=== PATIENT | female | born 1960 | race African-American/Black ===

== ENCOUNTER 2018-01-02 22:10 | Emergency (ER) | payer OTHER ==
[2018-01-02 22:24] VITALS: BMI 33.5
--- NOTE | 2018-01-02 22:26 | PDOC ---
Attending Attestation - Resident Resident Name: Anthony Greenberg - ED Attending Attestation I have performed the following: I have examined & evaluated the patient, The case was reviewed & discussed with the resident, I agree w/resident's findings & plan, Exceptions are as noted <Patel Muro - Last Filed: 01/02/18 22:26> - HPI HPI: 01/02/18 22:39 The patient is a 57 year old female with a past medical history of insulin dependent diabetes, COPD, and hypertension who presents to the [facility] emergency department for uncontrolled blood sugar just prior to arrival. The patient states that today she had a [employer] burger and subsequently acquired a pounding headache. The patient reports that has associated excessive thirst, excessive urination, and dysuria. She reports recent unassociated productive cough with green phlegm for 2 weeks. - Physicial Exam PE: 01/02/18 22:39 GENERAL: Well-appearing, well-nourished. No apparent distress. HEENT: Normocephalic, atraumatic. PERRL, EOM intact. CARDIOVASCULAR: Normal S1, S2. Regular rate and rhythm. PULMONARY: Clear to auscultation bilaterally. ABDOMEN: (+) Obese, soft, non-distended, non-tender. EXTREMITIES: Normal ROM in all four extremities. No gross deformities. SKIN: Warm, dry. No rash NEUROLOGICAL: No focal neurological deficits. - Medical Decision Making 01/02/18 22:39 Documentation prepared by Caio Villela, acting as medical research associate for Patel Muro DO. <Caio Villela - Last Filed: 01/02/18 22:40>
--- NOTE | 2018-01-02 22:27 | PDOC ---
History of Present Illness - General Stated Complaint: Blood Sugar Problem Time Seen by Provider: 01/02/18 22:21 History Source: Patient Exam Limitations: No Limitations - History of Present Illness Initial Comments: 01/02/18 22:27 This is a 57 YOF with h/o IDDM (on insulin and metformin), COPD, HTN, HLD, morbid obesity, and DANIELA who p/w a day of worsening excessive thirst, excessive urination (looks just like water), and throbbing headache for the past couple of hours. She additionally notes recent nausea and cough productive of green sputum, but no vomiting, fever, chills, diarrhea, constipation, rash, vision changes, difficulty walking, or other new symptoms. She notes being adherent to her normal DM regimen but states her blood sugar has been out of control anyway. She has previously been admitted to the hospital for blood sugar control on insulin drip, but does not remember being told she ever had DKA or HHS. Past History - Past Medical History Allergies/Adverse Reactions: Allergies Allergy/AdvReac Type Severity Reaction Status Date / Time No Known Allergies Allergy Verified 01/03/18 02:54 Home Medications: Ambulatory Orders Sulfamethoxazole/Trimethoprim [Bactrim Ds -] 1 tab PO BID #14 tablet 01/03/18 Review of Systems - Review of Systems Able to Perform ROS?: Yes Constitutional: No: Chills, Fever, Unexplained wgt Loss HEENTM: No: Nose Congestion, Throat Pain Respiratory: Yes: Cough. No: Shortness of Breath Cardiac (ROS): No: Chest Pain, Palpitations ABD/GI: Yes: Nausea. No: Constipated, Diarrhea, Vomiting : No: Burning, Dysuria Musculoskeletal: No: Back Pain, Neck Pain Integumentary: No: Bruising, Rash Neurological: Yes: Headache. No: Numbness, Tingling, Weakness, Dizziness Endocrine: Yes: Increased Thirst, Increased Urine. No: Unexplained Weight Gain , Unexplained Weight Loss *Physical Exam - Physical Exam General Appearance: Yes: Nourished, Obese, Other (nontoxic and well appearing, answering questions appropriately). No: Apparent Distress HEENT: positive: EOMI, CHU, Normal Voice, Hearing Grossly Normal. negative: Scleral Icterus (R), Scleral Icterus (L), Nasal Congestion Neck: positive: Trachea midline, Supple. negative: Tender, Rigid Respiratory/Chest: positive: Lungs Clear, Normal Breath Sounds. negative: Respiratory Distress, Crackles, Rhonchi, Stridor, Wheezing Cardiovascular: positive: Regular Rhythm, Regular Rate, S1, S2. negative: Edema , JVD, Murmur Gastrointestinal/Abdominal: positive: Normal Bowel Sounds, Soft. negative: Tender, Organomegaly, Pulsatile Mass, Guarding Musculoskeletal: positive: Normal Inspection. negative: Decreased Range of Motion, Vertebral Tenderness Extremity: positive: Normal Capillary Refill, Normal Inspection, Normal Range of Motion. negative: Tender, Cyanosis Integumentary: positive: Normal Color, Dry, Warm. negative: Erythema, Rash, Bruising Neurologic: positive: continuous improvement specialist II-XII NML intact (grossly), Fully Oriented, Alert, Normal Mood/Affect, Normal Response, Motor Strength 5/5. negative: EOM Palsy, Facial Droop, Numbness, Sensory Deficit, Confused, Disoriented ED Treatment Course - LABORATORY CBC & Chemistry Diagram: 01/02/18 23:00 01/03/18 01:00 Medical Decision Making - Medical Decision Making 01/02/18 22:48 Pt with DM p/w hyperglycemia, polydipsia, polyuria, n/v, abdominal pain, AMS. Exam: Morbidly obese, NAD, answers questions appropriately, normal heart/lung/ abdominal/neuro exams. DDX IBNLT: DKA, HHS, simple hyperglycemia (e.g. stress hyperglycemia), alcoholic ketosis, starvation ketosis, drug-induced acidosis, salicylate toxicity, uremic acidosis, possible provoking factors non-adherence, infection/ inflammation/sepsis (i.e. UTI/pyelonephritis, PNA, bronchitis, skin infection, pancreatitis, etc), EtOH or drug use, ACS, CVA/TIA, renal failure, etc. W/U ordered: CBCD CMP Mg Phos Serum Acetone Trop CK CKMB ABG UA UCx Lactate BCx EKG CXR Initial TX ordered: IVF, potassium, insulin, may consider bicarbonate and phosphate based on labs. 01/02/18 23:56 Chemistries hemolyzed; second set ordered along with cardiac profile, Mg, Phos, acetone. EKG: Reviewed; results as noted in ECG Review section. CXR: NADP on PA&LAT Laboratory Tests 01/02/18 01/02/18 01/02/18 23:00 23:00 23:00 WBC 5.9 RBC 5.13 Hgb 11.7 Hct 37.3 MCV 72.8 L MCH 22.7 L MCHC 31.2 L RDW 14.8 Plt Count 215 MPV 8.9 Absolute Neuts (auto) 3.2 Neutrophils % 55.3 Lymphocytes % 36.1 Monocytes % 6.4 Eosinophils % 1.3 Basophils % 0.9 Nucleated RBC % 0 Sodium Cancelled Potassium Cancelled Chloride Cancelled Carbon Dioxide Cancelled Anion Gap Cancelled BUN Cancelled Creatinine Cancelled Creat Clearance w eGFR Cancelled POC Glucometer Random Glucose Cancelled Calcium Cancelled Phosphorus Cancelled Magnesium Cancelled Total Bilirubin Cancelled AST Cancelled ALT Cancelled Alkaline Phosphatase Cancelled Creatine Kinase Cancelled Creatine Kinase Index CK-MB (CK-2) Troponin I Cancelled Total Protein Cancelled Albumin Cancelled Acetone, Qual Cancelled 01/03/18 01/03/18 01/03/18 00:01 01:00 01:00 WBC RBC Hgb Hct MCV MCH MCHC RDW Plt Count MPV Absolute Neuts (auto) Neutrophils % Lymphocytes % Monocytes % Eosinophils % Basophils % Nucleated RBC % Sodium 139 Potassium 4.3 Chloride 103 Carbon Dioxide 29 Anion Gap 7 L BUN 21 H Creatinine 0.8 Creat Clearance w eGFR > 60 POC Glucometer [phone] Random Glucose 362 H* Calcium 8.9 Phosphorus 4.0 Magnesium 1.9 Total Bilirubin 0.2 AST 12 L ALT 18 Alkaline Phosphatase 157 H Creatine Kinase 151 Creatine Kinase Index 0.8 CK-MB (CK-2) 1.29 Troponin I < 0.02 Total Protein 7.1 Albumin 3.2 L Acetone, Qual 01/03/18 01:00 WBC RBC Hgb Hct MCV MCH MCHC RDW Plt Count MPV Absolute Neuts (auto) Neutrophils % Lymphocytes % Monocytes % Eosinophils % Basophils % Nucleated RBC % Sodium Potassium Chloride Carbon Dioxide Anion Gap BUN Creatinine Creat Clearance w eGFR POC Glucometer Random Glucose Calcium Phosphorus Magnesium Total Bilirubin AST ALT Alkaline Phosphatase Creatine Kinase Creatine Kinase Index CK-MB (CK-2) Troponin I Total Protein Albumin Acetone, Qual Negative L Reassessment: Patient states feeling improved, comfortable going home. Repeat VS: DISCHARGE The Pt has gotten significant relief of symptoms with ED medications. Pt had mild DKA, now anion gap has closed, bicarb improved, no longer acidotic. Workup is no longer concerning for emergency-level pathology at this time. The Pt is appropriate for discharge with close outpatient follow up. They are comfortable with this plan and will follow up with their PCP in 1-3 days. Specific return precautions are discussed and they will come back to the ER if necessary. *DC/Admit/Observation/Transfer Diagnosis at time of Disposition: Hyperglycemia, Cough - Discharge Dispostion Disposition: HOME Condition at time of disposition: Stable Decision to Admit order: No - Prescriptions Prescriptions: Sulfamethoxazole/Trimethoprim [Bactrim Ds -] 1 tab PO BID #14 tablet - Referrals Referrals: [facility] [place] [facility] [place] [Provider Group] - Patient Instructions Printed Discharge Instructions: DI for Hyperglycemia -- Adult Additional Instructions: You were seen in the ER for high blood sugar. We did blood laboratories, imaging studies, and an electrocardiogram, and there was nothing detected on this workup that requires admission to the hospital. We also checked your urine and found a urinary tract infection. We gave you your first dose of antibiotic here in the ER. After our assessment, we do not believe you are having a medical emergency at this time, and we believe you are safe to go home. Please tack picker your prescription for antibiotics which we are sending to your pharmacy. Please take all your diabetes medications as prescribed. 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 Please follow up with your regular PCP doctor in 1-3 days. Call their clinic as soon as possible, tell them you were seen in the ER, and tell them you need an appointment. If you have any new or worsening symptoms, especially inability to control your blood sugars, loss of consciousness, excessive thirst or urination, abdominal pain, or other symptoms , please come back to the ER at any time (24 hours a day). If you are having severe or life threatening symptoms, or symptoms that make it unsafe to drive or have someone drive you, please call 911. - Post Discharge Activity
[2018-01-02] MEDS ORDERED: SODIUM CHLORIDE 0.9% 500 ML INFUS.BAG IV ONE (22:32)
[2018-01-02] MEDS ORDERED: ACETAMINOPHEN 1000 MG/100 ML VIAL (NON FORMULARY) IVPB ONE (22:32)
[2018-01-02] MEDS ORDERED: MAG HYDROX/AL HYDROX/SIMETH 30 ML UNIT-DOSE CUP ONE (23:12)
[2018-01-02 23:40] LABS: BASO % 0.9 % (0-2.0); EOS % 1.3 % (0-4.5); HEMATOCRIT 37.3 % (32.4-45.2); HEMOGLOBIN 11.7 GM/dL (10.7-15.3); LYMPH % 36.1 % (8-40); MCH 22.7 pg (25.7-33.7); MCHC 31.2 g/dl (32.0-36.0); MEAN CELL VOLUME 72.8 fl (80-96); MEAN PLT VOLUME 8.9 fl (7.5-11.1); MONO % 6.4 % (3.8-10.2); NEUT % 55.3 % (42.8-82.8); PLATELET COUNT 215 K/MM3 (134-434); RBC 5.13 M/mm3 (3.60-5.2); RDW 14.8 % (11.6-15.6); WHITE BLOOD COUNT 5.9 K/mm3 (4.0-10.0)
[2018-01-03 01:41] LABS: ALBUMIN 3.2 g/dl (3.4-5.0); ALK PHOS 157 U/L (45-117); ANION GAP 7 (8-16); BILIRUBIN,TOTAL 0.2 mg/dL (0.2-1.0); BLOOD UREA NITROGEN 21 mg/dL (7-18); CALCIUM 8.9 mg/dL (8.5-10.1); CHLORIDE 103 mmol/L (98-107); CO2 29 mmol/L (21-32); CREATININE 0.8 mg/dL (0.55-1.02); MAGNESIUM 1.9 mg/dL (1.8-2.4); POTASSIUM 4.3 mmol/L (3.5-5.1); SGOT/AST 12 U/L (15-37); SGPT/ALT 18 U/L (12-78); SODIUM 139 mmol/L (136-145); TOT PROT 7.1 g/dl (6.4-8.2)
[2018-01-03 01:42] LABS: GLUCOSE,RANDOM 362 mg/dL (74-106)
[2018-01-03] MEDS ORDERED: INSULIN REGULAR HUMAN 100 UNITS/ML *VIAL IVPUSH ONE (02:05)
[2018-01-03 03:09] VITALS: TEMP 97.6
[2018-01-03 04:09] LABS: URINE APPEARANCE SLCLOUDY; URINE BILIRUBIN NEGATIVE (<2.0 mg/dL); URINE COLOR LTYELLOW; URINE GLUCOSE (UA) 3+ (NEGATIVE); URINE KETONE NEGATIVE (NEGATIVE); URINE NITRITE NEGATIVE (NEGATIVE); URINE PROTEIN NEGATIVE (NEGATIVE); URINE UROBILINOGEN NEGATIVE mg/dL (0.2-1.0)
[2018-01-03 04:23] LABS: URINE LEUK ESTERASE 2+ (NEGATIVE)
[2018-01-03 04:24] LABS: EPI CELLS MODERATE /HPF (FEW); URINE MUCUS RARE
[2018-01-03] MEDS ORDERED: SULFAMETHOXAZOLE/TRIMETHOPRIM 800MG/160MG D.S. TABLET PO ONE (04:24)
[2018-01-03] MEDS ORDERED: SULFAMETHOXAZOLE/TRIMETHOPRIM 800MG/160MG D.S. TABLET ONE (05:03)
--- NOTE | 2018-01-05 08:05 | PDOC ---
Patient Follow-up (Call Back) - Post ED Follow - Up Condition at time of discharge: Stable Disposition at time of original discharge: HOME Reason for Call Back: Abnwl. Microbiology (On bactrim. Will await final.)
== END 2018-01-03 06:58 | disposition home or self-care (01) ==
LOC: JER 22:10
PROC: 3E033GC Introduction of Other Therapeutic Substance into Peripheral Vein, Percutaneous Approach (ICD-10-PCS; principal; 2018-01-02)
PROC: 3E033VG Introduction of Insulin into Peripheral Vein, Percutaneous Approach (ICD-10-PCS; 2018-01-02)
DX: E11.65 Type 2 diabetes mellitus with hyperglycemia (principal); Z79.4 Long term (current) use of insulin; Z79.84 Long term (current) use of oral hypoglycemic drugs; I10 Essential (primary) hypertension; E78.5 Hyperlipidemia, unspecified; J44.9 Chronic obstructive pulmonary disease, unspecified; G47.33 Obstructive sleep apnea (adult) (pediatric); E66.9 Obesity, unspecified; Z68.33 Body mass index [BMI] 33.0-33.9, adult
CPT/HCPCS: 36415; 71045-TC-FY; 71046-TC-FY; 80053; 81003; 81015; 82009; 82550; 82553; 82962; 83735; 84100; 84484; 85025; 87086; 87186; 99283-25; J0131

== ENCOUNTER 2018-01-20 18:52 | Emergency (ER) | payer OTHER ==
[2018-01-20 19:07] VITALS: BP 138/68; PULSE 68; TEMP 97.7; BMI 56.6
[2018-01-20] MEDS ORDERED: SODIUM CHLORIDE 0.9% 1000 ML INFUS.BAG IV ONE (19:25)
--- NOTE | 2018-01-20 19:43 | PDOC ---
History of Present Illness - General Chief Complaint: Blood Sugar Problem Stated Complaint: DIABETIC Time Seen by Provider: 01/20/18 19:13 History Source: Patient Exam Limitations: No Limitations - History of Present Illness Initial Comments: 01/20/18 19:30 The patient is a 57F with a PMH of recently diagnosed UTI (did not take abx 2/2 inability to afford them), IDDM (on insulin and metformin), COPD, HTN, HLD, morbid obesity, and DANIELA who presents to the ER with complaints of weakness, "blood sugar problem", and dysuria. The patient was recently seen in our ER and diagnosed with a UTI and hasn't taken antibiotics due to being unable to afford them. She continues to complain of dysuria, fever, chills. She also states that she's been unable to control her blood glucose because she cannot afford her insulin. She has been taking her metformin. She also states that she feels generalized weakness. She denies fever, chills, nausea, vomiting, CP, new SOB, focal numbness, tingling, and weakness. Past History - Past Medical History Allergies/Adverse Reactions: Allergies Allergy/AdvReac Type Severity Reaction Status Date / Time No Known Allergies Allergy Verified 01/20/18 19:46 Home Medications: Ambulatory Orders Amlodipine Besylate [Norvasc -] 10 mg PO DAILY 01/20/18 Atorvastatin Ca [Lipitor] 40 mg PO HS 01/20/18 Cephalexin [Keflex] 500 mg PO TID #21 capsule 01/20/18 Insulin Glargine,Hum.rec.anlog [Lantus] 24 unit SQ BID 01/20/18 Metformin HCl [Metformin HCl ER] 1,000 mg PO BID 01/20/18 Tiotropium [place] [Spiriva Respimat] 4 gm IH DAILY 01/20/18 COPD: Yes Diabetes: Yes (IDDM) Hypercholesterolemia: Yes - Immunization History Immunization Up to Date: Yes - Suicide/Smoking/Psychosocial Hx Smoking History: Former smoker Have you smoked in the past 12 months: Yes If you are a former smoker, when did you quit?: Information on smoking cessation initiated: Yes Hx Alcohol Use: No Drug/Substance Use Hx: No Substance Use Type: None Review of Systems - Review of Systems Able to Perform ROS?: Yes Comments:: 01/20/18 19:43 GENERAL/CONSTITUTIONAL: Positive for generalized weakness. No fever or chills. HEAD, EYES, EARS, NOSE AND THROAT: No change in vision. No ear pain or discharge. No sore throat. CARDIOVASCULAR: No chest pain, palpitations, or lightheadedness. RESPIRATORY: No cough, wheezing, shortness of breath, or hemoptysis. GASTROINTESTINAL: No nausea, vomiting, diarrhea, constipation, or abdominal pain. GENITOURINARY: Positive for dysuria. No frequency, hematuria, or change in urination. MUSCULOSKELETAL: No joint or muscle swelling or pain. No neck or back pain. SKIN: No rash or lesions. NEUROLOGIC: No headache, numbness, tingling, weakness, loss of consciousness, or change in strength/sensation. ENDOCRINE: No increased thirst. No abnormal weight change. HEMATOLOGIC/LYMPHATIC: No anemia, easy bleeding, or history of blood clots. ALLERGIC/IMMUNOLOGIC: No hives or skin allergy. Is the patient limited Stateless proficient: No *Physical Exam - Vital Signs Last Vital Signs Temp Pulse Resp BP Pulse Ox 97.7 F 68 20 138/68 100 01/20/18 18:57 01/20/18 18:57 01/20/18 18:57 01/20/18 18:57 01/20/18 18:57 - Physical Exam Comments: 01/20/18 19:43 GENERAL: Well developed, well nourished. Awake and alert. No acute distress. HEENT: Normocephalic, atraumatic. Hearing grossly normal. Moist mucous membranes. PERRLA, EOMI. No conjunctival pallor. Sclera are non-icteric. NECK: Supple. Full ROM. No JVD. CARDIOVASCULAR: Regular rate and rhythm. No murmurs, rubs, or gallops. PULMONARY: No evidence of respiratory distress. Lungs clear to auscultation bilaterally. No wheezing, rales or rhonchi. ABDOMINAL: Soft. Non-tender. Distended. No rebound or guarding. GENITOURINARY: No CVA tenderness bilaterally. MUSCULOSKELETAL: Normal range of motion at all joints. No bony deformities or tenderness. EXTREMITIES: No cyanosis. No clubbing. No edema. No calf tenderness or swelling. SKIN: Warm and dry. Normal capillary refill. No rashes. No jaundice. NEUROLOGICAL: Alert, awake, appropriate. Cranial nerves 2-12 intact. Normal speech. Gait is normal without ataxia. PSYCHIATRIC: Cooperative. Good eye contact. Appropriate mood and affect. Heart Score/ECG Review #1 ECG reviewed & interpreted by me at: 19:49 General ECG Interpretation: Sinus Rhythm, Normal Rate, Normal Intervals, No acute ischemic changes Compared to previous ECG there are: Previous ECG unavail 01/20/18 19:49 NSR vent rate at 75 RI 216 QRS 100 QTc 424 1st degree AV block No STD or CHAGO No signs of acute ischemia No prior to compare. ED Treatment Course - LABORATORY CBC & Chemistry Diagram: 01/20/18 20:00 01/20/18 20:00 Medical Decision Making - Medical Decision Making 01/20/18 19:49 The patient is a 57F with an extensive PMH who presents to the ER with complaints of inability to control her blood sugar, weakness, and continued UTI symptoms. She does have a PCP that she follows up with at [facility]. She states she cannot afford her bactrim for the UTI and she cannot afford her insulin. Will order basic labs including ketones to r/o DKA. Will hydrate patient and reassess. 01/20/18 21:08 CBC WNL, CMP indicating hyperglycemia. UA indicates continued UTI. Will give dose of ceftriaxone in ED as well as continue hydration. Will give home dose of insulin and give pt a meal and repeat FS. 01/20/18 22:13 Repeat FS is 297. Pt comfortable. We are arranging for transportation and have sent a prescription to her pharmacy to continue abx for the UTI. Pt understands and is ready for d/c. *DC/Admit/Observation/Transfer Diagnosis at time of Disposition: Hyperglycemia UTI (urinary tract infection) Qualifiers: Urinary tract infection type: site unspecified Hematuria presence: without hematuria Qualified Code(s): N39.0 - Urinary tract infection, site not specified - Discharge Dispostion Disposition: HOME Condition at time of disposition: Stable Decision to Admit order: No - Prescriptions Prescriptions: Cephalexin [Keflex] 500 mg PO TID #21 capsule - Referrals - Patient Instructions Additional Instructions: Please follow up with your primary care physician in 2-3 days. Please return to the ER if you have any signs or symptoms of chest pain, shortness of breath, uncontrollable fever, chills, nausea, vomiting, numbness, tingling, or weakness in any part of your body, changes in vision, or slurred speech. Please take your medications as prescribed. Please return to the ER if symptoms persist, worsen, or new symptoms arise. - Post Discharge Activity
--- NOTE | 2018-01-20 19:45 | PDOC ---
Attending Attestation - HPI HPI: 01/20/18 20:39 Patient is a 57 year old female with a significant past medical history of IDDM (on insulin and metformin), COPD, HTN, HLD, morbid obesity, and DANIELA, who presents to the ED with complaints of general weakness that began x4 weeks ago. Patient reports experiencing gradual weakness that she states has increased over time, prompting her to come into the ED for further evaluation. She reports being diagnosed with UTI 1.5 weeks ago from after going to clinic. Patient reports experiencing associated symptoms of dysuria, and urinary frequency, stating applying vaginal cortisone cream to the area with minimal relief. She reports being prescribed bactrim for UTI but states she has been non compliant due to being unable afford medication. Denies chest pain, fevers,chills. Denies contact with sick individuals, out of state travelling. Denies diarrhea, constipation, hematuria. Denies any other symptoms. Allergies: None Social history: Former smoker. No alcohol. No illicit drugs. Surgical history: Non - Physicial Exam PE: 01/20/18 20:39 GENERAL: Awake, alert, and fully oriented, in no acute distress HEAD: No signs of trauma EYES: PERRLA, EOMI, sclera anicteric, conjunctiva clear ENT: Auricles normal inspection, hearing grossly normal, nares patent, oropharynx clear without exudates. Moist mucosa NECK: Normal ROM, supple, no lymphadenopathy, JVD, or masses LUNGS: Breath sounds equal, clear to auscultation bilaterally. No wheezes, and no crackles HEART: Regular rate and rhythm, normal S1 and S2, no murmurs, rubs or gallops ABDOMEN: Soft, nontender, normoactive bowel sounds. No guarding, no rebound. No masses EXTREMITIES: Normal range of motion, no edema. No clubbing or cyanosis. No cords, erythema, or tenderness NEUROLOGICAL: Cranial nerves II through XII grossly intact. Normal speech, normal gait SKIN: Warm, Dry, normal turgor, no rashes or lesions noted. <Leon Joseph - Last Filed: 01/20/18 20:39> - Resident Resident Name: Guillermo Robison - ED Attending Attestation I have performed the following: I have examined & evaluated the patient, The case was reviewed & discussed with the resident, I agree w/resident's findings & plan - Medical Decision Making 01/20/18 22:10 Pt's labs demonstrate elevated glc; no acetone. She will be discharged home. UTI will be treated wt keflex. <Sirisha Pierre - Last Filed: 01/20/18 22:12>
[2018-01-20] MEDS ORDERED: FLUCONAZOLE 50 MG TABLET PO ONE (19:54)
[2018-01-20 20:14] LABS: BASO % 0.3 % (0-2.0); EOS % 1.6 % (0-4.5); HEMATOCRIT 36.3 % (32.4-45.2); HEMOGLOBIN 11.3 GM/dL (10.7-15.3); LYMPH % 48.3 % (8-40); MCH 22.6 pg (25.7-33.7); MCHC 31.2 g/dl (32.0-36.0); MEAN CELL VOLUME 72.3 fl (80-96); MEAN PLT VOLUME 8.3 fl (7.5-11.1); MONO % 8.2 % (3.8-10.2); NEUT % 41.6 % (42.8-82.8); PLATELET COUNT 220 K/MM3 (134-434); RBC 5.02 M/mm3 (3.60-5.2); RDW 15.1 % (11.6-15.6); WHITE BLOOD COUNT 6.1 K/mm3 (4.0-10.0)
[2018-01-20 20:14] LABS: URINE APPEARANCE SLCLOUDY; URINE BILIRUBIN NEGATIVE (<2.0 mg/dL); URINE COLOR LTYELLOW; URINE GLUCOSE (UA) 3+ (NEGATIVE); URINE KETONE NEGATIVE (NEGATIVE); URINE NITRITE NEGATIVE (NEGATIVE); URINE PROTEIN NEGATIVE (NEGATIVE); URINE UROBILINOGEN NEGATIVE mg/dL (0.2-1.0)
[2018-01-20 20:16] LABS: URINE LEUK ESTERASE 3+ (NEGATIVE)
[2018-01-20] MEDS ORDERED: FLUCONAZOLE 100 MG TABLET (UD) ONE (20:22)
[2018-01-20 20:24] LABS: EPI CELLS FEW /HPF (FEW); URINE MUCUS RARE
[2018-01-20] MEDS ORDERED: CEFTRIAXONE 1,000 MG in DEXTROSE 5%-WATER - 50 ML IVPB ONE (20:33)
[2018-01-20 20:35] LABS: ALBUMIN 3.2 g/dl (3.4-5.0); ALK PHOS 185 U/L (45-117); ANION GAP 9 (8-16); BILIRUBIN,TOTAL 0.2 mg/dL (0.2-1.0); BLOOD UREA NITROGEN 18 mg/dL (7-18); CALCIUM 8.6 mg/dL (8.5-10.1); CHLORIDE 101 mmol/L (98-107); CO2 26 mmol/L (21-32); CREATININE 0.9 mg/dL (0.55-1.02); POTASSIUM 4.1 mmol/L (3.5-5.1); SGOT/AST 11 U/L (15-37); SGPT/ALT 17 U/L (12-78); SODIUM 136 mmol/L (136-145); TOT PROT 6.7 g/dl (6.4-8.2)
[2018-01-20 20:37] LABS: ACETONE SERUM NEGATIVE (NEGATIVE); GLUCOSE,RANDOM 395 mg/dL (74-106)
[2018-01-20] MEDS ORDERED: INSULIN REGULAR HUMAN 100 UNITS/ML *VIAL IVPUSH ONE (20:37)
[2018-01-20] MEDS ORDERED: CEFTRIAXONE 1 GM/50 ML BAG ONE (20:42)
[2018-01-20] MEDS ORDERED: INSULIN REGULAR HUMAN 100 UNITS/ML *VIAL ONE (20:43)
--- NOTE | 2018-01-21 13:28 | EKG ---
Test Reason : Blood Pressure : / mmHG Vent. Rate : 074 BPM Atrial Rate : 074 BPM P-R Int : 216 ms QRS Dur : 102 ms QT Int : 378 ms P-R-T Axes : -03 -09 041 degrees QTc Int : 419 ms SINUS RHYTHM WITH 1ST DEGREE A-V BLOCK SEPTAL INFARCT , AGE UNDETERMINED ABNORMAL ECG NO PREVIOUS ECGS AVAILABLE Confirmed by CARLOS SAINI MD ([id number]) on 01/21/2018 1:28:13 PM Referred By: Confirmed By:CARLOS SAINI MD
== END 2018-01-20 22:39 | disposition home or self-care (01) ==
LOC: JER 18:52
DX: E11.65 Type 2 diabetes mellitus with hyperglycemia (principal); Z79.4 Long term (current) use of insulin; J44.9 Chronic obstructive pulmonary disease, unspecified; I10 Essential (primary) hypertension; E78.5 Hyperlipidemia, unspecified; G47.33 Obstructive sleep apnea (adult) (pediatric); E66.01 Morbid (severe) obesity due to excess calories; Z68.43 Body mass index [BMI] 50.0-59.9, adult; Z87.440 Personal history of urinary (tract) infections
CPT/HCPCS: 36415; 80053; 81003; 81015; 82009; 82962; 85025; 93005; 93010; 99282-25; J7030

== ENCOUNTER 2018-03-12 08:03 | Emergency (ER) | payer OTHER ==
[2018-03-12 08:13] VITALS: BMI 43.0
--- NOTE | 2018-03-12 08:46 | PDOC ---
Attending Attestation - Resident Resident Name: AdrianaHiginio - ED Attending Attestation I have performed the following: I have examined & evaluated the patient, The case was reviewed & discussed with the resident, I agree w/resident's findings & plan, Exceptions are as noted - HPI HPI: 03/12/18 14:16 Ms Dean is a 57 yo f presenting to the ER with a complaint of generalized weakness. She has a h/o COPD, HTN, IDDM, presenting to the ER with hyperglycemia. She notes upper respiratory infection - cough and sputum production She denies the following: fevers, chilld, headaches, dysuria, hematuria, hematochezia, melena, diarrhea, and leg pain/swelling. - Physicial Exam PE: 03/12/18 11:22 GENERAL: The patient is in no acute distress. HEAD: Normal . EYES: PERRLA, EOMI, sclera anicteric, conjunctiva clear. ENT: Ears normal, nares patent, oropharynx clear without exudates. Moist mucous membranes. NECK: Normal range of motion, supple without lymphadenopathy, JVD, or masses. LUNGS: Breath sounds equal, clear to auscultation bilaterally. No wheezes, and no crackles. HEART:Regular rate and rhythm, normal S1 and S2 without murmur, rub or gallop. ABDOMEN: Soft, nontender, normoactive bowel sounds. No guarding, no rebound. No masses palpable. EXTREMITIES: Normal range of motion, no edema. No clubbing or cyanosis. No erythema, or tenderness. NEUROLOGICAL: Cranial nerves II through XII grossly intact. Normal speech. No focal neurological deficits. MUSCULOSKELETAL: Back non-tender to palpation, no CVA tenderness SKIN: Warm, Dry, normal turgor, no rashes or lesions noted. - Medical Decision Making 03/12/18 11:22 Laboratory Tests 03/12/18 03/12/18 09:20 10:25 WBC 4.5 Hgb 12.5 Hct 40.8 Plt Count 206 Neutrophils % 41.5 L Lymphocytes % 47.0 H Sodium 138 Potassium 4.4 Chloride 100 Carbon Dioxide 30 BUN 14 Creatinine 0.8 Random Glucose 365 H* Creatine Kinase 146 Troponin I < 0.02 03/12/18 14:18 CXR: nml will discharge to home Follow up with PMD
[2018-03-12] MEDS ORDERED: SODIUM CHLORIDE 1,000 ML IV STA (08:53)
--- NOTE | 2018-03-12 09:04 | PDOC ---
History of Present Illness - General Chief Complaint: Blood Sugar Problem Stated Complaint: PAIN Time Seen by Provider: 03/12/18 08:12 History Source: Patient Exam Limitations: No Limitations - History of Present Illness Initial Comments: 03/12/18 13:14 Ms. Dean is a 57 yo F with a hx of COPD, HTN, DM, DANIELA, and GERD who presents to the emergency department with hyperglycemia with concurrent bilateral LE weakness and mild SOB without exertion. She is normally in the high 100s low 200s, but states her BG was 478. She normally uses 24 units of lantus BID and metformin 1000 mg BID but intermittently checks her BG with last check the past Sunday. She lives in a fpc and has had contact with people who are sick and endorses having a cough with production for the past 3 weeks. Endorses the following: rhinorrhea. Denies the following: fevers, headaches, recent visual changes, chest pain, abdominal pain, dysuria, hematuria, hematochezia, melena, diarrhea, and leg pain/swelling. Past History - Past Medical History Allergies/Adverse Reactions: Allergies Allergy/AdvReac Type Severity Reaction Status Date / Time No Known Allergies Allergy Verified 03/12/18 08:05 Home Medications: Ambulatory Orders Amlodipine Besylate [Norvasc -] 10 mg PO DAILY 01/20/18 Atorvastatin Ca [Lipitor] 40 mg PO HS 01/20/18 Insulin Glargine,Hum.rec.anlog [Lantus] 24 unit SQ BID 01/20/18 Metformin HCl [Metformin HCl ER] 1,000 mg PO BID 01/20/18 Tiotropium [place] [Spiriva Respimat] 4 gm IH DAILY 01/20/18 COPD: Yes Diabetes: Yes (IDDM, non compliant) Hypercholesterolemia: Yes - Immunization History Immunization Up to Date: Yes - Suicide/Smoking/Psychosocial Hx Smoking History: Current every day smoker Have you smoked in the past 12 months: Yes Number of Cigarettes Smoked Daily: 3 If you are a former smoker, when did you quit?: Information on smoking cessation initiated: No Hx Alcohol Use: No Drug/Substance Use Hx: No Substance Use Type: None Review of Systems - Review of Systems Able to Perform ROS?: Yes Constitutional: No: Chills, Diaphoresis, Fever HEENTM: No: Recent change in vision, Ear Pain, Nose Pain, Throat Pain, Mouth Pain Respiratory: Yes: Cough, Shortness of Breath, Productive cough. No: SOB with Exertion Cardiac (ROS): No: Chest Pain, Palpitations, Syncope, Chest Tightness ABD/GI: No: Constipated, Diarrhea, Nausea, Poor Fluid Intake, Rectal Bleeding, Vomiting, Tarry Stools : No: Burning, Dysuria, Incontinence, Pain Musculoskeletal: No: Back Pain Integumentary: No: Rash Neurological: No: Headache, Numbness, Paresthesia, Tremors, Weakness, Unsteady Gait, Dizziness Psychiatric: No: Stressors Endocrine: No: Unexplained Weight Gain Hematologic/Lymphatic: No: Anemia *Physical Exam - Vital Signs Last Vital Signs Temp Pulse Resp BP Pulse Ox 97.8 F 80 20 162/77 97 03/12/18 08:30 03/12/18 08:05 03/12/18 08:05 03/12/18 08:05 03/12/18 08:32 - Physical Exam General Appearance: Yes: Nourished, Appropriately Dressed HEENT: positive: EOMI, CHU Neck: positive: Trachea midline. negative: Lymphadenopathy (R), Lymphadenopathy (L) Respiratory/Chest: positive: Other (decreased inspiratory breath sounds. expiratory wheezes mildly throughout the lungs) Cardiovascular: positive: Regular Rhythm, Regular Rate, S1, S2. negative: Edema , Systolic Murmur Vascular Pulses: Dorsalis-Pedis (R): 3+, Doralis-Pedis (L): 3+ Gastrointestinal/Abdominal: positive: Normal Bowel Sounds. negative: Tender Musculoskeletal: positive: Normal Inspection. 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 elevations or depressions noted. ED Treatment Course - LABORATORY CBC & Chemistry Diagram: 03/12/18 09:20 03/12/18 10:25 - RADIOLOGY Radiology Studies Ordered: Category Date Time Status CHEST PA & LAT [RAD] Stat Radiology 03/12/18 08:53 Ordered Medical Decision Making - Medical Decision Making Ms. Dean is a 57 yo F with multiple significant past medical histories presenting with hyperglycemia possibly 2/2 to infectious etiology given hx of new onset of productive cough for past 3 weeks. ddx: HHS, DKA, PNA, URI, inadequate medication control Initial vitals Initial Vital Signs Temp Pulse Resp BP Pulse Ox 96.0 F L 80 20 162/77 99 03/12/18 08:05 03/12/18 08:05 03/12/18 08:05 03/12/18 08:05 03/12/18 08:05 Work up: Laboratory Tests 03/12/18 03/12/18 03/12/18 09:20 09:20 09:20 WBC 4.5 RBC 5.54 H Hgb 12.5 Hct 40.8 MCV 73.6 L MCH 22.6 L MCHC 30.8 L RDW 16.0 H Plt Count 206 MPV 8.8 Absolute Neuts (auto) 1.9 Neutrophils % 41.5 L Lymphocytes % 47.0 H Monocytes % 7.8 Eosinophils % 3.3 D Basophils % 0.4 Nucleated RBC % 0 Sodium Cancelled Potassium Cancelled Chloride Cancelled Carbon Dioxide Cancelled Anion Gap Cancelled BUN Cancelled Creatinine Cancelled Creat Clearance w eGFR Cancelled POC Glucometer Random Glucose Cancelled Calcium Cancelled Phosphorus Magnesium Total Bilirubin Cancelled AST Cancelled ALT Cancelled Alkaline Phosphatase Cancelled Creatine Kinase Cancelled Troponin I Cancelled Total Protein Cancelled Albumin Cancelled Urine Color Straw Urine Appearance Clear Urine pH 6.0 Ur Specific [place] 1.030 Urine Protein Negative Urine Glucose (UA) 3+ H Urine Ketones Negative Urine Blood Negative Urine Nitrite Negative Urine Bilirubin Negative Urine Urobilinogen Negative Ur Leukocyte Esterase Negative 03/12/18 03/12/18 03/12/18 10:20 10:25 13:10 WBC RBC Hgb Hct MCV MCH MCHC RDW Plt Count MPV Absolute Neuts (auto) Neutrophils % Lymphocytes % Monocytes % Eosinophils % Basophils % Nucleated RBC % Sodium 138 Potassium 4.4 Chloride 100 Carbon Dioxide 30 Anion Gap 8 BUN 14 Creatinine 0.8 Creat Clearance w eGFR > 60 POC Glucometer [phone] Random Glucose 365 H* Calcium 8.9 Phosphorus 3.3 Magnesium 2.0 Total Bilirubin 0.3 AST 13 L ALT 17 Alkaline Phosphatase 162 H Creatine Kinase 146 Troponin I < 0.02 Total Protein 7.2 Albumin 3.2 L Urine Color Urine Appearance Urine pH Ur Specific [place] Urine Protein Urine Glucose (UA) Urine Ketones Urine Blood Urine Nitrite Urine Bilirubin Urine Urobilinogen Ur Leukocyte Esterase CXR shows no active pulmonary disease. Pt states last time she checked her sugars was sunday and contineus to take the same amount of insulin despite the level. likely she has inadequate medication levels for her BG. Was given 10 units of insulin and a meal with her BG reducing to 203. The patient was amendable to discharge with close follow up with our internal medicine clinic. Dispo: Home *DC/Admit/Observation/Transfer Diagnosis at time of Disposition: Hyperglycemia, Cough - Discharge Dispostion Disposition: HOME Decision to Admit order: No - Referrals Ref[place]: [facility] [place] [facility] [place] Group] - Patient Instructions Printed Discharge Instructions: DI for Hyperglycemia -- Adult - Post Discharge Activity
[2018-03-12 09:58] LABS: BASO % 0.4 % (0-2.0); EOS % 3.3 % (0-4.5); HEMATOCRIT 40.8 % (32.4-45.2); HEMOGLOBIN 12.5 GM/dL (10.7-15.3); MCH 22.6 pg (25.7-33.7); MCHC 30.8 g/dl (32.0-36.0); MEAN CELL VOLUME 73.6 fl (80-96); MEAN PLT VOLUME 8.8 fl (7.5-11.1); MONO % 7.8 % (3.8-10.2); NEUT % 41.5 % (42.8-82.8); PLATELET COUNT 206 K/MM3 (134-434); RBC 5.54 M/mm3 (3.60-5.2); WHITE BLOOD COUNT 4.5 K/mm3 (4.0-10.0)
[2018-03-12 10:52] LABS: ALBUMIN 3.2 g/dl (3.4-5.0); ALK PHOS 162 U/L (45-117); ANION GAP 8 MMOL/L (8-16); BILIRUBIN,TOTAL 0.3 mg/dL (0.2-1.0); BLOOD UREA NITROGEN 14 mg/dL (7-18); CALCIUM 8.9 mg/dL (8.5-10.1); CHLORIDE 100 mmol/L (98-107); CO2 30 mmol/L (21-32); CREATININE 0.8 mg/dL (0.55-1.02); PHOSPHOROUS 3.3 mg/dL (2.5-4.9); POTASSIUM 4.4 mmol/L (3.5-5.1); SGOT/AST 13 U/L (15-37); SGPT/ALT 17 U/L (12-78); SODIUM 138 mmol/L (136-145); TOT PROT 7.2 g/dl (6.4-8.2)
[2018-03-12 11:01] LABS: GLUCOSE,RANDOM 365 mg/dL (74-106)
[2018-03-12 11:26] LABS: URINE APPEARANCE CLEAR; URINE BILIRUBIN NEGATIVE (<2.0 mg/dL); URINE COLOR STRAW; URINE GLUCOSE (UA) 3+ (NEGATIVE); URINE KETONE NEGATIVE (NEGATIVE); URINE LEUK ESTERASE NEGATIVE (NEGATIVE); URINE NITRITE NEGATIVE (NEGATIVE); URINE PROTEIN NEGATIVE (NEGATIVE); URINE UROBILINOGEN NEGATIVE mg/dL (0.2-1.0)
[2018-03-12] MEDS ORDERED: INSULIN REGULAR HUMAN 100 UNITS/ML *VIAL IVPUSH ONE (11:46)
[2018-03-12] MEDS ORDERED: INSULIN REGULAR HUMAN 100 UNITS/ML *VIAL ONE (12:07)
--- NOTE | 2018-03-12 14:33 | EKG ---
Test Reason : Blood Pressure : / mmHG Vent. Rate : 082 BPM Atrial Rate : 082 BPM P-R Int : 186 ms QRS Dur : 104 ms QT Int : 386 ms P-R-T Axes : 053 -03 036 degrees QTc Int : 450 ms NORMAL SINUS RHYTHM WITH SINUS ARRHYTHMIA SEPTAL INFARCT (CITED ON OR BEFORE 20-JAN-2018) ABNORMAL ECG WHEN COMPARED WITH ECG OF 20-JAN-2018 19:22, ID INTERVAL HAS DECREASED QUESTIONABLE CHANGE IN INITIAL FORCES OF SEPTAL LEADS Confirmed by Abram Solorzano ([id number]) on 03/12/2018 2:33:00 PM Referred By: Confirmed By:Abram Solorzano
[2018-03-12 15:40] VITALS: BP 155/71; PULSE 77; TEMP 98.1
== END 2018-03-12 15:39 | disposition home or self-care (01) ==
LOC: JER 08:03
PROC: 3E0337Z Introduction of Electrolytic and Water Balance Substance into Peripheral Vein, Percutaneous Approach (ICD-10-PCS; principal; 2018-03-12)
PROC: 3E033VG Introduction of Insulin into Peripheral Vein, Percutaneous Approach (ICD-10-PCS; 2018-03-12)
DX: E11.65 Type 2 diabetes mellitus with hyperglycemia (principal); Z79.1 Long term (current) use of non-steroidal anti-inflammatories (NSAID); Z79.84 Long term (current) use of oral hypoglycemic drugs; I10 Essential (primary) hypertension; J44.9 Chronic obstructive pulmonary disease, unspecified; K21.9 Gastro-esophageal reflux disease without esophagitis; G47.33 Obstructive sleep apnea (adult) (pediatric)
CPT/HCPCS: 36415; 71046-TC-FY; 80053; 81003; 82550; 82962; 83735; 84100; 84484; 85025; 87086; 87186; 93005; 93010; 96361; 96374; 99285-25; J7030

== ENCOUNTER 2018-06-21 11:00 | Emergency (ER) | payer OTHER ==
[2018-06-21 11:18] VITALS: TEMP 97.6; BMI 42.7
--- NOTE | 2018-06-21 11:52 | PDOC ---
History of Present Illness - General Chief Complaint: Shortness of Breath Stated Complaint: SOB Time Seen by Provider: 06/21/18 11:42 - History of Present Illness Initial Comments: The patient is a 57F w/ a history of COPD, T2DM, HTN, and HLD who presents for evaluation of 3-4d of worsening shortness of breath and lightheadedness that started at rest initially and is worsened with exertion. She has also not recently been taking her COPD medications 2/2 not being able to get to the drug store. She endorses chills and myalgias Endorses polydipsia and polyuria Denies fevers, HAIRSTON, vision changes, chest pain, abdominal pain, N/V/C/D, dysuria , or hematuria Denies recent travel or surgery 06/21/18 11:52 Past History - Past Medical History Allergies/Adverse Reactions: Allergies Allergy/AdvReac Type Severity Reaction Status Date / Time No Known Allergies Allergy Verified 03/12/18 08:05 Home Medications: Ambulatory Orders Amlodipine Besylate [Norvasc -] 10 mg PO DAILY 01/20/18 Atorvastatin Ca [Lipitor] 40 mg PO HS 01/20/18 Insulin Glargine,Hum.rec.anlog [Lantus] 24 unit SQ BID 01/20/18 Metformin HCl [Metformin HCl ER] 1,000 mg PO BID 01/20/18 Tiotropium [place] [Spiriva Respimat] 4 gm IH DAILY 01/20/18 Cephalexin [Keflex] 500 mg PO BID #14 capsule 03/15/18 Albuterol 0.083% Nebulizer [place] [Ventolin 0.083% Nebulizer Soln -] 1 amp NEB Q6H PRN #1 amp 06/21/18 Nebulizer and Compressor [[place] Choice Nebulizer] 1 each QID #1 each COPD: Yes Diabetes: Yes (IDDM, non compliant) Hypercholesterolemia: Yes - Immunization History Immunization Up to Date: Yes - Suicide/Smoking/Psychosocial Hx Smoking History: Never smoked Have you smoked in the past 12 months: No Number of Cigarettes Smoked Daily: 3 If you are a former smoker, when did you quit?: Hx Alcohol Use: No Drug/Substance Use Hx: No Substance Use Type: None Review of Systems - Review of Systems Able to Perform ROS?: Yes Comments:: GENERAL/CONSTITUTIONAL: No fever or chills. No weakness HEAD, EYES, EARS, NOSE AND THROAT: No change in vision. No ear pain or discharge. No sore throat CARDIOVASCULAR: No chest pain RESPIRATORY: Denies hemoptysis GASTROINTESTINAL: No nausea, vomiting, diarrhea or constipation GENITOURINARY: +polyuria, dysuria MUSCULOSKELETAL: No joint or muscle swelling or pain. No neck or back pain SKIN: No rash NEUROLOGIC: No headache, vertigo, loss of consciousness, or change in strength/ sensation ENDOCRINE: +polydipsia +polyuria for 2-3 days (states is typical for her when she gets sick) HEMATOLOGIC/LYMPHATIC: No anemia, easy bleeding, or history of blood clots ALLERGIC/IMMUNOLOGIC: No hives or skin allergy 06/21/18 11:52 Is the patient limited Nepali proficient: No *Physical Exam - Vital Signs Last Vital Signs Temp Pulse Resp BP Pulse Ox 97.6 F 97 H 16 134/92 100 06/21/18 11:00 06/21/18 11:00 06/21/18 11:00 06/21/18 11:00 06/21/18 11:00 - Physical Exam Comments: GENERAL: Awake, alert, and fully oriented, in no acute distress HEAD: No signs of trauma, normocephalic, atraumatic EYES: PERRLA, EOMI, sclera anicteric, conjunctiva clear ENT: Hearing grossly normal, nares patent, oropharynx clear without exudates. Moist mucosa LUNGS: No distress, speaks full sentences, mild b/l diffuse wheeze HEART: Regular rate and rhythm, normal S1 and S2, no murmurs appreciated, peripheral pulses normal and equal bilaterally ABDOMEN: Soft, nontender, normoactive bowel sounds. No guarding, no rebound EXTREMITIES : Normal inspection, Normal range of motion, no edema. No clubbing or cyanosis NEUROLOGICAL: Cranial nerves II through XII grossly intact. Normal speech, no focal sensorimotor deficits 06/21/18 11:52 Moderate Sedation - Procedure Monitoring Vital Signs: Procedure Monitoring Vital Signs Temperature 97.6 F 06/21/18 11:00 Pulse Rate 97 H 06/21/18 11:00 Respiratory Rate 16 06/21/18 11:00 Blood Pressure 134/92 06/21/18 11:00 O2 Sat by Pulse Oximetry (%) 100 06/21/18 11:00 ED Treatment Course - LABORATORY CBC & Chemistry Diagram: 06/21/18 12:30 06/21/18 12:30 Medical Decision Making - Medical Decision Making The patient is a 57F w/ a history of COPD, HTN, T2DM who presents for evaluation of 3-4d of worsening dyspnea on exertion w/ productive cough and myalgias. Per EMS, the patient was in SVT on arrival, performed vagal maneuvers and had spontaneous return to sinus rhythm ED Course CMP, CBC, Trop I Influenza swab CXR ECG duo-neb and albuterol ECG: sinus rhythm, HR 91, QTc 432, 1st degree AV block, no ST elevation, incomplete RBBB 06/21/18 12:00 Patient reports symptoms resolved Urine obtained Will call w/ results Rx for albuterol and nebulizer Discharge instructions and return precautions given Plan for D/C w/ PCP f/u Patient in agreement and verbalized understanding Dispo: home 06/21/18 15:10 *DC/Admit/Observation/Transfer Diagnosis at time of Disposition: Hyperglycemia, Cough COPD (chronic obstructive pulmonary disease) Qualifiers: COPD type: unspecified COPD Qualified Code(s): J44.9 - Chronic obstructive pulmonary disease, unspecified - Discharge Dispostion Disposition: HOME Condition at time of disposition: Improved Decision to Admit order: No - Prescriptions Prescriptions: Albuterol 0.083% Nebulizer [place] [Ventolin 0.083% Nebulizer Soln -] 1 amp NEB Q6H PRN #1 amp PRN Reason: Asthma Nebulizer and Compressor [[place] Choice Nebulizer] 1 each QID #1 each - Referrals Referrals: [facility] [place] [facility] at [place] [Provider Group] - Patient Instructions Printed Discharge Instructions: DI for Chronic Obstructive Pulmonary Disease, How to Use a Nebulizer Additional Instructions: You were seen in the Emergency Department today for evaluation of shortness of breath. You were treated with albuterol. Please review the handout provided at discharge. A prescription was sent to the pharmacy that you specified. Take as directed. Return to the Emergency Department if you develop fevers/chills, trouble breathing, chest pain, worsening symptoms, or new/concerning symptoms. - Post Discharge Activity
--- NOTE | 2018-06-21 11:54 | PDOC ---
Attending Attestation - [facility] HPI: 06/21/18 12:37 The patient is a 57 year old female with a significant past medical history of COPD, asthma, hypertension, and diabetes who presents to the emergency department with shortness of breath for 2 days. The patient reports that her she noticed herself getting sick yesterday. She states that since yesterday her shortness of breath has been worsening and, even more so with exertion. The patient report some associated productive cough with clear sputum, and chest pain secondary to her cough. She also reports some associates wheezing, chils, and body aches with her symptoms. The patient reports that she lives in a women[facility] correction. She denies any known sick contact, recent travel, abdominal pain, . she denies getting the flu shot this year. The patient denies any other symptoms. She denies any fever, nausea, vomiting, diarrhea or urinary symptoms. She denies any other chest pain, headache or dizziness. The patient denies any other complaints. Documentation prepared by Shaji Bernal, acting as center medical director for Satya Bond MD. - Physicial Exam PE: 06/21/18 12:48 Vitals: Triage vital signs reviewed General Appearance: No acute distress, well nourished, well developed Head: Atraumatic Neck: Supple; No nuchal rigidity Chest Wall: Nontender Cardiac: Regular rate and rhythm, no murmurs, no rubs, no gallops Lungs: (+)mild wheezing. good air movement bilaterally Abdomen: Soft, nondistended, normal bowel sounds, nontender to palpation Genitourinary: Rectal: Exam deferred Extremities: Full range of motion to all extremities, no cyanosis, clubbing, or edema Skin: Warm and dry, no rashes or lesions, no rash, no petechiae Neuro: AOX3; Cranial Nerves 2-12 grossly intact, Strength intact to all extremities, Sensation intact to all extremities, gait normal Psych: Normal mood, normal affect Documentation prepared by Shaji Bernal acting as center medical director for Satya Bond MD. - Medical Decision Making 06/21/18 12:37 The patient is a 57 year old female with a significant past medical history of COPD, asthma, hypertension, and diabetes who presents to the emergency department with shortness of breath for 2 days. The patient will get a nebulizer treatment and be tested for the flu. <Shaji Bernal - Last Filed: 06/21/18 12:48> - Resident Resident Name: Larry Ruiz - ED Attending Attestation I have performed the following: I have examined & evaluated the patient, The case was reviewed & discussed with the resident, I agree w/resident's findings & plan, Exceptions are as noted - Medical Decision Making Chest x-ray EKG laboratory analysis all within normal limits. Nonischemic EKG troponin within normal limits History examination consistent with influenza-like illness/viral URI we'll discharge with prescription for nebulizer machine and nebs Findings, need for follow-up and strict return instructions discussed with patient. <Satya Bond - Last Filed: 06/21/18 15:56> Heart Score/ECG Review - ECG Impressions Comment:: 06/21/18 15:56 EKG performed at 1142 demonstrates normal sinus rhythm no ST elevations or T- wave inversions. Interpreted by me <Satya Bond - Last Filed: 06/21/18 15:56>
[2018-06-21] MEDS ORDERED: ALBUTEROL SO4 8 GM HFA INHALER IH ONE (11:55)
[2018-06-21] MEDS ORDERED: ALBUTEROL SO4 2.5/IPRATROPIUM 0.5 INH SOL 3 ML VIAL.NEB. NEB ONE ×2 (11:57→13:22)
[2018-06-21] MEDS ORDERED: SODIUM CHLORIDE 0.9% 500 ML INFUS.BAG IV ONE (12:15)
[2018-06-21] MEDS ORDERED: ACETAMINOPHEN 325 MG TABLET (FP) PO ONE (12:15)
[2018-06-21 12:54] LABS: BASO % 0.9 % (0-2.0); EOS % 1.2 % (0-4.5); HEMATOCRIT 40.8 % (32.4-45.2); HEMOGLOBIN 13.1 GM/dL (10.7-15.3); MCH 23.2 pg (25.7-33.7); MCHC 32.1 g/dl (32.0-36.0); MEAN CELL VOLUME 72.3 fl (80-96); MEAN PLT VOLUME 8.8 fl (7.5-11.1); MONO % 7.6 % (3.8-10.2); NEUT % 49.3 % (42.8-82.8); PLATELET COUNT 246 K/MM3 (134-434); RBC 5.64 M/mm3 (3.60-5.2); RDW 15.3 % (11.6-15.6)
[2018-06-21] MEDS ORDERED: ACETAMINOPHEN 325 MG TABLET (FP) ONE (13:23)
--- NOTE | 2018-06-21 13:33 | EKG ---
Test Reason : Blood Pressure : / mmHG Vent. Rate : 091 BPM Atrial Rate : 091 BPM P-R Int : 210 ms QRS Dur : 100 ms QT Int : 352 ms P-R-T Axes : 044 -04 061 degrees QTc Int : 432 ms SINUS RHYTHM WITH 1ST DEGREE A-V BLOCK OTHERWISE NORMAL ECG WHEN COMPARED WITH ECG OF 12-MAR-2018 09:08, NO SIGNIFICANT CHANGE WAS FOUND Confirmed by MADELINE FENG, NATHANIEL ([id number]) on 06/21/2018 1:33:13 PM Referred By: Confirmed By:NATHANIEL CORREA MD
[2018-06-21 14:02] LABS: ALBUMIN 3.2 g/dl (3.4-5.0); ALK PHOS 186 U/L (45-117); ANION GAP 8 MMOL/L (8-16); BILIRUBIN,TOTAL 0.5 mg/dL (0.2-1); BLOOD UREA NITROGEN 15 mg/dL (7-18); CALCIUM 8.6 mg/dL (8.5-10.1); CHLORIDE 100 mmol/L (98-107); CO2 27 mmol/L (21-32); CREATININE 0.8 mg/dL (0.55-1.3); SGOT/AST 32 U/L (15-37); SGPT/ALT 22 U/L (13-61); SODIUM 135 mmol/L (136-145); TOT PROT 7.2 g/dl (6.4-8.2)
[2018-06-21 14:05] LABS: GLUCOSE,RANDOM 372 mg/dL (74-106)
[2018-06-21 15:20] LABS: URINE APPEARANCE CLEAR; URINE BILIRUBIN NEGATIVE (<2.0 mg/dL); URINE COLOR STRAW; URINE GLUCOSE (UA) 3+ (NEGATIVE); URINE KETONE NEGATIVE (NEGATIVE); URINE LEUK ESTERASE NEGATIVE (NEGATIVE); URINE NITRITE NEGATIVE (NEGATIVE); URINE PROTEIN NEGATIVE (NEGATIVE)
[2018-06-21 15:22] VITALS: BP 115/57; PULSE 91
== END 2018-06-21 15:16 | disposition home or self-care (01) ==
LOC: JER 11:00
PROC: 3E0F7GC Introduction of Other Therapeutic Substance into Respiratory Tract, Via Natural or Artificial Opening (ICD-10-PCS; principal; 2018-06-21)
PROC: 3E033GC Introduction of Other Therapeutic Substance into Peripheral Vein, Percutaneous Approach (ICD-10-PCS; 2018-06-21)
PROC: 3E0337Z Introduction of Electrolytic and Water Balance Substance into Peripheral Vein, Percutaneous Approach (ICD-10-PCS; 2018-06-21)
DX: J44.9 Chronic obstructive pulmonary disease, unspecified (principal); E11.65 Type 2 diabetes mellitus with hyperglycemia; Z87.891 Personal history of nicotine dependence; R05 Cough
CPT/HCPCS: 36415; 71045-TC-FY; 80053; 81003; 84484; 85025; 87086; 87804; 93005; 93010; 94640; 96361; 99283-25

== ENCOUNTER 2018-07-18 11:03 | Observation (INO) | payer OTHER ==
--- NOTE | 2018-07-18 12:50 | PDOC ---
History of Present Illness - General Chief Complaint: Chest Pain Stated Complaint: CHEST PAIN/LOW BACK PAIN Time Seen by Provider: 07/18/18 12:18 History Source: Patient Exam Limitations: No Limitations - History of Present Illness Initial Comments: 07/18/18 12:54 Pt. is a 57 y.o. F w/ PMHx. of COPD, HTN, NIDDM, DANIELA, GERD, and CO(at 41), states that she has been feeling chest tightness, chest pain, and dizziness since Sunday. Pt. states that these symptoms have been getting worse since that time. Pt. states that she has been using her inhaler at home to manage the SOB with minimal effect. Pt. was recently seen in the ER for URI and for UTI. Pt. states she is urinating frequently and is frequently thirsty. Pt. lives in a care home and is non-compliant with her medications. Pt. states she received the Pneumonia vaccine last year and is refusing the Flu vaccine. Pt. endorses swollen legs, fever and chills a couple days ago, chronic numbness/tingling in toes, chronic blurry vision 2/2 cataracts and epigastric abdominal pain. P. states she recently quit smoking cigarettes. Pt. states she smokes marijuana every other day. Pt. denies nausea, vomiting, diarrhea, or constipation at this time. During physical exam I observed the Pt. intermittently having elevated HR to the 130s for periods of 20 seconds. 07/18/18 14:10 Timing/Duration: 1 week Severity: mild Modifying Factors: improves with: rest Associated Symptoms: reports: fever/chills, shortness of breath, weakness. denies: nausea/vomiting Aspirin Received prior to arrival: Yes: no aspirin today Beta Bob Contraindications(Core Measure): Yes: Not Prescribed Past History - Travel Traveled outside of the country in the last 30 days: No Close contact w/someone who was outside of country & ill: No - Past Medical History Allergies/Adverse Reactions: Allergies Allergy/AdvReac Type Severity Reaction Status Date / Time No Known Allergies Allergy Verified 03/12/18 08:05 Home Medications: Ambulatory Orders Amlodipine Besylate [Norvasc -] 10 mg PO DAILY 01/20/18 Atorvastatin Ca [Lipitor] 40 mg PO HS 01/20/18 Insulin Glargine,Hum.rec.anlog [Lantus] 24 unit SQ BID 01/20/18 Metformin HCl [Metformin HCl ER] 1,000 mg PO BID 01/20/18 Tiotropium [place] [Spiriva Respimat] 4 gm IH DAILY 01/20/18 Albuterol 0.083% Nebulizer [place]ana [Ventolin 0.083% Nebulizer Soln -] 1 amp NEB Q6H PRN #1 amp 06/21/18 Nebulizer and Compressor [[place] Nebulizer] 1 each MC QID #1 each Hx Myocardial Infarction: Yes (Pt. states she had an CO at age 41) COPD: Yes Diabetes: Yes (IDDM, non compliant) HTN: Yes Hypercholesterolemia: Yes - Surgical History Abdominal Surgery: No Appendectomy: No Cardiac Surgery: No Cholecystectomy: No Gastric Stapling: No GI Surgery: No Lung Surgery: No Neurologic Surgery: No Orthopedic Surgery: No - Immunization History Immunization Up to Date: Yes - Suicide/Smoking/Psychosocial Hx Smoking History: Current every day smoker Have you smoked in the past 12 months: Yes Number of Cigarettes Smoked Daily: 10 If you are a former smoker, when did you quit?: Information on smoking cessation initiated: No Hx Alcohol Use: No Drug/Substance Use Hx: Yes Substance Use Type: None Review of Systems - Review of Systems Able to Perform ROS?: Yes Is the patient limited Nepali proficient: No Constitutional: Yes: Chills, Fever, Weakness HEENTM: Yes: Blurred Vision, Cataracts Respiratory: Yes: Orthopnea, Shortness of Breath, SOB with Exertion, SOB at Rest. No: Wheezing Cardiac (ROS): Yes: Chest Pain, Lightheadedness, Chest Tightness. No: Palpitations ABD/GI: Yes: Indigestion. No: Constipated, Diarrhea, Nausea, Vomiting : Yes: Frequency, Flank Pain, Urgency. No: Burning, Dysuria, Discharge, Hematuria, Incontinence Musculoskeletal: Yes: Back Pain, Joint Swelling Integumentary: No: Symptoms Reported Neurological: Yes: Numbness, Tingling, Weakness, Dizziness Endocrine: Yes: Increased Thirst *Physical Exam - Vital Signs Last Vital Signs Temp Pulse Resp BP Pulse Ox 97.3 F L 50 L 18 126/80 100 07/18/18 11:15 07/18/18 11:15 07/18/18 11:15 07/18/18 11:15 07/18/18 11:40 - Physical Exam General Appearance: Yes: Nourished, Apparent Distress, Mild Distress, Obese. No : Appropriately Dressed HEENT: positive: Normal ENT Inspection, Normal Voice, Symmetrical, Pharynx Normal. negative: Pharyngeal Erythema, Tonsillar Exudate, Tonsillar Erythema Neck: positive: Supple. negative: Tender Respiratory/Chest: positive: Lungs Clear, Respiratory Distress, Labored Respiration, Rapid RR. negative: Crackles, Rales, Wheezing Cardiovascular: positive: S1, S2, Edema, Tachycardia, Irregularly Irregular Vascular Pulses: Dorsalis-Pedis (R): 2+, Doralis-Pedis (L): 2+ Gastrointestinal/Abdominal: positive: Tender (epigastric ), Soft, Protuberent, Tenderness. negative: Distended, Guarding, Rebound Rectal Exam: positive: deferred Musculoskeletal: positive: Normal Inspection. negative: CVA Tenderness Extremity: positive: Normal Capillary Refill, Normal Inspection, Normal Range of Motion, Tender, Swelling. negative: Calf Tenderness Neurologic: positive: Fully Oriented, Alert, Normal Response, Respond to painful stimul, Responsive Moderate Sedation - Procedure Monitoring Vital Signs: Procedure Monitoring Vital Signs Temperature 97.3 F L 07/18/18 11:15 Pulse Rate 50 L 07/18/18 11:15 Respiratory Rate 18 07/18/18 11:15 Blood Pressure 126/80 07/18/18 11:15 O2 Sat by Pulse Oximetry (%) 100 07/18/18 11:40 ED Treatment Course - LABORATORY CBC & Chemistry Diagram: 07/18/18 12:53 07/18/18 12:53 *DC/Admit/Observation/Transfer Diagnosis at time of Disposition: Chest pain Qualifiers: Chest pain type: unspecified Qualified Code(s): R07.9 - Chest pain, unspecified - Referrals - Patient Instructions Printed Discharge Instructions: DI for Atypical Chest Pain, DI for Chest Pain - Post Discharge Activity
--- NOTE | 2018-07-18 13:06 | PDOC ---
Attending Attestation - HPI HPI: 07/18/18 13:17 The patient is a 57 year old female, with a significant PMH of COPD, hypertension, NIDDM, DANIELA, GERD, and myocardial infarction (at 41), who presents to the emergency department with 3 days of shortness of breath and chest tightness. The patient states the shortness of breath is worse when walking. The patient also endorses productive cough with thick green sputum and leg swelling. The patient states she has been experiencing the cold-like symptoms for several weeks but has only begun to experience the shortness of breath in the past 3 days. The patient denies chest pain, headache and dizziness. Denies fever, chills, nausea, vomit, diarrhea and constipation. Denies dysuria, frequency, urgency and hematuria. Allergies: NKA Documentation prepared by Andrei Momin, acting as medical investigator for Satya Bond MD. - Physicial Exam PE: 07/18/18 13:28 Vitals: Triage Vital signs reviewed General Appearance: no acute distress, well nourished well developed, Neck: Supple;No Nuchal rigidity Chest Wall: Nontender Cardiac: Regular rate and rhythm, no murmurs, no rubs, no gallops, Lungs: Clear to auscultation bilateral, good air movement bilaterally, Abdomen: Soft, nondistended, normal bowel sounds, nontender to palpation Rectal: Exam deferred Extremities: Full range of motion to all extremities, no cyanosis, clubbing, or edema. Skin: Warm and dry, no rashes or lesions, no petechiae Psych: normal mood, normal affect <Andrei Momin - Last Filed: 07/18/18 13:27> - Resident Resident Name: Tung Jett - ED Attending Attestation I have performed the following: I have examined & evaluated the patient, The case was reviewed & discussed with the resident, I agree w/resident's findings & plan, Exceptions are as noted - Medical Decision Making 07/18/18 16:05 The patient is a 57 year old female, with a significant PMH of COPD, hypertension, NIDDM, DANIELA, GERD, and myocardial infarction (at 41), who presents to the emergency department with 3 days of shortness of breath and chest tightness. The patient states the shortness of breath is worse when walking. The patient also endorses productive cough with thick green sputum and leg swelling. The patient states she has been experiencing the cold-like symptoms for several weeks but has only begun to experience the shortness of breath in the past 3 days. 07/18/18 16:05 History examination most consistent with acute bronchitis status post recent viral illness However given heart score of 5 with exertional discomfort in addition to treatment of bronchitis patient will also need serial troponins Patient's EKG noted to be in bigeminy her first troponin is negative her chest x -ray demonstrates no acute pathology. Levaquin steroids duo nebs given for COPD management We will place patient on observation for telemetry monitoring serial troponins and further management. <Satya Bond - Last Filed: 07/18/18 16:17> Heart Score/ECG Review - History History: Slightly suspicious - Electrocardiogram EKG: Non specific repolarization disturbance - Age Age: 45-65 - Risk Factors Risk Factors Heart Score: Yes Hx Hypertension, Yes Hx Diabetes Based on the list above the patient has:: >/=3 risk factors or Hx atherosclerotic disease - Troponin Troponin: </= normal limit - Score Heart Score - Total: 4 - ST and T Comment:: 07/18/18 16:03 EKG performed at 1135 demonstrates sinus rhythm with premature atrial complexes and pattern of bigeminy No ST elevations or T-wave inversions Anterior septal infarct age indeterminate Interpreted by me - ECG Impressions Comment:: 07/18/18 16:17 Sinus rhythm with premature complexes and a pattern of bigeminy anterior septal infarct age indeterminate Interpreted by me. <Satya Bond - Last Filed: 07/18/18 16:17>
[2018-07-18] MEDS ORDERED: ALBUTEROL SO4 2.5/IPRATROPIUM 0.5 INH SOL 3 ML VIAL.NEB. NEB ONE ×2 (13:10→14:26)
[2018-07-18 13:23] LABS: BASO % 0.7 % (0-2.0); EOS % 1.4 % (0-4.5); HEMATOCRIT 38.6 % (32.4-45.2); HEMOGLOBIN 12.5 GM/dL (10.7-15.3); LYMPH % 47.1 % (8-40); MCH 23.3 pg (25.7-33.7); MCHC 32.5 g/dl (32.0-36.0); MEAN CELL VOLUME 71.8 fl (80-96); MEAN PLT VOLUME 9.1 fl (7.5-11.1); NEUT % 43.8 % (42.8-82.8); PLATELET COUNT 266 K/MM3 (134-434); RBC 5.38 M/mm3 (3.60-5.2); RDW 15.9 % (11.6-15.6); WHITE BLOOD COUNT 5.7 K/mm3 (4.0-10.0)
[2018-07-18 13:59] LABS: ALK PHOS 174 U/L (45-117); ANION GAP 8 MMOL/L (8-16); BILIRUBIN,TOTAL 0.4 mg/dL (0.2-1); BLOOD UREA NITROGEN 16 mg/dL (7-18); CALCIUM 8.8 mg/dL (8.5-10.1); CHLORIDE 100 mmol/L (98-107); CO2 26 mmol/L (21-32); CREATININE 0.8 mg/dL (0.55-1.3); POTASSIUM 5.4 mmol/L (3.5-5.1); SGOT/AST 30 U/L (15-37); SGPT/ALT 18 U/L (13-61); SODIUM 133 mmol/L (136-145); TOT PROT 6.9 g/dl (6.4-8.2)
[2018-07-18 14:15] LABS: GLUCOSE,RANDOM 440 mg/dL (74-106)
--- NOTE | 2018-07-18 15:10 | HP ---
CHIEF COMPLAINT: " Chest pain, shortness of breath,' PCP: Sees physicians at [facility] HISTORY OF PRESENT ILLNESS: Patient is a 57 year old [place] from [place], non compliant presented to the ED with the chief complaint of " Chest pain and shortness of breath" x 3 days. As per the patient, she had similar complaints for which came in to the ED on.06/21 for shortness of breath and was discharged home with Albuterol inhalers. She was feeling better for few days but started developing productive cough, now producing greenish sputum. It is associated with chest tightness, shortness of breath and palpitations which has been worsening since 3 days hence came in to the ED for further evaluation. Patient also reports to have urinary symptoms-increased urinary frequency, burning sensation of urination, urgency and suprapubic pain. Denies fever, chills, rigors, sweating, headache, dizziness, tingling or numbness. Bowel/Bladder habit normal. Sleep/Appetite normal. ER course was notable for: (1) Afebrile, no leukocytosis (2) CXR No evidence of active disease. Sinus rhythm, EKG: normal Qtc (3) Po Levaquin Recent Travel: None PAST MEDICAL HISTORY: COPD not on home oxygen, HTN, NIDDM, DANIELA, Morbid obesity, GERD, and OR(at 41), PAST SURGICAL HISTORY: None reported Social History: Has 7 kids, lives in a jail with one child. Ambulates with a cane. Smoking: Quit in Nov, 2017 smoked for 20 yrs Alcohol: Occasional Drugs: Denies Family History: Non contributory Allergies No Known Allergies Allergy (Verified 03/12/18 08:05) HOME MEDICATIONS: Home Medications Medication Instructions Recorded Amlodipine Besylate [Norvasc -] 10 mg PO DAILY 01/20/18 Atorvastatin Ca [Lipitor] 40 mg PO HS 01/20/18 Insulin Glargine,Hum.rec.anlog 24 unit SQ BID 01/20/18 [Lantus] Metformin HCl [Metformin HCl ER] 1,000 mg PO BID 01/20/18 Tiotropium [place] [Spiriva 4 gm IH DAILY 01/20/18 Respimat] Albuterol 0.083% Nebulizer Briana 1 amp NEB Q6H PRN #1 amp 06/21/18 [Ventolin 0.083% Nebulizer Soln -] Nebulizer and Compressor [Kevil 1 each QID #1 each 06/21/18 Choice Nebulizer] REVIEW OF SYSTEMS CONSTITUTIONAL: Absent: fever, chills, diaphoresis, generalized weakness, malaise, loss of appetite, weight change HEENT: Absent: rhinorrhea, nasal congestion, throat pain, throat swelling, difficulty swallowing, mouth swelling, ear pain, eye pain, visual changes CARDIOVASCULAR: Absent: chest pain, syncope, palpitations, irregular heart rate, lightheadedness , peripheral edema RESPIRATORY: Present: cough, shortness of breath, dyspnea with exertion, Absent: orthopnea, wheezing, stridor, hemoptysis GASTROINTESTINAL: Absent: abdominal pain, abdominal distension, nausea, vomiting, diarrhea, constipation, melena, hematochezia GENITOURINARY: Absent: dysuria, frequency, urgency, hesitancy, hematuria, flank pain, genital pain MUSCULOSKELETAL: Absent: myalgia, arthralgia, joint swelling, back pain, neck pain SKIN: Absent: rash, itching, pallor HEMATOLOGIC/IMMUNOLOGIC: Absent: easy bleeding, easy bruising, lymphadenopathy, frequent infections ENDOCRINE: Absent: unexplained weight gain, unexplained weight loss, heat intolerance, cold intolerance NEUROLOGIC: Absent: headache, focal weakness or paresthesias, dizziness, unsteady gait, seizure, mental status changes, bladder or bowel incontinence PSYCHIATRIC: Absent: anxiety, depression, suicidal or homicidal ideation, hallucinations. PHYSICAL EXAMINATION Vital Signs - 24 hr 07/18/18 07/18/18 11:15 11:40 Temperature 97.3 F L Pulse Rate 50 L Respiratory 18 Rate Blood Pressure 126/80 O2 Sat by Pulse 94 L 100 Oximetry (%) GENERAL: Morbidly obese female, lying in bed comfortbaly, Awake, alert, and fully oriented, in no acute distress. EYES: EOM intact, no pallor or icterus. NECK: No JVD LUNGS: B/L coarse breath sounds, no wheeze. HEART: Regular rate and rhythm, normal S1 and S2 with systolic murmur. ABDOMEN: Soft, nontender, no organomegaly. MUSCULOSKELETAL: Tenderness on palpation of the back. UPPER EXTREMITIES: 2+ pulses, warm, well-perfused. No cyanosis. No clubbing. No peripheral edema. LOWER EXTREMITIES: 2+ pulses, warm, well-perfused. No calf tenderness. Pitting peripheral edema. NEUROLOGICAL: No facial droop. Normal speech. gait not observed. PSYCHIATRIC: Cooperative. Good eye contact. Appropriate mood and affect. SKIN: Warm, dry, normal turgor, no rashes or lesions noted, normal capillary refill. Laboratory Results - last 24 hr 07/18/18 07/18/18 12:53 12:53 WBC 5.7 RBC 5.38 H Hgb 12.5 Hct 38.6 MCV 71.8 L MCH 23.3 L MCHC 32.5 RDW 15.9 H Plt Count 266 MPV 9.1 Absolute Neuts (auto) 2.5 Neutrophils % 43.8 Lymphocytes % 47.1 H Monocytes % 7.0 Eosinophils % 1.4 Basophils % 0.7 Nucleated RBC % 0 Sodium 133 L Potassium 5.4 H Chloride 100 Carbon Dioxide 26 Anion Gap 8 BUN 16 Creatinine 0.8 Creat Clearance w eGFR > 60 Random Glucose 440 H* Calcium 8.8 Total Bilirubin 0.4 AST 30 ALT 18 Alkaline Phosphatase 174 H Troponin I < 0.02 Total Protein 6.9 Albumin 3.0 L ASSESSMENT/PLAN: Patient is a 57 year old female from jail with past medical history of non compliance, COPD not on home oxygen, HTN, NIDDM, DANIELA, Morbid obesity, GERD, and OR(at 41), presented to the ED with the chief complaint of " Chest pain and shortness of breath" x 3 days. # Chest pain likely musculoskeletal due to cough However r/o ACS, hx of OR at age 41 cough x 1 month. Non specific chest pain. EKG normal sinus rhythm. Troponin x 2 negative ECHO: pending. BNP 372 # Bronchitis No leukocytosis, cxr clear however due to prolonged cough will empirically treat with abx. R/O Influenza. IV Ceftriaxone and IV Azithromycin # COPD exacerbation- Continue Albuterol and Spiriva not on home oxygen. Pre and post oxygen saturation to be done prior to discharge # UTI c/o burning sensation, increased urgency and frequency. Continue Ceftriaxone , change as per c/s. Urine culture on 03/12/2018 Klebsiella ; 01/03/18: E.coli # Diabetes Mellitus A1c 15.1 non compliant to medications Continue Levemir 12 U BID (takes 24 U BID at home) ISS, Finger stick glucose monitoring # Hypertension-Controlled Continue Amlodipine 10 mg # FEN Not on IV fluids, can tolerate PO Electrolytes WNL Diabetic diet # Prophylaxis For DVT: On Heparin 5000 IU sq TID For GI: Not indicated # Code Status: Full Code # Dispo:Admit to Tele. D/C tomorrow if symptoms improve Illness, Investigation and Plan of care explained to the patient. She verbalized understanding. Case discussed with Dr. Narvaez. Problem List - Problem (1) Chest pain Code(s): R07.9 - CHEST PAIN, UNSPECIFIED Qualifiers: Chest pain type: unspecified Qualified Code(s): R07.9 - Chest pain, unspecified (2) Edema Code(s): R60.9 - EDEMA, UNSPECIFIED (3) HTN (hypertension) Code(s): I10 - ESSENTIAL (PRIMARY) HYPERTENSION (4) COPD (chronic obstructive pulmonary disease) Code(s): J44.9 - CHRONIC OBSTRUCTIVE PULMONARY DISEASE, UNSPECIFIED Qualifiers: COPD type: unspecified COPD Qualified Code(s): J44.9 - Chronic obstructive pulmonary disease, unspecified (5) Cough Code(s): R05 - COUGH (6) Hyperglycemia Code(s): R73.9 - HYPERGLYCEMIA, UNSPECIFIED (7) UTI (urinary tract infection) Code(s): N39.0 - URINARY TRACT INFECTION, SITE NOT SPECIFIED Qualifiers: Urinary tract infection type: site unspecified Hematuria presence: without hematuria Qualified Code(s): N39.0 - Urinary tract infection, site not specified Visit type - Emergency Visit Emergency Visit: Yes ED Registration Date: 07/18/18 Care time: The patient presented to the Emergency Department on the above date and was hospitalized for further evaluation of their emergent condition. - New Patient This patient is new to me today: Yes Date on this admission: 07/18/18 - Critical Care Critical Care patient: No
[2018-07-18] MEDS ORDERED: ALBUTEROL SO4 0.083% IH SOL 2.5 MG/3 ML VIAL.NEB. NEB PRN (15:30)
--- NOTE | 2018-07-18 15:53 | EKG ---
Test Reason : Blood Pressure : / mmHG Vent. Rate : 089 BPM Atrial Rate : 089 BPM P-R Int : 000 ms QRS Dur : 104 ms QT Int : 344 ms P-R-T Axes : 060 -02 028 degrees QTc Int : 418 ms SINUS RHYTHM WITH PREMATURE ATRIAL COMPLEXES IN A PATTERN OF BIGEMINY ANTEROSEPTAL INFARCT , AGE UNDETERMINED ABNORMAL ECG WHEN COMPARED WITH ECG OF 21-JUN-2018 11:42, PREMATURE ATRIAL COMPLEXES ARE NOW PRESENT OK INTERVAL HAS DECREASED ANTEROSEPTAL INFARCT IS NOW PRESENT Confirmed by SHELIA DONAHUE MD ([id number]) on 07/18/2018 3:53:19 PM Referred By: Confirmed By:SHELIA DONAHUE MD
--- NOTE | 2018-07-18 16:09 | PN ---
Teaching Attending Note Name of Resident: Sharmaine Zepeda ATTENDING PHYSICIAN STATEMENT I saw and evaluated the patient. I reviewed the resident's note and discussed the case with the resident. I agree with the resident's findings and plan as documented. HPI: Ms Dean is a pleasant 57 year old female who comes in with worsening cough. She notes that it began three days ago. The cough is productive with green sputum. She had subjective fevers and chills but did not check her temperature. She had shortness of breath associated with it. She had chest pain that was noted on coughing and deep breathing. Because of this she came in for evaluation. She denies lightheadedness, dizziness, passing out, nausea, vomiting , diarrhea, constipation, or pain in her legs. She endorses chronic minimal edema in her legs that is unchanged and burning on urination OBJECTIVE: Last Vital Signs Temp Pulse Resp BP Pulse Ox 36.3 C L 89 20 165/59 L 100 07/18/18 11:15 07/18/18 17:26 07/18/18 17:26 07/18/18 17:26 07/18/18 17:26 Gen: nad, obese Pulm: ronchi bilaterally w/o wheezing or rales CV: rrr w/o m/r/g Abd: +bs, s/nt/nd Ext: minimal edema CBC, BMP 07/18/18 12:53 07/18/18 12:53 ASSESSMENT AND PLAN: Problem List - Problems (1) COPD (chronic obstructive pulmonary disease) Assessment/Plan: -patient with COPD exacerbation -admit under observation -received steroids in the ED, much improved -scheduled and prn albuterol -scheduled spiriva -rocephin and zithromax for inflammation -evaluate in am, may benefit from short steroid course Code(s): J44.9 - CHRONIC OBSTRUCTIVE PULMONARY DISEASE, UNSPECIFIED Qualifiers: COPD type: unspecified COPD Qualified Code(s): J44.9 - Chronic obstructive pulmonary disease, unspecified (2) UTI (urinary tract infection) Assessment/Plan: -burning on urination -rocephin -can change to oral antibiotics on discharge Code(s): N39.0 - URINARY TRACT INFECTION, SITE NOT SPECIFIED Qualifiers: Urinary tract infection type: site unspecified Hematuria presence: without hematuria Qualified Code(s): N39.0 - Urinary tract infection, site not specified (3) Chest pain Assessment/Plan: -atypical -suspect pleurisy -check cardiac enzymes x3 -ECHO ordered -if negative, does not need stress test Code(s): R07.9 - CHEST PAIN, UNSPECIFIED Qualifiers: Chest pain type: unspecified Qualified Code(s): R07.9 - Chest pain, unspecified (4) Edema Assessment/Plan: -suspect secondary to amlodipine -follow up ECHO Code(s): R60.9 - EDEMA, UNSPECIFIED (5) HTN (hypertension) Assessment/Plan: -continue amlodipine Code(s): I10 - ESSENTIAL (PRIMARY) HYPERTENSION
[2018-07-18] MEDS ORDERED: INSULIN SLIDING SCALE (NOVOLOG) 1 VIAL SQ SCH ×2 (16:30)
[2018-07-18] MEDS ORDERED: CEFTRIAXONE 2 GM/100 ML BAG IVPB ONE (16:31)
[2018-07-18] MEDS ORDERED: AZITHROMYCIN IVPB 500 MG/250 ML BAG IVPB ONE (16:31)
[2018-07-18] MEDS ORDERED: INSULIN (NOVOLOG) ASPART 100 UNITS/ML 10ML VIAL ONE (16:32)
[2018-07-18] MEDS: INSULIN SLIDING SCALE (NOVOLOG) 1 VIAL SQ SCH (16:50)
[2018-07-18] MEDS: CEFTRIAXONE 2 GM in DEXTROSE 5%-WATER 100 ML IVPB SCH (16:51)
[2018-07-18] MEDS: AZITHROMYCIN IVPB 500 MG/250 ML BAG IVPB SCH (19:38)
[2018-07-18] MEDS ORDERED: ATORVASTATIN CA 40 MG TABLET (FP) PO SCH (22:00)
[2018-07-18] MEDS ORDERED: HEPARIN NA (PORCINE) 5,000 UNITS/ML 1ML VIAL ONE (23:31)
[2018-07-18] MEDS ORDERED: ALBUTEROL SO4 0.083% IH SOL 2.5 MG/3 ML VIAL.NEB. NEB ONE (23:31)
[2018-07-18] MEDS ORDERED: INSULIN (LEVEMIR) 100 UNITS/ML UNITS SQ ONE (23:32)
[2018-07-18] MEDS: INSULIN (LEVEMIR) 100 UNITS/ML UNITS SQ SCH (23:41)
[2018-07-18] MEDS: ALBUTEROL SO4 0.083% IH SOL 2.5 MG/3 ML VIAL.NEB. NEB SCH (23:41)
[2018-07-18] MEDS: HEPARIN NA (PORCINE) 5,000 UNITS/ML 1ML VIAL SQ SCH (23:41)
[2018-07-18] MEDS ORDERED: ATORVASTATIN CA 40 MG TABLET (FP) ONE (23:42)
[2018-07-19 01:23] VITALS: BMI 45.6
[2018-07-19 06:28] VITALS: BP 127/78; PULSE 73; TEMP 98.1
[2018-07-19] MEDS: INSULIN (LEVEMIR) 100 UNITS/ML UNITS SQ SCH (06:45)
[2018-07-19] MEDS: HEPARIN NA (PORCINE) 5,000 UNITS/ML 1ML VIAL SQ SCH (06:45)
[2018-07-19] MEDS: INSULIN SLIDING SCALE (NOVOLOG) 1 VIAL SQ SCH ×2 (06:45→11:45)
[2018-07-19 06:49] LABS: BASO % 0.6 % (0-2.0); EOS % 2.6 % (0-4.5); HEMATOCRIT 39.7 % (32.4-45.2); HEMOGLOBIN 12.1 GM/dL (10.7-15.3); LYMPH % 58.4 % (8-40); MCH 22.1 pg (25.7-33.7); MCHC 30.6 g/dl (32.0-36.0); MEAN CELL VOLUME 72.4 fl (80-96); MEAN PLT VOLUME 8.8 fl (7.5-11.1); MONO % 6.8 % (3.8-10.2); NEUT % 31.6 % (42.8-82.8); PLATELET COUNT 232 K/MM3 (134-434); RBC 5.48 M/mm3 (3.60-5.2); RDW 15.6 % (11.6-15.6); WHITE BLOOD COUNT 5.4 K/mm3 (4.0-10.0)
[2018-07-19] MEDS: ALBUTEROL SO4 0.083% IH SOL 2.5 MG/3 ML VIAL.NEB. NEB SCH (07:51)
[2018-07-19 08:31] LABS: ALK PHOS 155 U/L (45-117); ANION GAP 7 MMOL/L (8-16); BILIRUBIN,TOTAL 0.5 mg/dL (0.2-1); BLOOD UREA NITROGEN 14 mg/dL (7-18); CALCIUM 8.8 mg/dL (8.5-10.1); CHLORIDE 101 mmol/L (98-107); CHOLESTEROL 272 mg/dL (50-200); CO2 27 mmol/L (21-32); CREATININE 0.7 mg/dL (0.55-1.3); HDL CHOLESTEROL 43 mg/dL (40-60); MAGNESIUM 1.7 mg/dL (1.8-2.4); PHOSPHOROUS 3.6 mg/dL (2.5-4.9); POTASSIUM 4.3 mmol/L (3.5-5.1); SGOT/AST 12 U/L (15-37); SGPT/ALT 16 U/L (13-61); SODIUM 136 mmol/L (136-145); TOT PROT 6.5 g/dl (6.4-8.2); TRIGLYCERIDES 249 mg/dL (0-150)
[2018-07-19 08:35] LABS: GLUCOSE,RANDOM 305 mg/dL (74-106)
[2018-07-19] MEDS ORDERED: amLODIPine BESYLATE 10 MG TABLET (FP) PO SCH (10:00)
[2018-07-19] MEDS ORDERED: TIOTROPIUM BROMIDE 2.5 MCG (SPIRIVA) RESPIMAT INHALER IH SCH ×2 (10:00)
[2018-07-19] MEDS ORDERED: DEXTROSE 5%-WATER 100 ML IVPB ONE (10:05)
[2018-07-19] MEDS: AZITHROMYCIN IVPB 500 MG/250 ML BAG IVPB SCH (10:09)
[2018-07-19] MEDS: CEFTRIAXONE 2 GM in DEXTROSE 5%-WATER 100 ML IVPB SCH (10:09)
[2018-07-19 10:23] LABS: URINE APPEARANCE SLCLOUDY; URINE BILIRUBIN NEGATIVE (<2.0 mg/dL); URINE COLOR LTYELLOW; URINE GLUCOSE (UA) 3+ (NEGATIVE); URINE KETONE NEGATIVE (NEGATIVE); URINE LEUK ESTERASE TRACE (NEGATIVE); URINE NITRITE NEGATIVE (NEGATIVE); URINE PROTEIN NEGATIVE (NEGATIVE); URINE UROBILINOGEN NEGATIVE mg/dL (0.2-1.0)
[2018-07-19 10:28] LABS: EPI CELLS RARE /HPF (FEW); URINE BACTERIA RARE /hpf (NONE SEEN); URINE MUCUS RARE; YEAST MODERATE
[2018-07-19] MEDS ORDERED: MAGNESIUM SULF 50% (8.12 MEQ/2 ML-1 GM VIAL) IVPB ONE (11:30)
[2018-07-19] MEDS ORDERED: MICONAZOLE NITRATE 14 GM/TUBE TUBE TP SCH (11:30)
--- NOTE | 2018-07-19 11:30 | DS ---
Physical Exam: SUBJECTIVE: Patient seen and examined at bed side this morning. Reports she has itching in the vaginal area and burning sensation when she urinates. Sexually active 3 months ago, no h/o STD, HIV negative as per the patient. Palpitations on/off. Otherwise review of systems negative. Tele monitor shows PAT OBJECTIVE: Vital Signs Period Temp Pulse Resp BP Sys/[place] Pulse Ox Last 24 Hr 97.4 F-98.1 F 73-89 18-20 127-165/59-81 97-100 PHYSICAL EXAM GENERAL: Morbidly obese female, lying in bed comfortbaly, Awake, alert, and fully oriented, in no acute distress. EYES: EOM intact, no pallor or icterus. NECK: No JVD LUNGS: B/L coarse breath sounds, no wheeze. HEART: Regular rate and rhythm, normal S1 and S2 with systolic murmur. ABDOMEN: Soft, nontender, no organomegaly. MUSCULOSKELETAL: Tenderness on palpation of the back. UPPER EXTREMITIES: 2+ pulses, warm, well-perfused. No cyanosis. No clubbing. No peripheral edema. LOWER EXTREMITIES: 2+ pulses, warm, well-perfused. No calf tenderness. Pitting peripheral edema. NEUROLOGICAL: No facial droop. Normal speech. gait not observed. PSYCHIATRIC: Cooperative. Good eye contact. Appropriate mood and affect. SKIN: Warm, dry, normal turgor, no rashes or lesions noted, normal capillary refill. LABS Laboratory Results - last 24 hr 07/18/18 07/18/18 07/18/18 12:53 12:53 16:28 WBC 5.7 RBC 5.38 H Hgb 12.5 Hct 38.6 MCV 71.8 L MCH 23.3 L MCHC 32.5 RDW 15.9 H Plt Count 266 MPV 9.1 Absolute Neuts (auto) 2.5 Neutrophils % 43.8 Lymphocytes % 47.1 H Monocytes % 7.0 Eosinophils % 1.4 Basophils % 0.7 Nucleated RBC % 0 Sodium 133 L Potassium 5.4 H Chloride 100 Carbon Dioxide 26 Anion Gap 8 BUN 16 Creatinine 0.8 Creat Clearance w eGFR > 60 POC Glucometer [phone] Random Glucose 440 H* Hemoglobin A1c % Calcium 8.8 Phosphorus Magnesium Total Bilirubin 0.4 AST 30 ALT 18 Alkaline Phosphatase 174 H Creatine Kinase Troponin I < 0.02 B-Natriuretic Peptide Total Protein 6.9 Albumin 3.0 L Triglycerides Cholesterol Total LDL Cholesterol HDL Cholesterol Urine Color Urine Appearance Urine pH Ur Specific [place] Urine Protein Urine Glucose (UA) Urine Ketones Urine Blood Urine Nitrite Urine Bilirubin Urine Urobilinogen Ur Leukocyte Esterase Urine WBC (Auto) Urine RBC (Auto) Ur Epithelial Cells Urine Bacteria Urine Mucus Urine Yeast 07/18/18 07/18/18 07/18/18 16:46 16:46 16:46 WBC RBC Hgb Hct MCV MCH MCHC RDW Plt Count MPV Absolute Neuts (auto) Neutrophils % Lymphocytes % Monocytes % Eosinophils % Basophils % Nucleated RBC % Sodium Potassium Chloride Carbon Dioxide Anion Gap BUN Creatinine Creat Clearance w eGFR POC Glucometer Random Glucose Hemoglobin A1c % 15.1 H Calcium Phosphorus Magnesium Total Bilirubin AST ALT Alkaline Phosphatase Creatine Kinase 129 Troponin I 0.02 B-Natriuretic Peptide 372.3 H Total Protein Albumin Triglycerides Cholesterol Total LDL Cholesterol HDL Cholesterol Urine Color Urine Appearance Urine pH Ur Specific [place] Urine Protein Urine Glucose (UA) Urine Ketones Urine Blood Urine Nitrite Urine Bilirubin Urine Urobilinogen Ur Leukocyte Esterase Urine WBC (Auto) Urine RBC (Auto) Ur Epithelial Cells Urine Bacteria Urine Mucus Urine Yeast 07/18/18 07/19/18 07/19/18 23:37 05:30 05:30 WBC 5.4 RBC 5.48 H Hgb 12.1 Hct 39.7 MCV 72.4 L MCH 22.1 L MCHC 30.6 L RDW 15.6 Plt Count 232 MPV 8.8 Absolute Neuts (auto) 1.7 Neutrophils % 31.6 L D Lymphocytes % 58.4 H D Monocytes % 6.8 Eosinophils % 2.6 D Basophils % 0.6 Nucleated RBC % 0 Sodium 136 Potassium 4.3 Chloride 101 Carbon Dioxide 27 Anion Gap 7 L BUN 14 Creatinine 0.7 Creat Clearance w eGFR > 60 POC Glucometer [phone] Random Glucose 305 H* Hemoglobin A1c % Calcium 8.8 Phosphorus 3.6 Magnesium 1.7 L Total Bilirubin 0.5 AST 12 L ALT 16 Alkaline Phosphatase 155 H Creatine Kinase 108 Troponin I < 0.02 B-Natriuretic Peptide Total Protein 6.5 Albumin 3.0 L Triglycerides 249 H Cholesterol 272 H Total LDL Cholesterol 184 H HDL Cholesterol 43 Urine Color Urine Appearance Urine pH Ur Specific [place] Urine Protein Urine Glucose (UA) Urine Ketones Urine Blood Urine Nitrite Urine Bilirubin Urine Urobilinogen Ur Leukocyte Esterase Urine WBC (Auto) Urine RBC (Auto) Ur Epithelial Cells Urine Bacteria Urine Mucus Urine Yeast 07/19/18 07/19/18 07/19/18 05:30 06:43 07:00 WBC RBC Hgb Hct MCV MCH MCHC RDW Plt Count MPV Absolute Neuts (auto) Neutrophils % Lymphocytes % Monocytes % Eosinophils % Basophils % Nucleated RBC % Sodium Potassium Chloride Carbon Dioxide Anion Gap BUN Creatinine Creat Clearance w eGFR POC Glucometer 320 Random Glucose Hemoglobin A1c % Calcium Phosphorus Magnesium Total Bilirubin AST ALT Alkaline Phosphatase Creatine Kinase Cancelled Troponin I Cancelled B-Natriuretic Peptide Total Protein Albumin Triglycerides Cholesterol Total LDL Cholesterol HDL Cholesterol Urine Color Ltyellow Urine Appearance Slcloudy Urine pH 6.0 Ur Specific [place] 1.028 Urine Protein Negative Urine Glucose (UA) 3+ H Urine Ketones Negative Urine Blood Negative Urine Nitrite Negative Urine Bilirubin Negative Urine Urobilinogen Negative Ur Leukocyte Esterase Trace Urine WBC (Auto) 3 Urine RBC (Auto) 1 Ur Epithelial Cells Rare Urine Bacteria Rare Urine Mucus Rare Urine Yeast Moderate HOSPITAL COURSE: Date of Admission:07/18/18 Date of Discharge: 07/19/18 Patient is a 57 year old female from senior living with past medical history of non compliance, COPD not on home oxygen, HTN, NIDDM, DANIELA, Morbid obesity, GERD, and [place](at 41), presented to the ED with the chief complaint of " Chest pain and shortness of breath" x 3 days. Admitted in Tele/continuous cardiac monitoring was done. Troponins x 3 negative , EKG normal sinus rhythm, no ST or T wave changes. ACS ruled out. Chest pain has resolved. Cardiology consulted. Periods of PAT on tele monitor. Patient is asymptomatic. Recommended patient to follow up with golf club manager as outpatient and follow the results. Cough is most likely due to bronchitis. Treated with IV Ceftriaxone and IV Azithromycin. Will send home on Cefuroxime 500 mg BID x 5 days. COPD exacerbation resolved. Saturation > 92 % in RA. Diabetes Mellitus: A1c 15.1 non compliant to medications. Educated patient to take medications daily, lifestyle modifications and follow up with fleet manager/dispatch. Patient is hemodynamically stable, her symptoms has resolved, stable to be discharged home. Plan of care explained to the patient. She verbalized understanding. Minutes to complete discharge: 45 Discharge Summary Reason For Visit: COPD,CHEST PAIN Current Active Problems Chest pain (Acute) Edema (Acute) HTN (hypertension) (Acute) Condition: Improved - Instructions Diet, Activity, Other Instructions: You were admitted for evaluation of chest pain and cough. Chest pain is most likely due to musculoskeletal pain. Heart attack is ruled out. You also have bronchitis for which you need to take antibiotics for few more days. MEDICATIONS 1. Please take Cefuroxime 500 mg twice a day x 5 days 2. Please stop taking Amlodipine and start taking Cardizem 120mg daily. 3. Resume home medications Echocardiogram report is also pending. Please follow up with Dr. Cerna ( golf club manager) so he can discuss with you about your echocardiogram results. DIET: Diabetic diet. Your HbA1c is 15, sugar is not well controlled. Please make sure you follow diabetic diet, daily exercise and follow up with fleet manager/dispatch. ACTIVITY: As tolerated. FOLLOW UP: Primary care physician and golf club manager in a week. Your [employer]ator in 2 weeks. If your symptoms doesn't improve or you develop any new symptoms please call 911 and come to the ED immediately. Referrals: Kevin Barakat MD [Staff Physician] - 1 Week Satya Cerna MD [Staff Physician] - 1 Week Disposition: HOME - Home Medications Comprehensive Discharge Medication List: Ambulatory Orders Amlodipine Besylate [Norvasc -] 10 mg PO DAILY 01/20/18 Atorvastatin Ca [Lipitor] 40 mg PO HS 01/20/18 Insulin Glargine,Hum.rec.anlog [Lantus] 24 unit SQ BID 01/20/18 Metformin HCl [Metformin HCl ER] 1,000 mg PO BID 01/20/18 Tiotropium [place] [Spiriva Respimat] 4 gm IH DAILY 01/20/18 Albuterol 0.083% Nebulizer Briana [Ventolin 0.083% Nebulizer Soln -] 1 amp NEB RTID amp 07/19/18 Cefuroxime Axetil [Cefuroxime] 500 mg PO BID 5 Days #10 tablet 07/19/18 Miconazole Nitrate [Monistat -] 1 applic TP BID #1 tube 07/19/18 Problem List - Problems (1) Chest pain Code(s): R07.9 - CHEST PAIN, UNSPECIFIED Qualifiers: Chest pain type: unspecified Qualified Code(s): R07.9 - Chest pain, unspecified (2) Edema Code(s): R60.9 - EDEMA, UNSPECIFIED (3) HTN (hypertension) Code(s): I10 - ESSENTIAL (PRIMARY) HYPERTENSION (4) COPD (chronic obstructive pulmonary disease) Code(s): J44.9 - CHRONIC OBSTRUCTIVE PULMONARY DISEASE, UNSPECIFIED Qualifiers: COPD type: unspecified COPD Qualified Code(s): J44.9 - Chronic obstructive pulmonary disease, unspecified (5) Cough Code(s): R05 - COUGH (6) Hyperglycemia Code(s): R73.9 - HYPERGLYCEMIA, UNSPECIFIED (7) UTI (urinary tract infection) Code(s): N39.0 - URINARY TRACT INFECTION, SITE NOT SPECIFIED Qualifiers: Urinary tract infection type: site unspecified Hematuria presence: without hematuria Qualified Code(s): N39.0 - Urinary tract infection, site not specified This patient is new to me today: No Emergency Visit: Yes ED Registration Date: 07/18/18 Care time: The patient presented to the Emergency Department on the above date and was hospitalized for further evaluation of their emergent condition. Critical Care patient: No - Discharge Referral Referred to [facility] No
--- NOTE | 2018-07-19 11:55 | EKG ---
Test Reason : Blood Pressure : / mmHG Vent. Rate : 070 BPM Atrial Rate : 070 BPM P-R Int : 208 ms QRS Dur : 106 ms QT Int : 394 ms P-R-T Axes : 064 -14 018 degrees QTc Int : 425 ms NORMAL SINUS RHYTHM SEPTAL INFARCT (CITED ON OR BEFORE 18-JUL-2018) ABNORMAL ECG WHEN COMPARED WITH ECG OF 18-JUL-2018 11:35, PREMATURE ATRIAL COMPLEXES ARE NO LONGER PRESENT Confirmed by MADELINE FENG, NATHANIEL ([id number]) on 07/19/2018 11:55:32 AM Referred By: Confirmed By:NATHANIEL CORREA MD
--- NOTE | 2018-07-19 12:37 | CON.CARD ---
Cardiology Consult (text) - Consultation Consultation Note: cc: cp, sob hpi: 57 f hx copd, htn, hld, here with productive cough, sob, cp. Pt here with usual copd sxs. Occasional sharp central cp with cough/deep breaths. Sxs have improved since getting copd tx. Now feels well. No cp sob dizzy loc pnd orthopnea le edema. On tele today had svt so cardio consulted. Pt reports for several mos she has weekly brief palps. Today had few seconds of pat on tele, no palps then. pmh: per hpi psh: nc fam: no premature cad social: no tob ros: per hpi; no nvd fever barillas vision changes gib hematuria dysuria wt loss medS: Home Medications Medication Instructions Recorded Atorvastatin Ca [Lipitor] 40 mg PO HS 01/20/18 Insulin Glargine,Hum.rec.anlog 24 unit SQ BID 01/20/18 [Lantus] Metformin HCl [Metformin HCl ER] 1,000 mg PO BID 01/20/18 Tiotropium [place] [Spiriva 4 gm IH DAILY 01/20/18 Respimat] Albuterol 0.083% Nebulizer Briana 1 amp NEB RTID amp 07/19/18 [Ventolin 0.083% Nebulizer Soln -] Cefuroxime Axetil [Cefuroxime] 500 mg PO BID 5 Days #10 tablet 07/19/18 Diltiazem Cd [Cardizem Cd -] 120 mg PO DAILY 30 Days #30 07/19/18 cap.cd.24h Miconazole Nitrate [Monistat -] 1 applic TP BID #1 tube 07/19/18 pe: Vital Signs Period Temp Pulse Resp BP Sys/[place] Pulse Ox Last 24 Hr 97.4 F-98.1 F 73-89 18-20 127-165/59-81 97-100 nad no jvd rrr s1s2 no mrg cta bl nl eff aaox3 no le e/c/c abd nt nd pos bs no jaundice diaphoresis pos dp pt Laboratory Last Values WBC 5.4 K/mm3 (4.0-10.0) 07/19/18 05:30 RBC 5.48 M/mm3 (3.60-5.2) H 07/19/18 05:30 Hgb 12.1 GM/dL (10.7-15.3) 07/19/18 05:30 Hct 39.7 % (32.4-45.2) 07/19/18 05:30 MCV 72.4 fl (80-96) L 07/19/18 05:30 MCH 22.1 pg (25.7-33.7) L 07/19/18 05:30 MCHC 30.6 g/dl (32.0-36.0) L 07/19/18 05:30 RDW 15.6 % (11.6-15.6) 07/19/18 05:30 Plt Count 232 K/MM3 (134-434) 07/19/18 05:30 MPV 8.8 fl (7.5-11.1) 07/19/18 05:30 Absolute Neuts (auto) 1.7 K/mm3 (1.5-8.0) 07/19/18 05:30 Neutrophils % 31.6 % (42.8-82.8) L D 07/19/18 05:30 Lymphocytes % 58.4 % (8-40) H D 07/19/18 05:30 Monocytes % 6.8 % (3.8-10.2) 07/19/18 05:30 Eosinophils % 2.6 % (0-4.5) D 07/19/18 05:30 Basophils % 0.6 % (0-2.0) 07/19/18 05:30 Nucleated RBC % 0 % (0-0) 07/19/18 05:30 Sodium 136 mmol/L (136-145) 07/19/18 05:30 Potassium 4.3 mmol/L (3.5-5.1) 07/19/18 05:30 Chloride 101 mmol/L (98-107) 07/19/18 05:30 Carbon Dioxide 27 mmol/L (21-32) 07/19/18 05:30 Anion Gap 7 MMOL/L (8-16) L 07/19/18 05:30 BUN 14 mg/dL (7-18) 07/19/18 05:30 Creatinine 0.7 mg/dL (0.55-1.3) 07/19/18 05:30 Creat Clearance w eGFR > 60 (>60) 07/19/18 05:30 POC Glucometer 386 UNITS (80-120) 07/19/18 11:42 Random Glucose 305 mg/dL (74-106) H* 07/19/18 05:30 Hemoglobin A1c % 15.1 % (4.2-6.3) H 07/18/18 16:46 Calcium 8.8 mg/dL (8.5-10.1) 07/19/18 05:30 Phosphorus 3.6 mg/dL (2.5-4.9) 07/19/18 05:30 Magnesium 1.7 mg/dL (1.8-2.4) L 07/19/18 05:30 Total Bilirubin 0.5 mg/dL (0.2-1) 07/19/18 05:30 AST 12 U/L (15-37) L 07/19/18 05:30 ALT 16 U/L (13-61) 07/19/18 05:30 Alkaline Phosphatase 155 U/L (45-117) H 07/19/18 05:30 Creatine Kinase 108 IU/L (26-192) 07/19/18 05:30 Troponin I < 0.02 ng/ml (0.00-0.05) 07/19/18 05:30 B-Natriuretic Peptide 372.3 pg/ml (5-125) H 07/18/18 16:46 Total Protein 6.5 g/dl (6.4-8.2) 07/19/18 05:30 Albumin 3.0 g/dl (3.4-5.0) L 07/19/18 05:30 Triglycerides 249 mg/dL (0-150) H 07/19/18 05:30 Cholesterol 272 mg/dL (50-200) H 07/19/18 05:30 Total LDL Cholesterol 184 mg/dL (5-100) H 07/19/18 05:30 HDL Cholesterol 43 mg/dL (40-60) 07/19/18 05:30 Urine Color Ltyellow 07/19/18 07:00 Urine Appearance Slcloudy 07/19/18 07:00 Urine pH 6.0 (5.0-8.0) 07/19/18 07:00 Ur Specific [place] 1.028 (1.010-1.035) 07/19/18 07:00 Urine Protein Negative (NEGATIVE) 07/19/18 07:00 Urine Glucose (UA) 3+ (NEGATIVE) H 07/19/18 07:00 Urine Ketones Negative (NEGATIVE) 07/19/18 07:00 Urine Blood Negative (NEGATIVE) 07/19/18 07:00 Urine Nitrite Negative (NEGATIVE) 07/19/18 07:00 Urine Bilirubin Negative (<2.0 mg/dL) 07/19/18 07:00 Urine Urobilinogen Negative mg/dL (0.2-1.0) 07/19/18 07:00 Ur Leukocyte Esterase Trace (NEGATIVE) 07/19/18 07:00 Urine WBC (Auto) 3 /hpf (3-5) 07/19/18 07:00 Urine RBC (Auto) 1 /hpf (0-3) 07/19/18 07:00 Ur Epithelial Cells Rare /HPF (FEW) 07/19/18 07:00 Urine Bacteria Rare /hpf (NONE SEEN) 07/19/18 07:00 Urine Mucus Rare 07/19/18 07:00 Urine Yeast Moderate 07/19/18 07:00 cxr: clear lungs ecg: sr, pacs, nl intervals, no ischemic changes tele: sr, pacs, brief PAT this AM a/p: 57 f hx copd, htn, hld, here with productive cough, sob, cp. cp, sob, copd: -sxs resolved with tx of copd -no signs acs or chf svt/palps: -tele today showed brief episode of PAT -pt reports occ palps, none during todays episode -dc norvasc and change to dilt ER 120 qd starting tomorrow -echo pending, if benign can dc from cardiac pov and pt will f/u in office htn: -stable on meds hld: -cont statin
== END 2018-07-19 13:38 | disposition home or self-care (01) ==
LOC: JER 11:03 → JERBED 14:58 → J4W 07-19 03:28
PROVIDERS: ADMIT Internal Medicine; ATTEND Internal Medicine
PROC: 3E03329 Introduction of Other Anti-infective into Peripheral Vein, Percutaneous Approach (ICD-10-PCS; principal; 2018-07-18)
PROC: 3E033GC Introduction of Other Therapeutic Substance into Peripheral Vein, Percutaneous Approach (ICD-10-PCS; 2018-07-18)
PROC: 3E013VG Introduction of Insulin into Subcutaneous Tissue, Percutaneous Approach (ICD-10-PCS; 2018-07-18)
PROC: 3E013GC Introduction of Other Therapeutic Substance into Subcutaneous Tissue, Percutaneous Approach (ICD-10-PCS; 2018-07-18)
PROC: 3E0F7GC Introduction of Other Therapeutic Substance into Respiratory Tract, Via Natural or Artificial Opening (ICD-10-PCS; 2018-07-18)
DX: J44.1 Chronic obstructive pulmonary disease with (acute) exacerbation (principal); R07.89 Other chest pain; I10 Essential (primary) hypertension; E11.9 Type 2 diabetes mellitus without complications; G47.33 Obstructive sleep apnea (adult) (pediatric); K21.9 Gastro-esophageal reflux disease without esophagitis; I25.2 Old myocardial infarction; F17.210 Nicotine dependence, cigarettes, uncomplicated; J20.9 Acute bronchitis, unspecified; N39.0 Urinary tract infection, site not specified; R60.9 Edema, unspecified; E66.01 Morbid (severe) obesity due to excess calories; Z68.42 Body mass index [BMI] 45.0-49.9, adult; Z79.4 Long term (current) use of insulin; Z91.14 Patient's other noncompliance with medication regimen
CPT/HCPCS: 36415; 71045-TC-FY; 80053; 80061; 81003; 81015; 82550; 82962; 83036; 83721; 83735; 83880; 84100; 84484; 85025; 87040; 87086; 87186; 93005; 93010; 93306-TC; 94640; 96372; 96374; 96375; 99284-25; G0378; J1644

== ENCOUNTER 2018-09-07 05:08 | Emergency (ER) | payer OTHER ==
--- NOTE | 2018-09-07 05:19 | PDOC ---
History of Present Illness - General Stated Complaint: BLOOD SUGAR PROBLEM Time Seen by Provider: 09/07/18 05:19 History Source: Patient Exam Limitations: No Limitations - History of Present Illness Initial Comments: 09/07/18 05:21 Ms. Dean is a 57 yo F presenting to the ER via EMS due to elevated blood glucose. Pt has a h/o DM for which she take Lantus 24U BID and Metformin 1000mg bid PT reports compliance with her medications however over the past 4-5 days she has noted polyuria, polydypsia and lightheadedness She denies chest pain, shortness of breath, cough She denies nausea, vomiting, diarrhea Pt does not adhere to a diabetic diet, does not routinely check her blood glucose Pt has not seen her pmd since the last time she was seen in this ER PMH: COPD not on home oxygen, HTN, NIDDM, DANIELA, Morbid obesity, GERD, and [place](at 41), PSH: None reported Social History: Has 7 kids, lives in a senior living with one child. Smoking: Quit in Nov, 2017 smoked for 20 yrs Alcohol: Occasional Drugs: Denies Family History: Non contributory Allergies : NKDA ROS: GENERAL/CONSTITUTIONAL: No: fever, chills, weakness, loss of appetite. HEAD, EYES, EARS, NOSE AND THROAT: No: change in vision, ear pain, discharge, sore throat, throat swelling. CARDIOVASCULAR: Yes: lightheadedness No: chest pain, palpitations, syncope RESPIRATORY: No: cough, shortness of breath, GASTROINTESTINAL: No: nausea, vomiting, diarrhea, abdominal pain. GENITOURINARY: Yes: polyuria, local vaginal irritation No: hematuria, flank pain. MUSCULOSKELETAL: No: back pain, neck pain, joint pain, muscle swelling or pain SKIN: No: lesions, pallor, rash or easy bruising. NEUROLOGIC: No: headache, vertigo, paresthesias, weakness ENDOCRINE: No: unexplained weight gain or loss HEMATOLOGIC/LYMPHATIC: No: anemia, easy bleeding, swelling nodes. PE: GENERAL: The patient is in no acute distress, sleeping in bed, morbid obesity. HEAD: Normal EYES: PERRLA, EOMI, sclera anicteric, conjunctiva clear. ENT: Ears normal, nares patent, oropharynx clear without exudates. Dry mucous membranes. NECK: Normal range of motion, supple LUNGS: Breath sounds equal, clear to auscultation bilaterally. No wheezes, and no crackles. HEART:Regular rate and rhythm, normal S1 and S2 without murmur, rub or gallop. ABDOMEN: Soft, nontender, No involuntary guarding, no rebound. EXTREMITIES: Normal range of motion, no edema. No clubbing or cyanosis. No erythema, or tenderness. NEUROLOGICAL: Cranial nerves II through XII grossly intact. Normal speech. No focal neurological deficits. MUSCULOSKELETAL: Back non-tender to palpation, no CVA tenderness SKIN: Warm, Dry, normal turgor, no rashes or lesions noted. 09/07/18 05:32 Past History - Past Medical History Allergies/Adverse Reactions: Allergies Allergy/AdvReac Type Severity Reaction Status Date / Time No Known Allergies Allergy Verified 09/07/18 05:48 Home Medications: Ambulatory Orders Atorvastatin Ca [Lipitor] 40 mg PO HS 01/20/18 Insulin Glargine,Hum.rec.anlog [Lantus] 24 unit SQ BID 01/20/18 Tiotropium [place] [Spiriva Respimat] 4 gm IH DAILY 01/20/18 metFORMIN HCL [Metformin ER Gastric] 1,000 mg PO BID 01/20/18 Albuterol 0.083% Nebulizer Briana [Ventolin 0.083% Nebulizer Soln -] 1 amp NEB RTID amp 07/19/18 Cefuroxime Axetil [Cefuroxime] 500 mg PO BID 5 Days #10 tablet 07/19/18 Diltiazem Cd [Cardizem Cd -] 120 mg PO DAILY 30 Days #30 cap.cd.24h 07/19/18 Miconazole Nitrate [Monistat -] 1 applic TP BID #1 tube 07/19/18 Anemia: Yes Asthma: Yes COPD: Yes Diabetes: Yes (IDDM, non compliant) HTN: Yes Hypercholesterolemia: Yes - Surgical History Abdominal Surgery: No Appendectomy: No Cardiac Surgery: No Cholecystectomy: No Gastric Stapling: No GI Surgery: No Lung Surgery: No Neurologic Surgery: No Orthopedic Surgery: No - Immunization History Immunization Up to Date: Yes - Suicide/Smoking/Psychosocial Hx Smoking History: Current every day smoker Have you smoked in the past 12 months: Yes Number of Cigarettes Smoked Daily: 10 If you are a former smoker, when did you quit?: Hx Alcohol Use: No Drug/Substance Use Hx: Yes Substance Use Type: None ED Treatment Course - LABORATORY CBC & Chemistry Diagram: 09/07/18 05:56 09/07/18 05:56 Medical Decision Making - Medical Decision Making 09/07/18 06:02 58 yo F presenting to the ER due to elevated blood glucose Pt adheres to medication regimen, but not to diet, does not monitor blood glucose Has not followed up with PMD since the last time she was seen here for hyperglycemia DD: Hyperglycemia, DKA, Dehydration Will do: Labs IVF Will give insulin based on electrolyes UA 09/07/18 06:29 EKG - NSR rate of 78 bpm, axis nml, intervals abn - pr: 212 ms (prolonged), QRS : 106ms, QTc: 430ms, no st elevation, t waves upright, poor R wave progression, No pathologic q waves 09/07/18 06:30 09/07/18 06:54 Laboratory Tests 09/07/18 09/07/18 09/07/18 05:56 05:56 05:56 WBC 5.4 Hgb 12.6 Hct 39.5 Plt Count 242 Sodium 129 L Potassium 4.4 Chloride 92 L Carbon Dioxide 30 BUN 22 H Creatinine 0.9 Creatine Kinase 178 Troponin I < 0.02 Urine Blood Negative Urine Nitrite Negative Ur Leukocyte Esterase Negative Insulin ordered Pt signed out to Dr. cole Anticipate discharge *DC/Admit/Observation/Transfer Diagnosis at time of Disposition: Hyperglycemia, Diabetes mellitus - Discharge Dispostion Disposition: HOME Condition at time of disposition: Improved - Referrals Referrals: [facility]inic, [facility] [Other] - Patient Instructions Printed Discharge Instructions: DI for Hyperglycemia -- Adult Additional Instructions: Return to the emergency department immediately with ANY new, persistent or worsening symptoms. Please avoid foods's such as rice, potatoes, Pasta, breads as these may increase her blood sugar. Make sure to continue using your insulin and other medications as directed. You MUST call and follow up with your doctor on sunday or sunday for further evaluation of your symptoms. Results were discussed with you. Please make sure your doctor reviews the results of your emergency evaluation. - Post Discharge Activity
[2018-09-07] MEDS ORDERED: SODIUM CHLORIDE 1,000 ML IV STA ×2 (05:20→07:01)
[2018-09-07 05:48] VITALS: TEMP 98.1; BMI 45.4
[2018-09-07 06:12] LABS: HEMATOCRIT 39.5 % (32.4-45.2); HEMOGLOBIN 12.6 GM/dL (10.7-15.3); LYMPH % 50.7 % (8-40); MCH 23.6 pg (25.7-33.7); MCHC 31.9 g/dl (32.0-36.0); MEAN CELL VOLUME 73.8 fl (80-96); MEAN PLT VOLUME 8.8 fl (7.5-11.1); MONO % 8.5 % (3.8-10.2); NEUT % 37.8 % (42.8-82.8); PLATELET COUNT 242 K/MM3 (134-434); RBC 5.35 M/mm3 (3.60-5.2); RDW 15.3 % (11.6-15.6); WHITE BLOOD COUNT 5.4 K/mm3 (4.0-10.0)
[2018-09-07 06:15] LABS: URINE APPEARANCE CLEAR; URINE BILIRUBIN NEGATIVE (<2.0 mg/dL); URINE COLOR COLORLESS; URINE GLUCOSE (UA) 3+ (NEGATIVE); URINE KETONE NEGATIVE (NEGATIVE); URINE LEUK ESTERASE NEGATIVE (NEGATIVE); URINE NITRITE NEGATIVE (NEGATIVE); URINE PROTEIN NEGATIVE (NEGATIVE); URINE UROBILINOGEN NEGATIVE mg/dL (0.2-1.0)
[2018-09-07 06:51] LABS: ALBUMIN 3.3 g/dl (3.4-5.0); ALK PHOS 235 U/L (45-117); ANION GAP 7 MMOL/L (8-16); BILIRUBIN,TOTAL 0.3 mg/dL (0.2-1); BLOOD UREA NITROGEN 22 mg/dL (7-18); CALCIUM 8.9 mg/dL (8.5-10.1); CHLORIDE 92 mmol/L (98-107); CO2 30 mmol/L (21-32); CREATININE 0.9 mg/dL (0.55-1.3); POTASSIUM 4.4 mmol/L (3.5-5.1); SGOT/AST 10 U/L (15-37); SGPT/ALT 22 U/L (13-61); SODIUM 129 mmol/L (136-145); TOT PROT 7.2 g/dl (6.4-8.2)
[2018-09-07 07:00] LABS: GLUCOSE,RANDOM 550 mg/dL (74-106)
[2018-09-07] MEDS ORDERED: INSULIN REGULAR HUMAN 100 UNITS/ML *VIAL SQ ONE (07:01)
[2018-09-07] MEDS ORDERED: INSULIN REGULAR HUMAN 100 UNITS/ML *VIAL ONE (07:03)
[2018-09-07 07:42] LABS: ACETONE SERUM NEGATIVE (NEGATIVE)
--- NOTE | 2018-09-07 09:37 | PDOC ---
*Physical Exam - Vital Signs Last Vital Signs Temp Pulse Resp BP Pulse Ox 98.1 F 94 H 18 158/81 97 09/07/18 05:08 09/07/18 05:08 09/07/18 05:08 09/07/18 05:08 09/07/18 05:08 ED Treatment Course - LABORATORY CBC & Chemistry Diagram: 09/07/18 05:56 09/07/18 05:56 - ADDITIONAL ORDERS Additional order review: Laboratory Results 09/07/18 09/07/18 09/07/18 08:54 05:56 05:56 Sodium 129 L Potassium 4.4 Chloride 92 L Carbon Dioxide 30 Anion Gap 7 L BUN 22 H Creatinine 0.9 Creat Clearance w eGFR > 60 POC Glucometer 328 Random Glucose 550 H* Calcium 8.9 Total Bilirubin 0.3 AST 10 L ALT 22 Alkaline Phosphatase 235 H Creatine Kinase 178 Creatine Kinase Index 1.4 CK-MB (CK-2) 2.6 Troponin I < 0.02 Total Protein 7.2 Albumin 3.3 L Urine Color Colorless Urine Appearance Clear Urine pH 6.0 Ur Specific Shirley 1.026 Urine Protein Negative Urine Glucose (UA) 3+ H Urine Ketones Negative Urine Blood Negative Urine Nitrite Negative Urine Bilirubin Negative Urine Urobilinogen Negative Ur Leukocyte Esterase Negative Acetone, Qual Negative L 09/07/18 09/07/18 08:54 05:56 RBC 5.35 H MCV 73.8 L MCHC 31.9 L RDW 15.3 MPV 8.8 Neutrophils % 37.8 L Lymphocytes % 50.7 H Monocytes % 8.5 Eosinophils % 2.0 Basophils % 1.0 POC Glucometer 328 - Medications Given in the ED: ED Medications Discontinued Medications Generic Name Dose Route Start Last Admin Trade Name Freq PRN Reason Stop Dose Admin Sodium Chloride 1,000 mls @ 1,000 mls/hr 09/07/18 05:20 09/07/18 06:14 Normal Saline - IV 09/07/18 06:19 1,000 mls/hr ASDIR STA Administration Sodium Chloride 1,000 mls @ 1,000 mls/hr 09/07/18 07:01 09/07/18 07:06 Normal Saline - IV 09/07/18 08:00 1,000 mls/hr ASDIR STA Administration Insulin Human Regular 10 units 09/07/18 07:01 09/07/18 07:06 Novolin R Vial *For Ivpush Or Iv Drip Only* SQ 09/07/18 07:02 10 units ONCE ONE Administration Medical Decision Making - Medical Decision Making 09/07/18 09:37 Pt signed out to me from Dr. Munoz 58y F hx of IDDM presents with hyperglycemia pt endorses polyuria and feeling lighteaded. endorses noncomplaince with cking her bgm and using her insulin as well as noncomplaince with diet labs reviewed noted for hyperglycemia hyponatremia likely due to elevated glucose, but corrects to normal no signs of DKA s/p insulin wit himprovmement of BGM pt has insulin and her other meds at home. counseled pt on apprpriate diet and importance of her insulin an ddm meds. pt will fu with the clinic at [facility] on sunday return prcautions were dsicussed I discussed the physical exam findings, ancillary test results and final diagnoses with the patient. I answered all of the patient's questions. The patient was satisfied with the care received and felt comfortable with the discharge plan and treatment plan. The patient will call their primary care physician within 24 hours to arrange follow-up and will return to the Emergency Department with any new, persistent or worsening symptoms. *DC/Admit/Observation/Transfer Diagnosis at time of Disposition: Hyperglycemia Diabetes mellitus Qualifiers: Diabetes mellitus type: type 1 Diabetes mellitus complication status: with hyperglycemia Qualified Code(s): E10.65 - Type 1 diabetes mellitus with hyperglycemia - Discharge Dispostion Condition at time of disposition: Improved Decision to Admit order: No - Referrals Referrals: CLinic, [facility] [Other] - Patient Instructions Printed Discharge Instructions: DI for Hyperglycemia -- Adult Additional Instructions: Return to the emergency department immediately with ANY new, persistent or worsening symptoms. Please avoid foods's such as rice, potatoes, Pasta, breads as these may increase her blood sugar. Make sure to continue using your insulin and other medications as directed. You MUST call and follow up with your doctor on sunday or sunday for further evaluation of your symptoms. Results were discussed with you. Please make sure your doctor reviews the results of your emergency evaluation. - Post Discharge Activity
[2018-09-07 10:23] VITALS: BP 149/109; PULSE 86
--- NOTE | 2018-09-10 13:54 | EKG ---
Test Reason : Blood Pressure : / mmHG Vent. Rate : 078 BPM Atrial Rate : 078 BPM P-R Int : 212 ms QRS Dur : 106 ms QT Int : 378 ms P-R-T Axes : 078 013 047 degrees QTc Int : 430 ms SINUS RHYTHM WITH MARKED SINUS ARRHYTHMIA WITH 1ST DEGREE A-V BLOCK SEPTAL INFARCT (CITED ON OR BEFORE 18-JUL-2018) ABNORMAL ECG WHEN COMPARED WITH ECG OF 19-JUL-2018 10:52, NO SIGNIFICANT CHANGE WAS FOUND Confirmed by MD Brodie, Horace ([id number]) on 09/10/2018 1:54:32 PM Referred By: Confirmed By:Horace Calloway MD
== END 2018-09-07 10:23 | disposition home or self-care (01) ==
LOC: JER 05:08
PROC: 3E0337Z Introduction of Electrolytic and Water Balance Substance into Peripheral Vein, Percutaneous Approach (ICD-10-PCS; principal; 2018-09-07)
PROC: 3E013VG Introduction of Insulin into Subcutaneous Tissue, Percutaneous Approach (ICD-10-PCS; 2018-09-07)
DX: E10.65 Type 1 diabetes mellitus with hyperglycemia (principal); Z79.4 Long term (current) use of insulin
CPT/HCPCS: 36415; 80053; 81003; 82009; 82550; 82553; 82962; 84484; 85025; 87086; 93005; 93010; 96360; 96361; 96372; 99284-25; J7030

== ENCOUNTER 2018-10-09 21:02 | Emergency (ER) | payer OTHER ==
--- NOTE | 2018-10-09 21:08 | PDOC ---
Attending Attestation - HPI HPI: 10/09/18 22:24 The patient is a morbidly obese 58 year old female, with a significant PMH of COPD not on home oxygen, HTN, IDDM (compliant with medication), DANIELA, GERD, and [place], who was BIBA to the emergency department for evaluation of high blood glucose, above 500. The patient states she has been feeling fatigue for the last few days. The patient denies chest pain, shortness of breath, headache and dizziness. Denies fever, chills, nausea, vomit, diarrhea and constipation. Denies dysuria, frequency, urgency and hematuria. Allergies: NKA Social history: None reported - Physicial Exam PE: 10/09/18 22:24 GENERAL: Sleeping but easily arousable, in no acute distress. Morbidly obese. HEAD: No signs of trauma EYES: PERRLA, EOMI, sclera anicteric, conjunctiva clear ENT: Auricles normal inspection, hearing grossly normal, nares patent, oropharynx clear without exudates. Moist mucosa NECK: Normal ROM, supple, no lymphadenopathy, JVD, or masses LUNGS: Transmitted upper airway sounds. Breath sounds equal, clear to auscultation bilaterally. No wheezes, and no crackles HEART: Regular rate and rhythm, normal S1 and S2, no murmurs, rubs or gallops ABDOMEN: Soft, nontender, normoactive bowel sounds. No guarding, no rebound. No masses EXTREMITIES: Normal range of motion, no edema. No clubbing or cyanosis. No cords, erythema, or tenderness NEUROLOGICAL: Cranial nerves II through XII grossly intact. Normal speech, normal gait SKIN: Warm, Dry, normal turgor, no rashes or lesions noted. <Lona Mccall - Last Filed: 10/09/18 22:24> - Resident Resident Name: Mack Gamez - ED Attending Attestation I have performed the following: I have examined & evaluated the patient, The case was reviewed & discussed with the resident, I agree w/resident's findings & plan, Exceptions are as noted - Medical Decision Making 10/09/18 21:08 I, Dr. Komal Thompson, DO, attest that this document has been prepared under my direction and personally reviewed by me in its entirety. I further attest, that it accurately reflects all work, treatment, procedures and medical decision -making performed by me. 10/09/18 21:47 a/p: 58yo female with hx of DM with lightheaded, cough, and uncontrolled glucose -per medics, incalculably high glucose -denies cp -c/o coughing up green sputum -no fevers -states she has been using her lantus and her metformin -hasn't checked her sugar at the [place] [facility] -states she hasn't been watching what she eats -admits to urinary freq -will send labs, ekg, cxr -will give ivf hydraton -pt c/o feeling thirsty -pt is nontoxic in appearance 10/10/18 02:47 finger stick 485- will give insulin and ivf hydration no elevated wbc cxr clear <Komal Thompson - Last Filed: 10/10/18 02:52> Heart Score/ECG Review - ECG Intrepretation Comment:: 10/09/18 23:39 sinus at 84, 1st degree av block, nl axis, q waves septally which are age indeterminate, no acute st/t wave findings <Komal Thompson - Last Filed: 10/10/18 02:52> Attestations - Attestations 10/09/18 22:24 Documentation prepared by Lona Mccall, acting as director medical surgical for Komal Thompson DO. <Lona Mccall - Last Filed: 10/09/18 22:24>
--- NOTE | 2018-10-09 21:22 | PDOC ---
History of Present Illness - General Stated Complaint: HIGH BLOOD SUGAR Time Seen by Provider: 10/09/18 21:07 History Source: Patient Exam Limitations: No Limitations - History of Present Illness Initial Comments: 58 yo F from [facility] h/o COPD not on home oxygen, HTN, IDDM, DANIELA, Morbid obesity , GERD, and [place](at 41) BIBEMS for high blood glucose >500. Pt endorses feeling tired and sleepy over the last few days. She says she's compliant with insulin and oral metformin. Denies fever, chills, n/v, urinary, bowel sx, cough, 10/10/18 00:20 FS 485. Patient receiving 1L of NS bolus, received 6 units of novolog. 10/10/18 06:20 FS 296. Will give her home dose of 24 units of levemir, cont. fluids and recheck FS after fluid is finished. 10/10/18 06:49 Will discharge the patient Past History - Past Medical History Allergies/Adverse Reactions: Allergies Allergy/AdvReac Type Severity Reaction Status Date / Time No Known Allergies Allergy Verified 09/07/18 05:48 Home Medications: Ambulatory Orders Atorvastatin Ca [Lipitor] 40 mg PO HS 01/20/18 Insulin Glargine,Hum.rec.anlog [Lantus] 24 unit SQ BID 01/20/18 Tiotropium [place] [Spiriva Respimat] 4 gm IH DAILY 01/20/18 metFORMIN HCL [Metformin ER Gastric] 1,000 mg PO BID 01/20/18 Albuterol 0.083% Nebulizer Briana [Ventolin 0.083% Nebulizer Soln -] 1 amp NEB RTID amp 07/19/18 Cefuroxime Axetil [Cefuroxime] 500 mg PO BID 5 Days #10 tablet 07/19/18 Diltiazem Cd [Cardizem Cd -] 120 mg PO DAILY 30 Days #30 cap.cd.24h 07/19/18 Miconazole Nitrate [Monistat -] 1 applic TP BID #1 tube 07/19/18 Anemia: Yes Asthma: Yes COPD: Yes Diabetes: Yes (IDDM, non compliant) HTN: Yes Hypercholesterolemia: Yes - Surgical History Abdominal Surgery: No Appendectomy: No Cardiac Surgery: No Cholecystectomy: No Gastric Stapling: No GI Surgery: No Lung Surgery: No Neurologic Surgery: No Orthopedic Surgery: No - Immunization History Immunization Up to Date: Yes - Suicide/Smoking/Psychosocial Hx Smoking History: Current every day smoker Have you smoked in the past 12 months: Yes Number of Cigarettes Smoked Daily: 10 If you are a former smoker, when did you quit?: Hx Alcohol Use: No Drug/Substance Use Hx: Yes Substance Use Type: None ED Treatment Course - LABORATORY CBC & Chemistry Diagram: 10/09/18 23:19 10/10/18 02:49 *DC/Admit/Observation/Transfer Diagnosis at time of Disposition: Hyperglycemia - Discharge Dispostion Disposition: HOME Condition at time of disposition: Stable Decision to Admit order: No - Referrals - Patient Instructions Printed Discharge Instructions: DI for Hyperglycemia -- Adult Additional Instructions: You were evaluated in the ED for elevated blood sugar. You were treated with fluids and insulin. You are now stable to be discharged home and go back on your insulin regiment. 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 - Post Discharge Activity
[2018-10-09] MEDS ORDERED: SODIUM CHLORIDE 1,000 ML IV STA (21:28)
[2018-10-09 21:41] VITALS: BMI 61.2
[2018-10-10 00:01] LABS: BASO % 0.6 % (0-2.0); EOS % 1.2 % (0-4.5); HEMATOCRIT 37.2 % (32.4-45.2); HEMOGLOBIN 11.5 GM/dL (10.7-15.3); LYMPH % 53.1 % (8-40); MCH 23.2 pg (25.7-33.7); MEAN CELL VOLUME 74.6 fl (80-96); MEAN PLT VOLUME 9.3 fl (7.5-11.1); MONO % 7.7 % (3.8-10.2); NEUT % 37.4 % (42.8-82.8); PLATELET COUNT 204 K/MM3 (134-434); RBC 4.98 M/mm3 (3.60-5.2); RDW 15.3 % (11.6-15.6); WHITE BLOOD COUNT 5.3 K/mm3 (4.0-10.0)
[2018-10-10 00:02] LABS: VENOUS PC02 53.2 mmHg (41-51); VENOUS PH 7.32 (7.31-7.41)
[2018-10-10 00:03] LABS: VENOUS PO2 51.4 mmHg (30-40)
[2018-10-10 00:13] LABS: INR 0.92 (0.83-1.09); PROTHROMBIN TIME (PATIENT) 10.9 SEC (9.7-13.0)
[2018-10-10] MEDS ORDERED: INSULIN (NOVOLOG) ASPART 100 UNITS/ML 10ML VIAL SQ ONE (02:42)
[2018-10-10] MEDS ORDERED: INSULIN (NOVOLOG) ASPART 100 UNITS/ML 10ML VIAL ONE (02:44)
[2018-10-10 03:04] LABS: URINE APPEARANCE CLEAR; URINE BILIRUBIN NEGATIVE (NEGATIVE); URINE COLOR YELLOW; URINE GLUCOSE (UA) 3+ (NEGATIVE); URINE KETONE NEGATIVE (NEGATIVE); URINE LEUK ESTERASE NEGATIVE (NEGATIVE); URINE NITRITE NEGATIVE (NEGATIVE); URINE PROTEIN NEGATIVE (NEGATIVE); URINE UROBILINOGEN 0.2 mg/dL (0.2-1.0)
[2018-10-10 03:37] LABS: MAGNESIUM 1.9 mg/dL (1.8-2.4)
[2018-10-10 03:38] LABS: ALBUMIN 2.9 g/dl (3.4-5.0); ALK PHOS 200 U/L (45-117); ANION GAP 9 MMOL/L (8-16); BILIRUBIN,TOTAL 0.1 mg/dL (0.2-1); BLOOD UREA NITROGEN 23 mg/dL (7-18); CALCIUM 7.9 mg/dL (8.5-10.1); CHLORIDE 99 mmol/L (98-107); CO2 27 mmol/L (21-32); CREATININE 0.9 mg/dL (0.55-1.3); POTASSIUM 4.3 mmol/L (3.5-5.1); SGPT/ALT 17 U/L (13-61); SODIUM 134 mmol/L (136-145); TOT PROT 6.1 g/dl (6.4-8.2)
[2018-10-10 03:39] LABS: SGOT/AST 14 U/L (15-37)
[2018-10-10 03:41] LABS: GLUCOSE,RANDOM 485 mg/dL (74-106)
[2018-10-10 03:47] LABS: ACETONE SERUM NEGATIVE (NEGATIVE)
[2018-10-10] MEDS ORDERED: INSULIN (LEVEMIR) 100 UNITS/ML UNITS SQ ONE ×2 (06:18→06:47)
[2018-10-10] MEDS ORDERED: FAMOTIDINE 20 MG/50 ML IVPB 20 MG/50 ML MG IVPB ONE (06:22)
[2018-10-10 06:41] VITALS: BP 155/76; PULSE 58; TEMP 97.9
--- NOTE | 2018-10-10 11:46 | EKG ---
Test Reason : Blood Pressure : / mmHG Vent. Rate : 084 BPM Atrial Rate : 084 BPM P-R Int : 280 ms QRS Dur : 104 ms QT Int : 356 ms P-R-T Axes : 055 019 019 degrees QTc Int : 420 ms SINUS RHYTHM WITH SINUS ARRHYTHMIA WITH 1ST DEGREE A-V BLOCK SEPTAL INFARCT (CITED ON OR BEFORE 18-JUL-2018) ABNORMAL ECG WHEN COMPARED WITH ECG OF 07-SEP-2018 06:14, NO SIGNIFICANT CHANGE WAS FOUND Confirmed by SHELIA DONAHUE MD ([id number]) on 10/10/2018 11:46:27 AM Referred By: Confirmed By:SHELIA DONAHUE MD
== END 2018-10-10 07:33 | disposition home or self-care (01) ==
LOC: JER 21:02
PROC: 3E013VG Introduction of Insulin into Subcutaneous Tissue, Percutaneous Approach (ICD-10-PCS; principal; 2018-10-09)
DX: E11.65 Type 2 diabetes mellitus with hyperglycemia (principal); Z79.4 Long term (current) use of insulin; Z79.84 Long term (current) use of oral hypoglycemic drugs; I25.10 Atherosclerotic heart disease of native coronary artery without angina pectoris; I10 Essential (primary) hypertension; I25.2 Old myocardial infarction; E78.00 Pure hypercholesterolemia, unspecified; K21.9 Gastro-esophageal reflux disease without esophagitis; G47.33 Obstructive sleep apnea (adult) (pediatric); E66.01 Morbid (severe) obesity due to excess calories; Z68.44 Body mass index [BMI] 60.0-69.9, adult
CPT/HCPCS: 36415; 71045-TC-FY; 80053; 81003; 82009; 82550; 82803; 82962; 83735; 84484; 85025; 85610; 93005; 93010; 99284-25; J7030

== ENCOUNTER 2019-03-03 12:10 | Emergency (ER) | payer OTHER ==
--- NOTE | 2019-03-03 12:52 | PDOC ---
History of Present Illness - General Chief Complaint: Chest Pain Stated Complaint: Chest Pain Time Seen by Provider: 03/03/19 12:33 - History of Present Illness Initial Comments: Ms. Dean is a 58 y/o female with hx of COPD, HTN, HLD, DM, smoking, presenting today with chest pain. Reports that the pain started this morning when she was walking around. Describes the pain as midsternal and sharp in nature. Reports that the pain comes and goes. Reports that the pain is worse when laying back. Denies shortness of breath, but reports productive cough over the past couple of days. Denies radiation of pain. Unsure if she has a fever. She also reports suprapubic abdominal pain and is worried she has a UTI. Reports foul smelling urine, but denies dysuria or hematuria. She has had similar chest pain and an echo and stress test before, around 1-2 years ago, but is unsure of exact date. Reports that she was not called back for results. PMH: COPD, HTN, HLD, DM SocHx: smokes 2 cigarettes per day, for the past 20 years, lives in a homeless intermediate Past History - Past Medical History Allergies/Adverse Reactions: Allergies Allergy/AdvReac Type Severity Reaction Status Date / Time No Known Allergies Allergy Verified 09/07/18 05:48 Home Medications: Ambulatory Orders Atorvastatin Ca [Lipitor] 40 mg PO HS 01/20/18 Insulin Glargine,Hum.rec.anlog [Lantus] 24 unit SQ BID 01/20/18 Tiotropium [place] [Spiriva Respimat] 4 gm IH DAILY 01/20/18 metFORMIN HCL [Metformin ER Gastric] 1,000 mg PO BID 01/20/18 Albuterol 0.083% Nebulizer Briana [Ventolin 0.083% Nebulizer Soln -] 1 amp NEB RTID amp 07/19/18 Cefuroxime Axetil [Cefuroxime] 500 mg PO BID 5 Days #10 tablet 07/19/18 Diltiazem Cd [Cardizem Cd -] 120 mg PO DAILY 30 Days #30 cap.cd.24h 07/19/18 Miconazole Nitrate [Monistat -] 1 applic TP BID #1 tube 07/19/18 Anemia: Yes Asthma: Yes COPD: Yes Diabetes: Yes (IDDM, non compliant) GI Disorders: Yes (GERD) HTN: Yes Hypercholesterolemia: Yes - Surgical History Abdominal Surgery: No Appendectomy: No Cardiac Surgery: No Cholecystectomy: No Gastric Stapling: No GI Surgery: No Lung Surgery: No Neurologic Surgery: No Orthopedic Surgery: No - Immunization History Immunization Up to Date: Yes - Suicide/Smoking/Psychosocial Hx Smoking History: Current some day smoker Have you smoked in the past 12 months: Yes Number of Cigarettes Smoked Daily: 10 If you are a former smoker, when did you quit?: Information on smoking cessation initiated: No Hx Alcohol Use: No Drug/Substance Use Hx: No Substance Use Type: None Review of Systems - Review of Systems Comments:: ROS GENERAL/CONSTITUTIONAL: No weakness. No chills. HEAD, EYES, EARS, NOSE AND THROAT: No change in vision. No change in hearing. No sore throat. CARDIOVASCULAR: Reports chest pain. Denies shortness of breath. RESPIRATORY: Reports productive cough. Denies hemoptysis. GASTROINTESTINAL: Reports nausea and vomiting. GENITOURINARY: No dysuria, frequency. Reports foul smelling urine. MUSCULOSKELETAL: No joint or muscle swelling or pain. No neck or back pain._ SKIN: No rash_ NEUROLOGIC: No headache, vertigo, loss of consciousness, or change in strength/ sensation._ ENDOCRINE: No increased thirst. No abnormal weight change_ HEMATOLOGIC/LYMPHATIC: No anemia, easy bleeding, or history of blood clots._ ALLERGIC/IMMUNOLOGIC: No hives or skin allergy._ *Physical Exam - Vital Signs Last Vital Signs Temp Pulse Resp BP Pulse Ox 97.8 F 85 20 115/70 94 L 03/03/19 12:10 03/03/19 12:10 03/03/19 12:10 03/03/19 12:10 03/03/19 12:10 - Physical Exam Comments: GENERAL: Awake, alert, and oriented to person/place/time, in no acute distress_ HEAD: No signs of trauma, normocephalic, atraumatic _ EYES: PERRLA, EOMI, sclera anicteric, conjunctiva clear_ ENT: Hearing grossly normal, nares patent, oropharynx clear without exudates. No uvular deviation. Moist mucosa_ NECK: Normal ROM, supple, no lymphadenopathy, JVD, or masses_ LUNGS: No distress, speaks in full sentences. Mildly diminished bilaterally. HEART: Regular rate and rhythm, normal S1 and S2, no murmurs appreciated, peripheral pulses normal and equal bilaterally._ ABDOMEN: Soft. Diffuse tenderness worse in the LUQ and suprapubic area. No guarding, no rebound. No masses. BACK: CVA tenderness left worse than right. EXTREMITIES: Bilateral pitting edema 1+. NEUROLOGICAL: Cranial nerves II through XII grossly intact. Normal speech, normal gait, no focal sensorimotor deficits _ SKIN: Warm, Dry, normal turgor, no rashes or lesions noted_ Heart Score/ECG Review - History History: Slightly suspicious - Electrocardiogram EKG: Normal - Age Age: 45-65 - Risk Factors Risk Factors Heart Score: Yes Hx Hypercholesterolemia, Yes Hx Hypertension, Yes Hx Diabetes, Yes Smoking History, Yes Positive family hx of cardiac disease, Yes Hx Obesity Based on the list above the patient has:: >/=3 risk factors or Hx atherosclerotic disease ED Treatment Course - LABORATORY CBC & Chemistry Diagram: 03/03/19 14:00 03/03/19 14:00 Medical Decision Making - Medical Decision Making 03/03/19 13:00 58F with hx of COPD, HTN, HLD, DM, smoking, presenting with midsternal chest pain and productive cough that started today. No radiation. HEART score 3. DDx includes r/o ACS, viral URI, UTI, pyelo. Obtain CBC, CMP, EKG, CXR, UA/UC, lipase, trop, coags. 03/03/19 13:17 EKG shows 76 bpm, 1st degree AV block, no ST elevation/depression, QTc 425 ms. 03/03/19 1730 UA shows no UTI findings. Urine glucose 3+ and blood glucose > 300. CXR shows no acute intrathoracic process. CT abdomen/pelvis shows no acute intra-abdominal process. Trop neg. Plan to d/c the home with PCP follow up. Discussed the importance of f/u with PCP given her high blood glucose levels and urine glucose levels. Patient verbalized understanding and agreement and states she has a PCP at [facility]. *DC/Admit/Observation/Transfer Diagnosis at time of Disposition: Abdominal pain Qualifiers: Abdominal location: generalized Qualified Code(s): R10.84 - Generalized abdominal pain - Discharge Dispostion Disposition: HOME Condition at time of disposition: Stable Decision to Admit order: No - Referrals Referrals: Kevin Barakat MD [Staff Physician] - - Patient Instructions Additional Instructions: Please continue taking your medications as prescribed. Please follow up with your PCP at [facility] or with Dr. Barakat. If you experience any new, worsening, or concerning symptoms, including severe chest pain, difficulty breathing, severe abdominal pain, fever, chills, blood in the stool, vomit, urine, or any other concerns, please return to the emergency department. - Post Discharge Activity
[2019-03-03] MEDS ORDERED: RANITIDINE HCL 150 MG TABLET (FP) PO ONE (12:58)
[2019-03-03] MEDS ORDERED: SODIUM CHLORIDE 0.9% 500 ML INFUS.BAG IV ONE (12:58)
[2019-03-03 13:00] VITALS: BMI 39.9
--- NOTE | 2019-03-03 13:33 | PDOC ---
Documentation entered by Rivka Rosas SCRIBE, acting as scribe for Fay Yi MD. Fay Yi MD: This documentation has been prepared by the Alison brown Xhesika, SCRIBE, under my direction and personally reviewed by me in its entirety. I confirm that the documentation accurately reflects all work, treatment, procedures, and medical decision making performed by me. Attending Attestation - Resident Resident Name: Alvaro Hernandez - ED Attending Attestation I have performed the following: I have examined & evaluated the patient, The case was reviewed & discussed with the resident, I agree w/resident's findings & plan, Exceptions are as noted - HPI HPI: 03/03/19 13:12 The patient is a 58 year old female, with a significant PMH of COPD (not on home oxygen), HTN, IDDM, DANIELA, GERD, and [place], who was BIBA to the emergency department with epigastric pain since this AM. The patient describes the pain as intermittent, sharp, midsternal pain radiating to her LUQ and is associated with productive cough and lower abdominal pressure, which is consistent with her prior UTIs. Patient notes she had a stress test within the last year which was within normal limits. The patient denies chest pain, shortness of breath, headache and dizziness. Denies fever, chills, nausea, vomit, diarrhea and constipation. Denies dysuria, frequency, urgency and hematuria. Allergies: NKDA Social history: everyday smoker - Physicial Exam PE: GENERAL: Awake, alert, and fully oriented, in no acute distress. Obese. HEAD: No signs of trauma EYES: PERRLA, EOMI, sclera anicteric, conjunctiva clear ENT: Auricles normal inspection, hearing grossly normal, nares patent, oropharynx clear without exudates. Moist mucosa NECK: Normal ROM, supple, no lymphadenopathy, JVD, or masses LUNGS: Breath sounds equal, clear to auscultation bilaterally. No wheezes, and no crackles HEART: Regular rate and rhythm, normal S1 and S2, no murmurs, rubs or gallops ABDOMEN: Soft, diffusely tender, normoactive bowel sounds. No guarding, no rebound. No masses EXTREMITIES: Normal range of motion, no edema. No clubbing or cyanosis. No cords, erythema, or tenderness NEUROLOGICAL: Cranial nerves II through XII grossly intact. Normal speech. Motor and sensation intact SKIN: Warm, dry, normal turgor, no rashes or lesions noted. - Medical Decision Making Pt with multiple complaints- cp, abd pain, suprapubic pain. She states she had similar symptoms when she had UTIs in the past, typically gets them every 3-4 months. She vomited x2, currently with nausea. No fever, no back pain, no CVAT. Will obtain labs, urine.
[2019-03-03 14:12] LABS: BASO % 0.8 % (0-2.0); EOS % 1.2 % (0-4.5); HEMATOCRIT 40.7 % (32.4-45.2); LYMPH % 49.4 % (8-40); MCH 23.3 pg (25.7-33.7); MCHC 31.9 g/dl (32.0-36.0); MEAN PLT VOLUME 8.5 fl (7.5-11.1); MONO % 5.7 % (3.8-10.2); NEUT % 42.9 % (42.8-82.8); PLATELET COUNT 249 K/MM3 (134-434); RBC 5.58 M/mm3 (3.60-5.2); RDW 14.9 % (11.6-15.6); WHITE BLOOD COUNT 6.2 K/mm3 (4.0-10.0)
[2019-03-03 14:31] LABS: INR 1.03 (0.83-1.09); PROTHROMBIN TIME (PATIENT) 12.2 SEC (9.7-13.0)
[2019-03-03] MEDS ORDERED: RANITIDINE HCL 150 MG TABLET (FP) ONE (14:33)
[2019-03-03 14:42] LABS: URINE APPEARANCE CLOUDY; URINE BILIRUBIN NEGATIVE (NEGATIVE); URINE COLOR YELLOW; URINE GLUCOSE (UA) 3+ (NEGATIVE); URINE KETONE NEGATIVE (NEGATIVE); URINE LEUK ESTERASE NEGATIVE (NEGATIVE); URINE NITRITE NEGATIVE (NEGATIVE); URINE PROTEIN NEGATIVE (NEGATIVE); URINE UROBILINOGEN 0.2 mg/dL (0.2-1.0)
[2019-03-03 14:47] LABS: ALBUMIN 3.7 g/dl (3.4-5.0); BILIRUBIN,TOTAL 0.3 mg/dL (0.2-1); BLOOD UREA NITROGEN 11.5 mg/dL (7-18); CALCIUM 9.7 mg/dL (8.5-10.1); CREATININE 0.8 mg/dL (0.55-1.3); POTASSIUM 4.6 mmol/L (3.5-5.1); TOT PROT 7.7 g/dl (6.4-8.2)
[2019-03-03] MEDS ORDERED: SODIUM CHLORIDE 1,000 ML IV STA (14:58)
[2019-03-03 18:38] VITALS: BP 153/83; PULSE 72; TEMP 97.7
--- NOTE | 2019-03-04 09:32 | EKG ---
Test Reason : Blood Pressure : / mmHG Vent. Rate : 076 BPM Atrial Rate : 076 BPM P-R Int : 220 ms QRS Dur : 100 ms QT Int : 378 ms P-R-T Axes : 058 -07 023 degrees QTc Int : 425 ms SINUS RHYTHM WITH SINUS ARRHYTHMIA WITH 1ST DEGREE A-V BLOCK SEPTAL INFARCT (CITED ON OR BEFORE 18-JUL-2018) ABNORMAL ECG WHEN COMPARED WITH ECG OF 09-OCT-2018 23:19, NO SIGNIFICANT CHANGE WAS FOUND Confirmed by Alvaro Carrillo MD ([id number]) on 03/04/2019 9:31:53 AM Referred By: Confirmed By:Alvaro Carrillo MD
== END 2019-03-03 18:33 | disposition home or self-care (01) ==
LOC: JER 12:10
DX: R10.9 Unspecified abdominal pain (principal); I25.10 Atherosclerotic heart disease of native coronary artery without angina pectoris; I10 Essential (primary) hypertension; I25.2 Old myocardial infarction; E11.9 Type 2 diabetes mellitus without complications; Z79.4 Long term (current) use of insulin; E78.5 Hyperlipidemia, unspecified; G47.33 Obstructive sleep apnea (adult) (pediatric); J44.9 Chronic obstructive pulmonary disease, unspecified
CPT/HCPCS: 36415; 71046-TC-FY; 74177-TC; 80053; 81003; 82550; 82553; 83690; 84484; 84703; 85025; 85610; 87086; 87186; 93005; 93010; 99283-25

== ENCOUNTER 2019-04-23 15:37 | Emergency (ER) | payer OTHER ==
--- NOTE | 2019-04-23 15:47 | PDOC ---
Rapid Medical Evaluation Time Seen by Provider: 04/23/19 15:46 Medical Evaluation: Allergies Allergy/AdvReac Type Severity Reaction Status Date / Time No Known Allergies Allergy Verified 09/07/18 05:48 04/23/19 15:46 I have performed a brief in-person evaluation of this patient. The patient presents with a chief complaint of: leg pain Pertinent physical exam findings:stable and in NAD, non-focal I have ordered the following: xray The patient will proceed to the ED for further evaluation.
[2019-04-23 15:49] VITALS: TEMP 97.4; BMI 46.5
--- NOTE | 2019-04-23 16:51 | PDOC ---
History of Present Illness - General Chief Complaint: Injury Stated Complaint: SLIP AND FALL Time Seen by Provider: 04/23/19 15:46 Past History - Past Medical History Allergies/Adverse Reactions: Allergies Allergy/AdvReac Type Severity Reaction Status Date / Time No Known Allergies Allergy Verified 04/23/19 15:49 Home Medications: Ambulatory Orders Atorvastatin Ca [Lipitor] 40 mg PO HS 01/20/18 Insulin Glargine,Hum.rec.anlog [Lantus] 24 unit SQ BID 01/20/18 Tiotropium [place] [Spiriva Respimat] 4 gm IH DAILY 01/20/18 metFORMIN HCL [Metformin ER Gastric] 1,000 mg PO BID 01/20/18 Albuterol 0.083% Nebulizer Briana [Ventolin 0.083% Nebulizer Soln -] 1 amp NEB RTID amp 07/19/18 Cefuroxime Axetil [Cefuroxime] 500 mg PO BID 5 Days #10 tablet 07/19/18 Diltiazem Cd [Cardizem Cd -] 120 mg PO DAILY 30 Days #30 cap.cd.24h 07/19/18 Miconazole Nitrate [Monistat -] 1 applic TP BID #1 tube 07/19/18 Anemia: Yes Asthma: Yes COPD: Yes Diabetes: Yes GI Disorders: Yes (GERD) HTN: Yes Hypercholesterolemia: Yes - Surgical History Abdominal Surgery: No Appendectomy: No Cardiac Surgery: No Cholecystectomy: No Gastric Stapling: No GI Surgery: No Lung Surgery: No Neurologic Surgery: No Orthopedic Surgery: No - Immunization History Immunization Up to Date: Yes - Psycho Social/Smoking Cessation Hx Smoking History: Current some day smoker Have you smoked in the past 12 months: Yes Number of Cigarettes Smoked Daily: 1 If you are a former smoker, when did you quit?: Information on smoking cessation initiated: No Hx Alcohol Use: No Drug/Substance Use Hx: Yes Substance Use Type: None *Physical Exam - Vital Signs Last Vital Signs Temp Pulse Resp BP Pulse Ox 97.4 F L 84 16 175/88 H 98 04/23/19 15:45 04/23/19 15:45 04/23/19 15:45 04/23/19 15:45 04/23/19 15:45 ED Treatment Course - LABORATORY CBC & Chemistry Diagram: 04/23/19 18:15 04/23/19 18:15 - ADDITIONAL ORDERS Additional order review: Laboratory Results 04/23/19 16:04 POC Glucometer 442 04/23/19 16:04 POC Glucometer 442 Medical Decision Making - Medical Decision Making 04/23/19 16:52 HPI: 58yo F hx obesity, COPD, HTN, HLD, IDDM, smoking, and chronic pain 2/2 OA and sciatica on flexeril, gabapentin and percocets presents c/o left lower leg pain s/p mechanical fall at 1500 today. Pt was in [employer] prior to fall. Pt slipped on bus steps getting off bus and fell onto bottom, hitting back of lower leg on the way down. Denies CP, palpitations, dizziness, seizure-like activity including tongue-biting or incontinence or seizure-like movements, head injury, LOC, other injuries. Pt was able to stand with assistance and walk with a limp. States pain is all around L lower leg, worse in calf, worse with walking or pressure, has not tried pain meds, constant, sudden onset immediately following fall. Pt states she ran out of her insulin so her last dose was yesterday. Pt has not taken any of her medications today. Pt picked up her insulin and needles today but has not taken any doses yet. Usual dose 30 units AM and 30 units PM of Lantus. Endorses chronic polyuria. Denies fever, chills, fatigue, headache, dizziness, numbness/tingling, weakness, vision changes, shortness of breath, cough, chest pain, palpitations, abdominal pain, blood in stool, diarrhea, constipation, nausea, vomiting, dysuria, hematuria, confusion. ROS: Constitutional: Negative for chills, fever, fatigue, diaphoresis. HENT: Negative for sore throat, rhinorrhea, congestion. Eyes: Negative for visual disturbance. Respiratory: Negative for shortness of breath, cough, and wheezing. Cardiovascular: Negative for chest pain, palpitations, and leg swelling. Gastrointestinal: Negative for abdominal pain, blood in stool, constipation, diarrhea, nausea, and vomiting. Genitourinary: Positive for polyuria. Negative for dysuria, flank pain, and hematuria. Musculoskeletal: Positive for L lower leg and calf pain. Negative for myalgias, back pain, and neck pain. Skin: Negative for rash. Neurological: Negative for light-headedness, dizziness, vertigo, syncope, weakness, numbness and headaches. Psychiatric/Behavioral: Negative for behavioral problems and confusion. PE: Gen: Alert, NAD, comfortable-appearing, obese HEENT: PERRL, EOMI, MMM, NCAT. No conjunctival pallor. Sclera are non-icteric. CV: Regular rate and rhythm. No murmurs, rubs, or gallops. PULM: No resp distress. CTAB, no wheezes, rales, or rhonchi. ABD: protuberant, soft, NT/ND, no rebound tenderness or guarding, no CVA tenderness. BACK: No TTP of c/t/l-spine. No step-offs or deformities. MSK: No bony deformities. 2+ pulses in all extremities. NEURO: AAOx3. PERRL. No gross CN deficits. Strength and sensation grossly intact throughout. EXTREMITIES: No cyanosis. No clubbing. No edema. No calf tenderness. LLE: full ROM knee and ankle, 2+ pulses, no TTP of knee or ankle or foot, +TTP diffusely circumferential leg between knee and ankle, sensation to light touch intact. PSYCH: Normal mood and thought pattern. SKIN: Warm and dry. Normal capillary refill. No rashes. No jaundice. MDM: 58yo F hx obesity, COPD, HTN, HLD, IDDM, smoking, and chronic pain 2/2 OA and sciatica on flexeril, gabapentin and percocets presents c/o left lower leg pain s/p mechanical fall at 1500 today. Hemodynamically stable, afebrile. Fall purely mechanical. No CP, palpitations, dizziness, seizure-like activity including tongue-biting or incontinence or seizure-like movements, head injury, LOC, other injuries. LLE pain limited to L lower leg, not involving knee or ankle - XR to r/o fx. Finger stick glucose 442 and pt has not taken her insulin today, asymptomatic except for chronic polyuria, but obtain labs to r/o DKA. Tx hyperglycemia with IVF and insulin pending labs, then reassess and tx. -Finger stick glucose: 442 -L tib/fib XR reviewed: no acute pathology -CBC,CMP,beta-hydroxybutarate,ABG,UA/UC -Tylenol -10units insulin -2L IVF -Dispo: pending results and resolution of hyperglycemia, most likely d/c home w/ ortho f/u 04/23/19 18:25 UA reviewed: 3+ glucose, negative ketones or UTI 04/23/19 19:16 Labs reviewed. No concerning findings, not in DKA. BGM 285. Pt feels good and wants to go home. Will dc home with PCP f/u. Return precautions given. Pt understands all dc instructions and all questions were answered. Discharge - Discharge Information Problems reviewed: Yes Clinical Impression/Diagnosis: Hyperglycemia, Diabetes mellitus, Left leg pain - Admission No - Follow up/Referral Referrals: Shravan Domingo MD [Primary Care Provider] - Rajan Real DO [Staff Physician] - - Patient Discharge Instructions Patient Printed Discharge Instructions: How to Prevent Falls, DI for Hyperglycemia -- Adult Additional Instructions: You have been seen in the Emergency Department for your left leg/calf injury. Your X-ray shows no signs of fracture or dislocation. Your pain is most likely due to bruising of the soft tissue. We have given you a referral to an Orthopedic Surgeon for further evaluation. Give his office a call to set up an appointment for this week. If you experience pain, you can take Tylenol or Ibuprofen as directed on the medication bottle, but do not exceed 3g of Ibuprofen or 4g of Tylenol a day. Follow the RICE protocol to help with the healing process: R - Rest. Rest and protect the injured or sore area. Stop, change, or take a break from any activity that may be causing your pain or soreness. I - Ice. Cold will reduce pain and swelling. Apply an ice or cold pack right away to prevent or minimize swelling. Apply the ice or cold pack for 10 to 20 minutes, 3 or more times a day. After 48 to 72 hours, if swelling is gone, apply heat to the area that hurts. Do not apply ice or heat directly to the skin. Place a towel over the cold or heat pack before applying it to the skin. C - Compression. Compression, or wrapping the injured or sore area with an elastic bandage (such as an Lorenzo wrap), will help decrease swelling. Don't wrap it too tightly, because this can cause more swelling below the affected area. Loosen the bandage if it gets too tight. Signs that the bandage is too tight include numbness, tingling, increased pain, coolness, or swelling in the area below the bandage. E - Elevation. Elevate the injured or sore area on pillows while applying ice and anytime you are sitting or lying down. Try to keep the area at or above the level of your heart to help minimize swelling. Return to the ED immediately if you experience worsening pain not controlled by over the counter medications, numbness or tingling, weakness, fever, worsening swelling, or any other new or worsening symptom. We also checked your sugar level and it was very high at 442, most likely due to you not taking your medication today. Make sure to always take your insulin as prescribed. We have hydrated you and given you a dose of insulin to lower your sugar level to 285. Take your nightly dose of insulin as prescribed. It's also important to stay hydrated. Follow-up with your primary care doctor within 1 week. - Post Discharge Activity
[2019-04-23] MEDS ORDERED: ACETAMINOPHEN 500 MG TABLET (FP) PO ONE (16:56)
[2019-04-23] MEDS ORDERED: SODIUM CHLORIDE 0.9% 500 ML INFUS.BAG IV ONE ×2 (17:10→18:24)
[2019-04-23] MEDS ORDERED: INSULIN REGULAR HUMAN 100 UNITS/ML *VIAL SQ ONE (17:13)
[2019-04-23 17:34] LABS: URINE APPEARANCE CLEAR; URINE BILIRUBIN NEGATIVE (NEGATIVE); URINE COLOR YELLOW; URINE GLUCOSE (UA) 3+ (NEGATIVE); URINE KETONE NEGATIVE (NEGATIVE); URINE LEUK ESTERASE NEGATIVE (NEGATIVE); URINE NITRITE NEGATIVE (NEGATIVE); URINE PROTEIN NEGATIVE (NEGATIVE); URINE UROBILINOGEN 0.2 mg/dL (0.2-1.0)
--- NOTE | 2019-04-23 17:47 | PDOC ---
Documentation entered by Horace Chavez SCRIBE, acting as scribe for Komal Thompson DO. Komal Thompson DO: This documentation has been prepared by the Scott brown Daniel, SCRIBE, under my direction and personally reviewed by me in its entirety. I confirm that the documentation accurately reflects all work, treatment, procedures, and medical decision making performed by me. Attending Attestation - Resident Resident Name: Fay Smith - ED Attending Attestation I have performed the following: I have examined & evaluated the patient, The case was reviewed & discussed with the resident, I agree w/resident's findings & plan, Exceptions are as noted - HPI HPI: 04/23/19 17:41 The patient is a 58 year old female with a past medical history of COPD, HTN, HLD, diabetes, and anemia here today for evaluation of left calf pain. The patient reports that she was getting off a bus when she missed a step and fell on her buttocks. She states that her pain is localized to the posterior left calf. She also notes increased urinary frequency recently. Patient denies headache, lightheadedness. Denies fever, chills. Denies chest pain, shortness of breath. Denies nausea, vomiting, diarrhea, abdominal pain. Allergies: NKA PCP: Shravan Domingo - Physicial Exam PE: 04/23/19 17:41 Constitutional: Awake, alert, oriented. No acute distress. Head: Normocephalic. Atraumatic Eyes: PERRL. EOMI. Conjunctivae are not pale. ENT: Mucous membranes are moist and intact. Posterior pharynx without exudates or erythema. Uvula midline. Neck: Supple. Full ROM. No lymphadenopathy. Cardiovascular: Regular rate. Regular rhythm. S1, S2 regular. Distal pulses are 2+ and symmetric. Pulmonary/Chest: No evidence of respiratory distress. Clear to auscultation bilaterally No wheezing, rales or rhonchi. Abdominal: Soft and non-distended. There is no tenderness. No rebound, guarding or rigidity. No organomegaly. No palpable masses. Good bowel sounds. Back: No CVA tenderness. Musculoskeletal: +left calf tenderness without ecchymosis or hematoma. No deformities. No edema. No cyanosis. No clubbing. Full range of motion in all extremities. Radial/pedal pulses are intact and 2+ bilaterally Skin: Skin is warm and dry. No petechiae. No purpura. Neurological: Alert and oriented to person, place, and time. Cranial nerves II -XII are grossly intact. Normal speech. Strength is grossly symmetric. No sensory deficits. Psychiatric: Good eye contact. Normal interaction, affect and behavior. - Medical Decision Making 04/23/19 17:45 I, Dr. Komal Thompson, DO, attest that this document has been prepared under my direction and personally reviewed by me in its entirety. I further attest, that it accurately reflects all work, treatment, procedures and medical decision -making performed by me. a/p:58yo female s/p mechanical fall and banged her leg while getting off the bus -denies hitting her head -denies neck or back pain -states she landed on her buttock, no ttp and hit her LLE against the step -pain to posterior calf of LLE -no expanding hematoma, no bony ttp -glu >400 -will check labs, ivf hydration -pt states missed her lantus dosing x this AM, did refill her Rx today but hasn' t used it yet -will give sq insulin -pt is nontoxic in appearance 04/23/19 17:47 xray calf neg for fx 04/23/19 19:10 pt is not in dka k stable 04/23/19 19:16 repeat glucose 285 pt feels better stable for dc to home
[2019-04-23 18:26] LABS: BASO % 1.3 % (0-2.0); EOS % 1.4 % (0-4.5); HEMATOCRIT 41.7 % (32.4-45.2); HEMOGLOBIN 12.9 GM/dL (10.7-15.3); MCHC 31.1 g/dl (32.0-36.0); MEAN CELL VOLUME 74.1 fl (80-96); MEAN PLT VOLUME 8.8 fl (7.5-11.1); NEUT % 44.3 % (42.8-82.8); PLATELET COUNT 267 K/MM3 (134-434); RBC 5.63 M/mm3 (3.60-5.2); RDW 14.8 % (11.6-15.6); WHITE BLOOD COUNT 6.2 K/mm3 (4.0-10.0)
[2019-04-23] MEDS ORDERED: ACETAMINOPHEN 325 MG TABLET (FP) ONE (18:32)
[2019-04-23 18:44] VITALS: PULSE 52
[2019-04-23 18:45] VITALS: BP 159/67
[2019-04-23 18:59] LABS: ALBUMIN 3.8 g/dl (3.4-5.0); BILIRUBIN,TOTAL 0.4 mg/dL (0.2-1); BLOOD UREA NITROGEN 12.8 mg/dL (7-18); CALCIUM 9.6 mg/dL (8.5-10.1); CREATININE 0.7 mg/dL (0.55-1.3); TOT PROT 7.7 g/dl (6.4-8.2)
== END 2019-04-23 20:10 | disposition home or self-care (01) ==
LOC: JER 15:37
PROC: 3E0337Z Introduction of Electrolytic and Water Balance Substance into Peripheral Vein, Percutaneous Approach (ICD-10-PCS; principal; 2019-04-23)
PROC: 3E013VG Introduction of Insulin into Subcutaneous Tissue, Percutaneous Approach (ICD-10-PCS; 2019-04-23)
DX: M79.605 Pain in left leg (principal); E11.65 Type 2 diabetes mellitus with hyperglycemia; J44.9 Chronic obstructive pulmonary disease, unspecified; I10 Essential (primary) hypertension; E78.5 Hyperlipidemia, unspecified; F17.210 Nicotine dependence, cigarettes, uncomplicated; G89.29 Other chronic pain
CPT/HCPCS: 36415; 73590-TC-LT-FY; 80053; 81003; 82010; 82962; 85025; 87077; 87086; 96372; 99284-25

== ENCOUNTER 2019-05-01 18:29 | Emergency (ER) | payer OTHER ==
[2019-05-01 18:46] VITALS: TEMP 97.6; BMI 48.2
[2019-05-01] MEDS ORDERED: ACETAMINOPHEN 500 MG TABLET (FP) PO ONE (19:03)
[2019-05-01] MEDS ORDERED: ALBUTEROL SO4 2.5/IPRATROPIUM 0.5 INH SOL 3 ML VIAL.NEB. NEB ONE ×4 (19:05→20:55)
[2019-05-01] MEDS ORDERED: ACETAMINOPHEN 325 MG TABLET (FP) ONE (19:09)
--- NOTE | 2019-05-01 19:23 | PDOC ---
History of Present Illness - General Chief Complaint: Shortness of Breath Stated Complaint: DIFF. BREATHING Time Seen by Provider: 05/01/19 18:48 History Source: Patient Exam Limitations: No Limitations - History of Present Illness Initial Comments: 05/01/19 19:16 58y F with PMH of COPD, HTN, HLD, IDDM presenting to ED for SOB. Patient states she was walking earlier today when she started to feel short of breath with some chest tightness. Patient is also complaining of elevated blood glucose level checked by the fire department and pain in the lower extremities L>R. She recently injured the L lower leg when she slipped off the bus. She has not been taking anything for the pain. Patient states that she is complaint with lantus and metformin but does not check her glucose daily. She says that she has an inhaler (Spiriva) but has not used it because she does not know how and she does not have a rescue inhaler. She says she coughed up green/yellow sputum. Denies abdominal pain, n/d, back pain, headache, fevers, chills, recent illnesses. PMD: Hassanine? PMH: see hpi PSH: none Meds: see med rec Allergies: nkda Social: smokes 5 cigarettes/day Past History - Past Medical History Allergies/Adverse Reactions: Allergies Allergy/AdvReac Type Severity Reaction Status Date / Time No Known Allergies Allergy Verified 05/01/19 18:45 Home Medications: Ambulatory Orders Atorvastatin Ca [Lipitor] 40 mg PO HS 01/20/18 Insulin Glargine,Hum.rec.anlog [Lantus] 24 unit SQ BID 01/20/18 Tiotropium [place] [Spiriva Respimat] 4 gm IH DAILY 01/20/18 metFORMIN HCL [Metformin ER Gastric] 1,000 mg PO BID 01/20/18 Albuterol 0.083% Nebulizer Briana [Ventolin 0.083% Nebulizer Soln -] 1 amp NEB RTID amp 07/19/18 Cefuroxime Axetil [Cefuroxime] 500 mg PO BID 5 Days #10 tablet 07/19/18 Diltiazem Cd [Cardizem Cd -] 120 mg PO DAILY 30 Days #30 cap.cd.24h 07/19/18 Miconazole Nitrate [Monistat -] 1 applic TP BID #1 tube 07/19/18 Albuterol Sulfate Inhaler - [Ventolin HFA Inhaler -] 1 - 2 inh PO Q4H #1 inhaler 05/02/19 Cephalexin Monohydrate [Keflex -] 500 mg PO BID #10 capsule 05/02/19 Ibuprofen [Motrin -] 600 mg PO TID #21 tablet 05/02/19 Inhaler, Assist Devices [Space Chamber Plus] 1 each MC DAILY #1 spacer 05/02/19 Anemia: Yes Asthma: Yes COPD: Yes Diabetes: Yes GI Disorders: Yes (GERD) HTN: Yes Hypercholesterolemia: Yes - Surgical History Abdominal Surgery: No Appendectomy: No Cardiac Surgery: No Cholecystectomy: No Gastric Stapling: No GI Surgery: No Lung Surgery: No Neurologic Surgery: No Orthopedic Surgery: No - Immunization History Immunization Up to Date: Yes - Psycho Social/Smoking Cessation Hx Smoking History: Never smoked Have you smoked in the past 12 months: Yes Number of Cigarettes Smoked Daily: 1 If you are a former smoker, when did you quit?: Hx Alcohol Use: No Drug/Substance Use Hx: Yes Substance Use Type: None Review of Systems - Review of Systems Constitutional: No: Chills, Fever, Weakness HEENTM: No: Symptoms Reported Respiratory: Yes: Cough, Shortness of Breath Cardiac (ROS): Yes: Chest Tightness ABD/GI: Yes: Vomiting. No: Constipated, Diarrhea, Nausea, Abdominal cramping : Yes: Frequency, Urgency. No: Dysuria, Hematuria Musculoskeletal: Yes: See HPI Integumentary: Yes: See HPI Neurological: No: Symptoms reported *Physical Exam - Vital Signs Last Vital Signs Temp Pulse Resp BP Pulse Ox 97.6 F 91 H 18 155/90 98 05/01/19 18:43 05/01/19 18:43 05/01/19 18:43 05/01/19 18:43 05/01/19 18:43 - Physical Exam General Appearance: Yes: Appropriately Dressed, Obese. No: Apparent Distress HEENT: positive: EOMI, CHU, Normal ENT Inspection Neck: positive: Trachea midline, Supple Respiratory/Chest: positive: Lungs Clear, Normal Breath Sounds. negative: Crackles, Rales, Rhonchi, Stridor, Wheezing Cardiovascular: positive: Regular Rhythm, Regular Rate, S1, S2. negative: Edema , JVD, Murmur Vascular Pulses: Dorsalis-Pedis (R): 1+, Doralis-Pedis (L): 1+ Gastrointestinal/Abdominal: positive: Normal Bowel Sounds, Soft. negative: Guarding, Rebound, Tenderness Musculoskeletal: negative: CVA Tenderness Extremity: positive: Normal Capillary Refill, Swelling (bilateral swelling in lower extremities). negative: Calf Tenderness Integumentary: positive: Normal Color, Dry, Warm Neurologic: positive: emergency management system director II-XII NML intact, Fully Oriented, Alert, Normal Mood/ Affect, Normal Response, Motor Strength 11/10 ED Treatment Course - LABORATORY CBC & Chemistry Diagram: 05/01/19 20:45 05/01/19 20:45 - RADIOLOGY Radiology Studies Ordered: Category Date Time Status CHEST PA & LAT [RAD] Stat Radiology 05/01/19 19:02 Ordered - Medications Given in the ED: ED Medications Discontinued Medications Generic Name Dose Route Start Last Admin Trade Name Freq PRN Reason Stop Dose Admin Acetaminophen 975 mg 05/01/19 19:03 05/01/19 19:15 Tylenol - PO 05/01/19 19:04 975 mg ONCE ONE Administration Albuterol/Ipratropium 1 amp 05/01/19 19:05 05/01/19 19:15 Duoneb - NEB 05/01/19 19:06 1 amp ONCE ONE Administration Medical Decision Making - Medical Decision Making 05/02/19 00:53 58y F with PMH of IDDM, COPD, HTN non compliant with medications presenting with sob, urinary frequency, elevated blood glucose and leg pain. vitals: wnl 1)SOB- lungs clear. low suspicion for acs however will order cardiac profile, bnp. will order duonebs and cxr 2)urinary- likely from hyperglycemia, will test for infection 3) leg pain- likely 2/2 fall will order duplex to r/o dvt 4) hyperglycemia- [id number]. will get vbg, bhb and fluids labs show elevated glucose, normal ph, negative bhb. ua positive for infection, giving rocephin. cxr- no infiltrates or consolidation. doppler- bilateral trevino cysts (no dvt) vitals have been stable. fluids given and 8u insulin, bgm 300s. pt feeling better, safe for dc home given rx for albuterol, motrin and keflex. ortho f/u given. given return precautions. transportation arranged. safe for dc home. pt agrees to plan. Discharge - Discharge Information Problems reviewed: Yes Clinical Impression/Diagnosis: Hyperglycemia UTI (urinary tract infection) Qualifiers: Urinary tract infection type: acute cystitis Hematuria presence: without hematuria Qualified Code(s): N30.00 - Acute cystitis without hematuria Trevino's cyst Qualifiers: Laterality: unspecified laterality Qualified Code(s): M71.20 - Synovial cyst of popliteal space [Trevino], unspecified knee Condition: Good Disposition: HOME - Admission No - Additional Discharge Information Prescriptions: Albuterol Sulfate Inhaler - [Ventolin HFA Inhaler -] 1 - 2 inh PO Q4H #1 inhaler Cephalexin Monohydrate [Keflex -] 500 mg PO BID #10 capsule Ibuprofen [Motrin -] 600 mg PO TID #21 tablet Inhaler, Assist Devices [Space Chamber Plus] 1 each MC DAILY #1 spacer - Follow up/Referral Referrals: Rajan Real DO [Staff Physician] - Satya Panchal DO [Staff Physician] - Tung Weems MD [Staff Physician] - Adelfo Grey MD [Staff Physician] - - Patient Discharge Instructions Patient Printed Discharge Instructions: Bakers Cyst, DI for Chronic Obstructive Pulmonary Disease, DI for Urinary Tract Infection (UTI), DI for Hyperglycemia -- Adult Additional Instructions: You were seen in the emergency room today for high blood sugars, shortness of breath and leg pain. The ultrasound shows trevino's cysts in your legs. This can be controlled by taking ibuprofen (a prescription was sent to your pharmacy). A referral to orthopedic doctors have been provided to you. It is listed below. Please use your inhalers, ask the pharmacist how to use it. A prescription for a rescue inhaler has been sent to your pharmacy, use it when you feel short of breath. I also recommend to cut down on smoking too. You have a urinary tract infection, a prescription for an antibiotic was also sent to your pharmacy. Take as directed. Remember to take your insulin and metformin everyday. Please make an appointment with your doctor to discuss your medications and your blood sugars if they are not being controlled properly by the insulin. Come back to the emergency room if you have worsening shortness of breath, you develop fever, you have chest pain, your blood sugar is high or if any new or concerning symptom develops. Thank you - Post Discharge Activity
[2019-05-01] MEDS ORDERED: SODIUM CHLORIDE 1,000 ML IV STA ×3 (20:12→22:46)
[2019-05-01] MEDS ORDERED: FAMOTIDINE 20 MG/50 ML IVPB 20 MG/50 ML MG IVPB ONE ×2 (20:16→20:56)
[2019-05-01] MEDS ORDERED: ONDANSETRON 4 MG/2 ML VIAL IVPUSH ONE (20:16)
[2019-05-01 20:53] LABS: EPI CELLS 0.5 /HPF (0-5/HPF); HYALINE CASTS 0 /lpf (0-8); URINE APPEARANCE CLEAR; URINE BACTERIA 2361.7 /hpf (NEGATIVE); URINE BILIRUBIN NEGATIVE (NEGATIVE); URINE COLOR YELLOW; URINE GLUCOSE (UA) 3+ (NEGATIVE); URINE KETONE NEGATIVE (NEGATIVE); URINE LEUK ESTERASE NEGATIVE (NEGATIVE); URINE NITRITE POSITIVE (NEGATIVE); URINE PROTEIN NEGATIVE (NEGATIVE); URINE RBC 0 /hpf (0-4); URINE UROBILINOGEN 0.2 mg/dL (0.2-1.0); URINE WBC 1 /hpf (0-5)
--- NOTE | 2019-05-01 20:53 | PDOC ---
Documentation entered by Keyanna Bryant SCRIBE, acting as scribe for Komal Thompson DO. Komal Thompson, DO: This documentation has been prepared by the Annette brown Adrianna, SCRIBE, under my direction and personally reviewed by me in its entirety. I confirm that the documentation accurately reflects all work, treatment, procedures, and medical decision making performed by me. Attending Attestation - Resident Resident Name: Mary Hendricks - ED Attending Attestation I have performed the following: I have examined & evaluated the patient, The case was reviewed & discussed with the resident, I agree w/resident's findings & plan, Exceptions are as noted - HPI HPI: The patient is a 58 year old female, with a significant PMH of COPD, HTN, HLD, anemia, asthma, GERD, and IDDM, who presents to the ED [facility] from [facility] for evaluation of a multitude of complaints. First, patient complains of SOB. Patient notes she was walking earlier today at her intermediate, when she developed sudden onset SOB. Patient is unsure if she is she has dyspnea at rest, as she does not get the chance to sit down at her intermediate. She endorses associated wheezing. Patient has not used her inhaler as she states she doesn't know how to use it but gets it refilled by the pharmacy. Patient also notes her sugar was elevated today at 550 (told by EMS). Patient has not been compliant with her Levamir as she has run out, and has not been measuring her levels daily since she is "rushed at her intermediate" by the other females. She endorses increased urinary frequency. She reports one episode of nausea and NBNB vomit earlier this afternoon. Her LBM was this afternoon, and she states she had to strain while trying to pass stool. Patient also complains of bilateral LE pain (L>R), secondary to a fall a few days ago. She was seen in the ED in a week ago for this complaint, XR was negative for any acute pathology but she notes no change in her symptoms since. Allergies: NKA, NKDA Surgical History: None reported Social History: Former smoker (quit 1 year ago). Denies EtOH or illicit drug use PCP: Dr. Shravan Domingo - Physicial Exam PE: Constitutional: +Morbidly obese. Awake, alert, oriented. No acute distress. Head: Normocephalic. Atraumatic Eyes: PERRL. EOMI. Conjunctivae are not pale. ENT: Mucous membranes are moist and intact. Posterior pharynx without exudates or erythema. Uvula midline. Neck: Supple. Full ROM. No lymphadenopathy. Cardiovascular: Regular rate. Regular rhythm. S1, S2 regular. Distal pulses are 2+ and symmetric. Pulmonary/Chest: +Lung sounds diminished bilaterally. +Mild tachypnea. No evidence of respiratory distress. No wheezing, rales or rhonchi. Abdominal: Soft and non-distended. There is no tenderness. No rebound, guarding or rigidity. No organomegaly. No palpable masses. Good bowel sounds. Back: No CVA tenderness. Musculoskeletal: +1+ pitting edema of the bilateral lower extremities. No cyanosis. No clubbing. Full range of motion in all extremities. No calf tenderness. Radial/pedal pulses are intact and 2+ bilaterally Skin: Skin is warm and dry. No petechiae. No purpura. Neurological: Alert and oriented to person, place, and time. Cranial nerves II -XII are grossly intact. Normal speech. Strength is grossly symmetric. No sensory deficits. Psychiatric: Good eye contact. Normal interaction, affect and behavior. - Medical Decision Making 05/01/19 20:49 I, Dr. Komal Thompson, DO, attest that this document has been prepared under my direction and personally reviewed by me in its entirety. I further attest, that it accurately reflects all work, treatment, procedures and medical decision -making performed by me. a/p: 58yo female with multiple complaints -hx of dm - elevated glu >500, did not use levemir today or see her doc at [facility] today where she had an appt -also with lightheaded, urinary freq, and sob -states dx with copd and given spiriva -noncompliant, doesn't know how to use the inhaler -pt states she does not see her docs and doesn't always take her meds or check her glucose at home -also c/o LE cramping and swelling -will send labs, beta hydroxybut., vbg, given nebs, ua -will obtain ekg, cxr -will monitor and reassess -duplex ultrasound LE -finger stick 05/01/19 20:53 peripheral iv placed with ultrasound guidance to R forearm 05/01/19 22:39 b/l bakers cysts on ultrasound, no dvt 05/01/19 23:05 cxr poor inspiratory film without acute pna or pulm edema 05/02/19 00:16 repeat glu 334 pt ambulatory to the ED wit barillas steady gait need abx for uti ortho follow up for bakers cyst 05/02/19 00:31 pt stable for dc to home repeat vss ED Treatment Course - LABORATORY CBC & Chemistry Diagram: 05/01/19 20:45 05/01/19 20:45 - ADDITIONAL ORDERS Additional order review: Laboratory Results 05/01/19 05/01/19 05/01/19 20:53 20:45 20:45 PT with INR 11.50 INR 0.97 Sodium 133 L Potassium 4.3 Chloride 97 L Carbon Dioxide 28 Anion Gap 9 BUN 17.8 Creatinine 1.0 Est GFR (CKD-EPI)AfAm 72.42 Est GFR (CKD-EPI)NonAf 62.49 POC Glucometer 407 Calcium 9.2 Magnesium 2.0 Creatine Kinase 144 Troponin I < 0.02 B-Natriuretic Peptide 72.5 Beta-Hydroxybutyrate 1.2 Urine Color Urine Appearance Urine pH Ur Specific [place] Urine Protein Urine Glucose (UA) Urine Ketones Urine Blood Urine Nitrite Urine Bilirubin Urine Urobilinogen Ur Leukocyte Esterase Urine WBC (Auto) Urine RBC (Auto) Urine Casts (Auto) U Epithel Cells (Auto) Urine Bacteria (Auto) 05/01/19 20:42 PT with INR INR Sodium Potassium Chloride Carbon Dioxide Anion Gap BUN Creatinine Est GFR (CKD-EPI)AfAm Est GFR (CKD-EPI)NonAf POC Glucometer Calcium Magnesium Creatine Kinase Troponin I B-Natriuretic Peptide Beta-Hydroxybutyrate Urine Color Yellow Urine Appearance Clear Urine pH 5.0 Ur Specific [place] 1.040 H Urine Protein Negative Urine Glucose (UA) 3+ H Urine Ketones Negative Urine Blood Negative Urine Nitrite Positive H Urine Bilirubin Negative Urine Urobilinogen 0.2 Ur Leukocyte Esterase Negative Urine WBC (Auto) 1 Urine RBC (Auto) 0 Urine Casts (Auto) 0 U Epithel Cells (Auto) 0.5 Urine Bacteria (Auto) 2361.7 05/01/19 05/01/19 20:53 20:45 RBC 5.33 H MCV 74.0 L MCHC 31.6 L RDW 14.8 MPV 8.6 Neutrophils % 39.0 L Lymphocytes % 50.3 H Monocytes % 6.8 Eosinophils % 1.4 Basophils % 2.5 H POC Glucometer 407 - RADIOLOGY Radiograph Interpretation: EXAM#: TYPE/EXAM: RESULT: [id number] US/DUPLEX VASCUL US-2LEGS HISTORY PROVIDED: Pain and swelling bilateral lower extremities. IMPRESSION: 1. No evidence of deep venous thrombosis. 2. Bilateral Trevino's cysts. Reported By: Luigi Hoskins MD 05/01/19 22:27 - Medications Given in the ED: ED Medications Discontinued Medications Generic Name Dose Route Start Last Admin Trade Name Freq PRN Reason Stop Dose Admin Acetaminophen 975 mg 05/01/19 19:03 05/01/19 19:15 Tylenol - PO 05/01/19 19:04 975 mg ONCE ONE Administration Albuterol/Ipratropium 1 amp 05/01/19 19:05 05/01/19 19:15 Duoneb - NEB 05/01/19 19:06 1 amp ONCE ONE Administration Albuterol/Ipratropium 1 amp 05/01/19 20:17 05/01/19 21:03 Duoneb - NEB 05/01/19 20:18 1 amp ONCE ONE Administration Sodium Chloride 1,000 mls @ 1,000 mls/hr 05/01/19 20:12 05/01/19 21:03 Normal Saline - IV 05/01/19 21:11 1,000 mls/hr ASDIR STA Administration Famotidine/Sodium Chloride 20 mg in 50 mls @ 100 mls/hr 05/01/19 20:16 21:03 Pepcid 20 Mg Premixed Ivpb - IVPB 05/01/19 20:45 100 mls/hr ONCE ONE Administration Ceftriaxone Sodium 1 gm/ 100 mls @ 200 mls/hr 05/01/19 20:59 05/01/19 22:09 Dextrose IVPB 05/01/19 21:28 200 mls/hr ONCE ONE Administration Sodium Chloride 1,000 mls @ 1,000 mls/hr 05/01/19 21:14 05/01/19 22:02 Normal Saline - IV 05/01/19 22:13 1,000 mls/hr ASDIR STA Administration Ondansetron HCl 4 mg 05/01/19 20:16 05/01/19 21:03 Zofran Injection IVPUSH 05/01/19 20:17 4 mg ONCE ONE Administration
[2019-05-01] MEDS ORDERED: ONDANSETRON 4 MG/2 ML VIAL ONE (20:55)
[2019-05-01 20:59] LABS: BASO % 2.5 % (0-2.0); EOS % 1.4 % (0-4.5); HEMATOCRIT 39.4 % (32.4-45.2); HEMOGLOBIN 12.4 GM/dL (10.7-15.3); LYMPH % 50.3 % (8-40); MCH 23.4 pg (25.7-33.7); MCHC 31.6 g/dl (32.0-36.0); MEAN PLT VOLUME 8.6 fl (7.5-11.1); MONO % 6.8 % (3.8-10.2); PLATELET COUNT 274 K/MM3 (134-434); RBC 5.33 M/mm3 (3.60-5.2); RDW 14.8 % (11.6-15.6); WHITE BLOOD COUNT 7.3 K/mm3 (4.0-10.0)
[2019-05-01] MEDS ORDERED: CEFTRIAXONE 1 GM in DEXTROSE 5%-WATER - 100 ML IVPB ONE (20:59)
[2019-05-01 21:11] LABS: INR 0.97 (0.83-1.09); PROTHROMBIN TIME (PATIENT) 11.5 SEC (9.7-13.0)
[2019-05-01] MEDS ORDERED: CEFTRIAXONE 1 GM/50 ML BAG ONE (22:03)
[2019-05-01 22:40] LABS: ANION GAP 9 MMOL/L (8-16); BLOOD UREA NITROGEN 17.8 mg/dL (7-18); CALCIUM 9.2 mg/dL (8.5-10.1); CHLORIDE 97 mmol/L (98-107); CO2 28 mmol/L (21-32); N-TERMINAL BNP 72.5 pg/ml (5-125); POTASSIUM 4.3 mmol/L (3.5-5.1); SODIUM 133 mmol/L (136-145)
[2019-05-01] MEDS ORDERED: INSULIN REGULAR HUMAN 100 UNITS/ML *VIAL SQ ONE (22:40)
[2019-05-01 22:41] LABS: GLUCOSE,RANDOM 425 mg/dL (74-106)
[2019-05-01 22:49] LABS: VENOUS PC02 46.2 mmHg (38-52); VENOUS PH 7.38 (7.31-7.41); VENOUS PO2 49.5 mmHg (28-48)
[2019-05-01] MEDS ORDERED: INSULIN (NOVOLOG) ASPART 100 UNITS/ML 10ML VIAL SQ ONE (22:58)
[2019-05-01] MEDS ORDERED: KETOROLAC TROMETHAMINE 15 MG/ML VIAL IVPUSH ONE (23:00)
[2019-05-01] MEDS ORDERED: KETOROLAC TROMETHAMINE 15 MG/ML VIAL ONE (23:25)
[2019-05-02 00:42] VITALS: BP 167/69; PULSE 88
--- NOTE | 2019-05-02 13:29 | EKG ---
Test Reason : Blood Pressure : / mmHG Vent. Rate : 087 BPM Atrial Rate : 087 BPM P-R Int : 208 ms QRS Dur : 098 ms QT Int : 372 ms P-R-T Axes : 050 -02 039 degrees QTc Int : 447 ms SINUS RHYTHM WITH PREMATURE ATRIAL COMPLEXES WITH ABERRANT CONDUCTION SEPTAL INFARCT (CITED ON OR BEFORE 18-JUL-2018) ABNORMAL ECG WHEN COMPARED WITH ECG OF 03-MAR-2019 12:32, ABERRANT CONDUCTION IS NOW PRESENT Confirmed by ELIZABETH ELDRIDGE MD ([id number]) on 05/02/2019 1:28:44 PM Referred By: Confirmed By:ELIZABETH ELDRIDGE MD
== END 2019-05-02 00:49 | disposition home or self-care (01) ==
LOC: JER 18:29
PROC: 3E0F7GC Introduction of Other Therapeutic Substance into Respiratory Tract, Via Natural or Artificial Opening (ICD-10-PCS; principal; 2019-05-01)
PROC: 3E0F7GC Introduction of Other Therapeutic Substance into Respiratory Tract, Via Natural or Artificial Opening (ICD-10-PCS; 2019-05-01)
PROC: 3E0337Z Introduction of Electrolytic and Water Balance Substance into Peripheral Vein, Percutaneous Approach (ICD-10-PCS; 2019-05-01)
PROC: 3E03329 Introduction of Other Anti-infective into Peripheral Vein, Percutaneous Approach (ICD-10-PCS; 2019-05-01)
PROC: 3E033GC Introduction of Other Therapeutic Substance into Peripheral Vein, Percutaneous Approach (ICD-10-PCS; 2019-05-01)
PROC: 3E0333Z Introduction of Anti-inflammatory into Peripheral Vein, Percutaneous Approach (ICD-10-PCS; 2019-05-01)
PROC: 3E013VG Introduction of Insulin into Subcutaneous Tissue, Percutaneous Approach (ICD-10-PCS; 2019-05-01)
DX: N39.0 Urinary tract infection, site not specified (principal); E11.65 Type 2 diabetes mellitus with hyperglycemia; Z79.4 Long term (current) use of insulin; I10 Essential (primary) hypertension; K21.9 Gastro-esophageal reflux disease without esophagitis; E78.00 Pure hypercholesterolemia, unspecified; J45.998 Other asthma; J44.9 Chronic obstructive pulmonary disease, unspecified; M71.22 Synovial cyst of popliteal space [Baker], left knee; M71.21 Synovial cyst of popliteal space [Baker], right knee
CPT/HCPCS: 36415; 71046-TC-FY; 76937; 80048; 81003; 82010; 82550; 82803; 82962; 83735; 83880; 84484; 85025; 85610; 87086; 87186; 93005; 93010; 93970-TC; 99284-25; J7030

== ENCOUNTER 2019-06-18 12:51 | Inpatient (IN) | payer OTHER ==
[2019-06-18] MEDS ORDERED: NITROGLYCERIN 2% OINTMENT - 1GM PACKET TD ONE ×2 (13:48→14:18)
[2019-06-18] MEDS ORDERED: ASPIRIN 81 MG CHEWABLE TABLETS PO ONE (13:48)
--- NOTE | 2019-06-18 14:01 | PDOC ---
History of Present Illness - General Chief Complaint: Shortness of Breath Stated Complaint: SVT History Source: Patient - History of Present Illness Initial Comments: 06/18/19 13:57 Patient is a 58 year old female with PMH of COPD, HTN, HLD, IDDM who presents from homeless group home with SOB x1 week. Pt is somnolent on exam and difficult to obtain full history. Reports feeling unwell for the past week and has been noncompliant with her medications. Dyspnea is exacerbated with exertion but denies any orthopnea. Complains of productive cough of white sputum over past week and fevers and chills this morning. Denies any chest pain or palpitations. EMS was called due to her worsening dyspnea and she was in SVT @ 170 en route to ER, given 6mg adenosine and converted. In ER, her vitals have been stable, HR 90, satting 96 on RA. PCP: Allergies: NKDA PMH: as per HPI Surgical hx: denies Social hx: half pack/day 06/18/19 14:02 06/18/19 14:12 Past History - Past Medical History Allergies/Adverse Reactions: Allergies Allergy/AdvReac Type Severity Reaction Status Date / Time No Known Allergies Allergy Verified 05/01/19 18:45 Home Medications: Ambulatory Orders Atorvastatin Ca [Lipitor] 40 mg PO HS 01/20/18 Insulin Glargine,Hum.rec.anlog [Lantus] 24 unit SQ BID 01/20/18 Tiotropium [place] [Spiriva Respimat] 4 gm IH DAILY 01/20/18 metFORMIN HCL [Metformin ER Gastric] 1,000 mg PO BID 01/20/18 Albuterol 0.083% Nebulizer Briana [Ventolin 0.083% Nebulizer Soln -] 1 amp NEB RTID amp 07/19/18 Cefuroxime Axetil [Cefuroxime] 500 mg PO BID 5 Days #10 tablet 07/19/18 Diltiazem Cd [Cardizem Cd -] 120 mg PO DAILY 30 Days #30 cap.cd.24h 07/19/18 Miconazole Nitrate [Monistat -] 1 applic TP BID #1 tube 07/19/18 Albuterol Sulfate Inhaler - [Ventolin HFA Inhaler -] 1 - 2 inh PO Q4H #1 inhaler 05/02/19 Cephalexin Monohydrate [Keflex -] 500 mg PO BID #10 capsule 05/02/19 Ibuprofen [Motrin -] 600 mg PO TID #21 tablet 05/02/19 Inhaler, Assist Devices [Space Chamber Plus] 1 each MC DAILY #1 spacer 05/02/19 Anemia: Yes Asthma: Yes COPD: Yes Diabetes: Yes GI Disorders: Yes (GERD) HTN: Yes Hypercholesterolemia: Yes - Surgical History Abdominal Surgery: No Appendectomy: No Cardiac Surgery: No Cholecystectomy: No Gastric Stapling: No GI Surgery: No Lung Surgery: No Neurologic Surgery: No Orthopedic Surgery: No - Immunization History Immunization Up to Date: Yes - Psycho Social/Smoking Cessation Hx Smoking History: Former smoker Have you smoked in the past 12 months: Yes Number of Cigarettes Smoked Daily: 5 If you are a former smoker, when did you quit?: 06/08/2019 Information on smoking cessation initiated: Yes Hx Alcohol Use: No Drug/Substance Use Hx: Yes (Liliyarenetta) Substance Use Type: None Review of Systems - Review of Systems Able to Perform ROS?: Yes Constitutional: Yes: Chills, Fever. No: Loss of Appetite Respiratory: Yes: Cough, Shortness of Breath, SOB with Exertion, SOB at Rest. No: Orthopnea, Hemoptysis Cardiac (ROS): No: Chest Pain, Lightheadedness, Palpitations, Syncope, Chest Tightness ABD/GI: No: Abdominal Distended, Constipated, Diarrhea, Nausea, Vomiting Musculoskeletal: No: Back Pain, Joint Swelling Neurological: No: Headache, Numbness, Seizure *Physical Exam - Vital Signs Last Vital Signs Temp Pulse Resp BP Pulse Ox 97.2 F L 90 20 139/84 99 06/18/19 13:05 06/18/19 13:05 06/18/19 13:05 06/18/19 13:05 06/18/19 13:05 - Physical Exam General Appearance: Yes: Obese, Other (Somnolent) HEENT: positive: EOMI, CHU, Normal Voice, Pharynx Normal. negative: Tonsillar Exudate, Tonsillar Erythema Neck: positive: Normal Thyroid, Supple. negative: Tender Respiratory/Chest: positive: Rhonchi, Wheezing. negative: Respiratory Distress Cardiovascular: positive: Regular Rhythm, Regular Rate, S1, S2. negative: Edema , JVD, Murmur Vascular Pulses: Dorsalis-Pedis (R): 2+, Doralis-Pedis (L): 2+ Gastrointestinal/Abdominal: positive: Normal Bowel Sounds, Soft Extremity: negative: Pedal Edema, Swelling, Calf Tenderness ED Treatment Course - LABORATORY CBC & Chemistry Diagram: 06/18/19 14:14 06/18/19 14:14 - RADIOLOGY Radiology Studies Ordered: Category Date Time Status CHEST X-RAY PORTABLE* [RAD] Stat Radiology 06/18/19 13:48 Ordered Medical Decision Making - Medical Decision Making 06/18/19 14:15 - EKG, trops - CXR - CBC, CMP, Coags - EKG: Discharge - Discharge Information Problems reviewed: Yes Clinical Impression/Diagnosis: ACS (acute coronary syndrome) - Admission Yes - Follow up/Referral - Patient Discharge Instructions - Post Discharge Activity
[2019-06-18] MEDS ORDERED: ASPIRIN 81 MG CHEWABLE TABLETS ONE (14:18)
--- NOTE | 2019-06-18 14:20 | PDOC ---
Documentation entered by Keyanna Bryant SCRIBE, acting as scribe for Og Summers MD. Og Summers MD: This documentation has been prepared by the Annette brown Adrianna, SCRIBE, under my direction and personally reviewed by me in its entirety. I confirm that the documentation accurately reflects all work, treatment, procedures, and medical decision making performed by me. Attending Attestation - Resident Resident Name: TanyazenaidaNicole - ED Attending Attestation I have performed the following: I have examined & evaluated the patient, The case was reviewed & discussed with the resident, I agree w/resident's findings & plan, Exceptions are as noted - HPI HPI: The patient is a 58 year old female, with a significant PMH of COPD, HTN, HLD, and IDDM, who presents to the ED BIBEMS with malaise and SOB for 2 weeks. Patient reports she has not been feeling well, has been weak, and not compliant with her daily medications. She endorses dyspnea on exertion and cough. As per EMS, patient was found to be in SVT (rate of 174), which converted with 6mg of adenosine. Allergies: NKA, NKDA Surgical History: None reported Social History: Current everyday smoker (1/2 ppd). PCP: Dr. Domingo - Physicial Exam PE: 06/18/19 14:18 Patient is awake and alert, obese; nontoxic-appearing Normocephalic and atraumatic PERRLA, EOMI CTA RRR No JVD - Medical Decision Making 06/18/19 14:19 Patient is a 58-year-old female with multiple comorbidities presents with shortness of breath malaise and mild nonproductive cough. Patient is afebrile and nontoxic-appearing in the ED. Initial EKG shows Q waves in the precordial leads with questionably hyperacute T waves without evidence of reciprocal changes in the inferior leads. Differential diagnosis includes acute COPD exacerbation versus ACS versus PE versus pneumonia. Will administer aspirin and nitroglycerin transdermally. Will obtain chest x-ray. Will obtain CBC/CMP/ cardiac profile. Will reassess.
[2019-06-18 14:25] LABS: BASO % 1.1 % (0-2.0); HEMATOCRIT 38.4 % (32.4-45.2); HEMOGLOBIN 12.3 GM/dL (10.7-15.3); LYMPH % 47.4 % (8-40); MCH 23.5 pg (25.7-33.7); MCHC 31.9 g/dl (32.0-36.0); MEAN CELL VOLUME 73.6 fl (80-96); MEAN PLT VOLUME 8.3 fl (7.5-11.1); MONO % 5.4 % (3.8-10.2); NEUT % 45.1 % (42.8-82.8); PLATELET COUNT 260 K/MM3 (134-434); RBC 5.22 M/mm3 (3.60-5.2); RDW 15.1 % (11.6-15.6); WHITE BLOOD COUNT 6.5 K/mm3 (4.0-10.0)
--- NOTE | 2019-06-18 14:25 | EKG ---
Test Reason : Blood Pressure : / mmHG Vent. Rate : 090 BPM Atrial Rate : 090 BPM P-R Int : 196 ms QRS Dur : 098 ms QT Int : 332 ms P-R-T Axes : 072 -14 036 degrees QTc Int : 406 ms NORMAL SINUS RHYTHM ANTEROSEPTAL INFARCT (CITED ON OR BEFORE 18-JUL-2018) ABNORMAL ECG WHEN COMPARED WITH ECG OF 01-MAY-2019 21:16, ABERRANT CONDUCTION IS NO LONGER PRESENT QUESTIONABLE CHANGE IN INITIAL FORCES OF ANTERIOR LEADS Confirmed by MADELINE FENG, NATHANIEL ([id number]) on 06/18/2019 2:25:16 PM Referred By: Confirmed By:NATHANIEL CORREA MD
[2019-06-18 14:40] LABS: INR 1.07 (0.83-1.09); PROTHROMBIN TIME (PATIENT) 12.6 SEC (9.7-13.0)
[2019-06-18 14:58] LABS: ALK PHOS 145 U/L (45-117); ANION GAP 5 MMOL/L (8-16); BILIRUBIN,TOTAL 0.2 mg/dL (0.2-1); BLOOD UREA NITROGEN 19.2 mg/dL (7-18); CALCIUM 8.9 mg/dL (8.5-10.1); CHLORIDE 104 mmol/L (98-107); CO2 28 mmol/L (21-32); CREATININE 0.8 mg/dL (0.55-1.3); GLUCOSE,RANDOM 368 mg/dL (74-106); POTASSIUM 4.4 mmol/L (3.5-5.1); SGOT/AST 12 U/L (15-37); SGPT/ALT 24 U/L (13-61); SODIUM 137 mmol/L (136-145); TOT PROT 6.4 g/dl (6.4-8.2)
[2019-06-18] MEDS ORDERED: SODIUM CHLORIDE 1,000 ML IV STA (15:11)
[2019-06-18] MEDS ORDERED: INSULIN REGULAR HUMAN 100 UNITS/ML *VIAL SQ ONE (15:11)
[2019-06-18] MEDS ORDERED: INSULIN (NOVOLOG) ASPART 100 UNITS/ML 10ML VIAL ONE (15:26)
--- NOTE | 2019-06-18 16:59 | CON.CARD ---
Consult Consult Specialty:: Cardiology Reason for Consultation:: palpitations - History of Present Illness Chief Complaint: palpitations. sob History of Present Illness: 58 year old female with a pmhx of copd, htn, hld, dm, and h/o svt in the past presenting with sob and cough. Also noted to have palpitations. No chest pain. No le edema. As per chart, EMS reported SVT at 174 which converted to 6mg of adenosine. - History Source History Provided By: Patient, Medical Record - Alcohol/Substance Use Hx Alcohol Use: No - Smoking History Smoking history: Former smoker Have you smoked in the past 12 months: Yes Aproximately how many cigarettes per day: 5 If you are a former smoker, when did you quit?: 06/08/2019 Home Medications - Allergies Allergies/Adverse Reactions: Allergies Allergy/AdvReac Type Severity Reaction Status Date / Time No Known Allergies Allergy Verified 05/01/19 18:45 - Home Medications Home Medications: Ambulatory Orders Atorvastatin Ca [Lipitor] 40 mg PO HS 01/20/18 metFORMIN HCL [Metformin ER Gastric] 1,000 mg PO BID 01/20/18 Aspirin [ASA -] 81 mg PO DAILY 06/18/19 Canagliflozin [Invokana] 100 mg PO DAILY 06/18/19 Cyclobenzaprine HCl 7.5 mg PO BID 06/18/19 Fluticasone/Umeclidin/Vilanter [Trelegy Ellipta 100-62.5-25] 1 puff IH DAILY 05/27 Furosemide 20 mg PO DAILY 06/18/19 Glipizide 10 mg PO DAILY 06/18/19 Hydrochlorothiazide [Hctz -] 12.5 mg PO DAILY 06/18/19 Insulin Glargine,Hum.rec.anlog [Queenie Alvarez] 36 unit SQ DAILY 06/18/19 Insulin Lispro [Humalog] 10 unit SQ AC 06/18/19 Lisinopril 20 mg PO DAILY 06/18/19 Oxycodone HCl/Acetaminophen [Endocet 10-325 mg Tablet] 1 tab PO TID 06/18/19 Pregabalin [Lyrica -] 50 mg PO TID 06/18/19 Semaglutide [Ozempic] 0.5 mg SQ WEEKLY 06/18/19 Valsartan 160 mg PO DAILY 06/18/19 Vital Signs: Vital Signs Temperature 97.9 F 06/18/19 16:33 Pulse Rate 92 H 06/18/19 16:33 Respiratory Rate 18 06/18/19 16:33 Blood Pressure 129/82 06/18/19 16:33 O2 Sat by Pulse Oximetry (%) 100 06/18/19 16:33 Constitutional: Yes: No Distress Neck: Yes: Supple Respiratory: Yes: CTA Bilaterally Gastrointestinal: Yes: Soft Cardiovascular: Yes: Regular Rate and Rhythm JVD: No Carotid Bruit: No Heart Sounds: Yes: S1, S2 Murmur: No: Systolic Murmur Edema: No - Other Data Labs, Other Data: CBC, BMP 06/18/19 14:14 06/18/19 14:14 INR, PTT INR 1.07 (0.83-1.09) 06/18/19 14:14 Troponin, BNP 06/18/19 14:14 Troponin I < 0.02 Troponin, BNP 06/18/19 14:14 Troponin I < 0.02 Imaging - Results EKG: Image Reviewed Assessment/Plan 58 year old female with a pmhx of copd, htn, hld, dm, and h/o svt in the past presenting with sob and cough. Also noted to have palpitations. No chest pain. No le edema. As per chart, EMS reported SVT at 174 which converted to 6mg of adenosine. EKG: sinus rhythm with poor r wave progression 1) SVT -no documentation of SVT but also history of SVT in the past. -Check bnp Trop neg x1 trend labs -Will admit to tele. Restart diltiazem 120mg daily as was on in the past. -Plan for echocardiogram -Serial ekgs -Pending CXR Appears relatively comfortable today.
[2019-06-18] MEDS ORDERED: oxyCODONE HCL 5 MG TABLET PO PRN (21:54)
[2019-06-18] MEDS ORDERED: DOCUSATE SODIUM 100 MG CAPSULE (FP) PO PRN (21:54)
[2019-06-18] MEDS ORDERED: ACETAMINOPHEN 325 MG TABLET (FP) PO PRN (21:54)
[2019-06-18] MEDS: INSULIN SLIDING SCALE (NOVOLOG) 1 VIAL SQ SCH (21:56)
[2019-06-18] MEDS ORDERED: INSULIN (LEVEMIR) 100 UNITS/ML UNITS SQ SCH (22:00)
[2019-06-18 22:30] VITALS: BMI 46.8
[2019-06-18] MEDS: HEPARIN NA (PORCINE) 5,000 UNITS/ML 1ML VIAL SQ SCH (22:48)
[2019-06-18] MEDS: ATORVASTATIN CA 40 MG TABLET (FP) PO SCH (22:48)
[2019-06-18] MEDS: PREGABALIN 50 MG CAPSULE PO SCH (22:48)
[2019-06-19] MEDS ORDERED: glipiZIDE 5 MG TABLET (FP) ONE (05:43)
[2019-06-19] MEDS: INSULIN SLIDING SCALE (NOVOLOG) 1 VIAL SQ SCH ×4 (06:33→21:34)
[2019-06-19] MEDS: PREGABALIN 50 MG CAPSULE PO SCH ×4 (06:33→21:27)
[2019-06-19] MEDS: glipiZIDE 10 MG TABLET (FP) PO SCH (06:35)
[2019-06-19 07:11] LABS: HEMATOCRIT 36.4 % (32.4-45.2); HEMOGLOBIN 11.6 GM/dL (10.7-15.3); MCH 23.4 pg (25.7-33.7); MCHC 31.9 g/dl (32.0-36.0); MEAN CELL VOLUME 73.3 fl (80-96); MEAN PLT VOLUME 8.8 fl (7.5-11.1); PLATELET COUNT 244 K/MM3 (134-434); RBC 4.97 M/mm3 (3.60-5.2)
[2019-06-19 07:40] LABS: ALBUMIN 2.8 g/dl (3.4-5.0); BILIRUBIN,TOTAL 0.3 mg/dL (0.2-1); BLOOD UREA NITROGEN 21.7 mg/dL (7-18); CALCIUM 8.3 mg/dL (8.5-10.1); CREATININE 0.6 mg/dL (0.55-1.3); POTASSIUM 4.2 mmol/L (3.5-5.1); TOT PROT 5.9 g/dl (6.4-8.2)
[2019-06-19] MEDS ORDERED: PT OWN MED DRAWER 7, Y5N ONE (09:30)
[2019-06-19] MEDS: FUROSEMIDE 20 MG TABLET (FP) PO SCH (09:36)
[2019-06-19] MEDS: VALSARTAN 160 MG TABLET (UD) PO SCH (09:37)
[2019-06-19] MEDS: HEPARIN NA (PORCINE) 5,000 UNITS/ML 1ML VIAL SQ SCH ×2 (09:37→21:27)
[2019-06-19] MEDS: ASPIRIN COATED 81 MG TABLET.EC PO SCH (09:37)
[2019-06-19] MEDS ORDERED: LISINOPRIL 20 MG TABLET (FP) PO SCH (10:00)
--- NOTE | 2019-06-19 12:39 | HP ---
Admitting History and Physical - Primary Care Physician PCP: Hugo Alarcon - Admission Chief Complaint: came in for heart racing History of Present Illness: The patient is a 58 year old female, with a significant PMH of COPD, HTN, HLD, and IDDM, who presents to the ED [facility]IB[facility] with malaise and SOB for 2 weeks. Patient reports she has not been feeling well, has been weak, and not compliant with her daily medications. She endorses dyspnea on exertion and cough. As per EMS, patient was found to be in SVT (rate of 174), which converted with 6mg of adenosine. per patient she is under alot of stress where she is living at the half-way and she complainining of feeling tired when her heart was racing very fast History Source: Patient - Past Medical History Cardiovascular: Yes: HTN, Hyperlipdemia Pulmonary: Yes: COPD Endocrine: Yes: Diabetes Mellitus - Smoking History Smoking history: Former smoker Have you smoked in the past 12 months: Yes Aproximately how many cigarettes per day: 5 If you are a former smoker, when did you quit?: 06/08/2019 - Alcohol/Substance Use Hx Alcohol Use: No Home Medications - Allergies Allergies/Adverse Reactions: Allergies Allergy/AdvReac Type Severity Reaction Status Date / Time No Known Allergies Allergy Verified 05/01/19 18:45 - Home Medications Home Medications: Ambulatory Orders Atorvastatin Ca [Lipitor] 40 mg PO HS 01/20/18 metFORMIN HCL [Metformin ER Gastric] 1,000 mg PO BID 01/20/18 Aspirin [ASA -] 81 mg PO DAILY 06/18/19 Canagliflozin [Invokana] 100 mg PO DAILY 06/18/19 Cyclobenzaprine HCl 7.5 mg PO BID 06/18/19 Fluticasone/Umeclidin/Vilanter [Trelegy Ellipta 100-62.5-25] 1 puff IH DAILY 05/27 Furosemide 20 mg PO DAILY 06/18/19 Glipizide 10 mg PO DAILY 06/18/19 Hydrochlorothiazide [Hctz -] 12.5 mg PO DAILY 06/18/19 Insulin Glargine,Hum.rec.anlog [Toucesar Solostmara] 36 unit SQ DAILY 06/18/19 Insulin Lispro [Humalog] 10 unit SQ AC 06/18/19 Lisinopril 20 mg PO DAILY 06/18/19 Oxycodone HCl/Acetaminophen [Endocet 10-325 mg Tablet] 1 tab PO TID 06/18/19 Pregabalin [Lyrica -] 50 mg PO TID 06/18/19 Semaglutide [Ozempic] 0.5 mg SQ WEEKLY 06/18/19 Valsartan 160 mg PO DAILY 06/18/19 Review of Systems - Review of Systems Neurological: reports: Headache Physical Examination Vital Signs: Vital Signs Temperature 98 F 06/19/19 01:41 Pulse Rate 81 06/19/19 10:03 Respiratory Rate 21 H 06/19/19 10:03 Blood Pressure 108/71 06/19/19 10:03 O2 Sat by Pulse Oximetry (%) 98 06/19/19 10:00 Constitutional: Yes: Calm Neck: Yes: Trachea Midline Cardiovascular: Yes: Regular Rate and Rhythm, S1, S2 Respiratory: Yes: CTA Bilaterally Gastrointestinal: Yes: Normal Bowel Sounds, Soft Edema: No Labs: CBC, BMP 06/19/19 05:35 06/19/19 05:35 Problem List - Problems (1) Palpitations Assessment/Plan: restarted diltiazem cardiology consult appreicated echo Code(s): R00.2 - PALPITATIONS (2) Diabetes mellitus Assessment/Plan: uncontrolled DM [id number] 15.7 increase levemir dose to 40 units endocrine consult lyrica tid Code(s): E11.9 - TYPE 2 DIABETES MELLITUS WITHOUT COMPLICATIONS Qualifiers: Diabetes mellitus type: type 2 (3) HLD (hyperlipidemia) Assessment/Plan: statin Code(s): E78.5 - HYPERLIPIDEMIA, UNSPECIFIED
--- NOTE | 2019-06-19 14:39 | EKG ---
Test Reason : Blood Pressure : / mmHG Vent. Rate : 070 BPM Atrial Rate : 070 BPM P-R Int : 218 ms QRS Dur : 102 ms QT Int : 408 ms P-R-T Axes : 059 004 033 degrees QTc Int : 440 ms SINUS RHYTHM WITH MARKED SINUS ARRHYTHMIA WITH 1ST DEGREE A-V BLOCK SEPTAL INFARCT (CITED ON OR BEFORE 18-JUL-2018) ABNORMAL ECG WHEN COMPARED WITH ECG OF 18-JUN-2019 21:47, PREMATURE ATRIAL COMPLEXES ARE NO LONGER PRESENT Confirmed by SHELIA DONAHUE MD ([id number]) on 06/19/2019 2:39:11 PM Referred By: Confirmed By:SHELIA DONAHUE MD
--- NOTE | 2019-06-19 14:42 | EKG ---
Test Reason : Blood Pressure : / mmHG Vent. Rate : 070 BPM Atrial Rate : 070 BPM P-R Int : 240 ms QRS Dur : 104 ms QT Int : 392 ms P-R-T Axes : 043 004 023 degrees QTc Int : 423 ms SINUS RHYTHM WITH 1ST DEGREE A-V BLOCK WITH BLOCKED PREMATURE ATRIAL COMPLEXES SEPTAL INFARCT (CITED ON OR BEFORE 18-JUL-2018) ABNORMAL ECG WHEN COMPARED WITH ECG OF 18-JUN-2019 14:17, PREMATURE ATRIAL COMPLEXES ARE NOW PRESENT ME INTERVAL HAS INCREASED Confirmed by SHELIA DONAHUE MD ([id number]) on 06/19/2019 2:41:57 PM Referred By: Confirmed By:SHELIA DONAHUE MD
--- NOTE | 2019-06-19 14:44 | EKG ---
Test Reason : Blood Pressure : / mmHG Vent. Rate : 088 BPM Atrial Rate : 088 BPM P-R Int : 192 ms QRS Dur : 100 ms QT Int : 346 ms P-R-T Axes : 061 -10 034 degrees QTc Int : 418 ms NORMAL SINUS RHYTHM ANTEROSEPTAL INFARCT (CITED ON OR BEFORE 18-JUL-2018) ABNORMAL ECG WHEN COMPARED WITH ECG OF 18-JUN-2019 13:12, NO SIGNIFICANT CHANGE WAS FOUND Confirmed by GODFREY FENG, SHELIA ([id number]) on 06/19/2019 2:43:47 PM Referred By: Confirmed By:SHELIA DONAHUE MD
--- NOTE | 2019-06-19 15:03 | PN ---
Progress Note, Physician Chief Complaint: No new complaints Sinus on tele with no events occasional pac History of Present Illness: 58 year old female with a pmhx of copd, htn, hld, dm, and h/o svt in the past presenting with sob and cough. Also noted to have palpitations. No chest pain. No le edema. As per chart, EMS reported SVT at 174 which converted to 6mg of adenosine. - Current Medication List Current Medications: Active Medications Acetaminophen (Tylenol -) 650 mg PO Q6H PRN PRN Reason: FEVER Last Admin: 06/19/19 09:40 Dose: 650 mg Aspirin (Ecotrin -) 81 mg PO DAILY [facility] Last Admin: 06/19/19 09:37 Dose: 81 mg Atorvastatin Calcium (Lipitor -) 40 mg PO HS [facility] Last Admin: 06/18/19 22:48 Dose: 40 mg Diltiazem HCl (Cardizem Cd -) 120 mg PO DAILY [facility] Last Admin: 06/19/19 13:19 Dose: 120 mg Docusate Sodium (Colace -) 100 mg PO BID PRN PRN Reason: CONSTIPATION Furosemide (Lasix -) 20 mg PO DAILY [facility] Last Admin: 06/19/19 09:36 Dose: 20 mg Glipizide (Glucotrol -) 10 mg PO DAILY@0700 [facility] Last Admin: 06/19/19 06:35 Dose: 10 mg Heparin Sodium (Porcine) (Heparin -) 5,000 unit SQ BID [facility] Last Admin: 06/19/19 09:37 Dose: 5,000 unit Insulin Aspart (Novolog Vial Sliding Scale -) 1 vial SQ [facility]; Protocol Last Admin: 06/19/19 13:21 Dose: Not Given Insulin Detemir (Levemir Vial) 40 units SQ [facility] Lisinopril (Prinivil) 20 mg PO DAILY [facility] Last Admin: 06/19/19 09:36 Dose: 20 mg Oxycodone HCl (Roxicodone -) 5 mg PO Q6H PRN PRN Reason: PAIN LEVEL 7 - 10 Pregabalin (Lyrica -) 50 mg PO TID [facility] Last Admin: 06/19/19 06:33 Dose: 50 mg Valsartan (Diovan -) 160 mg PO DAILY [facility] Last Admin: 06/19/19 09:37 Dose: 160 mg - Objective Vital Signs: Vital Signs Temperature 98 F 06/19/19 01:41 Pulse Rate 81 06/19/19 10:03 Respiratory Rate 21 H 06/19/19 10:03 Blood Pressure 108/71 06/19/19 10:03 O2 Sat by Pulse Oximetry (%) 98 06/19/19 10:00 Constitutional: Yes: No Distress Neck: Yes: Supple Cardiovascular: Yes: Regular Rate and Rhythm, S1, S2. No: Murmur Respiratory: Yes: CTA Bilaterally Edema: No Labs: CBC, BMP 06/19/19 05:35 06/19/19 05:35 INR, PTT INR 1.07 (0.83-1.09) 06/18/19 14:14 Assessment/Plan 58 year old female with a pmhx of copd, htn, hld, dm, and h/o svt in the past presenting with sob and cough. Also noted to have palpitations. No chest pain. No le edema. As per chart, EMS reported SVT at 174 which converted to 6mg of adenosine. EKG: sinus rhythm with poor r wave progression 1) SVT -no documentation of SVT but reported as per ER note. History of SVT in the past. Trop neg x1 trend labs Restarted diltiazem 120mg daily as was on in the past. -Plan for echocardiogram -Serial ekgs with no changes -Appears relatively comfortable with no events on tele on diltiazem. Patient likely not compliant with home meds. A1C 15 and LDL 190s Continue cardiac meds and outpatient follow up with Dr. Rudolph. If recurrent SVT than can consider ablation. If no new changes on echocardiogram compared to previous than outpatient cardiac follow up
--- NOTE | 2019-06-19 17:21 | CONSULT ---
Consult Consult Specialty:: Nephrology Reason for Consultation:: fluid overload - History of Present Illness Chief Complaint: shortness of breath and edema History of Present Illness: Pt is a 58 year old female with pmhx of copd, htn, hld and dm who presents with dyspnea and lower ext edema. I was called to evaluate her for fluid overload. She says that she was on lasix in the past. She was also found to be in SVT en route to the hospital. She denies dysuria or hematuria. - History Source History Provided By: Patient, Medical Record - Past Medical History Cardio/Vascular: Yes: HTN, Hyperlipdemia Pulmonary: Yes: COPD Endocrine: Yes: Diabetes Mellitus - Alcohol/Substance Use Hx Alcohol Use: No - Smoking History Smoking history: Former smoker Have you smoked in the past 12 months: Yes Aproximately how many cigarettes per day: 5 If you are a former smoker, when did you quit?: 06/08/2019 Home Medications - Allergies Allergies/Adverse Reactions: Allergies Allergy/AdvReac Type Severity Reaction Status Date / Time No Known Allergies Allergy Verified 05/01/19 18:45 - Home Medications Home Medications: Ambulatory Orders Atorvastatin Ca [Lipitor] 40 mg PO HS 01/20/18 metFORMIN HCL [Metformin ER Gastric] 1,000 mg PO BID 01/20/18 Aspirin [ASA -] 81 mg PO DAILY 06/18/19 Canagliflozin [Invokana] 100 mg PO DAILY 06/18/19 Cyclobenzaprine HCl 7.5 mg PO BID 06/18/19 Fluticasone/Umeclidin/Vilanter [Trelegy Ellipta 100-62.5-25] 1 puff IH DAILY 05/27 Furosemide 20 mg PO DAILY 06/18/19 Glipizide 10 mg PO DAILY 06/18/19 Hydrochlorothiazide [Hctz -] 12.5 mg PO DAILY 06/18/19 Insulin Glargine,Hum.rec.anlog [Queenie Alvarez] 36 unit SQ DAILY 06/18/19 Insulin Lispro [Humalog] 10 unit SQ AC 06/18/19 Lisinopril 20 mg PO DAILY 06/18/19 Oxycodone HCl/Acetaminophen [Endocet 10-325 mg Tablet] 1 tab PO TID 06/18/19 Pregabalin [Lyrica -] 50 mg PO TID 06/18/19 Semaglutide [Ozempic] 0.5 mg SQ WEEKLY 06/18/19 Valsartan 160 mg PO DAILY 06/18/19 Family Medical History Family History: Denies Review of Systems - Review of Systems Constitutional: reports: Malaise Eyes: reports: No Symptoms HENT: reports: No Symptoms Neck: reports: No Symptoms Cardiovascular: reports: Edema Respiratory: reports: SOB on Exertion Gastrointestinal: reports: No Symptoms Genitourinary: reports: No Symptoms Musculoskeletal: reports: No Symptoms Integumentary: reports: No Symptoms Neurological: reports: No Symptoms Endocrine: reports: No Symptoms Hematology/Lymphatic: reports: No Symptoms Psychiatric: reports: No Symptoms Physical Exam Vital Signs: Vital Signs Temperature 98 F 06/19/19 01:41 Pulse Rate 81 06/19/19 10:03 Respiratory Rate 21 H 06/19/19 10:03 Blood Pressure 108/71 06/19/19 10:03 O2 Sat by Pulse Oximetry (%) 98 06/19/19 10:00 Constitutional: Yes: Calm Eyes: Yes: Conjunctiva Clear HENT: Yes: Atraumatic Cardiovascular: Yes: S1, S2 Respiratory: Yes: CTA Bilaterally Gastrointestinal: Yes: Soft Renal/: Yes: WNL Musculoskeletal: Yes: WNL Edema: No Neurological: Yes: Oriented Psychiatric: Yes: Oriented Labs: CBC, BMP 06/19/19 05:35 06/19/19 05:35 Imaging - Results Chest X-ray: Report Reviewed Problem List - Problems (1) Diabetes mellitus Code(s): E11.9 - TYPE 2 DIABETES MELLITUS WITHOUT COMPLICATIONS Qualifiers: Diabetes mellitus type: type 2 (2) HTN (hypertension) Code(s): I10 - ESSENTIAL (PRIMARY) HYPERTENSION Assessment/Plan Current Medications Generic Name Dose Route Start Last Admin Trade Name Freq PRN Reason Stop Dose Admin Acetaminophen 650 mg 06/18/19 21:54 06/19/19 09:40 Tylenol - PO 650 mg Q6H PRN Administration FEVER Aspirin 81 mg 06/19/19 10:00 06/19/19 09:37 Ecotrin - PO 81 mg DAILY [facility] Administration Atorvastatin Calcium 40 mg 06/18/19 22:00 06/18/19 22:48 Lipitor - PO 40 mg HS [facility] Administration Diltiazem HCl 120 mg 06/19/19 12:45 12/12/19 13:19 Cardizem Cd - PO 120 mg DAILY [facility] Administration Docusate Sodium 100 mg 06/18/19 21:54 Colace - PO BID PRN CONSTIPATION Furosemide 20 mg 06/19/19 10:00 06/19/19 09:36 Lasix - PO 20 mg DAILY [facility] Administration Glipizide 10 mg 06/19/19 07:00 06/19/19 06:35 Glucotrol - PO 10 mg DAILY@0700 [facility] Administration Heparin Sodium (Porcine) 5,000 unit 06/18/19 22:00 06/19/19 09:37 Heparin - SQ 5,000 unit BID [facility] Administration Insulin Aspart 1 vial 06/18/19 22:00 06/19/19 13:21 Novolog Vial Sliding Scale - SQ Not Given ACHS [facility] Protocol Insulin Detemir 40 units 06/19/19 22:00 Levemir Vial SQ HS [facility] Lisinopril 20 mg 06/19/19 10:00 06/19/19 09:36 Prinivil PO 20 mg DAILY [facility] Administration Oxycodone HCl 5 mg 06/18/19 21:54 Roxicodone - PO Q6H PRN PAIN LEVEL 7 - 10 Pregabalin 50 mg 06/18/19 22:00 06/19/19 15:33 Lyrica - PO Not Given TID [facility] Valsartan 160 mg 06/19/19 10:00 06/19/19 09:37 Diovan - PO 160 mg DAILY [facility] Administration Impression 1. dyspnea 2. edema 3. htn 4. DM 5. hld 6. svt Plan - d/c lisinopril as she is on valsartan - no edema in legs - check ua - check echo - pt appears euvolemic
[2019-06-19] MEDS: ATORVASTATIN CA 40 MG TABLET (FP) PO SCH (21:27)
[2019-06-19] MEDS ORDERED: INSULIN (LEVEMIR) 100 UNITS/ML UNITS SQ SCH (22:00)
[2019-06-19 22:02] LABS: EPI CELLS 1.2 /HPF (0-5/HPF); HYALINE CASTS 0 /lpf (0-8); PH,URINE 6.5 (5.0-8.0); URINE APPEARANCE CLEAR; URINE BACTERIA 2809.7 /hpf (NEGATIVE); URINE BILIRUBIN NEGATIVE (NEGATIVE); URINE COLOR YELLOW; URINE GLUCOSE (UA) 2+ (NEGATIVE); URINE KETONE NEGATIVE (NEGATIVE); URINE LEUK ESTERASE NEGATIVE (NEGATIVE); URINE NITRITE POSITIVE (NEGATIVE); URINE PROTEIN NEGATIVE (NEGATIVE); URINE RBC 3 /hpf (0-4); URINE UROBILINOGEN 0.2 mg/dL (0.2-1.0); URINE WBC 2 /hpf (0-5)
[2019-06-20] MEDS ORDERED: glipiZIDE 5 MG TABLET (FP) ONE (06:11)
[2019-06-20] MEDS: glipiZIDE 10 MG TABLET (FP) PO SCH (06:19)
[2019-06-20] MEDS: PREGABALIN 50 MG CAPSULE PO SCH (06:19)
[2019-06-20] MEDS: INSULIN SLIDING SCALE (NOVOLOG) 1 VIAL SQ SCH ×2 (06:19→13:13)
[2019-06-20 07:28] LABS: ALBUMIN 2.7 g/dl (3.4-5.0); BILIRUBIN,TOTAL 0.2 mg/dL (0.2-1); BLOOD UREA NITROGEN 20.6 mg/dL (7-18); CALCIUM 8.6 mg/dL (8.5-10.1); CREATININE 0.9 mg/dL (0.55-1.3); POTASSIUM 4.7 mmol/L (3.5-5.1); TOT PROT 6.2 g/dl (6.4-8.2)
[2019-06-20 10:27] VITALS: BP 128/84; PULSE 81; TEMP 98
--- NOTE | 2019-06-20 12:40 | ECHO ---
Name: BRAN TRAN Exam:Adult Echocardiogram Study Date: 06/20/2019 07:43 AM Age: 58 yrs Reason For Study: ef Height: 65 in Weight: 281 lb BSA: 2.3 m2 MMode/2D Measurements & Calculations IVSd: 1.8 cm Ao root diam: 3.0 cm LVIDd: 4.4 cm LA dimension: 2.4 cm LVIDs: 2.6 cm LVPWd: 1.1 cm EDV(Teich): 86.7 ml LVOT diam: 2.0 cm ESV(Teich): 24.3 ml LAV (MOD-bp): 40.5 ml Doppler Measurements & Calculations MV E max mikhail: 40.3 cm/sec Ao V2 max: 95.0 cm/sec MV A max mikhail: 68.4 cm/sec Ao max P.6 mmHg MV E/A: 0.59 MV dec time: 0.23 sec REGINALD(V,D): 2.2 cm2 LV V1 max P.8 mmHg PA V2 max: 88.2 cm/sec LV V1 max: 66.5 cm/sec PA max P.1 mmHg Med Peak E' Mikhail: 4.8 cm/sec Med E/e': 8.4 Lat Peak E' Mikhail: 4.5 cm/sec Lat E/e': 9.0 Left Ventricle There is moderate concentric left ventricular hypertrophy. Left ventricular systolic function is dewey sly normal. Ejection Fraction = 50-55%. The transmitral spectral Doppler flow pattern is suggestive of im paired LV relaxation. Right Ventricle The right ventricle is grossly normal size. The right ventricular systolic function is grossly normal . Atria Normal left and right atrial size and function. Mitral Valve The mitral valve is normal in structure and function. There is no mitral valve stenosis. Tricuspid Valve The tricuspid valve is normal in structure and function. There is mild tricuspid regurgitation. Aortic Valve The aortic valve opens well. No hemodynamically significant valvular aortic stenosis. Pulmonic Valve The pulmonic valve is not well seen, but is grossly normal. There is no pulmonic valvular stenosis. Great Vessels The aortic root is normal size. Pericardium/Pleura There is no pericardial effusion. Interpretation Summary There is moderate concentric left ventricular hypertrophy. Left ventricular systolic function is grossly normal. Ejection Fraction = 50-55%. The transmitral spectral Doppler flow pattern is suggestive of impaired LV relaxation. There is mild tricuspid regurgitation. There is no pericardial effusion. MD Mccormick *Philip 06/20/2019 12:40 PM
[2019-06-20] MEDS: ASPIRIN COATED 81 MG TABLET.EC PO SCH (13:07)
[2019-06-20] MEDS: HEPARIN NA (PORCINE) 5,000 UNITS/ML 1ML VIAL SQ SCH (13:07)
[2019-06-20] MEDS: FUROSEMIDE 20 MG TABLET (FP) PO SCH (13:07)
[2019-06-20] MEDS: VALSARTAN 160 MG TABLET (UD) PO SCH (13:08)
--- NOTE | 2019-06-20 13:23 | PN ---
Progress Note, Physician History of Present Illness: Pt seen and examined at bedside. She denies dysuria. - Current Medication List Current Medications: Active Medications Acetaminophen (Tylenol -) 650 mg PO Q6H PRN PRN Reason: FEVER Last Admin: 06/19/19 09:40 Dose: 650 mg Aspirin (Ecotrin -) 81 mg PO DAILY [facility] Last Admin: 06/20/19 13:07 Dose: 81 mg Atorvastatin Calcium (Lipitor -) 40 mg PO HS [facility] Last Admin: 06/19/19 21:27 Dose: 40 mg Diltiazem HCl (Cardizem Cd -) 120 mg PO DAILY [facility] Last Admin: 06/20/19 13:08 Dose: 120 mg Docusate Sodium (Colace -) 100 mg PO BID PRN PRN Reason: CONSTIPATION Furosemide (Lasix -) 20 mg PO DAILY [facility] Last Admin: 06/20/19 13:07 Dose: 20 mg Glipizide (Glucotrol -) 10 mg PO DAILY@0700 [facility] Last Admin: 06/20/19 06:19 Dose: 10 mg Heparin Sodium (Porcine) (Heparin -) 5,000 unit SQ BID [facility] Last Admin: 06/20/19 13:07 Dose: 5,000 unit Insulin Aspart (Novolog Vial Sliding Scale -) 1 vial SQ [facility]; Protocol Last Admin: 06/20/19 13:13 Dose: 4 units Insulin Detemir (Levemir Vial) 40 units SQ [facility] Last Admin: 06/19/19 21:34 Dose: 40 units Oxycodone HCl (Roxicodone -) 5 mg PO Q6H PRN PRN Reason: PAIN LEVEL 7 - 10 Pregabalin (Lyrica -) 50 mg PO TID [facility] Last Admin: 06/20/19 06:19 Dose: 50 mg Valsartan (Diovan -) 160 mg PO DAILY [facility] Last Admin: 06/20/19 13:08 Dose: 160 mg - Objective Vital Signs: Vital Signs Temperature 98.0 F 06/20/19 10:00 Pulse Rate 81 06/20/19 10:00 Respiratory Rate 20 06/20/19 10:00 Blood Pressure 128/84 06/20/19 10:00 O2 Sat by Pulse Oximetry (%) 98 06/19/19 21:00 Constitutional: Yes: Calm Eyes: Yes: Conjunctiva Clear HENT: Yes: Atraumatic Neck: Yes: Supple Cardiovascular: Yes: S1, S2 Respiratory: Yes: CTA Bilaterally Gastrointestinal: Yes: Soft Genitourinary: Yes: WNL Musculoskeletal: Yes: WNL Edema: No Neurological: Yes: Oriented Psychiatric: Yes: Oriented Labs: CBC, BMP 06/19/19 05:35 06/20/19 05:30 INR, PTT INR 1.07 (0.83-1.09) 06/18/19 14:14 Problem List - Problems (1) Diabetes mellitus Code(s): E11.9 - TYPE 2 DIABETES MELLITUS WITHOUT COMPLICATIONS Qualifiers: Diabetes mellitus type: type 2 (2) HTN (hypertension) Code(s): I10 - ESSENTIAL (PRIMARY) HYPERTENSION Assessment/Plan Current Medications Generic Name Dose Route Start Last Admin Trade Name Freq PRN Reason Stop Dose Admin Acetaminophen 650 mg 06/18/19 21:54 06/19/19 09:40 Tylenol - PO 650 mg Q6H PRN Administration FEVER Aspirin 81 mg 06/19/19 10:00 06/20/19 13:07 Ecotrin - PO 81 mg DAILY [facility] Administration Atorvastatin Calcium 40 mg 06/18/19 22:00 06/19/19 21:27 Lipitor - PO 40 mg HS [facility] Administration Diltiazem HCl 120 mg 06/19/19 12:45 06/20/19 13:08 Cardizem Cd - PO 120 mg DAILY [facility] Administration Docusate Sodium 100 mg 06/18/19 21:54 Colace - PO BID PRN CONSTIPATION Furosemide 20 mg 06/19/19 10:00 06/20/19 13:07 Lasix - PO 20 mg DAILY [facility] Administration Glipizide 10 mg 06/19/19 07:00 06/20/19 06:19 Glucotrol - PO 10 mg DAILY@0700 [facility] Administration Heparin Sodium (Porcine) 5,000 unit 06/18/19 22:00 06/20/19 13:07 Heparin - SQ 5,000 unit BID [facility] Administration Insulin Aspart 1 vial 06/18/19 22:00 06/20/19 13:13 Novolog Vial Sliding Scale - SQ 4 units ACHS [facility] Administration Protocol Insulin Detemir 40 units 06/19/19 22:00 06/19/19 21:34 Levemir Vial SQ 40 units HS [facility] Administration Oxycodone HCl 5 mg 06/18/19 21:54 Roxicodone - PO Q6H PRN PAIN LEVEL 7 - 10 Pregabalin 50 mg 06/18/19 22:00 06/20/19 06:19 Lyrica - PO 50 mg TID [facility] Administration Valsartan 160 mg 06/19/19 10:00 06/20/19 13:08 Diovan - PO 160 mg DAILY [facility] Administration Laboratory Tests 06/18/19 06/19/19 06/19/19 21:52 05:35 21:35 Sodium 137 Potassium 4.2 Creatinine 0.6 Hemoglobin A1c % 15.9 H Urine Protein Negative Urine Blood Negative Impression 1. dyspnea 2. edema 3. htn 4. DM 5. hld 6. svt Plan - send urine culture - cont valsartan - follow echo - no edema in legs - pt appears euvolemic - ua neg for blood or protein
--- NOTE | 2019-06-20 13:59 | PN ---
Progress Note, Physician Chief Complaint: No complaints No events on tele History of Present Illness: 58 year old female with a pmhx of copd, htn, hld, dm, and h/o svt in the past presenting with sob and cough. Also noted to have palpitations. No chest pain. No le edema. As per chart, EMS reported SVT at 174 which converted to 6mg of adenosine. - Current Medication List Current Medications: Active Medications Acetaminophen (Tylenol -) 650 mg PO Q6H PRN PRN Reason: FEVER Last Admin: 06/19/19 09:40 Dose: 650 mg Aspirin (Ecotrin -) 81 mg PO DAILY [facility] Last Admin: 06/20/19 13:07 Dose: 81 mg Atorvastatin Calcium (Lipitor -) 40 mg PO HS [facility] Last Admin: 06/19/19 21:27 Dose: 40 mg Diltiazem HCl (Cardizem Cd -) 120 mg PO DAILY [facility] Last Admin: 06/20/19 13:08 Dose: 120 mg Docusate Sodium (Colace -) 100 mg PO BID PRN PRN Reason: CONSTIPATION Furosemide (Lasix -) 20 mg PO DAILY [facility] Last Admin: 06/20/19 13:07 Dose: 20 mg Glipizide (Glucotrol -) 10 mg PO DAILY@0700 [facility] Last Admin: 06/20/19 06:19 Dose: 10 mg Heparin Sodium (Porcine) (Heparin -) 5,000 unit SQ BID [facility] Last Admin: 06/20/19 13:07 Dose: 5,000 unit Insulin Aspart (Novolog Vial Sliding Scale -) 1 vial SQ [facility]; Protocol Last Admin: 06/20/19 13:13 Dose: 4 units Insulin Detemir (Levemir Vial) [address] units [address] [facility] Last Admin: 06/19/19 21:34 Dose: 40 units Oxycodone HCl (Roxicodone -) 5 mg PO Q6H PRN PRN Reason: PAIN LEVEL 7 - 10 Pregabalin (Lyrica -) 50 mg PO TID [facility] Last Admin: 06/20/19 06:19 Dose: 50 mg Valsartan (Diovan -) 160 mg PO DAILY [facility] Last Admin: 06/20/19 13:08 Dose: 160 mg - Objective Vital Signs: Vital Signs Temperature 98.0 F 06/20/19 10:00 Pulse Rate 81 06/20/19 10:00 Respiratory Rate 20 06/20/19 10:00 Blood Pressure 128/84 06/20/19 10:00 O2 Sat by Pulse Oximetry (%) 98 06/19/19 21:00 Constitutional: Yes: No Distress Neck: Yes: Supple Cardiovascular: Yes: Regular Rate and Rhythm, S1, S2. No: JVD, Murmur Respiratory: Yes: CTA Bilaterally Gastrointestinal: Yes: Soft Edema: No Labs: CBC, BMP 06/19/19 05:35 06/20/19 05:30 INR, PTT INR 1.07 (0.83-1.09) 06/18/19 14:14 Assessment/Plan 58 year old female with a pmhx of copd, htn, hld, dm, and h/o svt in the past presenting with sob and cough. Also noted to have palpitations. No chest pain. No le edema. As per chart, EMS reported SVT at 174 which converted to 6mg of adenosine. EKG: sinus rhythm with poor r wave progression 1) SVT -no documentation of SVT but reported as per ER note. History of SVT in the past. Trop neg x1 trend labs Restarted diltiazem 120mg daily as was on in the past. -Echocardiogram with normal LVEF -Serial ekgs with no changes -Appears relatively comfortable with no events on tele on diltiazem. Patient likely not compliant with home meds. A1C 15 and LDL 190s Continue cardiac meds and outpatient follow up with Dr. Rudolph. If recurrent SVT than can consider ablation. Will sign off at this time.
--- NOTE | 2019-06-20 14:17 | DS ---
Physical Examination Vital Signs: Vital Signs Temperature 98.0 F 06/20/19 10:00 Pulse Rate 81 06/20/19 10:00 Respiratory Rate 20 06/20/19 10:00 Blood Pressure 128/84 06/20/19 10:00 O2 Sat by Pulse Oximetry (%) 98 06/19/19 21:00 Constitutional: Yes: Calm Neck: Yes: Trachea Midline Cardiovascular: Yes: Regular Rate and Rhythm, S1, S2 Respiratory: Yes: CTA Bilaterally Gastrointestinal: Yes: Normal Bowel Sounds, Soft Neurological: Yes: Alert, Oriented Labs: CBC, BMP 06/19/19 05:35 06/20/19 05:30 Discharge Summary Problems reviewed: Yes Reason For Visit: COUGH , CHEST PAIN Current Active Problems ACS (acute coronary syndrome) (Acute) HLD (hyperlipidemia) (Acute) Palpitations (Acute) Other Procedures: echo ejection fraction 50-55% Hospital Course: The patient is a 58 year old female, with a significant PMH of COPD, HTN, HLD, and IDDM, who presents to the ED BIBEMS with malaise and SOB for 2 weeks. Patient reports she has not been feeling well, has been weak, and not compliant with her daily medications. She endorses dyspnea on exertion and cough. As per EMS, patient was found to be in SVT (rate of 174), which converted with 6mg of adenosine. per patient she is under alot of stress where she is living at the halfway and she complainining of feeling tired when her heart was racing very fast - Instructions Disposition: HOME - Home Medications Comprehensive Discharge Medication List: Ambulatory Orders Atorvastatin Ca [Lipitor] 40 mg PO HS 01/20/18 metFORMIN HCL [Metformin ER Gastric] 1,000 mg PO BID 01/20/18 Aspirin [ASA -] 81 mg PO DAILY 06/18/19 Canagliflozin [Invokana] 100 mg PO DAILY 06/18/19 Cyclobenzaprine HCl 7.5 mg PO BID 06/18/19 Fluticasone/Umeclidin/Vilanter [Trelegy Ellipta 100-62.5-25] 1 puff IH DAILY 05/27 Furosemide 20 mg PO DAILY 06/18/19 Glipizide 10 mg PO DAILY 06/18/19 Hydrochlorothiazide [Hctz -] 12.5 mg PO DAILY 06/18/19 Insulin Glargine,Hum.rec.anlog [Toujeo Solostar] 36 unit SQ DAILY 06/18/19 Insulin Lispro [Humalog] 10 unit SQ AC 06/18/19 Lisinopril 20 mg PO DAILY 06/18/19 Oxycodone HCl/Acetaminophen [Endocet 10-325 mg Tablet] 1 tab PO TID 06/18/19 Pregabalin [Lyrica -] 50 mg PO TID 06/18/19 Semaglutide [Ozempic] 0.5 mg SQ WEEKLY 06/18/19 Valsartan 160 mg PO DAILY 06/18/19
--- NOTE | 2019-06-20 21:37 | CONSULT ---
Consult Consult Specialty:: endocrine Referred by:: dr.Ammir Logan Reason for Consultation:: uncontrolled dmt2 - History of Present Illness Chief Complaint: high sugars History of Present Illness: 58 year old female with PMH of DMT2,Neuropathy,COPD, HTN, HLD, who presented from homeless long term with SOB x1 week.She has been noncompliant with her medications. Complains of productive cough of white sputum over past week and fevers and chills this morning. Denies any chest pain nausea or vomiting.she has tried to diet but being in long term made it difficult to control her diabetes. - Past Medical History Cardio/Vascular: Yes: HTN, Hyperlipdemia Pulmonary: Yes: COPD Endocrine: Yes: Diabetes Mellitus - Alcohol/Substance Use Hx Alcohol Use: No - Smoking History Smoking history: Former smoker Have you smoked in the past 12 months: Yes Aproximately how many cigarettes per day: 5 If you are a former smoker, when did you quit?: 06/08/2019 Home Medications - Allergies Allergies/Adverse Reactions: Allergies Allergy/AdvReac Type Severity Reaction Status Date / Time No Known Allergies Allergy Verified 05/01/19 18:45 - Home Medications Home Medications: Ambulatory Orders Atorvastatin Ca [Lipitor] 40 mg PO HS 01/20/18 metFORMIN HCL [Metformin ER Gastric] 1,000 mg PO BID 01/20/18 Aspirin [ASA -] 81 mg PO DAILY 06/18/19 Canagliflozin [Invokana] 100 mg PO DAILY 06/18/19 Fluticasone/Umeclidin/Vilanter [Trelegy Ellipta 100-62.5-25] 1 puff IH DAILY 05/27 Furosemide 20 mg PO DAILY 06/18/19 Glipizide 10 mg PO DAILY 06/18/19 Hydrochlorothiazide [Hctz -] 12.5 mg PO DAILY 06/18/19 Insulin Glargine,Hum.rec.anlog [Toujeo Solostar] 36 unit SQ DAILY 06/18/19 Insulin Lispro [Humalog] 10 unit SQ AC 06/18/19 Lisinopril 20 mg PO DAILY 06/18/19 Pregabalin [Lyrica -] 50 mg PO TID 06/18/19 Semaglutide [Ozempic] 0.5 mg SQ WEEKLY 06/18/19 Valsartan 160 mg PO DAILY 06/18/19 Diltiazem Cd [Cardizem Cd -] 120 mg PO DAILY #30 cap.cd.24h 06/20/19 Review of Systems - Review of Systems Constitutional: reports: Loss of Appetite Eyes: reports: Blurred Vision HENT: reports: No Symptoms Neck: reports: No Symptoms Cardiovascular: reports: Shortness of Breath Respiratory: reports: Exercise Intolerance, SOB on Exertion Gastrointestinal: reports: No Symptoms Genitourinary: reports: Frequency Breasts: reports: No Symptoms Reported Musculoskeletal: reports: Joint Pain Neurological: reports: Numbness, Weakness Endocrine: reports: Unexplained Weight Loss Physical Exam Vital Signs: Vital Signs Temperature 98.0 F 06/20/19 10:00 Pulse Rate 81 06/20/19 10:00 Respiratory Rate 20 06/20/19 10:00 Blood Pressure 128/84 06/20/19 10:00 O2 Sat by Pulse Oximetry (%) 98 06/20/19 09:00 Constitutional: Yes: Anxious Eyes: Yes: EOM Intact HENT: Yes: Normocephalic Neck: Yes: Trachea Midline Cardiovascular: Yes: Regular Rate and Rhythm Respiratory: Yes: CTA Bilaterally Gastrointestinal: Yes: Normal Bowel Sounds ...Rectal Exam: Yes: Deferred Renal/: Yes: WNL Musculoskeletal: Yes: WNL Extremities: Yes: WNL Edema: No Neurological: Yes: Alert, Oriented Labs: CBC, BMP 06/19/19 05:35 06/20/19 05:30 Problem List - Problems (1) ACS (acute coronary syndrome) Problems reviewed: Yes Code(s): I24.9 - ACUTE ISCHEMIC HEART DISEASE, UNSPECIFIED (2) Abdominal pain Problems reviewed: Yes Code(s): R10.9 - UNSPECIFIED ABDOMINAL PAIN Qualifiers: Abdominal location: generalized Qualified Code(s): R10.84 - Generalized abdominal pain (3) Trevino's cyst Problems reviewed: Yes Code(s): M71.20 - SYNOVIAL CYST OF POPLITEAL SPACE [TREVINO], UNSPECIFIED KNEE Qualifiers: Laterality: unspecified laterality Qualified Code(s): M71.20 - Synovial cyst of popliteal space [Trevino], unspecified knee (4) Chest pain Problems reviewed: Yes Code(s): R07.9 - CHEST PAIN, UNSPECIFIED Qualifiers: Chest pain type: unspecified Qualified Code(s): R07.9 - Chest pain, unspecified (5) Diabetes mellitus Problems reviewed: Yes Code(s): E11.9 - TYPE 2 DIABETES MELLITUS WITHOUT COMPLICATIONS Qualifiers: Diabetes mellitus type: type 2 (6) Edema Code(s): R60.9 - EDEMA, UNSPECIFIED (7) HLD (hyperlipidemia) Code(s): E78.5 - HYPERLIPIDEMIA, UNSPECIFIED Assessment/Plan dm t 2,neuropathy hyperglycmia hyperinsulinemia diet non compliant htn chf hld Abnormal Lab Results 06/19/19 06/20/19 21:35 05:30 BUN 20.6 H Random Glucose 316 H AST 13 L Alkaline Phosphatase 136 H Total Protein 6.2 L Albumin 2.7 L Urine Glucose (UA) 2+ H Urine Nitrite Positive H Laboratory Results - last 24 hr 06/19/19 06/19/19 06/20/19 21:35 21:35 05:30 Sodium 136 Potassium 4.7 Chloride 103 Carbon Dioxide 26 Anion Gap 8 BUN 20.6 H Creatinine 0.9 Est GFR (CKD-EPI)AfAm 82.26 Est GFR (CKD-EPI)NonAf 70.98 POC Glucometer Random Glucose 316 H Calcium 8.6 Total Bilirubin 0.2 AST 13 L ALT 22 Alkaline Phosphatase 136 H Total Protein 6.2 L Albumin 2.7 L Urine Color Yellow Urine Appearance Clear Urine pH 6.5 D Ur Specific [place] 1.032 Urine Protein Negative Urine Glucose (UA) 2+ H Urine Ketones Negative Urine Blood Negative Urine Nitrite Positive H Urine Bilirubin Negative Urine Urobilinogen 0.2 Ur Leukocyte Esterase Negative Urine WBC (Auto) 2 Urine RBC (Auto) 3 Urine Casts (Auto) 0 U Epithel Cells (Auto) 1.2 Urine Bacteria (Auto) 2809.7 U Random Total Protein < 5.0 Urine Creatinine 46.0 Protein/Creatinin Ratio 0.1 06/20/19 06/20/19 06:16 13:12 Sodium Potassium Chloride Carbon Dioxide Anion Gap BUN Creatinine Est GFR (CKD-EPI)AfAm Est GFR (CKD-EPI)NonAf POC Glucometer 262 242 Random Glucose Calcium Total Bilirubin AST ALT Alkaline Phosphatase Total Protein Albumin Urine Color Urine Appearance Urine pH Ur Specific [place] Urine Protein Urine Glucose (UA) Urine Ketones Urine Blood Urine Nitrite Urine Bilirubin Urine Urobilinogen Ur Leukocyte Esterase Urine WBC (Auto) Urine RBC (Auto) Urine Casts (Auto) U Epithel Cells (Auto) Urine Bacteria (Auto) U Random Total Protein Urine Creatinine Protein/Creatinin Ratio plan: continue novolog scale achs levemir 40 units am diet and nutrition consult follow up outpatient
== END 2019-06-20 14:35 | disposition home or self-care (01) | DRG 309 ==
LOC: JER 12:51 → JERBED 15:33 → J4W 19:52 → JERBED 20:06 → J4W 20:07
PROVIDERS: ADMIT Family Medicine; ATTEND Family Medicine
DX: I47.1 Supraventricular tachycardia (principal); I24.9 Acute ischemic heart disease, unspecified; Z68.42 Body mass index [BMI] 45.0-49.9, adult; E66.9 Obesity, unspecified; J44.9 Chronic obstructive pulmonary disease, unspecified; R06.00 Dyspnea, unspecified; I10 Essential (primary) hypertension; E78.5 Hyperlipidemia, unspecified; E11.9 Type 2 diabetes mellitus without complications; K21.9 Gastro-esophageal reflux disease without esophagitis; D64.9 Anemia, unspecified; R00.2 Palpitations; R10.84 Generalized abdominal pain; M71.20 Synovial cyst of popliteal space [Baker], unspecified knee; R07.89 Other chest pain; E11.40 Type 2 diabetes mellitus with diabetic neuropathy, unspecified; E11.65 Type 2 diabetes mellitus with hyperglycemia; R60.9 Edema, unspecified; Z87.891 Personal history of nicotine dependence
CPT/HCPCS: 36415; 71045-TC-FY; 80053; 80061; 81003; 82550; 82553; 82570; 82962; 83036; 83721; 84156; 84484; 85025; 85027; 85610; 93005; 93010; 93306-TC; 99284-25; J1644; J7030

== ENCOUNTER 2019-07-24 10:55 | Inpatient (IN) | payer OTHER ==
[2019-07-24 12:54] LABS: BASO % 1.1 % (0-2.0); EOS % 1.8 % (0-4.5); HEMATOCRIT 40.6 % (32.4-45.2); HEMOGLOBIN 12.8 GM/dL (10.7-15.3); LYMPH % 45.5 % (8-40); MCH 23.3 pg (25.7-33.7); MCHC 31.6 g/dl (32.0-36.0); MEAN CELL VOLUME 73.7 fl (80-96); MEAN PLT VOLUME 8.2 fl (7.5-11.1); MONO % 6.4 % (3.8-10.2); NEUT % 45.2 % (42.8-82.8); PLATELET COUNT 287 K/MM3 (134-434); RBC 5.51 M/mm3 (3.60-5.2); RDW 15.6 % (11.6-15.6); WHITE BLOOD COUNT 5.6 K/mm3 (4.0-10.0)
[2019-07-24 12:57] LABS: HYALINE CASTS 0 /lpf (0-8); URINE APPEARANCE CLOUDY; URINE BACTERIA >9000 /hpf (NEGATIVE); URINE BILIRUBIN NEGATIVE (NEGATIVE); URINE COLOR YELLOW; URINE GLUCOSE (UA) NEGATIVE (NEGATIVE); URINE KETONE NEGATIVE (NEGATIVE); URINE LEUK ESTERASE NEGATIVE (NEGATIVE); URINE NITRITE POSITIVE (NEGATIVE); URINE PROTEIN NEGATIVE (NEGATIVE); URINE RBC 0 /hpf (0-4); URINE WBC 2 /hpf (0-5)
[2019-07-24 13:10] LABS: INR 1.05 (0.83-1.09); PROTHROMBIN TIME (PATIENT) 12.4 SEC (9.7-13.0)
[2019-07-24] MEDS ORDERED: VANCOMYCIN 1,000 MG in DEXTROSE 5%-WATER - 250 ML IVPB ONE (13:11)
[2019-07-24] MEDS ORDERED: AZITHROMYCIN IVPB 500 MG in DEXTROSE 5%-WATER - 250 ML IVPB ONE (13:12)
[2019-07-24] MEDS ORDERED: PIPERACILLIN/TAZOB 4.5 GM 4.5 GM in DEXTROSE 5%-WATER 100 ML IVPB ONE (13:12)
[2019-07-24 13:13] LABS: ACTIVATED PTT 30.2 SECONDS (25.2-36.5)
[2019-07-24 13:16] LABS: ALBUMIN 3.5 g/dl (3.4-5.0); BILIRUBIN,TOTAL 0.3 mg/dL (0.2-1); BLOOD UREA NITROGEN 14.4 mg/dL (7-18); CALCIUM 9.3 mg/dL (8.5-10.1); CREATININE 0.6 mg/dL (0.55-1.3); MAGNESIUM 2.1 mg/dL (1.8-2.4); POTASSIUM 4.3 mmol/L (3.5-5.1); TOT PROT 7.4 g/dl (6.4-8.2)
[2019-07-24] MEDS ORDERED: PIPERACILLIN/TAZOB 4.5 GM 4.5 GM/100 ML BAG IVPB ONE (13:23)
[2019-07-24] MEDS ORDERED: AZITHROMYCIN IVPB 500 MG/250 ML BAG IVPB ONE (13:23)
[2019-07-24 13:26] LABS: N-TERMINAL BNP 127.7 pg/ml (5-125)
--- NOTE | 2019-07-24 13:59 | PDOC ---
Documentation entered by Salina Bryant SCRIBE, acting as scribe for Geovanny León MD. Geovanny León MD: This documentation has been prepared by the Annette brown Brenda, SCRIBE, under my direction and personally reviewed by me in its entirety. I confirm that the documentation accurately reflects all work, treatment, procedures, and medical decision making performed by me. History of Present Illness - General Chief Complaint: Shortness of Breath Stated Complaint: CHEST DISCOMFORT,DIZZINESS Time Seen by Provider: 07/24/19 11:49 History Source: Patient Exam Limitations: No Limitations - History of Present Illness Initial Comments: 07/24/19 13:14 The patient is a 58 year old female, with a significant PMH of HLD, HTN, COPD, GERD, asthma, anemia, diabetes and SVT who presents to the emergency department from a [facility] for evaluation of 4 days of shortness of breath. Patient also endorses lightheadedness and right-sided chest tightness since this morning, along with 1 week of productive cough. Patient denies any aggravating factors and denies any intervention with medications. The patient denies fever, chills, nausea, vomiting, diarrhea and constipation. Denies any urinary symptoms. Denies any other symptoms. Allergies: NKA Past surgical history: None reported Social history: Current everyday smoker. No reports hx of alcohol use or illicit drug use. PCP: Hugo Alarcon Past History - Past Medical History Allergies/Adverse Reactions: Allergies Allergy/AdvReac Type Severity Reaction Status Date / Time No Known Allergies Allergy Verified 05/01/19 18:45 Home Medications: Ambulatory Orders Atorvastatin Ca [Lipitor] 20 mg PO HS 01/20/18 metFORMIN HCL [Metformin ER Gastric] 1,000 mg PO BID 01/20/18 Aspirin [ASA -] 81 mg PO DAILY 06/18/19 Canagliflozin [Invokana] 100 mg PO DAILY 06/18/19 Fluticasone/Umeclidin/Vilanter [Trelegy Ellipta 100-62.5-25] 1 puff IH DAILY 05/27 Furosemide 20 mg PO DAILY 06/18/19 Hydrochlorothiazide [Hctz -] 12.5 mg PO DAILY 06/18/19 Insulin Glargine,Hum.rec.anlog [Toujeo Solostar] 36 unit SQ DAILY 06/18/19 Lisinopril 20 mg PO DAILY 06/18/19 Pregabalin [Lyrica -] 50 mg PO TID 06/18/19 Semaglutide [Ozempic] 0.5 mg SQ WEEKLY 06/18/19 Valsartan 160 mg PO DAILY 06/18/19 Albuterol Sulfate [Proair Hfa] 2 puff IH Q4H 07/25/19 Cyclobenzaprine HCl 7.5 mg PO BID 07/25/19 Diltiazem Cd [Cardizem Cd -] 120 mg PO DAILY 07/25/19 Gabapentin 400 mg PO TID 07/25/19 Insulin Glulisine [Apidra] 10 units IM TID 07/25/19 Anemia: Yes Asthma: Yes Cardiac Disorders: Yes (SVT) COPD: Yes Diabetes: Yes GI Disorders: Yes (GERD) HTN: Yes Hypercholesterolemia: Yes - Surgical History Abdominal Surgery: No Appendectomy: No Cardiac Surgery: No Cholecystectomy: No Gastric Stapling: No GI Surgery: No Lung Surgery: No Neurologic Surgery: No Orthopedic Surgery: No - Immunization History Immunization Up to Date: Yes - Psycho Social/Smoking Cessation Hx Smoking History: Current every day smoker Have you smoked in the past 12 months: Yes Number of Cigarettes Smoked Daily: 4 If you are a former smoker, when did you quit?: 06/08/2019 Information on smoking cessation initiated: Yes 'Breaking Loose' booklet given: 06/18/19 Hx Alcohol Use: Yes (socailly) Drug/Substance Use Hx: Yes (marijuana) Substance Use Type: Marijuana Hx Substance Use Treatment: No Review of Systems - Review of Systems Able to Perform ROS?: Yes Comments:: 07/24/19 13:18 GENERAL/CONSTITUTIONAL: No fever or chills. No weakness. HEAD, EYES, EARS, NOSE AND THROAT: No change in vision. No ear pain or discharge. No sore throat. GASTROINTESTINAL: No nausea, vomiting, diarrhea or constipation. GENITOURINARY: No dysuria, frequency, or change in urination. CARDIOVASCULAR: (+) Chest tightness. (+) Shortness of breath. RESPIRATORY: (+) Chronic cough. No wheezing, or hemoptysis. MUSCULOSKELETAL: No joint or muscle swelling or pain. No neck or back pain. SKIN: No rash NEUROLOGIC: (+) Lightheadedness. No vertigo, loss of consciousness, or change in strength/sensation. ENDOCRINE: No increased thirst. No abnormal weight change. HEMATOLOGIC/LYMPHATIC: No anemia, easy bleeding, or history of blood clots. ALLERGIC/IMMUNOLOGIC: No hives or skin allergy. *Physical Exam - Vital Signs Last Vital Signs Temp Pulse Resp BP Pulse Ox 97.2 F L 72 20 153/75 100 07/24/19 11:05 07/24/19 12:05 07/24/19 12:05 07/24/19 12:05 07/24/19 12:05 - Physical Exam 07/24/19 13:18 GENERAL: Awake, alert, and fully oriented, in no acute distress EYES: PERRLA, EOMI, sclera anicteric, conjunctiva clear ENT: Oropharynx clear without exudates. Moist mucosa NECK: Normal ROM, supple, no lymphadenopathy, JVD, or masses LUNGS: (+) Diminished breath sounds on the left. Clear to auscultation bilaterally. No wheezes, and no crackles HEART: Regular rate and rhythm, normal S1 and S2, no murmurs, rubs or gallops ABDOMEN: Soft, nontender, normoactive bowel sounds. No guarding, no rebound. No masses EXTREMITIES: Normal range of motion, no edema. No clubbing or cyanosis. No cords , erythema, or tenderness NEUROLOGICAL: Normal speech, cranial nerves intact, equal strength and sensation b/l SKIN: Warm, Dry, normal turgor, no rashes or lesions noted. Heart Score/ECG Review #1 07/24/19 13:56 EKG read and int by me: NSR, 1st degree AV block, rate 67. Normal axis. No [facility] ED Treatment Course - LABORATORY CBC & Chemistry Diagram: 07/25/19 05:30 07/25/19 05:30 - ADDITIONAL ORDERS Additional order review: Laboratory Results 07/24/19 07/24/19 07/24/19 12:20 12:20 11:09 PT with INR 12.40 INR 1.05 PTT (Actin FS) 30.2 POC Glucometer 124 Urine Color Yellow Urine Appearance Cloudy Urine pH 7.0 Ur Specific [place] 1.017 Urine Protein Negative Urine Glucose (UA) Negative Urine Ketones Negative Urine Blood Negative Urine Nitrite Positive H Urine Bilirubin Negative Urine Urobilinogen 1.0 Ur Leukocyte Esterase Negative Urine WBC (Auto) 2 Urine RBC (Auto) 0 Urine Casts (Auto) 0 U Epithel Cells (Auto) 1.0 Urine Bacteria (Auto) >9000 07/24/19 07/24/19 12:20 11:09 RBC 5.51 H MCV 73.7 L MCHC 31.6 L RDW 15.6 MPV 8.2 Neutrophils % 45.2 Lymphocytes % 45.5 H Monocytes % 6.4 Eosinophils % 1.8 Basophils % 1.1 POC Glucometer 124 - RADIOLOGY Radiology Studies Ordered: Category Date Time Status CHEST CTA [CT] Stat CT Scan 07/24/19 13:28 Ordered CHEST X-RAY PORTABLE* [RAD] Stat Radiology 07/24/19 12:14 Completed - Medications Given in the ED: ED Medications Discontinued Medications Generic Name Dose Route Start Last Admin Trade Name Freq PRN Reason Stop Dose Admin Piperacillin Sod/Tazobactam 100 mls @ 200 mls/hr 07/24/19 13:12 07/24/19 13: 30 Sod 4.5 gm/ Dextrose IVPB 07/24/19 13:41 200 mls/hr ONCE ONE Administration Protocol Medical Decision Making - Medical Decision Making 07/24/19 13:57 58yo F hx COPD, HTN, HLD, IDDM presents to the ED with SOB, lightheadedness, RS chest tightness, productive cough Exam with diminished BS at the L base CXR concerning for PNA Dimer+, will obtain CTA to r/o PE Trop neg, BNP minimally elevated making CHF less likely Pt recently admitted 1 mo ago, will cover with HCAP cvg and admit 07/24/19 14:00 Pt refusing flu swab 07/24/19 18:00 CTA neg for PE and PNA - pt now with wheezing, continues to have SOB WIll treat for COPD exacerbation with steroids, duonebs WIll admit for further mgmt Discharge - Discharge Information Problems reviewed: Yes Clinical Impression/Diagnosis: COPD (chronic obstructive pulmonary disease) Qualifiers: COPD type: unspecified COPD Qualified Code(s): J44.9 - Chronic obstructive pulmonary disease, unspecified - Follow up/Referral - Patient Discharge Instructions - Post Discharge Activity
--- NOTE | 2019-07-24 14:14 | EKG ---
Test Reason : Blood Pressure : / mmHG Vent. Rate : 067 BPM Atrial Rate : 067 BPM P-R Int : 236 ms QRS Dur : 098 ms QT Int : 394 ms P-R-T Axes : 044 002 042 degrees QTc Int : 416 ms SINUS RHYTHM WITH 1ST DEGREE A-V BLOCK SEPTAL INFARCT (CITED ON OR BEFORE 18-JUL-2018) ABNORMAL ECG WHEN COMPARED WITH ECG OF 19-JUN-2019 06:51, SERIAL CHANGES OF SEPTAL INFARCT PRESENT Confirmed by SHELIA DONAHUE MD ([id number]) on 07/24/2019 2:14:28 PM Referred By: Confirmed By:SHELIA DONAHUE MD
[2019-07-24] MEDS ORDERED: VANCOMYCIN 1 GRAM (PRE-DOCKED) 1,000 MG/250 ML BAG IVPB ONE (16:46)
[2019-07-24] MEDS ORDERED: ALBUTEROL SO4 2.5/IPRATROPIUM 0.5 INH SOL 3 ML VIAL.NEB. NEB ONE ×2 (18:46→20:12)
[2019-07-24] MEDS ORDERED: predniSONE 20 MG TABLET (UD) PO ONE (18:46)
[2019-07-24] MEDS ORDERED: ACETAMINOPHEN 1000 MG/100 ML VIAL (NON FORMULARY) IVPB ONE (19:00)
--- NOTE | 2019-07-24 19:22 | PN ---
Teaching Attending Note Name of Resident: Aurelio Hilton ATTENDING PHYSICIAN STATEMENT I saw and evaluated the patient. I reviewed the resident's note and discussed the case with the resident. I agree with the resident's findings and plan as documented. SUBJECTIVE: Patient is a 58 year old woman with a PMH of Tobacco use, Marijuana use, HLD, HTN, COPD, GERD, Asthma, Anemia, NIDDM and SVT who presents to the emergency department from a [facility] for evaluation of 4 days of shortness of breath. Patient also has lightheadedness and right-sided chest tightness since this morning, along with 1 week of productive cough. Patient denies any aggravating factors and denies any intervention with medications. The patient denies fever, chills, nausea, vomiting, diarrhea, constipation, urinary symptoms or headache. No recent travels or sick contacts. Denies alcohol use or any other illicit drug use. Refused Flu swab in the ER. LMP 15 years ago after emdometrial ablation. Has FH of [place] and VTE. OBJECTIVE: Alert Vital Signs Period Temp Pulse Resp BP Sys/[place] Pulse Ox Last 24 Hr 97.2 F 66-72 18-20 153-162/66-91 97-100 HEENT: No Jaundice, eye redness or discharge, PERRLA, EOMI. Normocephalic, atraumatic. External ears are normal and hearing is grossly intact. No nasal discharge. Neck: Supple, nontender. No palpable adenopathy or thyromegaly. No JVD Chest: Good effort. Decreased breath sounds. Clear to percussion. Heart: Regular. No S3, rub or murmur Abdomen: Not distended, soft, nontender and no HSM. No rebound or guarding. Normal bowel sounds. Ext: Peripheral pulses intact. No leg edema. Skin: Warm and dry. No petechiae, rash or ecchymosis. Neuro: Alert. Oriented x3. CN 2-12 grossly intact. Sensation grossly intact in all four extremities and DTR are symmetric. Psych: Appropriate mood and affect. Good insight. Home Medications Medication Instructions Recorded Atorvastatin Ca [Lipitor] 20 mg PO HS 01/20/18 metFORMIN HCL [Metformin ER 1,000 mg PO BID 01/20/18 Gastric] Aspirin [ASA -] 81 mg PO DAILY 06/18/19 Canagliflozin [Invokana] 100 mg PO DAILY 06/18/19 Fluticasone/Umeclidin/Vilanter 1 puff IH DAILY 06/18/19 [Trelegy Ellipta 100-62.5-25] Furosemide 20 mg PO DAILY 06/18/19 Glipizide 10 mg PO DAILY 06/18/19 Hydrochlorothiazide [Hctz -] 12.5 mg PO DAILY 06/18/19 Insulin Glargine,Hum.rec.anlog 36 unit SQ DAILY 06/18/19 [Toucesar Warrenost[place]a] Insulin Lispro [Humalog] 10 unit SQ AC 06/18/19 Lisinopril 20 mg PO DAILY 06/18/19 Pregabalin [Lyrica -] 50 mg PO TID 06/18/19 Semaglutide [Ozempic] 0.5 mg SQ WEEKLY 06/18/19 Valsartan 160 mg PO DAILY 06/18/19 Diltiazem Cd [Cardizem Cd -] 120 mg PO DAILY #30 cap.cd.24h 06/20/19 Tiotropium [place] [Spiriva 1 puff DAILY 07/24/19 Respimat] Abnormal Lab Results 07/24/19 07/24/19 07/24/19 12:20 12:20 12:20 RBC 5.51 H MCV 73.7 L MCH 23.3 L MCHC 31.6 L Lymphocytes % 45.5 H D-Dimer 950 H Anion Gap 5 L Random Glucose 122 H AST 11 L Alkaline Phosphatase 136 H B-Natriuretic Peptide Urine Nitrite 07/24/19 07/24/19 12:20 12:20 RBC MCV MCH MCHC Lymphocytes % D-Dimer Anion Gap Random Glucose AST Alkaline Phosphatase B-Natriuretic Peptide 127.7 H Urine Nitrite Positive H ASSESSMENT AND PLAN: 1. CHF/?COPD exacerbation - CXR shows poor inspiration, cardiomegaly, central congestive changes, JERROD and LLL infiltrates. Chest/thorax CTA showed right basilar atelectasis, cholelithiasis but no pulmonary embolism. ECHO from 2018 showed moderate concentric LV hypertrophy, LVEF of 50-55%, LV systolic function grossly normal and impaired LV relaxation. EKG shows NSR, septal infarct of undetermined age, and Io AV block. Will treat with IV lasix, restrict dietary salt intake and reconsult cardiology. Will rule out TB, isolate , treat with solumedrol, symbicort, duoneb, azithromycin and rocephin. Consult ID and Pulmonary. Will continue comprehensive care for all of patients comorbid conditions. 2. DM For now, we will hold the home diabetes drugs and implement sliding scale insulin regimen. Provide comprehensive diabetes care with patient teaching and counseling about the importance of adherence to prescribed diabetes regimen, euglycemia, eye care and foot care. 3. Tobacco Use Counseled on risks associated with tobacco use. We will provide patient all the necessary assistance to facilitate smoking cessation and prescribe Nicotine patch. 4. Morbid obesity Counseled on the risks associated with obesity. Will provide patient all the necessary assistance, counseling and positive reinforcement to facilitate weight loss. Consult education and training coordinator. 5. Hypertension - Restart suitable outpatient antihypertensive drugs when clinically appropriate. Revise regimen to ensure [id number] excellent BP control and baby counselor patient on the injurious effects of uncontrolled hypertension. Nonpharmacologic measures to control hypertension like weight loss , salt restriction and exercise discussed. Importance of adherence to treatment regimen and attainment of normotension emphasized. 6. DVT prophylaxis - Lovenox 40 mg SQ q 12 hours. 7. Advance directives - Full code
[2019-07-24] MEDS ORDERED: predniSONE 20 MG TABLET (UD) ONE (20:12)
[2019-07-24] MEDS ORDERED: ACETAMINOPHEN INJECTION 100 ML IVPB ONE (20:12)
[2019-07-24] MEDS ORDERED: VALSARTAN 80 MG TABLET (UD) PO ONE (20:55)
[2019-07-24] MEDS ORDERED: HEPARIN NA (PORCINE) 5,000 UNITS/ML 1ML VIAL SQ SCH (22:00)
[2019-07-24] MEDS ORDERED: ALBUTEROL SO4 2.5/IPRATROPIUM 0.5 INH SOL 3 ML VIAL.NEB. NEB PRN (22:21)
[2019-07-24] MEDS ORDERED: FUROSEMIDE 40 MG/4 ML INJECTABLE VIAL IVPUSH ONE (22:22)
[2019-07-24] MEDS ORDERED: dilTIAZem HCL 60 MG TABLET (FP) PO ONE (22:31)
[2019-07-24] MEDS ORDERED: ENOXAPARIN NA (PORCINE) 40 MG/0.4 ML DISP.SYRIN SQ SCH (23:00)
[2019-07-25] MEDS ORDERED: dilTIAZem HCL 60 MG TABLET (FP) ONE (00:06)
[2019-07-25] MEDS ORDERED: ENOXAPARIN NA (PORCINE) 40 MG/0.4 ML DISP.SYRIN SQ ONE (00:07)
[2019-07-25] MEDS ORDERED: FUROSEMIDE 40 MG/4 ML INJECTABLE VIAL ONE (00:07)
[2019-07-25] MEDS ORDERED: VALSARTAN 80 MG TABLET (UD) ONE (00:07)
[2019-07-25] MEDS ORDERED: CEFTRIAXONE 1 GM/50 ML BAG ONE ×2 (00:07→10:19)
[2019-07-25] MEDS: CEFTRIAXONE 1 GM in DEXTROSE 5%-WATER - 50 ML IVPB SCH ×2 (00:46→10:45)
--- NOTE | 2019-07-25 03:54 | HP ---
CHIEF COMPLAINT: SOB and productive cough for the past 3 days PCP: Lyndsay Alarcon HISTORY OF PRESENT ILLNESS: Shakira Dean is a 58 year old female, with PMHx of HLD, HTN, COPD, DM, GERD, asthma, and anemia, who presents from a homeless retirement due to worsening shortness of breath and a productive cough for the past 3 days. Patient also notes associated rhinorrhea for the past 2-3 weeks, with thick white sputum. She denies any blood in the cough, but did notice dried blood in her nose a few days ago. She has tried taking Robitussin, with minimal relief. Patient denies any worsening of the shortness of breath when laying down or at any particular time of day; she states it is only exacerbated when she smokes cigarettes. She has also noted her urine to be foul smelling and darker than normal in the past few days, but denies any dysuria, urgency or frequency. Patient reports associated nausea, lightheadedness, chills, headache and some chest tightness at this time; she denies any chest pain (only tightness). No abdominal pain, vomiting, appetite changes, diarrhea, or constipation. Patient was last here 06/18/2019 with SOB and SVT, for which she received adenosine. Hgb A1C 15 at the time and elevated glucose in 300s. LDLs elevated in 190s. Patient is a smoker (4-5 cigs/day for 20 years) and admits to marijuana use. She also reports drinking about 1-2 bottles of wine occasionally, but not every weekend. Patient states she is noncompliant with her medications due to other problems in her life. She is currently homeless. She states she only took 1 dose of her Metformin yesterday. She states she has no difficulty in accessing medications, but has had other priorities. Family history: +DM in sister and brother; brother has hx of [place] (unsure of age) . ER course was notable for: (1) d Dimer 950, CTA negative for PE but did show rt sided atelectasis (2) CXR: JERROD infiltrate, enlarged heart with congestive changes (3) Wes James Vanco given Recent Travel: denies PAST MEDICAL HISTORY: HTN, HLD, COPD, DM, SVT, anemia PAST SURGICAL HISTORY: Endometrial ablation 15 years ago Tubal ligation 30 years ago Social History: See HPI Allergies No Known Allergies Allergy (Verified 05/01/19 18:45) HOME MEDICATIONS: Home Medications Medication Instructions Recorded Atorvastatin Ca [Lipitor] 20 mg PO HS 01/20/18 metFORMIN HCL [Metformin ER 1,000 mg PO BID 01/20/18 Gastric] Aspirin [ASA -] 81 mg PO DAILY 06/18/19 Canagliflozin [Invokana] 100 mg PO DAILY 06/18/19 Fluticasone/Umeclidin/Vilanter 1 puff IH DAILY 06/18/19 [Trelegy Ellipta 100-62.5-25] Furosemide 20 mg PO DAILY 06/18/19 Glipizide 10 mg PO DAILY 06/18/19 Hydrochlorothiazide [Hctz -] 12.5 mg PO DAILY 06/18/19 Insulin Glargine,Hum.rec.anlog 36 unit SQ DAILY 06/18/19 [Toujeo Solostar] Insulin Lispro [Humalog] 10 unit SQ AC 06/18/19 Lisinopril 20 mg PO DAILY 06/18/19 Pregabalin [Lyrica -] 50 mg PO TID 06/18/19 Semaglutide [Ozempic] 0.5 mg SQ WEEKLY 06/18/19 Valsartan 160 mg PO DAILY 06/18/19 Diltiazem Cd [Cardizem Cd -] 120 mg PO DAILY #30 cap.cd.24h 06/20/19 Tiotropium [place] [Spiriva 1 puff DAILY 07/24/19 Respimat] REVIEW OF SYSTEMS CONSTITUTIONAL: fevers, chills Absent: fever, chills, diaphoresis, generalized weakness, malaise, loss of appetite, weight change HEENT: Absent: rhinorrhea, nasal congestion, throat pain, throat swelling, difficulty swallowing, mouth swelling, ear pain, eye pain, visual changes CARDIOVASCULAR: Absent: chest pain, syncope, palpitations, irregular heart rate, lightheadedness , peripheral edema RESPIRATORY: cough, SOB Absent: cough, shortness of breath, dyspnea with exertion, orthopnea, wheezing, stridor, hemoptysis GASTROINTESTINAL: Absent: abdominal pain, abdominal distension, nausea, vomiting, diarrhea, constipation, melena, hematochezia GENITOURINARY: Absent: dysuria, frequency, urgency, hesitancy, hematuria, flank pain, genital pain MUSCULOSKELETAL: Absent: myalgia, arthralgia, joint swelling, back pain, neck pain SKIN: Absent: rash, itching, pallor HEMATOLOGIC/IMMUNOLOGIC: Absent: easy bleeding, easy bruising, lymphadenopathy, frequent infections ENDOCRINE: Absent: unexplained weight gain, unexplained weight loss, heat intolerance, cold intolerance NEUROLOGIC: Absent: headache, focal weakness or paresthesias, dizziness, unsteady gait, seizure, mental status changes, bladder or bowel incontinence PSYCHIATRIC: Absent: anxiety, depression, suicidal or homicidal ideation, hallucinations. PHYSICAL EXAMINATION Vital Signs - 24 hr 07/24/19 07/24/19 07/24/19 11:05 11:58 12:05 Temperature 97.2 F L Pulse Rate 66 Pulse Rate [ 72 Apical] Respiratory 18 20 Rate Blood Pressure 162/91 Blood Pressure 153/75 [Left Arm] O2 Sat by Pulse 100 100 100 Oximetry (%) 07/24/19 07/24/19 07/24/19 14:30 14:33 19:13 Temperature Pulse Rate 72 Pulse Rate [ 72 Apical] Respiratory 20 Rate Blood Pressure Blood Pressure 159/66 [Left Arm] O2 Sat by Pulse 97 97 100 Oximetry (%) 07/25/19 00:44 Temperature Pulse Rate Pulse Rate [ 63 Apical] Respiratory 16 Rate Blood Pressure Blood Pressure 143/78 [Left Arm] O2 Sat by Pulse 98 Oximetry (%) GENERAL: Awake, alert, and fully oriented, in no acute distress. HEAD: Normal with no signs of trauma. EYES: Pupils equal, round and reactive to light, extraocular movements intact, sclera anicteric, conjunctiva clear. No lid lag. EARS, NOSE, THROAT: Ears normal, nares patent, oropharynx clear without exudates. Moist mucous membranes. NECK: Normal range of motion, supple without lymphadenopathy, JVD, or masses. LUNGS: Breath sounds decreased B/L, No wheezes, and no crackles. No accessory muscle use. HEART: Regular rate and rhythm, normal S1 and S2 without murmur, rub or gallop. ABDOMEN: Soft, nontender, not distended, normoactive bowel sounds, no guarding, no rebound, no masses. No hepatomegaly or splenomegaly. UPPER EXTREMITIES: 2+ pulses, warm, well-perfused. No cyanosis. No clubbing. No peripheral edema. LOWER EXTREMITIES: 2+ pulses, warm, well-perfused. No calf tenderness. No peripheral edema. NEUROLOGICAL: Cranial nerves II-XII intact. Normal speech. Normal gait. PSYCHIATRIC: Cooperative. Good eye contact. Appropriate mood and affect. SKIN: Warm, dry, normal turgor, no rashes or lesions noted, normal capillary refill. Laboratory Results - last 24 hr 07/24/19 07/24/19 07/24/19 11:09 12:20 12:20 WBC 5.6 RBC 5.51 H Hgb 12.8 Hct 40.6 MCV 73.7 L MCH 23.3 L MCHC 31.6 L RDW 15.6 Plt Count 287 MPV 8.2 Absolute Neuts (auto) 2.5 Neutrophils % 45.2 Lymphocytes % 45.5 H Monocytes % 6.4 Eosinophils % 1.8 Basophils % 1.1 Nucleated RBC % 0 PT with INR INR PTT (Actin FS) D-Dimer Sodium Potassium Chloride Carbon Dioxide Anion Gap BUN Creatinine Est GFR (CKD-EPI)AfAm Est GFR (CKD-EPI)NonAf POC Glucometer 124 Random Glucose Calcium Magnesium Total Bilirubin AST ALT Alkaline Phosphatase Troponin I B-Natriuretic Peptide Total Protein Albumin Lipase Urine Color Urine Appearance Urine pH Ur Specific [place] Urine Protein Urine Glucose (UA) Urine Ketones Urine Blood Urine Nitrite Urine Bilirubin Urine Urobilinogen Ur Leukocyte Esterase Urine WBC (Auto) Urine RBC (Auto) Urine Casts (Auto) U Epithel Cells (Auto) Urine Bacteria (Auto) Blood Type B POSITIVE Antibody Screen Negative 07/24/19 07/24/19 07/24/19 12:20 12:20 12:20 WBC RBC Hgb Hct MCV MCH MCHC RDW Plt Count MPV Absolute Neuts (auto) Neutrophils % Lymphocytes % Monocytes % Eosinophils % Basophils % Nucleated RBC % PT with INR INR PTT (Actin FS) D-Dimer 950 H Sodium 138 Potassium 4.3 Chloride 103 Carbon Dioxide 30 Anion Gap 5 L BUN 14.4 Creatinine 0.6 Est GFR (CKD-EPI)AfAm 117.27 Est GFR (CKD-EPI)NonAf 101.18 POC Glucometer Random Glucose 122 H Calcium 9.3 Magnesium 2.1 Total Bilirubin 0.3 AST 11 L ALT 22 Alkaline Phosphatase 136 H Troponin I < 0.02 B-Natriuretic Peptide 127.7 H Total Protein 7.4 Albumin 3.5 Lipase 92 Urine Color Urine Appearance Urine pH Ur Specific [place] Urine Protein Urine Glucose (UA) Urine Ketones Urine Blood Urine Nitrite Urine Bilirubin Urine Urobilinogen Ur Leukocyte Esterase Urine WBC (Auto) Urine RBC (Auto) Urine Casts (Auto) U Epithel Cells (Auto) Urine Bacteria (Auto) Blood Type Antibody Screen 07/24/19 07/24/19 07/24/19 12:20 12:20 19:00 WBC RBC Hgb Hct MCV MCH MCHC RDW Plt Count MPV Absolute Neuts (auto) Neutrophils % Lymphocytes % Monocytes % Eosinophils % Basophils % Nucleated RBC % PT with INR 12.40 INR 1.05 PTT (Actin FS) 30.2 D-Dimer Sodium Potassium Chloride Carbon Dioxide Anion Gap BUN Creatinine Est GFR (CKD-EPI)AfAm Est GFR (CKD-EPI)NonAf POC Glucometer Random Glucose Calcium Magnesium Total Bilirubin AST ALT Alkaline Phosphatase Troponin I B-Natriuretic Peptide Total Protein Albumin Lipase Urine Color Yellow Urine Appearance Cloudy Urine pH 7.0 Ur Specific [place] 1.017 Urine Protein Negative Urine Glucose (UA) Negative Urine Ketones Negative Urine Blood Negative Urine Nitrite Positive H Urine Bilirubin Negative Urine Urobilinogen 1.0 Ur Leukocyte Esterase Negative Urine WBC (Auto) 2 Urine RBC (Auto) 0 Urine Casts (Auto) 0 U Epithel Cells (Auto) 1.0 Urine Bacteria (Auto) >9000 Blood Type B POSITIVE Antibody Screen ASSESSMENT/PLAN: 58F with PMH of HLD, HTN, COPD, DM, GERD, asthma, and anemia, who presents from a homeless retirement due to worsening SOB and a productive cough for the past 3 days, admitted for COPD exacerbation with pneumonia #COPD exacerbation - CXR: enlarged heart with congestive changes - CTA: done to r/o PE after d dimer found to be 950, showed no evidence of PE but did show rt sided atelectasis and cholelithiasis - Duonebs started - Azithro 250 and Ceftriaxone 1gm started - Solu Medrol 40mg Q8 started - Urine, sputum, urine for strep/legionella pending - Pulm consulted - ID consulted - Quanteferon to r/o TB since (patient lives in a retirement and has an upper lobe infiltrate on CXR) #Hx of DM - BGM ACHS with Novolog SS #Hx of HTN - Resume home meds #CHF - Echo from previous admssion showed LVEF 50-55%, congestive changes on CXR, possible PrEF HF picture contributing to SOB - Lasix 40mg started - Cardio consulted (Dr. Yee) #Microcytosis - Iron studies ordered to r/o Fe deficiency anemia #FEN - DM/Low Na diet #DVT - Lovenox 40mg Visit type - Emergency Visit Emergency Visit: Yes ED Registration Date: 07/24/19 Care time: The patient presented to the Emergency Department on the above date and was hospitalized for further evaluation of their emergent condition. - New Patient This patient is new to me today: Yes Date on this admission: 07/25/19 - Critical Care Critical Care patient: No ATTENDING PHYSICIAN STATEMENT I saw and evaluated the patient. I reviewed the resident's note and discussed the case with the resident. I agree with the resident's findings and plan as documented. SUBJECTIVE: OBJECTIVE: ASSESSMENT AND PLAN:
[2019-07-25] MEDS: methylPREDNISolone NA SUCC 40 MG/1 ML VIAL IVPUSH SCH ×3 (04:27→17:33)
[2019-07-25] MEDS ORDERED: methylPREDNISolone NA SUCC 40 MG/1 ML VIAL ONE (04:28)
[2019-07-25 07:09] LABS: BASO % 0.4 % (0-2.0); HEMATOCRIT 40.1 % (32.4-45.2); HEMOGLOBIN 12.9 GM/dL (10.7-15.3); LYMPH % 21.3 % (8-40); MCH 23.5 pg (25.7-33.7); MCHC 32.2 g/dl (32.0-36.0); MEAN CELL VOLUME 73.1 fl (80-96); MEAN PLT VOLUME 8.3 fl (7.5-11.1); NEUT % 76.3 % (42.8-82.8); PLATELET COUNT 294 K/MM3 (134-434); RBC 5.48 M/mm3 (3.60-5.2); RDW 15.6 % (11.6-15.6); WHITE BLOOD COUNT 4.5 K/mm3 (4.0-10.0)
[2019-07-25 07:46] LABS: BLOOD UREA NITROGEN 15.4 mg/dL (7-18); CALCIUM 9.1 mg/dL (8.5-10.1); CREATININE 0.7 mg/dL (0.55-1.3); POTASSIUM 4.6 mmol/L (3.5-5.1)
[2019-07-25] MEDS: INSULIN SLIDING SCALE (NOVOLOG) 1 VIAL SQ SCH ×4 (09:05→22:17)
[2019-07-25] MEDS ORDERED: AZITHROMYCIN IVPB 250 MG in DEXTROSE 5%-WATER - 250 ML IVPB SCH (10:00)
[2019-07-25] MEDS: HYDROCHLOROTHIAZIDE 12.5 MG CAPSULE (FP) PO SCH ×2 (10:29→22:17)
[2019-07-25] MEDS: ENOXAPARIN NA (PORCINE) 40 MG/0.4 ML DISP.SYRIN SQ SCH (10:30)
[2019-07-25] MEDS ORDERED: AZITHROMYCIN IVPB 500 MG/250 ML BAG IVPB ONE (10:46)
--- NOTE | 2019-07-25 11:30 | CON.CARD ---
Consult Consult Specialty:: Cardiology Referred by:: Dr. Cordero Reason for Consultation:: CHF and PSVT - History of Present Illness Chief Complaint: SOB and cough History of Present Illness: 58 year old obsese woman, smoker, with a PMHx of HTN, DM, HLD, PSVT, received adenosine 06/18/19, COPD, GERD, asthma, and anemia, who presented 07/24/19 from a homeless snf due to shortness of breath and a productive cough for the past 3 days. She has tried taking Robitussin, with minimal relief. She reports chest tightness when coughs. Patient denies palpitation, dizziness, syncope, near syncope, edema, orthopna or PND. Patient states she is noncompliant with her medications due to other problems in her life. She is currently homeless. ER course was notable for: (1) d Dimer 950, CTA negative for PE but did show rt sided atelectasis (2) CXR: JERROD infiltrate, enlarged heart with congestive changes (3) ZosynWes Vanco given ECG 07/24/19: Sinus rhythm, first degree AVB. Normal ST-T. Echo 06/20/2019: Moderate concentric LVH with normal LV systolic dysfunction. LVEF 50-55%. Normal RV. Normal LA and RA. No significant valvular abnormalities. - History Source History Provided By: Patient, Medical Record Limitations to Obtaining History: No Limitations - Past Medical History Cardio/Vascular: Yes: HTN, Hyperlipdemia Pulmonary: Yes: COPD Endocrine: Yes: Diabetes Mellitus - Alcohol/Substance Use Hx Alcohol Use: Yes (socailly) - Smoking History Smoking history: Current every day smoker Have you smoked in the past 12 months: Yes Aproximately how many cigarettes per day: 4 If you are a former smoker, when did you quit?: 06/08/2019 Home Medications - Allergies Allergies/Adverse Reactions: Allergies Allergy/AdvReac Type Severity Reaction Status Date / Time No Known Allergies Allergy Verified 05/01/19 18:45 - Home Medications Home Medications: Ambulatory Orders Atorvastatin Ca [Lipitor] 20 mg PO HS 01/20/18 metFORMIN HCL [Metformin ER Gastric] 1,000 mg PO BID 01/20/18 Aspirin [ASA -] 81 mg PO DAILY 06/18/19 Canagliflozin [Invokana] 100 mg PO DAILY 06/18/19 Fluticasone/Umeclidin/Vilanter [Trelegy Ellipta 100-62.5-25] 1 puff IH DAILY 05/27 Furosemide 20 mg PO DAILY 06/18/19 Glipizide 10 mg PO DAILY 06/18/19 Hydrochlorothiazide [Hctz -] 12.5 mg PO DAILY 06/18/19 Insulin Glargine,Hum.rec.anlog [Toujeo Solostar] 36 unit SQ DAILY 06/18/19 Insulin Lispro [Humalog] 10 unit SQ AC 06/18/19 Lisinopril 20 mg PO DAILY 06/18/19 Pregabalin [Lyrica -] 50 mg PO TID 06/18/19 Semaglutide [Ozempic] 0.5 mg SQ WEEKLY 06/18/19 Valsartan 160 mg PO DAILY 06/18/19 Diltiazem Cd [Cardizem Cd -] 120 mg PO DAILY #30 cap.cd.24h 06/20/19 Tiotropium [place] [Spiriva Respimat] 1 puff DAILY 07/24/19 Review of Systems - Review of Systems Constitutional: reports: No Symptoms Eyes: reports: No Symptoms HENT: reports: No Symptoms, Ocular Prosthesis Neck: reports: No Symptoms Cardiovascular: reports: Chest Pain, Shortness of Breath Respiratory: reports: Cough, SOB, SOB on Exertion Gastrointestinal: reports: No Symptoms Genitourinary: reports: No Symptoms Breasts: reports: No Symptoms Reported Musculoskeletal: reports: No Symptoms Integumentary: reports: No Symptoms Neurological: reports: No Symptoms Vital Signs: Vital Signs Temperature 97.6 F 07/25/19 07:25 Pulse Rate 84 07/25/19 07:41 Respiratory Rate 17 07/25/19 07:25 Blood Pressure 137/87 07/25/19 07:41 O2 Sat by Pulse Oximetry (%) 97 07/25/19 07:41 General: Well developed. Obese. No acute distress. Head: Normocephalic. Atraumatic, Eyes: PERRLA, EOMI. Sclerae anicteric. Conjunctivae clear. Neck: Supple. No JVD. No bruits. Heart: Normal S1, S2: Regular rhythm and rate. No murmur. No gallop or rub. Lungs: Symmetrical air entry. Coarse BS. Abdomen: Soft. Bowel sound positive. Non tender. No masses. Extremities: No edema. No clubbing or cyanosis. PD 2+, equal bilaterally. - Other Data Labs, Other Data: CBC, BMP 07/25/19 05:30 07/25/19 05:30 INR, PTT INR 1.05 (0.83-1.09) 07/24/19 12:20 Troponin, BNP 07/24/19 12:20 Troponin I < 0.02 B-Natriuretic Peptide 127.7 H Troponin, BNP 07/24/19 12:20 Troponin I < 0.02 B-Natriuretic Peptide 127.7 H Imaging - Results EKG: Image Reviewed (ECG 07/24/19: Sinus rhythm, first degree AVB. Normal ST-T.) Assessment/Plan 58 year old obsese woman, smoker, with a PMHx of HTN, DM, HLD, PSVT, received adenosine 06/18/19, COPD, GERD, asthma, and anemia, who presented 07/24/19 from a homeless snf due to shortness of breath and a productive cough for the past 3 days. Patient states she is noncompliant with her medications due to other problems in her life. She is currently homeless. ER course was notable for: (1) d Dimer 950, CTA negative for PE but did show rt sided atelectasis (2) CXR: JERROD infiltrate, enlarged heart with congestive changes (3) ZoelbanWes Vanco given ECG 07/24/19: Sinus rhythm, first degree AVB. Normal ST-T. Echo 06/20/2019: Moderate concentric LVH with normal LV systolic dysfunction. LVEF 50-55%. Normal RV. Normal LA and RA. No significant valvular abnormalities. 1) Chronic diastolic CHF with moderate concentric LVH and preserved LV systolic dysfunction. BNP is minimally elevated. May add low dose furosemide and stop HCTZ BP control. 2) PSVT: stable without recent palpitation. May increase home dose dilt to 180 daily. Outpatient cardiac follow up. Please do not hesitate to call us for reconsult at any time if any further questions or additional issue arises regarding this patient.
--- NOTE | 2019-07-25 12:17 | CON.PULM ---
Consult Consult Specialty:: PULM/CCM Referred by:: Hospitalist Reason for Consultation:: SOB - History of Present Illness Chief Complaint: SOB History of Present Illness: 58 F, HPL, COPD due to active smoking (5cigs per day), OSAS diagnosed about 10 years ago in [place] but never placed on CPAP, DM, GERD, and Anemia. Patient reports living in a fpc. Admitted via the ER due to progressive SOB, productive cough, and myalgias for the past several days. No travel history but reports a few potential sick contacts since she lives at the fpc. No night sweats or hemoptysis. CTA: No PE , minimal right base atelectasis - History Source History Provided By: Patient Limitations to Obtaining History: No Limitations - Past Medical History Cardio/Vascular: Yes: HTN, Hyperlipdemia Pulmonary: Yes: Bronchitis, COPD, Sleep Apnea. No: Asthma, Cancer, O2 Dependent , Pneumonia, Previously Intubated, Pulmonary Embolus, Pulmonary Fibrosis Endocrine: Yes: Diabetes Mellitus - Alcohol/Substance Use Hx Alcohol Use: Yes (socailly) - Smoking History Smoking history: Current every day smoker Have you smoked in the past 12 months: Yes Aproximately how many cigarettes per day: 4 If you are a former smoker, when did you quit?: 06/08/2019 Home Medications - Allergies Allergies/Adverse Reactions: Allergies Allergy/AdvReac Type Severity Reaction Status Date / Time No Known Allergies Allergy Verified 05/01/19 18:45 - Home Medications Home Medications: Ambulatory Orders Atorvastatin Ca [Lipitor] 20 mg PO HS 01/20/18 metFORMIN HCL [Metformin ER Gastric] 1,000 mg PO BID 01/20/18 Aspirin [ASA -] 81 mg PO DAILY 06/18/19 Canagliflozin [Invokana] 100 mg PO DAILY 06/18/19 Fluticasone/Umeclidin/Vilanter [Trelegy Ellipta 100-62.5-25] 1 puff IH DAILY 05/27 Furosemide 20 mg PO DAILY 06/18/19 Glipizide 10 mg PO DAILY 06/18/19 Hydrochlorothiazide [Hctz -] 12.5 mg PO DAILY 06/18/19 Insulin Glargine,Hum.rec.anlog [Queenie Solelizabeth] 36 unit SQ DAILY 06/18/19 Insulin Lispro [Humalog] 10 unit SQ AC 06/18/19 Lisinopril 20 mg PO DAILY 06/18/19 Pregabalin [Lyrica -] 50 mg PO TID 06/18/19 Semaglutide [Ozempic] 0.5 mg SQ WEEKLY 06/18/19 Valsartan 160 mg PO DAILY 06/18/19 Diltiazem Cd [Cardizem Cd -] 120 mg PO DAILY #30 cap.cd.24h 06/20/19 Tiotropium [place] [Spiriva Respimat] 1 puff DAILY 07/24/19 Review of Systems - Review of Systems Constitutional: reports: Malaise. denies: Chills, Fever, Night Sweats, Unintentional Wgt. Loss Eyes: reports: No Symptoms HENT: reports: Nasal Congestion Neck: reports: No Symptoms Cardiovascular: reports: Shortness of Breath. denies: Chest Pain, Edema, Palpitations Respiratory: reports: Cough, Snoring, SOB, SOB on Exertion, Wheezing. denies: Hemoptysis, Orthopnea Gastrointestinal: reports: No Symptoms Genitourinary: reports: No Symptoms Breasts: reports: No Symptoms Reported Musculoskeletal: reports: Back Pain Integumentary: reports: No Symptoms Neurological: reports: No Symptoms Endocrine: reports: No Symptoms Hematology/Lymphatic: reports: No Symptoms Psychiatric: reports: No Symptoms Physical Exam Vital Sings: Vital Signs Temperature 97.6 F 07/25/19 07:25 Pulse Rate 84 07/25/19 07:41 Respiratory Rate 07/25/19 07:25 Blood Pressure 137/87 07/25/19 07:41 O2 Sat by Pulse Oximetry (%) 97 07/25/19 07:41 Constitutional: Yes: No Distress, Calm, Obese Eyes: Yes: Conjunctiva Clear, EOM Intact HENT: Yes: Atraumatic, Normocephalic Neck: Yes: Supple, Trachea Midline Cardiovascular: Yes: Regular Rate and Rhythm Respiratory: Yes: Cough, Diminished, SOB on Exertion, Wheezes. No: Accessory Muscle Use, Rales, Rhonchi, SOB, Stridor, Tachypnea ...Inspection: Yes: WNL ...Clubbing: No Gastrointestinal: Yes: Normal Bowel Sounds, Soft, Abdomen, Obese Renal/: Yes: WNL Musculoskeletal: Yes: WNL Extremities: Yes: WNL Edema: No Peripheral Pulses WNL: Yes Integumentary: Yes: WNL Neurological: Yes: WNL, Alert, Oriented ...Motor Strength: WNL Psychiatric: Yes: WNL, Alert, Oriented Labs: CBC, BMP 07/25/19 05:30 07/25/19 05:30 Imaging - Results Chest X-ray: Report Reviewed, Image Reviewed Cat Scan: Report Reviewed, Image Reviewed Problem List - Problems (1) Acute exacerbation of chronic obstructive pulmonary disease (COPD) Code(s): J44.1 - CHRONIC OBSTRUCTIVE PULMONARY DISEASE W (ACUTE) EXACERBATION (2) Acute bronchitis Code(s): J20.9 - ACUTE BRONCHITIS, UNSPECIFIED (3) Sleep apnea Code(s): G47.30 - SLEEP APNEA, UNSPECIFIED (4) Morbid obesity Code(s): E66.01 - MORBID (SEVERE) OBESITY DUE TO EXCESS CALORIES (5) Cough Code(s): R05 - COUGH (6) Diabetes mellitus Code(s): E11.9 - TYPE 2 DIABETES MELLITUS WITHOUT COMPLICATIONS Qualifiers: Diabetes mellitus type: type 2 (7) HLD (hyperlipidemia) Code(s): E78.5 - HYPERLIPIDEMIA, UNSPECIFIED (8) HTN (hypertension) Code(s): I10 - ESSENTIAL (PRIMARY) HYPERTENSION (9) COPD (chronic obstructive pulmonary disease) Code(s): J44.9 - CHRONIC OBSTRUCTIVE PULMONARY DISEASE, UNSPECIFIED Qualifiers: COPD type: unspecified COPD Qualified Code(s): J44.9 - Chronic obstructive pulmonary disease, unspecified Assessment/Plan Medrol BD [place] No smoking O2 as needed PFTs as an outpatient Will need formal sleep testing as an outpatient Noted Zmax Check Flu swab VTE prophylaxis Will follow Thank you. Dr Kat
[2019-07-25] MEDS ORDERED: ALBUTEROL SO4 2.5/IPRATROPIUM 0.5 INH SOL 3 ML VIAL.NEB. NEB ONE (14:09)
[2019-07-25] MEDS: ALBUTEROL SO4 2.5/IPRATROPIUM 0.5 INH SOL 3 ML VIAL.NEB. NEB SCH ×2 (14:13→21:06)
--- NOTE | 2019-07-25 15:33 | PN ---
Physical Exam: SUBJECTIVE: 58 y/o F, pmh of hld, htn, copd, dm, GERD, asthma, and anemia presents from a homeless halfway for shortness of breath and productive cough of white sputum for 3 days admitted for COPD exacerbation. Pt is feeling much better today. Afebrile and asymptomatic. Lung sound better. denies f/c/n/v/d/sob,chest pain. OBJECTIVE: Vital Signs Period Temp Pulse Resp BP Sys/[place] Pulse Ox Last 24 Hr 97.4 F-97.6 F 63-84 16-20 137-159/66-89 97-100 GENERAL: The patient is awake, alert, and fully oriented, in no acute distress. EYES: PERRL, extraocular movements intact, sclera anicteric, conjunctiva clear. No ptosis. ENT: oropharynx clear without exudates, moist mucous membranes. NECK: Trachea midline, full range of motion, supple. LUNGS: Breath sounds equal, clear to auscultation bilaterally- improved from yesterday, no wheezes, no crackles, HEART: Regular rate and rhythm, S1, S2 without murmur, rub or gallop. ABDOMEN: Soft, nontender, nondistended, normoactive bowel sounds, no guarding EXTREMITIES: 2+ pulses, warm, well-perfused, no edema. NEUROLOGICAL: Normal speech, gait not observed. SKIN: Warm, dry, normal turgor, no rashes or lesions noted Laboratory Results - last 24 hr CBC,CMP WBC 4.5 K/mm3 (4.0-10.0) 07/25/19 05:30 RBC 5.48 M/mm3 (3.60-5.2) H 07/25/19 05:30 Hgb 12.9 GM/dL (10.7-15.3) 07/25/19 05:30 Hct 40.1 % (32.4-45.2) 07/25/19 05:30 MCV 73.1 fl (80-96) L 07/25/19 05:30 MCH 23.5 pg (25.7-33.7) L 07/25/19 05:30 MCHC 32.2 g/dl (32.0-36.0) 07/25/19 05:30 RDW 15.6 % (11.6-15.6) 07/25/19 05:30 Plt Count 294 K/MM3 (134-434) 07/25/19 05:30 MPV 8.3 fl (7.5-11.1) 07/25/19 05:30 Absolute Neuts (auto) 3.5 K/mm3 (1.5-8.0) 07/25/19 05:30 Neutrophils % 76.3 % (42.8-82.8) D 07/25/19 05:30 Lymphocytes % 21.3 % (8-40) D 07/25/19 05:30 Monocytes % 2.0 % (3.8-10.2) L 07/25/19 05:30 Eosinophils % 0.0 % (0-4.5) D 07/25/19 05:30 Basophils % 0.4 % (0-2.0) 07/25/19 05:30 Nucleated RBC % 0 % (0-0) 07/25/19 05:30 Sodium 134 mmol/L (136-145) L 07/25/19 05:30 Potassium 4.6 mmol/L (3.5-5.1) 07/25/19 05:30 Chloride 99 mmol/L (98-107) 07/25/19 05:30 Carbon Dioxide 29 mmol/L (21-32) 07/25/19 05:30 Anion Gap 6 MMOL/L (8-16) L 07/25/19 05:30 BUN 15.4 mg/dL (7-18) 07/25/19 05:30 Creatinine 0.7 mg/dL (0.55-1.3) 07/25/19 05:30 Est GFR (CKD-EPI)AfAm 111.47 07/25/19 05:30 Est GFR (CKD-EPI)NonAf 96.18 07/25/19 05:30 POC Glucometer 298 UNITS (80-120) 07/25/19 11:15 Random Glucose 265 mg/dL (74-106) H 07/25/19 05:30 Calcium 9.1 mg/dL (8.5-10.1) 07/25/19 05:30 Magnesium 2.1 mg/dL (1.8-2.4) 07/24/19 12:20 Iron 45 ug/dL (50-175) L 07/25/19 05:30 TIBC 334 ug/dL (250-450) 07/25/19 05:30 Iron Saturation 13 % (17.5-39) L 07/25/19 05:30 Unsaturated IBC 289 ug/dL (200-275) H 07/25/19 05:30 Total Bilirubin 0.3 mg/dL (0.2-1) 07/24/19 12:20 AST 11 U/L (15-37) L 07/24/19 12:20 ALT 22 U/L (13-61) 07/24/19 12:20 Alkaline Phosphatase 136 U/L (45-117) H 07/24/19 12:20 Troponin I < 0.02 ng/ml (0.00-0.05) 07/24/19 12:20 B-Natriuretic Peptide 127.7 pg/ml (5-125) H 07/24/19 12:20 Total Protein 7.4 g/dl (6.4-8.2) 07/24/19 12:20 Albumin 3.5 g/dl (3.4-5.0) 07/24/19 12:20 Lipase 92 U/L (73-393) 07/24/19 12:20 Active Medications Current Medications Albuterol/Ipratropium (Duoneb -) 1 amp NEB Q6H PRN PRN Reason: SHORTNESS OF BREATH Albuterol/Ipratropium (Duoneb -) 1 amp NEB RTID [facility] Last Admin: 07/25/19 14:13 Dose: Not Given Enoxaparin Sodium (Lovenox -) 40 mg SQ DAILY [facility] Last Admin: 07/25/19 10:30 Dose: 40 mg Hydrochlorothiazide (Hctz -) 12.5 mg PO BID [facility] Last Admin: 07/25/19 10:29 Dose: 12.5 mg Azithromycin 250 mg/ Dextrose 250 mls @ 250 mls/hr IVPB DAILY [facility] Last Admin: 07/25/19 11:15 Dose: 250 mls/hr Insulin Aspart (Novolog Vial Sliding Scale -) 1 vial SQ ACHS [facility]; Protocol Last Admin: 07/25/19 12:05 Dose: 6 units Methylprednisolone Sodium Succinate (Solu-Medrol -) 40 mg IVPUSH Q8H-IV [facility] Last Admin: 07/25/19 10:30 Dose: 40 mg Home Medications Medication Instructions Recorded Atorvastatin Ca [Lipitor] 20 mg PO HS 01/20/18 metFORMIN HCL [Metformin ER 1,000 mg PO BID 01/20/18 Gastric] Aspirin [ASA -] 81 mg PO DAILY 06/18/19 Canagliflozin [Invokana] 100 mg PO DAILY 06/18/19 Fluticasone/Umeclidin/Vilanter 1 puff IH DAILY 06/18/19 [Trelegy Ellipta 100-62.5-25] Furosemide 20 mg PO DAILY 06/18/19 Glipizide 10 mg PO DAILY 06/18/19 Hydrochlorothiazide [Hctz -] 12.5 mg PO DAILY 06/18/19 Insulin Glargine,Hum.rec.anlog 36 unit SQ DAILY 06/18/19 [Toujeo Solostar] Insulin Lispro [Humalog] 10 unit SQ AC 06/18/19 Lisinopril 20 mg PO DAILY 06/18/19 Pregabalin [Lyrica -] 50 mg PO TID 06/18/19 Semaglutide [Ozempic] 0.5 mg SQ WEEKLY 06/18/19 Valsartan 160 mg PO DAILY 06/18/19 Diltiazem Cd [Cardizem Cd -] 120 mg PO DAILY #30 cap.cd.24h 06/20/19 Tiotropium [place] [Spiriva 1 puff DAILY 07/24/19 Respimat] Microbiology 07/25/19 10:35 Urine For Antigen Detection Legionella Antigen - Final 07/25/19 10:35 Urine For Antigen Detection Streptococcus pneumoniae Antigen (M - Final 07/24/19 12:20 Urine - Urine Clean Catch Urine Culture - Preliminary Lactose Fermenting Neg Bacilli ASSESSMENT/PLAN: 58 y/o F, pmh of hld, htn, copd, dm, GERD, asthma, and anemia presents from a homeless halfway for shortness of breath and productive cough of white sputum for 3 days admitted for COPD exacerbation #COPD exacerbation likely 2/2 to acute bronchitis CXR: Large heart with prominent knob and some central congestive changes with possible left base atelectasis or infiltrates and some left upper lobe infiltrate. CT chest: no evidence of PE, right basilar atelectasis, no acute patholog within the chest, cholelithiasis seen. EKG: sinus rhythm w/ 1st degree AV block Echo 06/20/2019: Moderate concentric LVH with normal LV systolic dysfunction. LVEF 50-55%. Normal RV. Normal LA and RA. No significant valvular abnormalities. Cont Azithromycin 500 Cont Solumedrol 40 mg Q8H Dounebs Q6H TB quantiferon #D-CHF w/ preserved LV systolic dysfunction Cardizem 120mg given once yesterday BNP is minimally elevated. Low dose lasix can be considered as per cardio D/c HCTZ as per cardio #PSVT stable without recent palpitation. Cardio recom dilt to 180 daily. Cardio consult appreciated #Iron def f/u outpt GI #HTN On lisinopril and HCTZ for now Will rec meds- pending Last bulk picker for HCTZ, lisinopril, valsartan and lasix was in 2018 #GERD #Asthma dounebs Trelegy ellipta FEN Diabetic diet monitor lytes Dispo: f/u w/ Cardio on starting 180 dilt, lasix, cont abx, cont solumedrol Visit type - Emergency Visit Emergency Visit: Yes ED Registration Date: 07/24/19 Care time: The patient presented to the Emergency Department on the above date and was hospitalized for further evaluation of their emergent condition. - New Patient This patient is new to me today: Yes Date on this admission: 07/26/19 - Critical Care Critical Care patient: No - Discharge Referral Referred to [facility] Med P.C.: No ATTENDING PHYSICIAN STATEMENT I saw and evaluated the patient. I reviewed the resident's note and discussed the case with the resident. I agree with the resident's findings and plan as documented. SUBJECTIVE: OBJECTIVE: ASSESSMENT AND PLAN:
[2019-07-25] MEDS: ASPIRIN 81 MG CHEWABLE TABLETS PO SCH (16:00)
[2019-07-25] MEDS ORDERED: LISINOPRIL 20 MG TABLET (FP) PO SCH (16:15)
--- NOTE | 2019-07-25 16:18 | PN ---
Teaching Attending Note Name of Resident: Terrence Cruz ATTENDING PHYSICIAN STATEMENT I saw and evaluated the patient. I reviewed the resident's note and discussed the case with the resident. I agree with the resident's findings and plan as documented. SUBJECTIVE: Feeling less SOB. No fever/chills. OBJECTIVE: Afebrile, Hemodynamically Stable. Last Vital Signs Temp Pulse Resp BP Pulse Ox 97.4 F L 78 18 140/88 98 07/25/19 14:26 07/25/19 14:26 07/25/19 14:26 07/25/19 14:07/25/19 14:26 HEENT - Atraumatic, Normocephalic. Heart - S1, S2, RRR Lungs - good air entry, wheeze resolving. Abdomen - Soft, non-tender. Bowel Sounds normal. Extremities - mild edema, no calf tenderness. Neuro - AAO x 3. tone/Power normal all extremities. Laboratory Results - last 24 hr 07/24/19 07/24/19 07/25/19 12:00 19:00 05:30 WBC 4.5 RBC 5.48 H Hgb 12.9 Hct 40.1 MCV 73.1 L MCH 23.5 L MCHC 32.2 RDW 15.6 Plt Count 294 MPV 8.3 Absolute Neuts (auto) 3.5 Neutrophils % 76.3 D Lymphocytes % 21.3 D Monocytes % 2.0 L Eosinophils % 0.0 D Basophils % 0.4 Nucleated RBC % 0 Sodium Potassium Chloride Carbon Dioxide Anion Gap BUN Creatinine Est GFR (CKD-EPI)AfAm Est GFR (CKD-EPI)NonAf POC Glucometer Random Glucose Calcium Iron TIBC Iron Saturation Unsaturated IBC Influenza A (Rapid) Negative Influenza B (Rapid) Negative Blood Type B POSITIVE 07/25/19 07/25/19 07/25/19 05:30 08:32 11:15 WBC RBC Hgb Hct MCV MCH MCHC RDW Plt Count MPV Absolute Neuts (auto) Neutrophils % Lymphocytes % Monocytes % Eosinophils % Basophils % Nucleated RBC % Sodium 134 L Potassium 4.6 Chloride 99 Carbon Dioxide 29 Anion Gap 6 L BUN 15.4 Creatinine 0.7 Est GFR (CKD-EPI)AfAm 111.47 Est GFR (CKD-EPI)NonAf 96.18 POC Glucometer 271 298 Random Glucose 265 H Calcium 9.1 Iron 45 L TIBC 334 Iron Saturation 13 L Unsaturated IBC 289 H Influenza A (Rapid) Influenza B (Rapid) Blood Type Current Medications Generic Name Dose Route Start Last Admin Trade Name Freq PRN Reason Stop Dose Admin Albuterol/Ipratropium 1 amp 07/24/19 22:21 Duoneb - NEB Q6H PRN SHORTNESS OF BREATH Albuterol/Ipratropium 1 amp 07/25/19 14:00 07/25/19 14:13 Duoneb - NEB Not Given RTID [facility] Aspirin 81 mg 07/25/19 10:00 Asa - PO DAILY [facility] Atorvastatin Calcium 20 mg 07/25/19 22:00 Lipitor - PO [facility] Diltiazem HCl 120 mg 07/25/19 15:45 Cardizem Cd - PO DAILY [facility] Enoxaparin Sodium 40 mg 07/25/19 10:00 07/25/19 10:30 Lovenox - SQ 40 mg DAILY [facility] Administration Gabapentin 400 mg 07/25/19 15:45 Neurontin - PO TID [facility] Hydrochlorothiazide 12.5 mg 07/25/19 10:00 07/25/19 10:29 Hctz - PO 12.5 mg BID [facility] Administration Azithromycin 250 mg/ Dextrose 250 mls @ 250 mls/hr 07/25/19 10:00 07/25/19 11 :15 IVPB 250 mls/hr DAILY [facility] Administration Insulin Aspart 1 vial 07/25/19 07:00 07/25/19 12:05 Novolog Vial Sliding Scale - SQ 6 units ACHS [facility] Administration Protocol Methylprednisolone Sodium Succinate 40 mg 07/25/19 02:00 07/25/19 10:30 Solu-Medrol - IVPUSH 40 mg Q8H-IV [facility] Administration Non-Formulary Medication 7.5 mg 07/25/19 22:00 Cyclobenzaprine Hcl [Cyclobenzaprine Hcl] PO BID [facility] Non-Formulary Medication 1 puff 07/25/19 15:45 Fluticasone/Umeclidin/Vilanter [Trelegy Ellipta 100-62.5-25] DAILY [facility] Home Medications Medication Instructions Recorded Atorvastatin Ca [Lipitor] 20 mg PO HS 01/20/18 metFORMIN HCL [Metformin ER 1,000 mg PO BID 01/20/18 Gastric] Aspirin [ASA -] 81 mg PO DAILY 06/18/19 Canagliflozin [Invokana] 100 mg PO DAILY 06/18/19 Fluticasone/Umeclidin/Vilanter 1 puff IH DAILY 06/18/19 [Trelegy Ellipta 100-62.5-25] Furosemide 20 mg PO DAILY 06/18/19 Glipizide 10 mg PO DAILY 06/18/19 Hydrochlorothiazide [Hctz -] 12.5 mg PO DAILY 06/18/19 Insulin Glargine,Hum.rec.anlog 36 unit SQ DAILY 06/18/19 [Toujeo Solostar] Insulin Lispro [Humalog] 10 unit SQ AC 06/18/19 Lisinopril 20 mg PO DAILY 06/18/19 Pregabalin [Lyrica -] 50 mg PO TID 06/18/19 Semaglutide [Ozempic] 0.5 mg SQ WEEKLY 06/18/19 Valsartan 160 mg PO DAILY 06/18/19 Tiotropium [place] [Spiriva 1 puff DAILY 07/24/19 Respimat] Albuterol Sulfate [Proair Hfa] 2 puff IH Q4H 07/25/19 Cyclobenzaprine HCl 7.5 mg PO BID 07/25/19 Diltiazem Cd [Cardizem Cd -] 120 mg PO DAILY 07/25/19 Gabapentin 400 mg PO TID 07/25/19 ASSESSMENT AND PLAN: 58 year old female with history of HTN, HLD, DM 2 (uncontrolled), COPD, GERD, Asthma, Anemia, PSVT, active smoker, presents from homeless detention with 3 day history of increasing SOB and productive cough. No chest pain/cough/fever/ chills. 1. Acute Exacerbation of COPD CTA Chest - no PE, R sdied atelectasis Afebrile, Hemodynamicaly Stable. Continue IV Solumedrol, DuoNebs, Azithromycin. Normally on trelegy Ellipta and Spiriva. Pulm consulted. 2. Chronic Systolic CHF - no evidence of acute decompensation Continue home Lasix. 3. DM 2, Uncontrolled, last A1C 15 Should be on Metformin, Glipizide, Invokana but non-compliant. Will maintain on Novolog sliding scale. 4. HTN - should be on Diltiazem, Valsartan (? and Lisinopril), HCTZ - will need med rec. 5. Iron deficiency Anemia No evidence of acute blood loss. Will start FeSO4 supplementation Referral to GI as out-patient for further work-up. DVT Px - Lovenox SQ
[2019-07-25] MEDS: GABAPENTIN 400 MG CAPSULE PO SCH ×2 (17:32→22:17)
[2019-07-25 17:51] VITALS: BMI 46.4
[2019-07-25] MEDS ORDERED: PT OWN MED DRAWER 7, Y5N ONE (21:49)
[2019-07-25] MEDS ORDERED: ATORVASTATIN CA 20 MG TABLET (FP) PO SCH (22:00)
[2019-07-25] MEDS ORDERED: CYCLOBENZAPRINE HCL 7.5 MG PO SCH (22:00)
[2019-07-25] MEDS: CYCLOBENZAPRINE HCL 5 MG TABLET PO SCH (22:16)
[2019-07-25] MEDS: DOCUSATE SODIUM 100 MG CAPSULE (FP) PO SCH (22:17)
[2019-07-25] MEDS: FERROUS SO4 325 MG TABLET (FP) PO SCH (22:17)
[2019-07-26] MEDS: methylPREDNISolone NA SUCC 40 MG/1 ML VIAL IVPUSH SCH ×2 (01:27→10:01)
[2019-07-26] MEDS: GABAPENTIN 400 MG CAPSULE PO SCH (06:23)
[2019-07-26] MEDS: INSULIN SLIDING SCALE (NOVOLOG) 1 VIAL SQ SCH ×2 (06:23→11:44)
[2019-07-26 07:27] LABS: HEMATOCRIT 40.3 % (32.4-45.2); MCH 23.5 pg (25.7-33.7); MCHC 32.3 g/dl (32.0-36.0); MEAN CELL VOLUME 72.7 fl (80-96); MEAN PLT VOLUME 8.2 fl (7.5-11.1); PLATELET COUNT 331 K/MM3 (134-434); RBC 5.54 M/mm3 (3.60-5.2); RDW 15.2 % (11.6-15.6)
[2019-07-26] MEDS: ALBUTEROL SO4 2.5/IPRATROPIUM 0.5 INH SOL 3 ML VIAL.NEB. NEB SCH (08:11)
[2019-07-26 08:49] LABS: ALBUMIN 3.4 g/dl (3.4-5.0); BILIRUBIN,TOTAL 0.3 mg/dL (0.2-1); BLOOD UREA NITROGEN 22.7 mg/dL (7-18); CALCIUM 9.4 mg/dL (8.5-10.1); CREATININE 0.8 mg/dL (0.55-1.3); MAGNESIUM 2.2 mg/dL (1.8-2.4); PHOSPHOROUS 4.4 mg/dL (2.5-4.9); POTASSIUM 4.4 mmol/L (3.5-5.1); TOT PROT 7.3 g/dl (6.4-8.2)
[2019-07-26] MEDS ORDERED: DEXTROSE 5%-WATER - 50 ML IVPB ONE (09:25)
[2019-07-26] MEDS ORDERED: cefTRIAXone SODIUM 1 GM VIAL ONE (09:25)
[2019-07-26] MEDS: CYCLOBENZAPRINE HCL 5 MG TABLET PO SCH (09:59)
[2019-07-26] MEDS: DOCUSATE SODIUM 100 MG CAPSULE (FP) PO SCH (09:59)
[2019-07-26] MEDS: FERROUS SO4 325 MG TABLET (FP) PO SCH (09:59)
[2019-07-26] MEDS: ASPIRIN 81 MG CHEWABLE TABLETS PO SCH (09:59)
[2019-07-26] MEDS ORDERED: VALSARTAN 160 MG TABLET (UD) PO SCH (10:00)
[2019-07-26] MEDS: HYDROCHLOROTHIAZIDE 12.5 MG CAPSULE (FP) PO SCH (10:00)
[2019-07-26] MEDS ORDERED: CEFTRIAXONE 1 GM in DEXTROSE 5%-WATER - 50 ML IVPB SCH (10:00)
[2019-07-26] MEDS: ENOXAPARIN NA (PORCINE) 40 MG/0.4 ML DISP.SYRIN SQ SCH (10:01)
[2019-07-26] MEDS ORDERED: predniSONE 20 MG TABLET (UD) PO ONE (10:30)
[2019-07-26 10:36] VITALS: BP 113/55; PULSE 99; TEMP 98
--- NOTE | 2019-07-26 11:22 | PN ---
Teaching Attending Note Name of Resident: Terrence Cruz ATTENDING PHYSICIAN STATEMENT I saw and evaluated the patient. I reviewed the resident's note and discussed the case with the resident. I agree with the resident's findings and plan as documented. SUBJECTIVE: Feeling much improved. No fever/chills. OBJECTIVE: Afebrile, Hemodynamically Stable. Last Vital Signs Temp Pulse Resp BP Pulse Ox 98.0 F 99 H 16 113/55 L 98 07/26/19 10:00 07/26/19 10:00 07/26/19 10:00 07/26/19 10:00 07/26/19 10:00 Heart - S1, S2, RRR Lungs - good air entry, wheeze resolved. Abdomen - Soft, non-tender. Bowel Sounds normal. Extremities - mild edema, no calf tenderness. Neuro - AAO x 3. tone/Power normal all extremities. Laboratory Results - last 24 hr 07/24/19 07/25/19 07/25/19 12:00 11:15 17:34 WBC RBC Hgb Hct MCV MCH MCHC RDW Plt Count MPV Sodium Potassium Chloride Carbon Dioxide Anion Gap BUN Creatinine Est GFR (CKD-EPI)AfAm Est GFR (CKD-EPI)NonAf POC Glucometer 298 307 Random Glucose Calcium Phosphorus Magnesium Total Bilirubin AST ALT Alkaline Phosphatase Total Protein Albumin Influenza A (Rapid) Negative Influenza B (Rapid) Negative 07/25/19 07/26/19 07/26/19 22:13 06:00 06:00 WBC 11.0 H RBC 5.54 H Hgb 13.0 Hct 40.3 MCV 72.7 L MCH 23.5 L MCHC 32.3 RDW 15.2 Plt Count 331 MPV 8.2 Sodium 133 L Potassium 4.4 Chloride 98 Carbon Dioxide 28 Anion Gap 7 L BUN 22.7 H Creatinine 0.8 Est GFR (CKD-EPI)AfAm 94.85 Est GFR (CKD-EPI)NonAf 81.84 POC Glucometer 347 Random Glucose 341 H Calcium 9.4 Phosphorus 4.4 Magnesium 2.2 Total Bilirubin 0.3 AST 8 L ALT 18 Alkaline Phosphatase 130 H Total Protein 7.3 Albumin 3.4 Influenza A (Rapid) Influenza B (Rapid) 07/26/19 06:21 WBC RBC Hgb Hct MCV MCH MCHC RDW Plt Count MPV Sodium Potassium Chloride Carbon Dioxide Anion Gap BUN Creatinine Est GFR (CKD-EPI)AfAm Est GFR (CKD-EPI)NonAf POC Glucometer 370 Random Glucose Calcium Phosphorus Magnesium Total Bilirubin AST ALT Alkaline Phosphatase Total Protein Albumin Influenza A (Rapid) Influenza B (Rapid) Current Medications Generic Name Dose Route Start Last Admin Trade Name Freq PRN Reason Stop Dose Admin Albuterol/Ipratropium 1 amp 07/24/19 22:21 Duoneb - NEB Q6H PRN SHORTNESS OF BREATH Albuterol/Ipratropium 1 amp 07/25/19 14:00 07/26/19 08:11 Duoneb - NEB Not Given RTID [facility] Aspirin 81 mg 07/25/19 10:00 07/26/19 09:59 Asa - PO 81 mg DAILY [facility] Administration Atorvastatin Calcium 20 mg 07/25/19 22:00 07/25/19 22:17 Lipitor - PO 20 mg HS [facility] Administration Cyclobenzaprine HCl 7.5 mg 07/25/19 22:00 07/26/19 09:59 Cyclobenzaprine Hcl PO 7.5 mg BID [facility] Administration Diltiazem HCl 120 mg 07/25/19 15:45 07/26/19 09:59 Cardizem Cd - PO 120 mg DAILY [facility] Administration Docusate Sodium 100 mg 07/25/19 22:00 07/26/19 09:59 Colace - PO 100 mg BID [facility] Administration Enoxaparin Sodium 40 mg 07/25/19 10:00 07/26/19 10:01 Lovenox - SQ 40 mg DAILY [facility] Administration Ferrous Sulfate 325 mg 07/25/19 22:00 07/26/19 09:59 Feosol - PO 325 mg BID [facility] Administration Gabapentin 400 mg 07/25/19 15:45 07/26/19 06:23 Neurontin - PO 400 mg TID [facility] Administration Hydrochlorothiazide 12.5 mg 07/25/19 10:00 07/26/19 10:00 Hctz - PO 12.5 mg BID [facility] Administration Azithromycin 250 mg/ Dextrose 250 mls @ 250 mls/hr 07/25/19 10:00 07/25/19 11 :15 IVPB 250 mls/hr DAILY [facility] Administration Ceftriaxone Sodium 1 gm/ 50 mls @ 100 mls/hr 07/26/19 10:00 07/26/19 10:01 Dextrose IVPB 100 mls/hr DAILY [facility] Administration Protocol Insulin Aspart 1 vial 07/25/19 07:00 07/26/19 06:23 Novolog Vial Sliding Scale - SQ 10 units ACHS [facility] Administration Protocol Valsartan 160 mg 07/26/19 10:00 07/26/19 09:59 Diovan - PO 160 mg DAILY [facility] Administration Home Medications Medication Instructions Recorded Atorvastatin Ca [Lipitor] 20 mg PO HS 01/20/18 metFORMIN HCL [Metformin ER 1,000 mg PO BID 01/20/18 Gastric] Aspirin [ASA -] 81 mg PO DAILY 06/18/19 Canagliflozin [Invokana] 100 mg PO DAILY 06/18/19 Fluticasone/Umeclidin/Vilanter 1 puff IH DAILY 06/18/19 [Trelegy Ellipta 100-62.5-25] Insulin Glargine,Hum.rec.anlog 36 unit SQ DAILY 06/18/19 [Toujeo Solostar] Pregabalin [Lyrica -] 50 mg PO TID 06/18/19 Semaglutide [Ozempic] 0.5 mg SQ WEEKLY 06/18/19 Valsartan 160 mg PO DAILY 06/18/19 Albuterol Sulfate [Proair Hfa] 2 puff IH Q4H 07/25/19 Cyclobenzaprine HCl 7.5 mg PO BID 07/25/19 Diltiazem Cd [Cardizem Cd -] 120 mg PO DAILY 07/25/19 Gabapentin 400 mg PO TID 07/25/19 Insulin Glulisine [Apidra] 10 units IM TID 07/25/19 ASSESSMENT AND PLAN: 58 year old female with history of HTN, HLD, DM 2 (uncontrolled), COPD, GERD, Asthma, Anemia, PSVT, active smoker, presents from homeless custodial with 3 day history of increasing SOB and productive cough. No chest pain/cough/fever/ chills. 1. Acute Exacerbation of COPD CTA Chest - no PE, R sdied atelectasis Afebrile, Hemodynamicaly Stable. Transition IV Solumedrol to oral Prednisone Continue Azithromycin for 3 additional days to complete a 5 day course. Normally on Trelegy Ellipta and Spiriva. Pulm consulted - need DANIELA/PFT testing as out-patient. Pulm out-patient referral. 2. UTI Urine Cx - LFNB, awaiting final Id and Sens Treated with Ceftriaxone, will transition to oral Cefpodoxime for 3 additional days (5 days total) 3. DM 2, Uncontrolled, last A1C 15 Should be on Metformin, Semaglutide [Ozempic], Invokana but non-compliant. Importance of medication compliance and PCP follow up stressed. 4. HTN - resumed on Diltiazem, Valsartan. 5. Iron deficiency Anemia No evidence of acute blood loss. Started on FeSO4 supplementation Referral to GI as out-patient for further work-up. 6. Hx PSVT - Cardiology recommendations appreciated. Will leave home medications as is for now. For Cardiology follow up on discharge for medication modifications/optimization. 7. Chronic Systolic CHF - no evidence of acute decompensation Continue home Lasix 40mg daily. PCP and Cardiology out-patient follow up. Medically optimized for discharge.
--- NOTE | 2019-07-26 13:06 | DS ---
Physical Exam: SUBJECTIVE: Patient seen and examined 58 y/o F, pmh of hld, htn, copd, dm, GERD, asthma, and anemia [facility] for shortness of breath and productive cough of white sputum for 3 days admitted for COPD exacerbation. Pt is feeling much better today. Afebrile and asymptomatic. Lung sound better. denies f/c/n/v/d/sob,chest pain. OBJECTIVE: Vital Signs Period Temp Pulse Resp BP Sys/[place] Pulse Ox Last 24 Hr 97.4 F-98.5 F 74-99 16-20 113-160/55-107 98-98 PHYSICAL EXAM GENERAL: The patient is awake, alert, and fully oriented, in no acute distress. EYES: PERRL, extraocular movements intact, sclera anicteric, conjunctiva clear. No ptosis. ENT: oropharynx clear without exudates, moist mucous membranes. NECK: Trachea midline, full range of motion, supple. LUNGS: Breath sounds equal, clear to auscultation bilaterally- improved from yesterday, no wheezes, no crackles, HEART: Regular rate and rhythm, S1, S2 without murmur, rub or gallop. ABDOMEN: Soft, nontender, nondistended, normoactive bowel sounds, no guarding EXTREMITIES: 2+ pulses, warm, well-perfused, no edema. NEUROLOGICAL: Normal speech, gait not observed. SKIN: Warm, dry, normal turgor, no rashes or lesions noted LABS Laboratory Results - last 24 hr 07/25/19 07/25/19 07/26/19 17:34 22:13 06:00 WBC 11.0 H RBC 5.54 H Hgb 13.0 Hct 40.3 MCV 72.7 L MCH 23.5 L MCHC 32.3 RDW 15.2 Plt Count 331 MPV 8.2 Sodium Potassium Chloride Carbon Dioxide Anion Gap BUN Creatinine Est GFR (CKD-EPI)AfAm Est GFR (CKD-EPI)NonAf POC Glucometer 307 347 Random Glucose Calcium Phosphorus Magnesium Total Bilirubin AST ALT Alkaline Phosphatase Total Protein Albumin Current Medications Albuterol/Ipratropium (Duoneb -) 1 amp NEB Q6H PRN PRN Reason: SHORTNESS OF BREATH Albuterol/Ipratropium (Duoneb -) 1 amp NEB RTID HELLEN Last Admin: 07/26/19 08:11 Dose: Not Given Aspirin (Asa -) 81 mg PO DAILY [facility] Last Admin: 07/26/19 09:59 Dose: 81 mg Atorvastatin Calcium (Lipitor -) 20 mg PO HS [facility] Last Admin: 07/25/19 22:17 Dose: 20 mg Cyclobenzaprine HCl (Cyclobenzaprine Hcl) 7.5 mg PO BID [facility] Last Admin: 07/26/19 09:59 Dose: 7.5 mg Diltiazem HCl (Cardizem Cd -) 120 mg PO DAILY [facility] Last Admin: 07/26/19 09:59 Dose: 120 mg Docusate Sodium (Colace -) 100 mg PO BID [facility] Last Admin: 07/26/19 09:59 Dose: 100 mg Enoxaparin Sodium (Lovenox -) 40 mg SQ DAILY [facility] Last Admin: 07/26/19 10:01 Dose: 40 mg Ferrous Sulfate (Feosol -) 325 mg PO BID [facility] Last Admin: 07/26/19 09:59 Dose: 325 mg Gabapentin (Neurontin -) 400 mg PO TID [facility] Last Admin: 07/26/19 06:23 Dose: 400 mg Azithromycin 250 mg/ Dextrose 250 mls @ 250 mls/hr IVPB DAILY [facility] Last Admin: 07/25/19 11:15 Dose: 250 mls/hr Ceftriaxone Sodium 1 gm/ (Dextrose) 50 mls @ 100 mls/hr IVPB DAILY [facility]; Protocol Last Admin: 07/26/19 10:01 Dose: 100 mls/hr Insulin Aspart (Novolog Vial Sliding Scale -) 1 vial SQ ACHS [facility]; Protocol Last Admin: 07/26/19 11:44 Dose: 8 units Valsartan (Diovan -) 160 mg PO DAILY [facility] Last Admin: 07/26/19 09:59 Dose: 160 mg Home Medications Medication Instructions Recorded Atorvastatin Ca [Lipitor] 20 mg PO HS 01/20/18 metFORMIN HCL [Metformin ER 1,000 mg PO BID 01/20/18 Gastric] Aspirin [ASA -] 81 mg PO DAILY 06/18/19 Canagliflozin [Invokana] 100 mg PO DAILY 06/18/19 Fluticasone/Umeclidin/Vilanter 1 puff IH DAILY 06/18/19 [Trelegy Ellipta 100-62.5-25] Insulin Glargine,Hum.rec.anlog 36 unit SQ DAILY 06/18/19 [Queenie Alvarez] Pregabalin [Lyrica -] 50 mg PO TID 06/18/19 Semaglutide [Ozempic] 0.5 mg SQ WEEKLY 06/18/19 Valsartan 160 mg PO DAILY 06/18/19 Albuterol Sulfate [Proair Hfa] 2 puff IH Q4H 07/25/19 Cyclobenzaprine HCl 7.5 mg PO BID 07/25/19 Diltiazem Cd [Cardizem Cd -] 120 mg PO DAILY 07/25/19 Gabapentin 400 mg PO TID 07/25/19 Insulin Glulisine [Apidra] 10 units IM TID 07/25/19 Azithromycin 250 mg PO DAILY #3 tablet 07/26/19 Cefpodoxime Proxetil [Vantin (Nf) 200 mg PO BID #6 tablet 07/26/19 -] Docusate Sodium [Colace] 100 mg PO BID 30 Days #60 capsule 07/26/19 Ferrous Sulfate 325 mg PO BID 30 Days #60 tablet 07/26/19 predniSONE [Deltasone -] 40 mg PO DAILY 3 Days #6 tablet 07/26/19 Microbiology 07/24/19 12:20 Urine - Urine Clean Catch Urine Culture - Final Escherichia Coli 07/25/19 10:35 Urine For Antigen Detection Legionella Antigen - Final 07/25/19 10:35 Urine For Antigen Detection Streptococcus pneumoniae Antigen (M - Final HOSPITAL COURSE: Date of Admission:07/24/19 58 y/o F, pmh of hld, htn, copd, dm, GERD, asthma, and anemia presents from a homeless [facility] for shortness of breath and productive cough of white sputum for 3 days admitted for COPD exacerbation. Pt was started on azithromycin, ceftriaxone, solumedrol and dounebs. CXR showed poor inspiration, cardiomegaly, central congestive changes, JERROD and LLL infiltrates. Chest/thorax CTA showed right basilar atelectasis, cholelithiasis but no pulmonary embolism. ECHO from 06/20/2019 showed moderate concentric LV hypertrophy, LVEF of 50-55%, LV systolic function grossly normal and impaired LV relaxation. Pt was continued on home dose of lasix. Pt was flu negative. After treatment, pt improved significantly but her iron levels came back low. She is iron deficient but no anemia and no evidence of acute blood loss were found. She was discharged home on FeSO4 and a GI follow up outpt for further work up. Pt was also sent home on 3 more days of azithromycin 250, 3 mor edays of vantin 200 BID and 3 more days of prednisone 40. Her Blood pressure medications needed adjustment so she was given cardio. CXR: Large heart with prominent knob and some central congestive changes with possible left base atelectasis or infiltrates and some left upper lobe infiltrate. CT chest: no evidence of PE, right basilar atelectasis, no acute patholog within the chest, cholelithiasis seen. EKG: sinus rhythm w/ 1st degree AV block Echo 06/20/2019: Moderate concentric LVH with normal LV systolic dysfunction. LVEF 50-55%. Normal RV. Normal LA and RA. No significant valvular abnormalities. Date of Discharge: 07/26/19 Minutes to complete discharge: 40 Discharge Summary Problems reviewed: Yes Reason For Visit: PNEUMONIA Current Active Problems Anemia (Chronic) COPD (chronic obstructive pulmonary disease) (Chronic) HTN (hypertension) (Chronic) Condition: Improved - Instructions Diet, Activity, Other Instructions: You were admitted to the hospital for difficulty breathing While in the hospital, we evaluated you with lab work, blood work, imaging including X rays and CAT scans of your chest. We found that your symptoms were caused by an exacerbation of your COPD. We treated you with medications and your symptoms improved significantly. We also found that you have a urinary tract infection for which we will sent you home on antibiotics. To complete the treatment of your symptoms, please take the following medications: Azithromycin 250 mg daily for 3 days starting tomorrow Vantin 200 mg twice a day for 3 days starting tomorrow Prednisone 40 mg daily for 3 more day starting tomorrow. We also found you to be iron deficient without any anemia or blood loss, so please take Ferrous sulfate for your iron deficiency Please take all your medications as prescribed Please follow up with Dr. Francois, the Gastroeneterologist for your Iron deficiency found on blood tests Please follow up with your social psychologist or the one we have provided, Dr. Srinivasa Larson , for adjustments in your medications Please follow up with your primary care physician within 1 week Return to the emergency room, if you experience worsening of your symptoms, chest pain, shortness of breath or any worsening of your condition. Referrals: Shravan Domingo MD [Primary Care Provider] - Kristan Francois MD [Staff Physician] - Srinivasa Larson MD [Staff Physician] - Disposition: HOME - Home Medications Comprehensive Discharge Medication List: Ambulatory Orders Atorvastatin Ca [Lipitor] 20 mg PO HS 01/20/18 metFORMIN HCL [Metformin ER Gastric] 1,000 mg PO BID 01/20/18 Aspirin [ASA -] 81 mg PO DAILY 06/18/19 Canagliflozin [Invokana] 100 mg PO DAILY 06/18/19 Fluticasone/Umeclidin/Vilanter [Trelegy Ellipta 100-62.5-25] 1 puff IH DAILY 05/27 Insulin Glargine,Hum.rec.anlog [Toujeo Solostar] 36 unit SQ DAILY 06/18/19 Pregabalin [Lyrica -] 50 mg PO TID 06/18/19 Semaglutide [Ozempic] 0.5 mg SQ WEEKLY 06/18/19 Valsartan 160 mg PO DAILY 06/18/19 Albuterol Sulfate [Proair Hfa] 2 puff IH Q4H 07/25/19 Cyclobenzaprine HCl 7.5 mg PO BID 07/25/19 Diltiazem Cd [Cardizem Cd -] 120 mg PO DAILY 07/25/19 Gabapentin 400 mg PO TID 07/25/19 Insulin Glulisine [Apidra] 10 units IM TID 07/25/19 Azithromycin 250 mg PO DAILY #3 tablet 07/26/19 Cefpodoxime Proxetil [Vantin (Nf) -] 200 mg PO BID #6 tablet 07/26/19 Docusate Sodium [Colace] 100 mg PO BID 30 Days #60 capsule 07/26/19 Ferrous Sulfate 325 mg PO BID 30 Days #60 tablet 07/26/19 predniSONE [Deltasone -] 40 mg PO DAILY 3 Days #6 tablet 07/26/19 This patient is new to me today: Yes Date on this admission: 08/01/19 Emergency Visit: Yes ED Registration Date: 07/24/19 Care time: The patient presented to the Emergency Department on the above date and was hospitalized for further evaluation of their emergent condition. Critical Care patient: No - Discharge Referral Referred to [facility] No ATTENDING PHYSICIAN STATEMENT I saw and evaluated the patient. I reviewed the resident's note and discussed the case with the resident. I agree with the resident's findings and plan as documented. SUBJECTIVE: OBJECTIVE: ASSESSMENT AND PLAN:
== END 2019-07-26 13:50 | disposition home or self-care (01) | DRG 191 ==
LOC: JER 10:55 → JERBED 13:25 → J6S 07-25 16:18 → J4S 07-25 16:53
PROVIDERS: ADMIT Internal Medicine
DX: J44.1 Chronic obstructive pulmonary disease with (acute) exacerbation (principal); J98.11 Atelectasis; Z68.42 Body mass index [BMI] 45.0-49.9, adult; N39.0 Urinary tract infection, site not specified; I50.22 Chronic systolic (congestive) heart failure; J44.9 Chronic obstructive pulmonary disease, unspecified; K21.9 Gastro-esophageal reflux disease without esophagitis; J45.909 Unspecified asthma, uncomplicated; D50.9 Iron deficiency anemia, unspecified; E11.9 Type 2 diabetes mellitus without complications; E78.00 Pure hypercholesterolemia, unspecified; E66.01 Morbid (severe) obesity due to excess calories; F17.210 Nicotine dependence, cigarettes, uncomplicated; K80.20 Calculus of gallbladder without cholecystitis without obstruction; G47.33 Obstructive sleep apnea (adult) (pediatric); J44.0 Chronic obstructive pulmonary disease with (acute) lower respiratory infection; J20.9 Acute bronchitis, unspecified; R05 Cough; D50.0 Iron deficiency anemia secondary to blood loss (chronic); E11.65 Type 2 diabetes mellitus with hyperglycemia; I11.0 Hypertensive heart disease with heart failure
CPT/HCPCS: 36415; 71045-TC-FY; 71275-TC; 80048; 80053; 81003; 82962; 83540; 83550; 83690; 83735; 83880; 84100; 84484; 85025; 85027; 85379; 85610; 85730; 86480; 86850; 86900; 86901; 87070; 87086; 87186; 87205; 87804; 87899; 93005; 93010; 94010; 94640; 99285-25; J0131; Q9967

== ENCOUNTER 2019-08-27 19:34 | Inpatient (IN) | payer OTHER ==
[2019-08-27 19:54] VITALS: BMI 39.9
--- NOTE | 2019-08-27 20:04 | PDOC ---
History of Present Illness - General Chief Complaint: Irregular Heart Beat Stated Complaint: CHEST PAIN Time Seen by Provider: 08/27/19 20:04 Past History - Past Medical History Allergies/Adverse Reactions: Allergies Allergy/AdvReac Type Severity Reaction Status Date / Time No Known Allergies Allergy Verified 08/27/19 20:03 Home Medications: Ambulatory Orders Atorvastatin Ca [Lipitor] 20 mg PO HS 01/20/18 metFORMIN HCL [Metformin ER Gastric] 1,000 mg PO BID 01/20/18 Aspirin [ASA -] 81 mg PO DAILY 06/18/19 Canagliflozin [Invokana] 100 mg PO DAILY 06/18/19 Fluticasone/Umeclidin/Vilanter [Trelegy Ellipta 100-62.5-25] 1 puff IH DAILY 05/27 Insulin Glargine,Hum.rec.anlog [Toujeo Solostar] 36 unit SQ DAILY 06/18/19 Pregabalin [Lyrica -] 50 mg PO TID 06/18/19 Semaglutide [Ozempic] 0.5 mg SQ WEEKLY 06/18/19 Valsartan 160 mg PO DAILY 06/18/19 Albuterol Sulfate [Proair Hfa] 2 puff IH Q4H 07/25/19 Cyclobenzaprine HCl 7.5 mg PO BID 07/25/19 Diltiazem Cd [Cardizem Cd -] 120 mg PO DAILY 07/25/19 Gabapentin 400 mg PO TID 07/25/19 Insulin Glulisine [Apidra] 10 units IM TID 07/25/19 Azithromycin 250 mg PO DAILY #3 tablet 07/26/19 Cefpodoxime Proxetil [Vantin (Nf) -] 200 mg PO BID #6 tablet 07/26/19 Docusate Sodium [Colace] 100 mg PO BID 30 Days #60 capsule 07/26/19 Ferrous Sulfate 325 mg PO BID 30 Days #60 tablet 07/26/19 predniSONE [Deltasone -] 40 mg PO DAILY 3 Days #6 tablet 07/26/19 Anemia: Yes Asthma: Yes Cardiac Disorders: Yes (SVT) COPD: Yes Diabetes: Yes GI Disorders: Yes (GERD) HTN: Yes Hypercholesterolemia: Yes - Surgical History Abdominal Surgery: No Appendectomy: No Cardiac Surgery: No Cholecystectomy: No Gastric Stapling: No GI Surgery: No Lung Surgery: No Neurologic Surgery: No Orthopedic Surgery: No - Immunization History Immunization Up to Date: Yes - Psycho Social/Smoking Cessation Hx Smoking History: Never smoked Have you smoked in the past 12 months: Yes Number of Cigarettes Smoked Daily: 4 If you are a former smoker, when did you quit?: 06/08/2019 'Breaking Loose' booklet given: 06/18/19 Hx Alcohol Use: Yes (socailly) Drug/Substance Use Hx: Yes (marijuana) Substance Use Type: Marijuana Hx Substance Use Treatment: No *Physical Exam - Vital Signs Last Vital Signs Temp Pulse Resp BP Pulse Ox 97.3 F L 104 H 18 145/86 96 08/27/19 20:00 08/27/19 20:00 08/27/19 20:00 08/27/19 20:00 08/27/19 20:00 ED Treatment Course - LABORATORY CBC & Chemistry Diagram: 08/27/19 22:20 08/27/19 22:20 Medical Decision Making - Medical Decision Making 08/27/19 22:24 HPI: 59yo F hx HLD, HTN, COPD, GERD, asthma, anemia, diabetes, obesity, PSVT, and medication noncompliance BIBA c/o 2-4 weeks of "sinus infection", cough productive of white phlegm, congestion, bitemporal pressure type headache intermittent, nausea, NBNB emesis daily xunknown amount, and b/l leg pain and swelling, in addition to 1 day of SOB. Per EMS, pt in SVTs to 180s c/o chest pain in ambulance, SVTs and chest pain resolved s/p 6 adenosine en route, HR to 110s, remained normotensive entire time (168/102, 147/70), BGM 331. Pt states she called EMS because of the sinus infection. Pt's chest pain didn't start until EMS arrived. Pt is poor historian. Lives in homeless [facility] 06/2019 - Echo EF 50-55%, normal LVSF ROS: Constitutional: Negative for chills, fever, fatigue, diaphoresis. HENT: Positive for congestion, sinus pressure, rhinorrhea. Negative for sore throat. Eyes: Negative for visual disturbance. Respiratory: Positive for cough and shortness of breath. Negative for wheezing. Cardiovascular: Positive for chest pain, palpitations, and leg swelling. Gastrointestinal: Positive for nausea and vomiting. Negative for abdominal pain , blood in stool, constipation, diarrhea. Genitourinary: Negative for dysuria, flank pain, and hematuria. Musculoskeletal: Negative for myalgias, back pain, and neck pain. Skin: Negative for rash. Neurological: Positive for headache. Negative for light-headedness, dizziness, vertigo, syncope, weakness, numbness. Psychiatric/Behavioral: Negative for behavioral problems and confusion. PE: Gen: Alert, NAD, comfortable-appearing, obese HEENT: PERRL, EOMI, MMM, NCAT. No conjunctival pallor. Sclera are non-icteric. CV: Regular rate and rhythm. No murmurs, rubs, or gallops. PULM: No resp distress. CTAB, no wheezes, rales, or rhonchi. ABD: soft, NT/ND, no rebound tenderness or guarding, no CVA tenderness. BACK: No TTP of c/t/l-spine. No step-offs or deformities. MSK: No bony deformities. 2+ pulses in all extremities. NEURO: AAOx3. PERRL. CN 2-12 intact. 5/5 strength in all extremities. Sensation to light touch intact in all extremities. No abnormal nystagmus. EXTREMITIES: No cyanosis. No clubbing. +1 b/l edema. No calf tenderness. PSYCH: Normal mood and thought pattern. SKIN: Warm and dry. Normal capillary refill. No rashes. No jaundice. MDM: 59yo F hx HLD, HTN, COPD, GERD, asthma, anemia, diabetes, obesity, PSVT, and medication noncompliance BIBA for 2-4 weeks of "sinus infection", cough productive of white phlegm, congestion, bitemporal pressure type headache, nausea, vomiting, b/l leg pain and swelling, in addition to 1 day of SOB. Per EMS, pt in SVTs to 180s c/o chest pain in ambulance, SVTs and chest pain resolved s/p 6 adenosine en route, HR to 110s, remained normotensive entire time (168/102, 147/70), BGM 331. Here VSS (initially tachycardic in triage), afebrile, obese, +1 BLE edema, no other concerning PE findings. Ddx: PSVT, medication noncompliance, arrhythmia, ACS/OK (HEART score 3 for age and RFs), PNA, URI, PE (moderate risk, Wells 4.5, PERC not negative), metabolic derangement, anemia, sinus infection, infection, CHF exacerbation -EKG: sinus rhythm with 1st degree AV block, DC interval 224ms, QTc 457ms, no e/ o acute ischemia, no significant changes compared to prior -CXR -Labs including BNP, trop, D-dimer -If D-dimer positive, obtain CTPE to r/o PE -Dispo: likely admit pending w/u 08/27/19 22:26 Signed out to night team pending CXR and labs. Discharge - Discharge Information Problems reviewed: Yes Clinical Impression/Diagnosis: HTN (hypertension), Atypical chest pain, Eloped from emergency department Condition: Stable Disposition: ELOPED - Follow up/Referral - Patient Discharge Instructions - Post Discharge Activity
--- NOTE | 2019-08-27 20:05 | PDOC ---
Attending Attestation - Resident Resident Name: Fay Smith - ED Attending Attestation I have performed the following: I have examined & evaluated the patient, The case was reviewed & discussed with the resident, I agree w/resident's findings & plan - HPI HPI: 08/27/19 21:41 see resident hpi - Physicial Exam PE: 08/27/19 21:41 see resident exam - Medical Decision Making 08/27/19 21:42 59-year-old female with history of SVT and complaints of feeling unwell found to be in SVT on arrival by EMS, responsive to 6 mg of adenosine now in a sinus rhythm with no acute changes on EKG Patient has had shortness of breath, plan for d-dimer as well as troponin/chest x-ray We will admit to medical service for observation at minimum pending results, CTA if indicated
[2019-08-27] MEDS ORDERED: ADENOSINE 6 MG/2 ML VIAL IVPUSH ONE (20:10)
[2019-08-27 22:32] LABS: BASO % 0.8 % (0-2.0); EOS % 0.9 % (0-4.5); HEMATOCRIT 39.6 % (32.4-45.2); HEMOGLOBIN 12.7 GM/dL (10.7-15.3); LYMPH % 38.9 % (8-40); MCH 23.5 pg (25.7-33.7); MCHC 32.1 g/dl (32.0-36.0); MEAN CELL VOLUME 73.1 fl (80-96); MEAN PLT VOLUME 8.5 fl (7.5-11.1); MONO % 5.1 % (3.8-10.2); NEUT % 54.3 % (42.8-82.8); PLATELET COUNT 273 K/MM3 (134-434); RBC 5.42 M/mm3 (3.60-5.2); RDW 15.4 % (11.6-15.6); WHITE BLOOD COUNT 7.8 K/mm3 (4.0-10.0)
[2019-08-27 22:55] LABS: ALBUMIN 3.4 g/dl (3.4-5.0); BILIRUBIN,TOTAL 0.2 mg/dL (0.2-1); BLOOD UREA NITROGEN 16.3 mg/dL (7-18); CALCIUM 9.2 mg/dL (8.5-10.1); CREATININE 0.8 mg/dL (0.55-1.3); POTASSIUM 4.2 mmol/L (3.5-5.1); TOT PROT 7.1 g/dl (6.4-8.2)
[2019-08-27 22:56] LABS: N-TERMINAL BNP 113.9 pg/ml (5-125)
--- NOTE | 2019-08-28 02:11 | PDOC ---
*Physical Exam - Vital Signs Last Vital Signs Temp Pulse Resp BP Pulse Ox 97.3 F L 104 H 18 145/86 99 08/27/19 20:00 08/27/19 20:00 08/27/19 20:00 08/27/19 20:00 08/27/19 20:04 ED Treatment Course - LABORATORY CBC & Chemistry Diagram: 08/27/19 22:20 08/27/19 22:20 - ADDITIONAL ORDERS Additional order review: Laboratory Results 08/27/19 08/27/19 08/27/19 22:20 22:20 22:20 WBC RBC Hgb Hct MCV MCH MCHC RDW Plt Count MPV Absolute Neuts (auto) Neutrophils % Lymphocytes % Monocytes % Eosinophils % Basophils % Nucleated RBC % PTT (Actin FS) D-Dimer 862 H Sodium 136 Potassium 4.2 Chloride 101 Carbon Dioxide 29 Anion Gap 6 L BUN 16.3 Creatinine 0.8 Est GFR (CKD-EPI)AfAm 94.19 Est GFR (CKD-EPI)NonAf 81.27 Random Glucose 231 H Calcium 9.2 Phosphorus 4.4 Magnesium 2.0 Total Bilirubin 0.2 AST 12 L ALT 18 Alkaline Phosphatase 148 H Creatine Kinase Troponin I B-Natriuretic Peptide Total Protein 7.1 Albumin 3.4 Lipase 80 08/27/19 08/27/19 08/27/19 22:20 22:20 22:20 WBC 7.8 RBC 5.42 H Hgb 12.7 Hct 39.6 MCV 73.1 L MCH 23.5 L MCHC 32.1 RDW 15.4 Plt Count 273 MPV 8.5 Absolute Neuts (auto) 4.2 Neutrophils % 54.3 D Lymphocytes % 38.9 D Monocytes % 5.1 D Eosinophils % 0.9 D Basophils % 0.8 Nucleated RBC % 0 PTT (Actin FS) 28.8 D-Dimer Sodium Potassium Chloride Carbon Dioxide Anion Gap BUN Creatinine Est GFR (CKD-EPI)AfAm Est GFR (CKD-EPI)NonAf Random Glucose Calcium Phosphorus Magnesium Total Bilirubin AST ALT Alkaline Phosphatase Creatine Kinase 117 Troponin I 0.02 B-Natriuretic Peptide 113.9 Total Protein Albumin Lipase 08/27/19 22:20 RBC 5.42 H MCV 73.1 L MCHC 32.1 RDW 15.4 MPV 8.5 Neutrophils % 54.3 D Lymphocytes % 38.9 D Monocytes % 5.1 D Eosinophils % 0.9 D Basophils % 0.8 - RADIOLOGY Radiology Studies Ordered: Category Date Time Status DUPLEX VASCUL US-2LEGS [US] Stat Ultrasound 08/28/19 23:04 Taken Discharge - Discharge Information Problems reviewed: Yes Clinical Impression/Diagnosis: HTN (hypertension), Atypical chest pain Condition: Stable - Admission Yes - Follow up/Referral Referrals: Hugo Alarcon [Primary Care Provider] - - Patient Discharge Instructions - Post Discharge Activity
--- NOTE | 2019-08-28 02:20 | HP ---
Admitting History and Physical - Primary Care Physician PCP: Hugo Alarcon - Admission Chief Complaint: SOB, Chest Pain, b/l Leg Swelling, URI symptoms History of Present Illness: This is a 59 y/o woman with a PMhx of HLD, HTN, COPD, GERD, Asthma, Anemia, Diabetes and PSVT. Who presents to the ED via ambulance for 2-4 weeks of "sinus infection", productive cough- white phlegm, congestion, headache, nausea, vomiting, b/l leg pain and swelling, in addition to 1 day of SOB. Per EMS records patient was in SVTs 170 c/o chest pain was given 6 adenosine en route. On arrival to the ED the patient remained normotensive. Patient admits to not taking her "heart medications" all the time, because she gets them mixed up. Patient reports that the CP resolved. Patient denies fever, AP, diarrhea, melena , hematochezia, dysuria History Source: Patient Limitations to Obtaining History: Poor Historian - Past Medical History Cardiovascular: Yes: HTN, Hyperlipdemia, Other (PSVT) Pulmonary: Yes: COPD Endocrine: Yes: Diabetes Mellitus - Smoking History Smoking history: Former smoker Have you smoked in the past 12 months: Yes Aproximately how many cigarettes per day: 4 If you are a former smoker, when did you quit?: 06/08/2019 - Alcohol/Substance Use Hx Alcohol Use: Yes (socailly) - Social History Usual Living Arrangement: Yes: Other (Homeless- lives in a Jail) ADL: Support Services History of Recent Travel: No Home Medications - Allergies Allergies/Adverse Reactions: Allergies Allergy/AdvReac Type Severity Reaction Status Date / Time No Known Allergies Allergy Verified 08/27/19 20:03 - Home Medications Home Medications: Ambulatory Orders Atorvastatin Ca [Lipitor] 20 mg PO HS 01/20/18 metFORMIN HCL [Metformin ER Gastric] 1,000 mg PO BID 01/20/18 Aspirin [ASA -] 81 mg PO DAILY 06/18/19 Canagliflozin [Invokana] 100 mg PO DAILY 06/18/19 Fluticasone/Umeclidin/Vilanter [Trelegy Ellipta 100-62.5-25] 1 puff IH DAILY 05/27 Insulin Glargine,Hum.rec.anlog [Queenie Alvarez] 36 unit SQ DAILY 06/18/19 Pregabalin [Lyrica -] 50 mg PO TID 06/18/19 Semaglutide [Ozempic] 0.5 mg SQ WEEKLY 06/18/19 Valsartan 160 mg PO DAILY 06/18/19 Albuterol Sulfate [Proair Hfa] 2 puff IH Q4H 07/25/19 Cyclobenzaprine HCl 7.5 mg PO BID 07/25/19 Diltiazem Cd [Cardizem Cd -] 120 mg PO DAILY 07/25/19 Gabapentin 400 mg PO TID 07/25/19 Insulin Glulisine [Apidra] 10 units IM TID 07/25/19 Azithromycin 250 mg PO DAILY #3 tablet 07/26/19 Cefpodoxime Proxetil [Vantin (Nf) -] 200 mg PO BID #6 tablet 07/26/19 Docusate Sodium [Colace] 100 mg PO BID 30 Days #60 capsule 07/26/19 Ferrous Sulfate 325 mg PO BID 30 Days #60 tablet 07/26/19 predniSONE [Deltasone -] 40 mg PO DAILY 3 Days #6 tablet 07/26/19 Family Medical History Family History: Unable to Obtain Review of Systems - Review of Systems Constitutional: reports: Chills Cardiovascular: reports: Chest Pain, Edema, Shortness of Breath Respiratory: reports: SOB Physical Examination Vital Signs: Vital Signs Temperature 97.3 F L 08/27/19 20:00 Pulse Rate 104 H 08/27/19 20:00 Respiratory Rate 18 08/27/19 20:00 Blood Pressure 145/86 08/27/19 20:00 O2 Sat by Pulse Oximetry (%) 99 08/27/19 20:04 Constitutional: Yes: Well Nourished, No Distress, Calm, Obese Eyes: Yes: WNL, Conjunctiva Clear, EOM Intact, PERRL HENT: Yes: WNL, Atraumatic, Normocephalic Neck: Yes: WNL, Supple, Trachea Midline Cardiovascular: Yes: Regular Rate and Rhythm, S1, S2 Respiratory: Yes: Cough, Diminished Gastrointestinal: Yes: WNL, Normal Bowel Sounds, Soft, Abdomen, Obese ...Rectal Exam: Yes: Deferred Renal/: Yes: WNL Breast(s): Yes: WNL Musculoskeletal: Yes: WNL Extremities: Yes: WNL Edema: Yes Edema: LLE: 1+, RLE: 1+ Peripheral Pulses WNL: Yes Neurological: Yes: WNL, Alert, Oriented, Cran Nerves II-XII Intact ...Motor Strength: WNL Psychiatric: Yes: WNL, Alert, Oriented Labs: CBC, BMP 08/27/19 22:20 08/27/19 22:20 Laboratory Results - last 24 hr 08/27/19 08/27/19 08/27/19 22:20 22:20 22:20 WBC 7.8 RBC 5.42 H Hgb 12.7 Hct 39.6 MCV 73.1 L MCH 23.5 L MCHC 32.1 RDW 15.4 Plt Count 273 MPV 8.5 Absolute Neuts (auto) 4.2 Neutrophils % 54.3 D Lymphocytes % 38.9 D Monocytes % 5.1 D Eosinophils % 0.9 D Basophils % 0.8 Nucleated RBC % 0 PTT (Actin FS) 28.8 D-Dimer Sodium Potassium Chloride Carbon Dioxide Anion Gap BUN Creatinine Est GFR (CKD-EPI)AfAm Est GFR (CKD-EPI)NonAf Random Glucose Calcium Phosphorus Magnesium Total Bilirubin AST ALT Alkaline Phosphatase Creatine Kinase 117 Troponin I 0.02 B-Natriuretic Peptide 113.9 Total Protein Albumin Lipase 08/27/19 08/27/19 08/27/19 22:20 22:20 22:20 WBC RBC Hgb Hct MCV MCH MCHC RDW Plt Count MPV Absolute Neuts (auto) Neutrophils % Lymphocytes % Monocytes % Eosinophils % Basophils % Nucleated RBC % PTT (Actin FS) D-Dimer 862 H Sodium 136 Potassium 4.2 Chloride 101 Carbon Dioxide 29 Anion Gap 6 L BUN 16.3 Creatinine 0.8 Est GFR (CKD-EPI)AfAm 94.19 Est GFR (CKD-EPI)NonAf 81.27 Random Glucose 231 H Calcium 9.2 Phosphorus 4.4 Magnesium 2.0 Total Bilirubin 0.2 AST 12 L ALT 18 Alkaline Phosphatase 148 H Creatine Kinase Troponin I B-Natriuretic Peptide Total Protein 7.1 Albumin 3.4 Lipase 80 Intake & Output 08/25/19 08/26/19 08/27/19 08/28/19 23:59 23:59 23:59 23:59 Weight 108.862 kg Imaging - Results Chest X-ray: Image Reviewed Cat Scan: Pending Ultrasound: Report Reviewed, Image Reviewed EKG: Image Reviewed Problem List - Problems (1) Atypical chest pain Code(s): R07.89 - OTHER CHEST PAIN (2) SVT (supraventricular tachycardia) Code(s): I47.1 - SUPRAVENTRICULAR TACHYCARDIA (3) Asthma Code(s): J45.909 - UNSPECIFIED ASTHMA, UNCOMPLICATED (4) GERD (gastroesophageal reflux disease) Code(s): K21.9 - GASTRO-ESOPHAGEAL REFLUX DISEASE WITHOUT ESOPHAGITIS (5) Diabetes mellitus Code(s): E11.9 - TYPE 2 DIABETES MELLITUS WITHOUT COMPLICATIONS (6) COPD (chronic obstructive pulmonary disease) Code(s): J44.9 - CHRONIC OBSTRUCTIVE PULMONARY DISEASE, UNSPECIFIED (7) HTN (hypertension) Code(s): I10 - ESSENTIAL (PRIMARY) HYPERTENSION (8) Anemia Code(s): D64.9 - ANEMIA, UNSPECIFIED Assessment/Plan This is a 59 y/o woman with a PMhx of HLD, HTN, COPD, GERD, Asthma, Anemia, Diabetes and PSVT. Admitted to Telemetry for SVT, Chest Pain for further evaluation of their emergent condition. Plan: Admit Telemetry SVT Likely due to medication non-compliance vs PE Counseled patient on the importance of medication adherence, she verbalized understanding Continue cardiac monitoring Serial Enzymes Mg 2.0 Phos 4.4 EKG- SR with 1st degree AV block, septal infarct, age undetermined Appreciate Cardiology consult Appreciate Pulmonology consult Continue home meds Echo- 06/2019- mod concentric lvh, lvsf-nl, EF 50-55%, mild tr, no pericardial effusion PERC- 2 Wells Score- 4.5 dDimer 862, prior 950 CTA-pending r/o PE Duplex b/l LE- neg for DVT, +b/l popliteal cysts 5.1- Right, 4.7- Left O2 FEN- Po fluids as tolerated, replete lytes prn, Low Na, Diabetic Diet DVT ppx- OOB, SCDs, Heparin SQ Dispo: Requires Inpatient Care Visit type - Emergency Visit Emergency Visit: Yes ED Registration Date: 08/27/19 Care time: The patient presented to the Emergency Department on the above date and was hospitalized for further evaluation of their emergent condition. - New Patient This patient is new to me today: Yes Date on this admission: 08/28/19 - Critical Care Critical Care patient: No
[2019-08-28] MEDS ORDERED: ALBUTEROL SO4 0.083% IH SOL 2.5 MG/3 ML VIAL.NEB. NEB PRN (07:00)
[2019-08-28] MEDS ORDERED: GABAPENTIN 100 MG CAPSULE ONE ×3 (07:09→23:13)
[2019-08-28] MEDS: PREGABALIN 50 MG CAPSULE PO SCH ×3 (07:13→23:43)
[2019-08-28] MEDS: GABAPENTIN 400 MG CAPSULE PO SCH ×3 (07:13→23:43)
[2019-08-28] MEDS: DOCUSATE SODIUM 100 MG CAPSULE (FP) PO SCH ×2 (09:34→23:43)
[2019-08-28] MEDS: HEPARIN NA (PORCINE) 5,000 UNITS/ML 1ML VIAL SQ SCH ×2 (09:35→23:43)
[2019-08-28] MEDS ORDERED: VALSARTAN 160 MG TABLET (UD) PO SCH (10:00)
[2019-08-28] MEDS ORDERED: ASPIRIN 81 MG CHEWABLE TABLETS PO SCH (10:00)
--- NOTE | 2019-08-28 12:14 | CON.PULM ---
Consult Consult Specialty:: PULM/CCM Referred by:: Hospitalist Reason for Consultation:: SOB - History of Present Illness Chief Complaint: SOB History of Present Illness: 58 F, HPL, COPD due to active smoking, history of OSAS (not on treatment as she lives in a custodial and cannot have a CPAP device there), diagnosed about 10 years ago in [place], DM, GERD, and Anemia. Patient lives in a custodial. Admitted via the ER due to acute onset and CP with associated SOB. No productive cough. No travel history but reports a few potential sick contacts since she lives at the custodial. No night sweats or hemoptysis. CTA: No PE , minimal right base atelectasis (chronic) - History Source History Provided By: Patient Limitations to Obtaining History: No Limitations - Past Medical History Cardio/Vascular: Yes: HTN, Hyperlipdemia, Other (PSVT) Pulmonary: Yes: Bronchitis, COPD, Pneumonia, Sleep Apnea. No: Asthma, Cancer, O2 Dependent, Previously Intubated, Pulmonary Embolus, Pulmonary Fibrosis Endocrine: Yes: Diabetes Mellitus - Alcohol/Substance Use Hx Alcohol Use: Yes (socailly) - Smoking History Smoking history: Former smoker Have you smoked in the past 12 months: Yes Aproximately how many cigarettes per day: 4 If you are a former smoker, when did you quit?: 06/08/2019 - Social History ADL: Support Services History of Recent Travel: No Home Medications - Allergies Allergies/Adverse Reactions: Allergies Allergy/AdvReac Type Severity Reaction Status Date / Time No Known Allergies Allergy Verified 08/27/19 20:03 - Home Medications Home Medications: Ambulatory Orders Atorvastatin Ca [Lipitor] 20 mg PO HS 01/20/18 metFORMIN HCL [Metformin ER Gastric] 1,000 mg PO BID 01/20/18 Aspirin [ASA -] 81 mg PO DAILY 06/18/19 Canagliflozin [Invokana] 100 mg PO DAILY 06/18/19 Fluticasone/Umeclidin/Vilanter [Trelegy Ellipta 100-62.5-25] 1 puff IH DAILY 05/27 Insulin Glargine,Hum.rec.anlog [Queenie Solelizabeth] 36 unit SQ DAILY 06/18/19 Pregabalin [Lyrica -] 50 mg PO TID 06/18/19 Semaglutide [Ozempic] 0.5 mg SQ WEEKLY 06/18/19 Valsartan 160 mg PO DAILY 06/18/19 Albuterol Sulfate [Proair Hfa] 2 puff IH Q4H 07/25/19 Cyclobenzaprine HCl 7.5 mg PO BID 07/25/19 Diltiazem Cd [Cardizem Cd -] 120 mg PO DAILY 07/25/19 Gabapentin 400 mg PO TID 07/25/19 Insulin Glulisine [Apidra] 10 units IM TID 07/25/19 Azithromycin 250 mg PO DAILY #3 tablet 07/26/19 Cefpodoxime Proxetil [Vantin (Nf) -] 200 mg PO BID #6 tablet 07/26/19 Docusate Sodium [Colace] 100 mg PO BID 30 Days #60 capsule 07/26/19 Ferrous Sulfate 325 mg PO BID 30 Days #60 tablet 07/26/19 predniSONE [Deltasone -] 40 mg PO DAILY 3 Days #6 tablet 07/26/19 Review of Systems - Review of Systems Constitutional: denies: Chills, Fever, Unintentional Wgt. Loss Eyes: reports: No Symptoms HENT: reports: No Symptoms Neck: reports: No Symptoms Cardiovascular: reports: Shortness of Breath. denies: Chest Pain, Edema, Palpitations Respiratory: reports: Cough, Snoring, SOB on Exertion. denies: Hemoptysis, Orthopnea, PND, SOB, Wheezing Gastrointestinal: reports: No Symptoms Genitourinary: reports: No Symptoms Breasts: reports: No Symptoms Reported Musculoskeletal: reports: No Symptoms Integumentary: reports: No Symptoms Neurological: reports: Headache. denies: Change in Speech, Dizziness, Seizure, Syncope Endocrine: reports: No Symptoms Hematology/Lymphatic: reports: No Symptoms Psychiatric: reports: No Symptoms Physical Exam Vital Sings: Vital Signs Temperature 97.5 F L 08/28/19 08:08 Pulse Rate 78 08/28/19 08:08 Respiratory Rate 18 08/28/19 08:08 Blood Pressure 136/85 08/28/19 08:08 O2 Sat by Pulse Oximetry (%) 97 08/28/19 08:08 Constitutional: Yes: No Distress, Calm, Obese Eyes: Yes: Conjunctiva Clear, EOM Intact HENT: Yes: Atraumatic, Normocephalic, Thrush Neck: Yes: Trachea Midline Cardiovascular: Yes: Regular Rate and Rhythm Respiratory: Yes: Diminished. No: Accessory Muscle Use, Rales, Rhonchi, SOB, SOB on Exertion, Stridor, Tachypnea, Wheezes ...Inspection: Yes: WNL ...Clubbing: No Gastrointestinal: Yes: Normal Bowel Sounds, Soft, Abdomen, Obese Musculoskeletal: Yes: WNL Extremities: Yes: WNL Edema: No Peripheral Pulses WNL: Yes Integumentary: Yes: WNL Neurological: Yes: WNL, Alert, Oriented, Pre-Existing Deficit ...Motor Strength: WNL Psychiatric: Yes: WNL, Alert, Oriented Labs: CBC, BMP 08/27/19 22:20 08/27/19 22:20 Imaging - Results Cat Scan: Report Reviewed, Image Reviewed Problem List - Problems (1) DANIELA (obstructive sleep apnea) Code(s): G47.33 - OBSTRUCTIVE SLEEP APNEA (ADULT) (PEDIATRIC) (2) Morbid obesity Code(s): E66.01 - MORBID (SEVERE) OBESITY DUE TO EXCESS CALORIES (3) Atypical chest pain Code(s): R07.89 - OTHER CHEST PAIN (4) Diabetes mellitus Code(s): E11.9 - TYPE 2 DIABETES MELLITUS WITHOUT COMPLICATIONS (5) GERD (gastroesophageal reflux disease) Code(s): K21.9 - GASTRO-ESOPHAGEAL REFLUX DISEASE WITHOUT ESOPHAGITIS (6) HTN (hypertension) Code(s): I10 - ESSENTIAL (PRIMARY) HYPERTENSION (7) Anemia Code(s): D64.9 - ANEMIA, UNSPECIFIED (8) COPD (chronic obstructive pulmonary disease) Code(s): J44.9 - CHRONIC OBSTRUCTIVE PULMONARY DISEASE, UNSPECIFIED (9) Atelectasis of right lung Code(s): J98.11 - ATELECTASIS Assessment/Plan BD TX PRN Monitor off systemic steroids Monitor off ABX No smoking was counseled VTE prophylaxis Sleep screen PFTs as an outpatient Will follow Thank you. Dr Kat DANIELA Screen - DANIELA History Previously diagnosed with Sleep Apnea: Yes If Yes, currently using CPAP to treat your DANIELA: No - SNORING Do you snore loudly (enough to be heard thru closed doors)?: Yes - TIRED Do you often feel tired, fatigued, or sleepy during daytime?: Yes - OBSERVED Has anyone observed you stop breathing during your sleep?: Yes - BLOOD PRESSURE Do you have or are being treated for high blood pressure?: Yes - BMI Answer Y if weight exceeds amount listed for your height: Yes .: HEIGHT & WEIGHT (lbs): 4'10" 167lbs; 4'11" 175 lbs; 5'0" 179lbs;. 5 '1" 185lbs; 5'2" 191lbs; 5'3" 197lbs;. 5'4" 204lbs; 5'5" 210lbs; 5'6" 216lbs;. 5'7" 223lbs; 58" 230lbs; 5'9" 237lbs;. 5'10" 243lbs ; 511" 250lbs; 6' 258lbs;. 6'1" 265lbs; 6'2" 272lbs; 6'3" 279lbs ;. 6'4" 287lbs; 6'5" 295lbs - AGE Is your age over 50 yrs old?: Yes - NECK CIRCUMFERENCE Neck Circumference 40cm: Yes - GENDER Male: No - SCORE Total Score: 7 Score Interpretation: High Risk of DANIELA .: Interpretation: Score 0-2: Low Risk DANIELA. Score 3-4: Intermediate Risk DANIELA. Score 5-8: High Risk DANIELA
--- NOTE | 2019-08-28 12:54 | CON.CARD ---
Consult Consult Specialty:: Cardiology Referred by:: Felix Reason for Consultation:: Palpitations and chest discomfort - History of Present Illness Chief Complaint: Shortness of breath History of Present Illness: The patient is a 59-year-old obese female, who lives in a fdc, smoker, history of diabetes, hypertension, COPD, obstructive sleep apnea (not on CPAP because of the fdc), PSVT's, now presenting with shortness of breath and fatigue and palpitations. EMS was called. They found the patient with a heart rate of 170 bpm, SVT noted. The patient received adenosine which broke the arrhythmia. The patient is currently in mild respiratory distress. In sinus rhythm denies chest pains and palpitations.. - History Source History Provided By: Patient, Medical Record Limitations to Obtaining History: No Limitations - Past Medical History Cardio/Vascular: Yes: HTN, Hyperlipdemia, Other (PSVT) Pulmonary: Yes: Bronchitis, COPD, Pneumonia, Sleep Apnea. No: Asthma, Cancer, O2 Dependent, Previously Intubated, Pulmonary Embolus, Pulmonary Fibrosis Endocrine: Yes: Diabetes Mellitus - Alcohol/Substance Use Hx Alcohol Use: Yes (socailly) - Smoking History Smoking history: Former smoker Have you smoked in the past 12 months: Yes Aproximately how many cigarettes per day: 4 If you are a former smoker, when did you quit?: 06/08/2019 - Social History ADL: Support Services History of Recent Travel: No Home Medications - Allergies Allergies/Adverse Reactions: Allergies Allergy/AdvReac Type Severity Reaction Status Date / Time No Known Allergies Allergy Verified 08/27/19 20:03 - Home Medications Home Medications: Ambulatory Orders Atorvastatin Ca [Lipitor] 20 mg PO HS 01/20/18 metFORMIN HCL [Metformin ER Gastric] 1,000 mg PO BID 01/20/18 Aspirin [ASA -] 81 mg PO DAILY 06/18/19 Canagliflozin [Invokana] 100 mg PO DAILY 06/18/19 Fluticasone/Umeclidin/Vilanter [Trelegy Ellipta 100-62.5-25] 1 puff IH DAILY 05/27 Insulin Glargine,Hum.rec.anlog [Queenie Alvarez] 36 unit SQ DAILY 06/18/19 Pregabalin [Lyrica -] 50 mg PO TID 06/18/19 Semaglutide [Ozempic] 0.5 mg SQ WEEKLY 06/18/19 Valsartan 160 mg PO DAILY 06/18/19 Albuterol Sulfate [Proair Hfa] 2 puff IH Q4H 07/25/19 Cyclobenzaprine HCl 7.5 mg PO BID 07/25/19 Diltiazem Cd [Cardizem Cd -] 120 mg PO DAILY 07/25/19 Gabapentin 400 mg PO TID 07/25/19 Insulin Glulisine [Apidra] 10 units IM TID 07/25/19 Azithromycin 250 mg PO DAILY #3 tablet 07/26/19 Cefpodoxime Proxetil [Vantin (Nf) -] 200 mg PO BID #6 tablet 07/26/19 Docusate Sodium [Colace] 100 mg PO BID 30 Days #60 capsule 07/26/19 Ferrous Sulfate 325 mg PO BID 30 Days #60 tablet 07/26/19 predniSONE [Deltasone -] 40 mg PO DAILY 3 Days #6 tablet 07/26/19 Review of Systems - Review of Systems Constitutional: reports: Malaise Eyes: reports: No Symptoms HENT: reports: No Symptoms Neck: reports: No Symptoms Cardiovascular: reports: Palpitations Respiratory: reports: SOB Gastrointestinal: reports: No Symptoms Genitourinary: reports: No Symptoms Breasts: reports: No Symptoms Reported Musculoskeletal: reports: No Symptoms Integumentary: reports: No Symptoms Neurological: reports: No Symptoms Endocrine: reports: No Symptoms Hematology/Lymphatic: reports: No Symptoms Vital Signs: Vital Signs Temperature 97.5 F L 08/28/19 08:08 Pulse Rate 78 08/28/19 08:08 Respiratory Rate 18 08/28/19 08:08 Blood Pressure 136/85 08/28/19 08:08 O2 Sat by Pulse Oximetry (%) 97 08/28/19 08:08 Constitutional: Yes: Anxious, Obese Eyes: Yes: WNL, Conjunctiva Clear, EOM Intact HENT: Yes: WNL, Atraumatic, Normocephalic Neck: Yes: WNL, Supple, Trachea Midline Respiratory: Yes: CTA Bilaterally, Accessory Muscle Use Gastrointestinal: Yes: WNL, Normal Bowel Sounds, Soft Renal/: Yes: WNL Cardiovascular: Yes: WNL, Regular Rate and Rhythm JVD: No Carotid Bruit: No PMI: Non-Displaced Heart Sounds: Yes: S1, S2 Murmur: Yes: Systolic Murmur, Grade 2 Musculoskeletal: Yes: WNL Extremities: Yes: WNL Edema: No Peripheral Pulses WNL: Yes Integumentary: Yes: WNL Neurological: Yes: WNL, Alert, Oriented ...Motor Strength: WNL - Other Data Labs, Other Data: CBC, BMP 08/27/19 22:20 08/27/19 22:20 Troponin, BNP 08/27/19 22:20 Troponin I 0.02 B-Natriuretic Peptide 113.9 Troponin, BNP 08/27/19 22:20 Troponin I 0.02 B-Natriuretic Peptide 113.9 Assessment/Plan Ronni PRN.59-year-old female, obese, resides in a fdc, active smoker, history of diabetes, hypertension, COPD, obstructive sleep apnea, PSVT's, now presenting with URI symptoms, cough, shortness of breath, and recurrent PSVT which broke with adenosine. The patient is currently in sinus rhythm. There is no evidence of ischemia nor acute coronary syndrome. No CHF. Please stop Cardizem. Start Toprol-XL 50 mg daily. Continue the other medications as currently. Please arrange for an outpatient follow-up visit with for possible ambulatory monitoring. Please do not hesitate to call us PRN
[2019-08-28] MEDS ORDERED: PREGABALIN 50 MG CAPSULE ONE ×2 (14:10→23:13)
--- NOTE | 2019-08-28 14:14 | EKG ---
Test Reason : Blood Pressure : / mmHG Vent. Rate : 095 BPM Atrial Rate : 095 BPM P-R Int : 224 ms QRS Dur : 100 ms QT Int : 364 ms P-R-T Axes : 069 021 059 degrees QTc Int : 457 ms SINUS RHYTHM WITH 1ST DEGREE A-V BLOCK SEPTAL INFARCT (CITED ON OR BEFORE 18-JUL-2018) ABNORMAL ECG WHEN COMPARED WITH ECG OF 24-JUL-2019 11:16, NO SIGNIFICANT CHANGE WAS FOUND Confirmed by SHELIA DONAHUE MD ([id number]) on 08/28/2019 2:14:30 PM Referred By: Confirmed By:SHELIA DONAHUE MD
--- NOTE | 2019-08-28 15:23 | PN ---
Progress Note, Physician Chief Complaint: feels dizzy and lightheaded feels congested nasally wants to speak to social psychologist History of Present Illness: 59 year old female with PMH HTN, HLD, COPD, GERD, Anemia, DM, PSVT presents to the ED with episode SVT, in ambulance was HR 170, given adenosine. Lives in custodial. - Current Medication List Current Medications: Active Medications Albuterol Sulfate (Ventolin 0.083% Nebulizer Soln -) 1 amp NEB Q6H PRN PRN Reason: SHORT OF BREATH/WHEEZING Aspirin (Asa -) 81 mg PO DAILY [facility] Last Admin: 08/28/19 09:34 Dose: 81 mg Atorvastatin Calcium (Lipitor -) 20 mg PO HS [facility] Docusate Sodium (Colace -) 100 mg PO BID [facility] Last Admin: 08/28/19 09:34 Dose: 100 mg Ferrous Sulfate (Feosol -) 325 mg PO BIDWM [facility] Fluticasone Propionate (Flonase -) 1 spray NS BID [facility] Gabapentin (Neurontin -) 400 mg PO TID [facility] Last Admin: 08/28/19 14:11 Dose: 400 mg Heparin Sodium (Porcine) (Heparin -) 5,000 unit SQ BID [facility] Last Admin: 08/28/19 09:35 Dose: 5,000 unit Metoprolol Succinate (Toprol Xl -) 50 mg PO DAILY [facility] Non-Formulary Medication (Fluticasone/Umeclidin/Vilanter [Trelegy Ellipta 100- 62.5-25]) 1 puff IH DAILY [facility] Pregabalin (Lyrica -) 50 mg PO TID [facility] Last Admin: 08/28/19 14:15 Dose: Not Given Valsartan (Diovan -) 160 mg PO DAILY [facility] Last Admin: 08/28/19 09:35 Dose: 160 mg - Objective Vital Signs: Vital Signs Temperature 97.5 F L 08/28/19 08:08 Pulse Rate 78 08/28/19 08:08 Respiratory Rate 18 08/28/19 08:08 Blood Pressure 136/85 08/28/19 08:08 O2 Sat by Pulse Oximetry (%) 97 08/28/19 08:08 Constitutional: Yes: Well Nourished Neck: Yes: Supple Cardiovascular: Yes: Regular Rate and Rhythm Respiratory: Yes: Regular Gastrointestinal: Yes: Normal Bowel Sounds Musculoskeletal: Yes: Muscle Pain Integumentary: Yes: WNL Neurological: Yes: Alert, Oriented Labs: CBC, BMP 08/27/19 22:20 08/27/19 22:20 Problem List - Problems (1) Atypical chest pain Assessment/Plan: cardiology consult appreciated stop cardizem, start toprol xl monitor on telemetry echo 06/2019 reviewed compliance with medications needs to be stressed Code(s): R07.89 - OTHER CHEST PAIN (2) Diabetes mellitus Assessment/Plan: check a1c add glucose monitoring Code(s): E11.9 - TYPE 2 DIABETES MELLITUS WITHOUT COMPLICATIONS Qualifiers: Diabetes mellitus type: type 2 (3) GERD (gastroesophageal reflux disease) Code(s): K21.9 - GASTRO-ESOPHAGEAL REFLUX DISEASE WITHOUT ESOPHAGITIS (4) Morbid obesity Assessment/Plan: celery stripper eval Code(s): E66.01 - MORBID (SEVERE) OBESITY DUE TO EXCESS CALORIES (5) DANIELA (obstructive sleep apnea) Assessment/Plan: outpatient pfts Code(s): G47.33 - OBSTRUCTIVE SLEEP APNEA (ADULT) (PEDIATRIC) (6) SVT (supraventricular tachycardia) Assessment/Plan: rhythm broke monitor cardio eval appreciated Code(s): I47.1 - SUPRAVENTRICULAR TACHYCARDIA (7) HTN (hypertension) Assessment/Plan: cont home meds Code(s): I10 - ESSENTIAL (PRIMARY) HYPERTENSION (8) Anemia Assessment/Plan: work up ordered iron profile stool occult Code(s): D64.9 - ANEMIA, UNSPECIFIED
[2019-08-28] MEDS: INSULIN (NOVOLOG) ASPART 100 UNITS/ML 10ML VIAL SQ SCH ×3 (15:59→16:30)
[2019-08-28] MEDS ORDERED: INSULIN (NOVOLOG) ASPART 100 UNITS/ML 10ML VIAL ONE (16:22)
[2019-08-28] MEDS ORDERED: metFORMIN HCL 500 MG TABLET (FP) ONE (16:22)
[2019-08-28] MEDS ORDERED: FERROUS SO4 325 MG TABLET (FP) ONE (16:25)
[2019-08-28] MEDS ORDERED: INSULIN (NOVOLOG) ASPART 100 UNITS/ML 10ML VIAL SQ SCH (16:30)
[2019-08-28] MEDS ORDERED: FERROUS SO4 325 MG TABLET (FP) PO SCH (17:30)
[2019-08-28] MEDS ORDERED: FLUTICASONE PROP 0.05% 16 GM NASAL SPRAY NS SCH (22:00)
[2019-08-28] MEDS ORDERED: ATORVASTATIN CA 40 MG TABLET (FP) PO SCH (22:00)
[2019-08-28] MEDS ORDERED: DOCUSATE SODIUM 100 MG CAPSULE (FP) PO ONE (23:13)
[2019-08-28] MEDS ORDERED: ATORVASTATIN CA 20 MG TABLET (FP) ONE (23:13)
[2019-08-28] MEDS ORDERED: HEPARIN NA (PORCINE) 5,000 UNITS/ML 1ML VIAL ONE (23:14)
[2019-08-29 02:43] VITALS: TEMP 98.2
[2019-08-29 06:30] VITALS: BP 146/74; PULSE 62
[2019-08-29] MEDS ORDERED: INSULIN (LEVEMIR) 100 UNITS/ML UNITS SQ SCH (07:00)
[2019-08-29] MEDS: GABAPENTIN 400 MG CAPSULE PO SCH (07:40)
[2019-08-29] MEDS: PREGABALIN 50 MG CAPSULE PO SCH (07:41)
[2019-08-29] MEDS ORDERED: PREGABALIN 50 MG CAPSULE ONE (07:42)
--- NOTE | 2019-08-29 09:41 | PN ---
Progress Note (short form) - Note Progress Note: Informed by JESICA Norris that patient eloped from ER. Informed that prior to eloping patient was being non-compliant refusing lab work to be drawn and agitated toward staff. As per RN she says she wanted to leave and did not want to wait to be evaluated by MD/PAGE MAKEUP SYSTEM OPERATOR. Patient left ER before being seen and evaluated by medical team.
--- NOTE | 2019-08-29 09:43 | DS ---
Physical Examination Vital Signs: Vital Signs Temperature 98.2 F 08/29/19 02:40 Pulse Rate 62 08/29/19 06:28 Respiratory Rate 20 08/29/19 06:28 Blood Pressure 146/74 08/29/19 06:28 O2 Sat by Pulse Oximetry (%) 93 L 08/29/19 06:28 Findings/Remarks: Patient was not evaluated by myself, she eloped from ER before being evaluated. As per RN patient was being non-compliant refusing lab work and was agitated toward staff. She wanted to leave and did not want to wait to be evaluated by provider from medical team and eloped. Labs: CBC, BMP 08/27/19 22:20 08/27/19 22:20 Discharge Summary Problems reviewed: Yes Reason For Visit: ATYPICAL CHEST PAIN, HYPERTENSION Condition: Stable - Instructions Referrals: Hugo Alarcon [Primary Care Provider] - Disposition: ELOPED - Home Medications Comprehensive Discharge Medication List: Ambulatory Orders Atorvastatin Ca [Lipitor] 20 mg PO HS 01/20/18 metFORMIN HCL [Metformin ER Gastric] 1,000 mg PO BID 01/20/18 Aspirin [ASA -] 81 mg PO DAILY 06/18/19 Canagliflozin [Invokana] 100 mg PO DAILY 06/18/19 Fluticasone/Umeclidin/Vilanter [Trelegy Ellipta 100-62.5-25] 1 puff IH DAILY 05/27 Insulin Glargine,Hum.rec.anlog [Touashutosho Solostar] 36 unit SQ DAILY 06/18/19 Pregabalin [Lyrica -] 50 mg PO TID 06/18/19 Semaglutide [Ozempic] 0.5 mg SQ WEEKLY 06/18/19 Valsartan 160 mg PO DAILY 06/18/19 Albuterol Sulfate [Proair Hfa] 2 puff IH Q4H 07/25/19 Cyclobenzaprine HCl 7.5 mg PO BID 07/25/19 Diltiazem Cd [Cardizem Cd -] 120 mg PO DAILY 07/25/19 Gabapentin 400 mg PO TID 07/25/19 Insulin Glulisine [Apidra] 10 units IM TID 07/25/19 Azithromycin 250 mg PO DAILY #3 tablet 07/26/19 Cefpodoxime Proxetil [Vantin (Nf) -] 200 mg PO BID #6 tablet 07/26/19 Docusate Sodium [Colace] 100 mg PO BID 30 Days #60 capsule 07/26/19 Ferrous Sulfate 325 mg PO BID 30 Days #60 tablet 07/26/19 predniSONE [Deltasone -] 40 mg PO DAILY 3 Days #6 tablet 07/26/19
[2019-08-29] MEDS ORDERED: PATIENT'S OWN MEDICATION (NON-FORMULARY) (Canagliflozin [Invokana] 100 MG) PO SCH (10:00)
== END 2019-08-29 09:00 | disposition left against medical advice (07) | DRG 309 ==
LOC: JER 19:34 → JERBED 08-28 02:11
PROVIDERS: ADMIT Internal Medicine; ATTEND Family Medicine
DX: I47.1 Supraventricular tachycardia (principal); J98.11 Atelectasis; R07.89 Other chest pain; I10 Essential (primary) hypertension; E78.5 Hyperlipidemia, unspecified; K21.9 Gastro-esophageal reflux disease without esophagitis; E11.9 Type 2 diabetes mellitus without complications; E66.01 Morbid (severe) obesity due to excess calories; Z68.39 Body mass index [BMI] 39.0-39.9, adult; G47.33 Obstructive sleep apnea (adult) (pediatric); D64.9 Anemia, unspecified; Z91.14 Patient's other noncompliance with medication regimen; J06.9 Acute upper respiratory infection, unspecified; J45.909 Unspecified asthma, uncomplicated; F17.210 Nicotine dependence, cigarettes, uncomplicated; J44.9 Chronic obstructive pulmonary disease, unspecified; Z59.0 Homelessness
CPT/HCPCS: 36415; 71045-TC-FY; 71275-TC; 80053; 82550; 82962; 83690; 83735; 83880; 84100; 84484; 85025; 85379; 85730; 93005; 93010; 93970-TC; 99285-25; J1644; Q9967

== ENCOUNTER 2021-12-12 12:16 | Emergency (ER) | payer OTHER ==
[2021-12-12 13:05] VITALS: TEMP 97.3; BMI 44.3
[2021-12-12] MEDS ORDERED: ACETAMINOPHEN 1000 MG/100 ML BAG IVPB ONE (16:55)
[2021-12-12] MEDS ORDERED: SODIUM CHLORIDE 0.9% 500 ML INFUS.BAG IV ONE (16:55)
[2021-12-12] MEDS ORDERED: FAMOTIDINE 20 MG/50 ML IVPB 20 MG/50 ML MG IVPB ONE (16:55)
[2021-12-12 18:04] LABS: BASO % 0.4 % (0-2.0); EOS % 1.2 % (0-4.5); HEMATOCRIT 36.7 % (32.4-45.2); HEMOGLOBIN 11.5 GM/dL (10.7-15.3); LYMPH % 32.8 % (8-40); MCH 22.6 pg (25.7-33.7); MCHC 31.4 g/dl (32.0-36.0); MEAN CELL VOLUME 71.9 fl (80-96); MEAN PLT VOLUME 8.1 fl (7.5-11.1); MONO % 4.6 % (3.8-10.2); PLATELET COUNT 248 10^3/uL (134-434)
[2021-12-12 18:08] LABS: EPI CELLS 32 /uL (0-25.1); HYALINE CASTS 2 /uL (0-3.1); URINE APPEARANCE CLEAR; URINE BACTERIA 667 /uL (0-1359); URINE BILIRUBIN NEGATIVE (NEGATIVE); URINE COLOR YELLOW; URINE GLUCOSE (UA) NEGATIVE (NEGATIVE); URINE KETONE NEGATIVE (NEGATIVE); URINE LEUK ESTERASE 1+ (NEGATIVE); URINE NITRITE NEGATIVE (NEGATIVE); URINE PROTEIN TRACE (NEGATIVE); URINE WBC 68 /uL (0-25.8)
[2021-12-12 18:30] LABS: ALBUMIN 3.2 g/dl (3.4-5.0); BLOOD UREA NITROGEN 16.4 mg/dL (7-18); MAGNESIUM 1.9 mg/dL (1.8-2.4)
[2021-12-12 18:32] LABS: CREATININE 0.6 mg/dL (0.55-1.3)
[2021-12-12 18:34] LABS: BILIRUBIN,TOTAL 0.3 mg/dL (0.2-1); TOT PROT 6.8 g/dl (6.4-8.2)
[2021-12-12] MEDS ORDERED: ONDANSETRON 4 MG/2 ML VIAL IVPUSH ONE (18:51)
[2021-12-12 18:52] LABS: URINE RBC 52 /uL (0-23.9)
[2021-12-12] MEDS ORDERED: ONDANSETRON 4 MG/2 ML VIAL ONE (18:57)
[2021-12-12 21:52] VITALS: BP 149/73; PULSE 73
== END 2021-12-12 23:17 | disposition home or self-care (01) ==
LOC: JER 12:16
PROC: 3E0333Z Introduction of Anti-inflammatory into Peripheral Vein, Percutaneous Approach (ICD-10-PCS; principal; 2021-12-12)
PROC: 3E033GC Introduction of Other Therapeutic Substance into Peripheral Vein, Percutaneous Approach (ICD-10-PCS; 2021-12-12)
PROC: 3E033GC Introduction of Other Therapeutic Substance into Peripheral Vein, Percutaneous Approach (ICD-10-PCS; 2021-12-12)
DX: R11.2 Nausea with vomiting, unspecified (principal); R10.9 Unspecified abdominal pain
CPT/HCPCS: 0241U-QW; 71045-TC-FY; 74176-TC; 76705-TC; 80053; 81003; 82962; 83735; 83880; 85025; 87086; 87186; 93005; 93010; 96374; 96375; 99285-25

== ENCOUNTER 2022-01-18 22:11 | Emergency (ER) | payer OTHER ==
[2022-01-18 22:38] VITALS: BP 174/76; PULSE 68; TEMP 97.8; BMI 45.4
[2022-01-19] MEDS ORDERED: ACETAMINOPHEN 1000 MG/100 ML BAG IVPB ONE (01:08)
[2022-01-19] MEDS ORDERED: FAMOTIDINE 20 MG/50 ML IVPB 20 MG/50 ML MG IVPB ONE ×2 (01:09→02:26)
[2022-01-19] MEDS ORDERED: AZITHROMYCIN IVPB 500 MG in DEXTROSE 5%-WATER - 250 ML IVPB ONE (01:26)
[2022-01-19 02:17] LABS: BASO % 0.5 % (0-2.0); EOS % 2.2 % (0-4.5); HEMATOCRIT 35.7 % (32.4-45.2); HEMOGLOBIN 11.4 GM/dL (10.7-15.3); MCH 22.7 pg (25.7-33.7); MCHC 31.8 g/dl (32.0-36.0); MEAN CELL VOLUME 71.3 fl (80-96); MEAN PLT VOLUME 7.5 fl (7.5-11.1); MONO % 6.4 % (3.8-10.2); NEUT % 41.9 % (42.8-82.8); PLATELET COUNT 274 10^3/uL (134-434); RBC 5.01 M/mm3 (3.60-5.2); RDW 16.7 % (11.6-15.6); WHITE BLOOD COUNT 6.5 K/mm3 (4.0-10.0)
[2022-01-19] MEDS ORDERED: ACETAMINOPHEN INJECTION 100 ML IVPB ONE (02:25)
[2022-01-19 02:27] LABS: INR 1.07 (0.83-1.09); PROTHROMBIN TIME (PATIENT) 12.3 SEC (9.7-13.0)
[2022-01-19 02:48] LABS: ALBUMIN 3.4 g/dl (3.4-5.0); BLOOD UREA NITROGEN 15.4 mg/dL (7-18); CALCIUM 8.9 mg/dL (8.5-10.1)
[2022-01-19 02:51] LABS: CREATININE 0.8 mg/dL (0.55-1.3)
[2022-01-19 02:53] LABS: BILIRUBIN,TOTAL 0.3 mg/dL (0.2-1)
[2022-01-19 02:56] LABS: N-TERMINAL BNP 120.6 pg/ml (5-125)
[2022-01-19] MEDS ORDERED: AZITHROMYCIN IVPB 500 MG/250 ML BAG IVPB ONE (05:08)
[2022-01-19] MEDS ORDERED: AZITHROMYCIN 250 MG TABLET PO ONE (05:23)
[2022-01-19] MEDS ORDERED: AZITHROMYCIN 500 MG TABLET ONE (05:24)
[2022-01-19] MEDS ORDERED: AZITHROMYCIN 500 MG TABLET PO SCH (10:00)
== END 2022-01-19 05:44 | disposition home or self-care (01) ==
LOC: JER 22:11
PROC: 3E033GC Introduction of Other Therapeutic Substance into Peripheral Vein, Percutaneous Approach (ICD-10-PCS; principal; 2022-01-18)
DX: J20.9 Acute bronchitis, unspecified (principal); R07.89 Other chest pain
CPT/HCPCS: 0241U-QW; 36415; 71046-TC-FY; 71275-TC; 80053; 83690; 83880; 84484; 85025; 85610; 85730; 93005; 93010; 99285-25; Q9967

== ENCOUNTER 2022-02-10 07:31 | Emergency (ER) | payer OTHER ==
[2022-02-10 08:12] VITALS: BP 130/70; PULSE 77; RESP 16; TEMP 98.1; BMI 43.8
[2022-02-10] MEDS ORDERED: ACETAMINOPHEN 1000 MG/100 ML BAG IVPB ONE (08:38)
[2022-02-10] MEDS ORDERED: SODIUM CHLORIDE 1,000 ML IV STA (08:38)
[2022-02-10] MEDS ORDERED: ONDANSETRON 4 MG/2 ML VIAL IVPUSH ONE (08:38)
[2022-02-10] MEDS ORDERED: ONDANSETRON 4 MG/2 ML VIAL ONE (09:00)
[2022-02-10] MEDS ORDERED: ACETAMINOPHEN INJECTION 100 ML IVPB ONE (09:00)
[2022-02-10 09:30] LABS: BASO % 1.2 % (0-2.0); EOS % 0.2 % (0-4.5); HEMATOCRIT 37.9 % (32.4-45.2); HEMOGLOBIN 12.3 GM/dL (10.7-15.3); LYMPH % 29.6 % (8-40); MCHC 32.6 g/dl (32.0-36.0); MEAN CELL VOLUME 70.7 fl (80-96); MEAN PLT VOLUME 7.2 fl (7.5-11.1); MONO % 13.4 % (3.8-10.2); NEUT % 55.6 % (42.8-82.8); PLATELET COUNT 236 10^3/uL (134-434); RBC 5.36 M/mm3 (3.60-5.2); RDW 16.5 % (11.6-15.6); WHITE BLOOD COUNT 5.2 K/mm3 (4.0-10.0)
[2022-02-10 09:56] LABS: ALBUMIN 3.5 g/dl (3.4-5.0); BLOOD UREA NITROGEN 9.7 mg/dL (7-18)
[2022-02-10 10:00] LABS: BILIRUBIN,TOTAL 0.6 mg/dL (0.2-1); CREATININE 0.7 mg/dL (0.55-1.3); TOT PROT 7.7 g/dl (6.4-8.2)
== END 2022-02-10 15:03 | disposition home or self-care (01) ==
LOC: JER 07:31
PROC: 3E033NZ Introduction of Analgesics, Hypnotics, Sedatives into Peripheral Vein, Percutaneous Approach (ICD-10-PCS; principal; 2022-02-10)
PROC: 3E033GC Introduction of Other Therapeutic Substance into Peripheral Vein, Percutaneous Approach (ICD-10-PCS; 2022-02-10)
PROC: 3E0337Z Introduction of Electrolytic and Water Balance Substance into Peripheral Vein, Percutaneous Approach (ICD-10-PCS; 2022-02-10)
DX: U07.1 COVID-19 (principal)
CPT/HCPCS: 36415; 71045-TC-FY; 80053; 85025; 93005; 93010; 96361; 96374; 96375; 99285-25; C9803-CS; U0003; U0005

== ENCOUNTER 2023-05-15 20:43 | Emergency (ER) | payer OTHER ==
[2023-05-15 20:55] VITALS: TEMP 97.7; BMI 47.0
[2023-05-15 23:54] LABS: BASO % 0.7 % (0-2.0); EOS % 2.2 % (0-4.5); HEMOGLOBIN 11.2 GM/dL (10.7-15.3); LYMPH % 40.1 % (8-40); MCH 22.6 pg (25.7-33.7); MCHC 31.9 g/dl (32.0-36.0); MEAN CELL VOLUME 70.9 fl (80-96); MEAN PLT VOLUME 7.8 fl (7.5-11.1); MONO % 6.6 % (3.8-10.2); NEUT % 50.4 % (42.8-82.8); PLATELET COUNT 239 10^3/uL (134-434); RBC 4.93 M/mm3 (3.60-5.2); RDW 17.1 % (11.6-15.6); WHITE BLOOD COUNT 6.6 K/mm3 (4.0-10.0)
[2023-05-16 00:01] LABS: INR 1.08 (0.83-1.09); PROTHROMBIN TIME (PATIENT) 12.5 SEC (9.7-13.0)
[2023-05-16 00:44] LABS: POTASSIUM 4.2 mmol/L (3.5-5.1)
[2023-05-16 00:47] LABS: ALBUMIN 3.1 g/dl (3.4-5.0); CALCIUM 8.6 mg/dL (8.5-10.1)
[2023-05-16 00:50] LABS: CREATININE 0.7 mg/dL (0.55-1.3)
[2023-05-16 00:52] LABS: BILIRUBIN,TOTAL 0.6 mg/dL (0.2-1); TOT PROT 6.7 g/dl (6.4-8.2)
[2023-05-16 00:55] LABS: N-TERMINAL BNP 328.9 pg/ml (5-125)
[2023-05-16 01:26] VITALS: BP 157/73; PULSE 61; RESP 17
[2023-05-16 04:03] LABS: EPI CELLS 20 /uL (0-25.1); HYALINE CASTS 0 /uL (0-3.1); URINE APPEARANCE CLEAR; URINE BACTERIA 1493 /uL (0-1359); URINE BILIRUBIN NEGATIVE (NEGATIVE); URINE COLOR YELLOW; URINE GLUCOSE (UA) NEGATIVE (NEGATIVE); URINE KETONE NEGATIVE (NEGATIVE); URINE LEUK ESTERASE NEGATIVE (NEGATIVE); URINE NITRITE NEGATIVE (NEGATIVE); URINE PROTEIN NEGATIVE (NEGATIVE); URINE RBC 5 /uL (0-23.9); URINE UROBILINOGEN 0.2 mg/dL (0.2-1.0); URINE WBC 6 /uL (0-25.8)
[2023-05-16] MEDS ORDERED: CEPHALEXIN MONOHYDRATE 500 MG CAPSULE (UD) PO ONE (04:17)
[2023-05-16] MEDS ORDERED: CEPHALEXIN MONOHYDRATE 500 MG CAPSULE (UD) ONE (04:21)
== END 2023-05-16 04:37 | disposition home or self-care (01) ==
LOC: JER 20:43
DX: R53.1 Weakness (principal); N39.0 Urinary tract infection, site not specified; M71.21 Synovial cyst of popliteal space [Baker], right knee; M71.22 Synovial cyst of popliteal space [Baker], left knee; R05.9 Cough, unspecified; Z20.822 Contact with and (suspected) exposure to COVID-19
CPT/HCPCS: 0241U-QW; 36415; 71045-TC-FY; 80053; 81003; 83880; 84484; 85025; 85610; 85730; 87086; 87186; 93005; 93010; 93970-TC; 99285-25

== ENCOUNTER 2024-01-31 15:32 | Emergency (ER) | payer OTHER ==
[2024-01-31 15:45] VITALS: BMI 44.4
[2024-01-31 17:39] LABS: EOS % 1.3 % (0-4.5); HEMATOCRIT 39.5 % (32.4-45.2); HEMOGLOBIN 12.7 GM/dL (10.7-15.3); MCH 22.9 pg (25.7-33.7); MCHC 32.1 g/dl (32.0-36.0); MEAN CELL VOLUME 71.2 fl (80-96); MEAN PLT VOLUME 7.9 fl (7.5-11.1); MONO % 7.9 % (3.8-10.2); NEUT % 50.8 % (42.8-82.8); PLATELET COUNT 251 10^3/uL (134-434); RBC 5.54 M/mm3 (3.60-5.2); RDW 15.7 % (11.6-15.6); WHITE BLOOD COUNT 7.9 K/mm3 (4.0-10.0)
[2024-01-31 17:46] LABS: INR 1.23 (0.83-1.09); PROTHROMBIN TIME (PATIENT) 13.8 SEC (9.7-13.0)
[2024-01-31 18:09] LABS: BLOOD UREA NITROGEN 32.6 mg/dL (7-18); CALCIUM 8.8 mg/dL (8.5-10.1)
[2024-01-31 18:10] LABS: ALBUMIN 3.5 g/dl (3.4-5.0)
[2024-01-31 18:13] LABS: CREATININE 1.6 mg/dL (0.55-1.3)
[2024-01-31 18:14] LABS: BILIRUBIN,TOTAL 0.2 mg/dL (0.2-1); TOT PROT 7.4 g/dl (6.4-8.2)
[2024-01-31 18:37] LABS: EPI CELLS 32 /uL (0-25.1); HYALINE CASTS 8 /uL (0-3.1); URINE APPEARANCE CLOUDY; URINE BACTERIA >9,000 /uL (0-1359); URINE BILIRUBIN NEGATIVE (NEGATIVE); URINE COLOR DK YELLOW; URINE GLUCOSE (UA) NEGATIVE (NEGATIVE); URINE KETONE TRACE (NEGATIVE); URINE LEUK ESTERASE 1+ (NEGATIVE); URINE NITRITE POSITIVE (NEGATIVE); URINE PROTEIN 1+ (NEGATIVE); URINE RBC 33 /uL (0-23.9); URINE WBC 229 /uL (0-25.8)
[2024-01-31] MEDS ORDERED: MECLIZINE HCL 25 MG TABLET (FP) ONE (18:51)
[2024-01-31] MEDS ORDERED: METOCLOPRAMIDE HCL INJECTION 10 MG/2 ML VIAL ONE (18:51)
[2024-01-31] MEDS: MECLIZINE HCL 25 MG TABLET (FP) PO ONE (18:57)
[2024-01-31] MEDS: METOCLOPRAMIDE HCL INJECTION 10 MG/2 ML VIAL IVPUSH ONE (18:57)
[2024-01-31] MEDS ORDERED: NITROFURANTOIN MACROCRYSTAL 50 MG CAPSULE (FP) ONE (19:09)
[2024-01-31] MEDS: SODIUM CHLORIDE 1,000 ML IV ONE (19:13)
[2024-01-31] MEDS: NITROFURANTOIN MACROCRYSTAL 50 MG CAPSULE (FP) PO ONE (19:14)
[2024-01-31 22:14] LABS: CALCIUM 8.5 mg/dL (8.5-10.1)
[2024-01-31 22:15] LABS: BLOOD UREA NITROGEN 31.9 mg/dL (7-18)
[2024-01-31 22:18] LABS: CREATININE 1.2 mg/dL (0.55-1.3)
[2024-01-31 22:48] VITALS: BP 127/67; PULSE 82; RESP 18; TEMP 98
== END 2024-01-31 23:12 | disposition home or self-care (01) ==
LOC: JER 15:32
PROC: 3E033GC Introduction of Other Therapeutic Substance into Peripheral Vein, Percutaneous Approach (ICD-10-PCS; principal; 2024-01-31)
PROC: 3E0337Z Introduction of Electrolytic and Water Balance Substance into Peripheral Vein, Percutaneous Approach (ICD-10-PCS; 2024-01-31)
DX: R42 Dizziness and giddiness (principal); N39.0 Urinary tract infection, site not specified; E86.0 Dehydration
CPT/HCPCS: 36415; 70450-TC; 71045-TC-FY; 80048; 80053; 81003; 84484; 85025; 85610; 86850; 86900; 86901; 87086; 87186; 93005; 93010; 96361; 96374; 99285-25

== ENCOUNTER 2024-02-20 10:42 | Observation (INO) | payer OTHER ==
[2024-02-20 14:47] LABS: BASO % 0.4 % (0-2.0); EOS % 0.8 % (0-4.5); HEMATOCRIT 42.7 % (32.4-45.2); HEMOGLOBIN 13.7 GM/dL (10.7-15.3); LYMPH % 25.1 % (8-40); MCHC 32.1 g/dl (32.0-36.0); MEAN CELL VOLUME 71.6 fl (80-96); MEAN PLT VOLUME 8.2 fl (7.5-11.1); MONO % 5.7 % (3.8-10.2); PLATELET COUNT 327 10^3/uL (134-434); RBC 5.96 M/mm3 (3.60-5.2); WHITE BLOOD COUNT 8.5 K/mm3 (4.0-10.0)
[2024-02-20 15:07] LABS: POTASSIUM 4.3 mmol/L (3.5-5.1)
[2024-02-20 15:09] LABS: CALCIUM 10.3 mg/dL (8.5-10.1)
[2024-02-20 15:10] LABS: ALBUMIN 3.6 g/dl (3.4-5.0); BLOOD UREA NITROGEN 42.2 mg/dL (7-18)
[2024-02-20 15:13] LABS: CREATININE 1.6 mg/dL (0.55-1.3)
[2024-02-20 15:14] LABS: BILIRUBIN,TOTAL 0.6 mg/dL (0.2-1); TOT PROT 7.8 g/dl (6.4-8.2)
[2024-02-20] MEDS ORDERED: ONDANSETRON 4 MG/2 ML VIAL ONE (16:02)
[2024-02-20] MEDS ORDERED: FAMOTIDINE 20 MG/50 ML IVPB 20 MG/50 ML MG IVPB ONE (16:02)
[2024-02-20] MEDS: FAMOTIDINE 20 MG/50 ML IVPB 20 MG/50 ML MG IVPB ONE (16:11)
[2024-02-20] MEDS: ONDANSETRON 4 MG/2 ML VIAL IVPUSH ONE (16:11)
[2024-02-20] MEDS: SODIUM CHLORIDE 0.9% 500 ML INFUS.BAG IV ONE (16:11)
[2024-02-20] MEDS ORDERED: ATORVASTATIN CA 20 MG TABLET (FP) ONE (22:37)
[2024-02-20] MEDS ORDERED: HEPARIN NA (PORCINE) 5,000 UNITS/ML 1ML VIAL ONE (22:38)
[2024-02-20] MEDS: HEPARIN NA (PORCINE) 5,000 UNITS/ML 1ML VIAL SQ SCH (22:47)
[2024-02-20] MEDS: ATORVASTATIN CA 20 MG TABLET (FP) PO SCH (22:47)
[2024-02-21] MEDS: SODIUM CHLORIDE 0.9% 500 ML INFUS.BAG IV ONE (01:55)
[2024-02-21] MEDS: ACETAMINOPHEN 1000 MG/100 ML BAG IVPB PRN (03:02)
[2024-02-21 03:31] VITALS: BMI 31.8
[2024-02-21] MEDS: PANTOPRAZOLE SODIUM 40 MG VIAL IVPUSH SCH (05:53)
[2024-02-21 09:52] LABS: BASO % 0.5 % (0-2.0); EOS % 3.3 % (0-4.5); HEMATOCRIT 40.2 % (32.4-45.2); HEMOGLOBIN 13.1 GM/dL (10.7-15.3); LYMPH % 51.5 % (8-40); MCH 23.4 pg (25.7-33.7); MCHC 32.5 g/dl (32.0-36.0); MEAN PLT VOLUME 8.4 fl (7.5-11.1); MONO % 11.6 % (3.8-10.2); NEUT % 33.1 % (42.8-82.8); PLATELET COUNT 252 10^3/uL (134-434); RBC 5.59 M/mm3 (3.60-5.2); RDW 16.1 % (11.6-15.6); WHITE BLOOD COUNT 5.6 K/mm3 (4.0-10.0)
[2024-02-21 10:11] LABS: POTASSIUM 4.5 mmol/L (3.5-5.1)
[2024-02-21 10:18] LABS: ALBUMIN 3.5 g/dl (3.4-5.0); BLOOD UREA NITROGEN 35.6 mg/dL (7-18)
[2024-02-21 10:21] LABS: CREATININE 1.3 mg/dL (0.55-1.3)
[2024-02-21 10:22] LABS: BILIRUBIN,TOTAL 0.8 mg/dL (0.2-1); TOT PROT 7.4 g/dl (6.4-8.2)
[2024-02-21 19:45] LABS: N-TERMINAL BNP 86.6 pg/ml (5-125)
[2024-02-21] MEDS: ACETAMINOPHEN 325 MG TABLET (FP) PO ONE (22:44)
[2024-02-22] MEDS: SODIUM CHLORIDE 1,000 ML IV SCH ×2 (01:38→17:07)
[2024-02-22] MEDS ORDERED: BUPIVACAINE HCL/PF 0.25% (2.5MG/ML) 10 ML VIAL ONE (07:54)
[2024-02-22] MEDS ORDERED: PROPOFOL 20 ML ONE (09:26)
[2024-02-22] MEDS ORDERED: ROCURONIUM BROMIDE 50 MG/5 ML SYRINGE ONE ×2 (09:26→11:08)
[2024-02-22] MEDS ORDERED: MIDAZOLAM HCL 2 MG/2 ML SINGLE DOSE VIAL ONE (09:26)
[2024-02-22] MEDS ORDERED: SUCCINYLCHOLINE CHLORIDE 200 MG/10 ML SYRINGE ONE (10:05)
[2024-02-22] MEDS: cefOXitin SODIUM 2 GM VIAL (RESTRICTED TO ID) IVPB ONE (10:15)
[2024-02-22] MEDS ORDERED: HEPARIN NA (PORCINE) 5,000 UNITS/ML 1ML VIAL ONE (10:31)
[2024-02-22] MEDS: BUPIVACAINE HCL/PF 0.25% (2.5MG/ML) 10 ML VIAL IJ ONE (10:55)
[2024-02-22] MEDS ORDERED: SUGAMMADEX SODIUM 200 MG/2 ML VIAL ONE (11:59)
[2024-02-22] MEDS ORDERED: LACTATED RINGERS SOLUTION 1,000 ML IV SCH (12:45)
[2024-02-22] MEDS ORDERED: oxyCODONE HCL 5 MG TABLET PO PRN (13:06)
[2024-02-22] MEDS: ACETAMINOPHEN 500 MG TABLET (FP) PO SCH (17:09)
[2024-02-22] MEDS: HEPARIN NA (PORCINE) 5,000 UNITS/ML 1ML VIAL SQ SCH (22:28)
[2024-02-22] MEDS: ATORVASTATIN CA 20 MG TABLET (FP) PO SCH (22:29)
[2024-02-23] MEDS: PANTOPRAZOLE SODIUM 40 MG VIAL IVPUSH SCH (06:26)
[2024-02-23 15:03] VITALS: BP 138/96; PULSE 87; RESP 19; TEMP 97.7
== END 2024-02-23 15:15 | disposition home or self-care (01) ==
LOC: JER 10:42 → JERBED 16:21 → J8W 02-21 02:40
PROVIDERS: ADMIT Internal Medicine; ATTEND Internal Medicine
PROC: 3E033NZ Introduction of Analgesics, Hypnotics, Sedatives into Peripheral Vein, Percutaneous Approach (ICD-10-PCS; principal; 2024-02-20)
PROC: 3E023GC Introduction of Other Therapeutic Substance into Muscle, Percutaneous Approach (ICD-10-PCS; 2024-02-20)
PROC: 3E0337Z Introduction of Electrolytic and Water Balance Substance into Peripheral Vein, Percutaneous Approach (ICD-10-PCS; 2024-02-20)
PROC: 0FT44ZZ Resection of Gallbladder, Percutaneous Endoscopic Approach (ICD-10-PCS; 2024-02-20)
DX: K80.10 Calculus of gallbladder with chronic cholecystitis without obstruction (principal); I47.10 Supraventricular tachycardia, unspecified; I25.10 Atherosclerotic heart disease of native coronary artery without angina pectoris; J44.9 Chronic obstructive pulmonary disease, unspecified; N17.9 Acute kidney failure, unspecified; R11.2 Nausea with vomiting, unspecified; I11.9 Hypertensive heart disease without heart failure; E11.9 Type 2 diabetes mellitus without complications; E66.9 Obesity, unspecified; E86.0 Dehydration; R30.0 Dysuria; E78.5 Hyperlipidemia, unspecified; K59.00 Constipation, unspecified; Z95.5 Presence of coronary angioplasty implant and graft
CPT/HCPCS: 36415; 76705-TC; 80053; 80061; 83036; 83690; 83880; 84443; 85025; 86850; 86900; 86901; 88304-TC; 93005; 93010; 93306-TC; 94760; 96361; 96365; 96372; 96375; 96376; 99285-25; G0378; J0131; J1644